=== PATIENT | male | born 1945 | race Caucasian/White ===

== ENCOUNTER → 2016-07-22 | Outpatient (CLI) | payer MEDICARE, OTHER ==
[~2016-07-22] MED LIST: ASPI1TAB PO; ATOR1TAB21 PO; CHLO25TA PO; CLON-412 PO; CLOP75TA2 PO; CYCL10TA PO; DOXA1TAB73 PO; GABA-283 PO; HYDR-4266 PO; METO-207 PO; NIFE15TA PO; PERCOCET PO; SPIR25TA2 PO; TRAM50TA2 PO
[2016-07-22 13:37] LABS: CALCIUM LEVEL 9.1 MG/DL (8.8-10.2); CREATININE FOR GFR 1.47 MG/DL (0.70-1.30); GLOMERULAR FILTRATION RATE 50.1 (>42); POTASSIUM SERUM 4.6 MEQ/L (3.5-5.1)
== END ==
LOC: M LRY 08:01
PROVIDERS: ATTEND Internal Medicine
DX: N18.3 Chronic kidney disease, stage 3 (moderate) (principal)

== ENCOUNTER → 2016-11-11 | Outpatient (REF) | payer MEDICARE, OTHER | LOC: M LAB REF 15:30 | PROVIDERS: ATTEND Surgery | DX: D48.5 Neoplasm of uncertain behavior of skin (principal) ==

== ENCOUNTER → 2017-03-23 | Outpatient (CLI) | payer MEDICARE, OTHER ==
[~2017-03-23] MED LIST changes: +HYDR-3910 PO; -HYDR-4266 PO; -METO-207 PO; +METO1TAB7 PO
[2017-03-23 11:57] LABS: CALCIUM LEVEL 9.3 MG/DL (8.8-10.2); CREATININE FOR GFR 1.39 MG/DL (0.70-1.30); GLOMERULAR FILTRATION RATE 53.5 (>42); POTASSIUM SERUM 4.3 MEQ/L (3.5-5.1)
== END ==
LOC: M LRY 08:57
PROVIDERS: ATTEND Physician Assistant Medical
DX: N18.3 Chronic kidney disease, stage 3 (moderate) (principal)

== ENCOUNTER 2017-07-29 08:58 | Emergency (ER) | payer MEDICARE, OTHER ==
[2017-07-29 10:06] LABS: BASO # 0.1 10^3/uL (0.0-0.2); EOS # 0.1 10^3/uL (0.0-0.50); EOS % 1.9 % (0.0-3.0); HEMATOCRIT 46.5 % (42.0-52.0); HEMOGLOBIN 15.5 g/dl (14.0-18.0); IMMATURE GRANULOCYTE % 0.7 % (0-3.0); LYMPH # 0.7 10^3/uL (1.5-4.5); MEAN CORPUSCULAR HEMOGLOBIN 30.2 pg (27.0-33.0); MEAN CORPUSCULAR HGB CONC 33.3 g/dl (32.0-36.5); MEAN CORPUSCULAR VOLUME 90.6 fl (80.0-96.0); MONO # 0.4 10^3/uL (0.0-0.8); MONO % 6.7 % (0.0-5.0); NEUTROPHILS # 4.5 10^3/uL (1.8-7.7); NEUTROPHILS % 77.7 % (36.0-66.0); PLATELET COUNT, AUTOMATED 254 10^3/uL (150-450); RED BLOOD COUNT 5.13 10^6/uL (4.30-6.10); RED CELL DISTRIBUTION WIDTH 12.5 % (11.5-14.5); WHITE BLOOD COUNT 5.8 10^3/uL (4.0-10.0)
[2017-07-29 10:32] LABS: ANION GAP 5 MEQ/L (8-16); BLOOD UREA NITROGEN 20 MG/DL (7-18); CALCIUM LEVEL 8.9 MG/DL (8.8-10.2); CARBON DIOXIDE LEVEL 28 MEQ/L (21-32); CHLORIDE LEVEL 107 MEQ/L (98-107); CK-MB VALUE MASS 2.7 NG/ML (0.0-3.6); CPK CREATINE PHOSPHOKINASE 218 U/L (39-308); CREATININE FOR GFR 1.49 MG/DL (0.70-1.30); GLOMERULAR FILTRATION RATE 49.2 (>42); GLUCOSE, FASTING 104 MG/DL (70-100); MB/CK RELATIVE INDEX 1.23 (< OR =4); NT-PRO BNP 315 PG/ML (<125); POTASSIUM SERUM 4.4 MEQ/L (3.5-5.1); SODIUM LEVEL 140 MEQ/L (136-145); TROPONIN I < 0.02 NG/ML (< 0.10)
[2017-07-29 12:23] LABS: CK-MB VALUE MASS 2.3 NG/ML (0.0-3.6); CPK CREATINE PHOSPHOKINASE 188 U/L (39-308); MB/CK RELATIVE INDEX 1.22 (< OR =4); TROPONIN I < 0.02 NG/ML (< 0.10)
== END 2017-07-29 15:40 | disposition short-term general hospital (02) ==
LOC: M ED 08:58
DX: I25.110 Atherosclerotic heart disease of native coronary artery with unstable angina pectoris (principal); I11.9 Hypertensive heart disease without heart failure; N18.9 Chronic kidney disease, unspecified; Z79.01 Long term (current) use of anticoagulants; Z79.82 Long term (current) use of aspirin; Z79.899 Other long term (current) drug therapy; Z88.5 Allergy status to narcotic agent; Z87.891 Personal history of nicotine dependence
CPT/HCPCS: 71045

== ENCOUNTER → 2018-01-07 | Outpatient (CLI) | payer MEDICARE, OTHER ==
[2018-01-07 17:23] LABS: BASO % 0.7 % (0.0-1.0); EOS # 0.1 10^3/uL (0.0-0.50); EOS % 2.3 % (0.0-3.0); HEMOGLOBIN 14.8 g/dl (13.5-17.5); IMMATURE GRANULOCYTE % 0.5 % (0-3.0); LYMPH # 0.7 10^3/uL (1.5-4.5); LYMPH % 12.2 % (24.0-44.0); MEAN CORPUSCULAR HEMOGLOBIN 30.1 pg (27.0-33.0); MEAN CORPUSCULAR HGB CONC 32.2 g/dl (32.0-36.5); MEAN CORPUSCULAR VOLUME 93.7 fl (80.0-96.0); MONO # 0.3 10^3/uL (0.0-0.8); MONO % 5.3 % (0.0-5.0); NEUTROPHILS # 4.8 10^3/uL (1.8-7.7); PLATELET COUNT, AUTOMATED 284 10^3/uL (150-450); RED BLOOD COUNT 4.91 10^6/uL (4.30-6.10); RED CELL DISTRIBUTION WIDTH 12.5 % (11.5-14.5); WHITE BLOOD COUNT 6.1 10^3/uL (4.0-10.0)
[2018-01-07 18:34] LABS: ERYTHROCYTE SEDIMENTATION RATE 2 mm/hr (0-20)
[2018-01-07 18:52] LABS: ALBUMIN 3.7 GM/DL (3.2-5.2); ALBUMIN/GLOBULIN RATIO 1.09 (1.00-1.93); ALKALINE PHOSPHATASE 78 U/L (45-117); ALT/SGPT 22 U/L (12-78); ANION GAP 8 MEQ/L (8-16); AST/SGOT 21 U/L (7-37); BILIRUBIN,TOTAL 0.6 MG/DL (0.2-1.0); BLOOD UREA NITROGEN 23 MG/DL (7-18); CALCIUM LEVEL 8.7 MG/DL (8.8-10.2); CARBON DIOXIDE LEVEL 27 MEQ/L (21-32); CHLORIDE LEVEL 107 MEQ/L (98-107); GLOMERULAR FILTRATION RATE 42.3 (>42); GLUCOSE, FASTING 109 MG/DL (70-100); POTASSIUM SERUM 4.3 MEQ/L (3.5-5.1); RHEUMATOID FACTOR QUANT 16.2 IU/ML (<15.0); SODIUM LEVEL 142 MEQ/L (136-145); TOTAL PROTEIN 7.1 GM/DL (6.4-8.2)
[2018-01-07 19:40] LABS: FOLATE 4.3 NG/ML; VITAMIN B12 LEVEL 336 PG/ML
[2018-01-09 14:10] LABS: ANTINUCLEAR ANTIBODIES DIRECT Negative (Negative)
[2018-01-12 00:07] LABS: VITAMIN E(ALPHA TOCOPHEROL) 9.3 mg/L (9.0-29.0); VITAMIN E(GAMMA TOCOPHEROL) 1.3 mg/L (0.5-4.9)
[2018-01-13 08:06] LABS: VITAMIN B1 LEVEL WHOLE BLOOD 109.8 nmol/L (66.5-200.0); VITAMIN B6,PYRIDOXAL PHOSPHATE 4.5 ug/L (5.3-46.7)
[2018-01-13 11:35] LABS: ALBUMIN 4.26 GM/DL (3.29-5.55); ALPHA-1-GLOBULIN % 4.1 % (2.9-4.9); ALPHA-1-GLOBULINS 0.29 GM/DL (0.17-0.41); ALPHA-2-GLOBULINS 0.69 GM/DL (0.42-0.99); ALPHA-2-GLOBULINS % 9.7 % (7.1-11.8); BETA-1-GLOBULINS % 6.3 % (4.7-7.2); BETA-2-GLOBULINS % 5.4 % (3.2-6.5); GAMMA GLOBULIN % 14.5 % (11.1-18.8)
[2018-01-13 11:36] LABS: BETA-1-GLOBULINS 0.45 GM/DL (0.28-0.60); BETA-2-GLOBULINS 0.38 GM/DL (0.19-0.55); GAMMA GLOBULINS 1.03 GM/DL (0.65-1.58)
== END ==
LOC: M LRY 14:24
DX: R51 Headache (principal); R42 Dizziness and giddiness; R41.3 Other amnesia
CPT/HCPCS: 82746

== ENCOUNTER 2018-09-07 09:06 | Emergency (ER) | payer MEDICARE, OTHER ==
[~2018-09-07] VITALS: Ht 180.3 cm; Wt 95.5 kg
[~2018-09-07 09:06] MED LIST changes: -ASPI1TAB PO; +ASPI81TA26 PO; +ATEN50TA2 PO; +CHLO125TA PO; -CHLO25TA PO; -DOXA1TAB73 PO; +DOXA2TAB3 PO; +DOXA8TAB2 PO; -GABA-283 PO; +GABA-845 PO; +SPIR-10 PO; -SPIR25TA2 PO
[2018-09-07] MEDS ORDERED: MECLIZINE 25 MG TABLET PO ONE (09:45)
[2018-09-07 09:47] LABS: BASO % 0.5 % (0.0-1.0); EOS # 0.1 10^3/uL (0.0-0.50); EOS % 1.6 % (0.0-3.0); HEMATOCRIT 41.7 % (42.0-52.0); HEMOGLOBIN 13.8 g/dl (13.5-17.5); LYMPH # 0.6 10^3/uL (1.5-4.5); LYMPH % 8.5 % (24.0-44.0); MEAN CORPUSCULAR HEMOGLOBIN 30.9 pg (27.0-33.0); MEAN CORPUSCULAR HGB CONC 33.1 g/dl (32.0-36.5); MEAN CORPUSCULAR VOLUME 93.3 fl (80.0-96.0); MONO # 0.5 10^3/uL (0.0-0.8); MONO % 6.9 % (0.0-5.0); NEUTROPHILS # 6.1 10^3/uL (1.8-7.7); NEUTROPHILS % 82.1 % (36.0-66.0); PLATELET COUNT, AUTOMATED 277 10^3/uL (150-450); RED BLOOD COUNT 4.47 10^6/uL (4.30-6.10); WHITE BLOOD COUNT 7.5 10^3/uL (4.0-10.0)
--- NOTE | 2018-09-07 09:54 | REP ---
CT Head without contrast HISTORY: Dizziness COMPARISON: 06/19/2015 Areas of decreased attenuation are present in the periventricular white matter. This represents small-vessel ischemic disease. There is no intraparenchymal hemorrhage, acute infarct, mass or midline shift. The ventricular system and cortical sulci are dilated consistent with mild volume loss. There is no extra cerebral collection. There is no fracture. The visualized sinuses are clear. IMPRESSION: 1. Small vessel ischemic disease. 2. Mild volume loss. Electronically Signed by Hung Multani MD 09/07/2018 09:45 A
[2018-09-07 09:57] LABS: INR 1.02; PROTHROMBIN TIME 13.5 SECONDS (12.1-14.4)
--- NOTE | 2018-09-07 10:00 | REP ---
Portable chest x-ray: Single view. History: Chest pain. Comparison study: July 29, 2017. Findings: EKG monitoring electrodes overlie the chest. There are granulomatous calcifications visible in the left chest unchanged. Heart size is normal. Lungs are otherwise clear. Pleural angles are sharp. Pulmonary vasculature is not increased. The thoracic aorta is slightly tortuous. No significant bony abnormality is noted. Impression: No active disease. Electronically Signed by Antonio Cheema MD 09/07/2018 09:51 A
[2018-09-07 10:14] LABS: ALBUMIN 3.4 GM/DL (3.2-5.2); ALT/SGPT 16 U/L (12-78); BILIRUBIN,DIRECT 0.1 MG/DL (0.0-0.2); BILIRUBIN,TOTAL 0.6 MG/DL (0.2-1.0); BLOOD UREA NITROGEN 21 MG/DL (7-18); CALCIUM LEVEL 8.8 MG/DL (8.8-10.2); CARBON DIOXIDE LEVEL 26 MEQ/L (21-32); CHLORIDE LEVEL 107 MEQ/L (98-107); CPK CREATINE PHOSPHOKINASE 191 U/L (39-308); CREATININE FOR GFR 1.42 MG/DL (0.70-1.30); GLOMERULAR FILTRATION RATE 51.9 (>42); GLUCOSE, FASTING 102 MG/DL (70-100); LIPASE 150 U/L (73-393); MB/CK RELATIVE INDEX 1.88 (< OR =4); NT-PRO BNP 526 PG/ML (<125); SODIUM LEVEL 139 MEQ/L (136-145); TOTAL PROTEIN 6.7 GM/DL (6.4-8.2); TROPONIN I < 0.02 NG/ML (< 0.10)
--- NOTE | 2018-09-07 15:24 | REP ---
MRA BRAIN WITHOUT CONTRAST: HISTORY: Vertigo. 3D [id number] MR angiography was performed at the level of the [place]. There is no aneurysm or arteriovenous malformation. Moderate atherosclerotic disease involves the cavernous right internal carotid artery. Mild atherosclerotic disease involves the cavernous left internal carotid artery. The A1 segment of the right anterior cerebral artery is hypoplastic. Major intracranial vessels are patent. The left vertebral artery is dominant. IMPRESSION: 1. There is no aneurysm or arteriovenous malformation. 2. Atherosclerotic disease as described above. Electronically Signed by Hung Multani MD 09/07/2018 03:27 P
--- NOTE | 2018-09-07 15:24 | REP ---
MR BRAIN WITHOUT CONTRAST: HISTORY: Vertigo. COMPARISON: CT 09/07/2018 Several punctate areas of increased signal intensity on T2-weighted images are present in the periventricular and subcortical white matter. This represents small vessel ischemic disease. There is no intraparenchymal hemorrhage, infarct , mass or midline shift. The ventricular system and cortical sulci are dilated consistent with mild volume loss. There is no extracerebral collection. The sinuses are clear. IMPRESSION: 1. Minimal small vessel ischemic disease. 2. Mild volume loss. Electronically Signed by Hung Multani MD 09/07/2018 03:27 P
[2018-09-07 16:06] LABS: CPK CREATINE PHOSPHOKINASE 178 U/L (39-308); MB/CK RELATIVE INDEX 1.57 (< OR =4); TROPONIN I < 0.02 NG/ML (< 0.10)
[2018-09-07] MEDS ORDERED: MECL-68 PO (16:18)
[2018-09-07 16:33] VITALS: BP 150/73
--- NOTE | 2018-09-07 22:07 | ECGEPIP ---
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
--- NOTE | 2018-09-07 22:12 | ECGEPIP ---
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
== END 2018-09-07 16:35 | disposition home or self-care (01) ==
LOC: M ED 09:06
DX: R42 Dizziness and giddiness (principal); R07.9 Chest pain, unspecified; I25.10 Atherosclerotic heart disease of native coronary artery without angina pectoris; I25.2 Old myocardial infarction; I10 Essential (primary) hypertension; E78.5 Hyperlipidemia, unspecified; N18.3 Chronic kidney disease, stage 3 (moderate); Z86.79 Personal history of other diseases of the circulatory system; Z96.0 Presence of urogenital implants; Z87.891 Personal history of nicotine dependence; Z79.82 Long term (current) use of aspirin; Z79.899 Other long term (current) drug therapy; Z88.5 Allergy status to narcotic agent

== ENCOUNTER → 2018-09-14 | Outpatient (CLI) | payer MEDICARE, OTHER ==
[~2018-09-14] MED LIST changes: +MECL-68 PO; +VENTAER INH
[2018-09-14 20:19] LABS: CALCIUM LEVEL 8.9 MG/DL (8.8-10.2); CREATININE FOR GFR 1.66 MG/DL (0.70-1.30); GLOMERULAR FILTRATION RATE 43.3 (>42); POTASSIUM SERUM 4.6 MEQ/L (3.5-5.1)
[2018-09-14 20:25] LABS: HEMATOCRIT 37.6 % (42.0-52.0); HEMOGLOBIN 13.4 g/dl (13.5-17.5); MEAN CORPUSCULAR HEMOGLOBIN 33.6 pg (27.0-33.0); MEAN CORPUSCULAR HGB CONC 35.6 g/dl (32.0-36.5); MEAN CORPUSCULAR VOLUME 94.2 fl (80.0-96.0); PLATELET COUNT, AUTOMATED 253 10^3/uL (150-450); RED BLOOD COUNT 3.99 10^6/uL (4.30-6.10); WHITE BLOOD COUNT 4.6 10^3/uL (4.0-10.0)
== END ==
LOC: M LRY 15:19
PROVIDERS: ATTEND Physician Assistant
DX: J20.9 Acute bronchitis, unspecified (principal)

== ENCOUNTER 2018-09-21 13:25 | Emergency (ER) | payer MEDICARE, OTHER ==
[~2018-09-21] VITALS: Ht 180.3 cm; Wt 90.9 kg
[~2018-09-21 13:25] MED LIST changes: -VENTAER INH
[2018-09-21] MEDS ORDERED: methylPREDNISolone INJ 125 MG/2 ML VIAL (J2930) IV ONE (14:15)
[2018-09-21] MEDS ORDERED: ALBUTEROL SULFATE 2.5 MG/0.5 ML INH NEB SOLN INH ONE (14:15)
[2018-09-21] MEDS ORDERED: IPRATROPIUM 0.5MG/ALBUTEROL 2.5MG INH SOL UD 3ML (DUONEB)(J7620) NEB ONE (14:15)
[2018-09-21 14:32] LABS: BASO % 0.4 % (0.0-1.0); EOS # 0.1 10^3/uL (0.0-0.50); EOS % 1.6 % (0.0-3.0); HEMATOCRIT 40.5 % (42.0-52.0); MEAN CORPUSCULAR HEMOGLOBIN 32.1 pg (27.0-33.0); MEAN CORPUSCULAR HGB CONC 34.6 g/dl (32.0-36.5); MEAN CORPUSCULAR VOLUME 92.9 fl (80.0-96.0); MONO # 0.5 10^3/uL (0.0-0.8); NEUTROPHILS # 5.8 10^3/uL (1.8-7.7); NEUTROPHILS % 78.3 % (36.0-66.0); PLATELET COUNT, AUTOMATED 303 10^3/uL (150-450); RED BLOOD COUNT 4.36 10^6/uL (4.30-6.10); WHITE BLOOD COUNT 7.4 10^3/uL (4.0-10.0)
[2018-09-21 14:52] LABS: INR 1.03; PROTHROMBIN TIME 13.6 SECONDS (12.1-14.4)
--- NOTE | 2018-09-21 14:54 | REP ---
CT of the abdomen and pelvis without IV and oral contrast for abdominal aortic aneurysm evaluation: Comparison is 11/24/2013. There is an aneurysm of the distal abdominal aorta measuring up to 3.9 cm diameter. Previously this measured 3.2 cm. There is no periaortic hematoma. There is calcified vascular atheroma throughout the abdominal aorta. There is aneurysmal dilatation of the proximal right common iliac artery measuring up to 2.7 cm. just distal to the bifurcation. There is aneurysmal dilatation of the proximal left common iliac artery a few centimeters distal to the bifurcation measuring up to 2.5 cm. There is an endovascular stent in the proximal right renal artery, unchanged from the prior study. There is diffuse right renal cortical atrophy that has progressed. There is an endovascular stent in the proximal left renal artery that was not present previously. There is no left renal cortical atrophy. There is a nonobstructive 4 mm left renal calculus, not significantly changed. There is no hydronephrosis. The visualized lung bravo are unremarkable. The unenhanced hepatic parenchyma, gallbladder, spleen and pancreas are unremarkable except for splenic calcified granulomas. This is unchanged. The adrenals are unremarkable. The kidneys as previously described. There is no abdominal aortic aneurysm as described. No periaortic hematoma. The bowel and mesentery are unremarkable. Pelvis: The appendix is unremarkable. The bladder is unremarkable. The prostate is moderately enlarged and contains prostatic of this. There is no pelvic adenopathy or ascites. The pelvic bowel loops are unremarkable. Impression: Abdominal aortic aneurysm as described. 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 Nonobstructive left renal calculus, unchanged. Bilateral renal artery stents as described. Advanced right renal cortical atrophy. No left renal cortical atrophy. Electronically Signed by Markell Garcia MD 09/21/2018 02:45 P
[2018-09-21 14:55] LABS: D-DIMER QUANT 924.55 ng/ml (<500)
--- NOTE | 2018-09-21 14:58 | REP ---
REASON: Dyspnea. COMPARISON: Multiple, the latest 09/07/2018. The technique utilized in obtaining the radiograph has magnified the cardiac silhouette and accentuated the interstitial markings. The lung rbavo and cardiomediastinal silhouette are unchanged allowing for the differences in technique. No acute patchy parenchymal opacities or pleural effusions have developed. The heart is not enlarged. The osseous structures are stable and intact. IMPRESSION: No acute cardiopulmonary disease. Electronically Signed by Daniele Nicholson DO 09/21/2018 04:02 P
[2018-09-21 15:12] LABS: ALBUMIN 3.6 GM/DL (3.2-5.2); ALT/SGPT 26 U/L (12-78); BILIRUBIN,DIRECT 0.1 MG/DL (0.0-0.2); BILIRUBIN,TOTAL 0.5 MG/DL (0.2-1.0); BLOOD UREA NITROGEN 25 MG/DL (7-18); CALCIUM LEVEL 9.3 MG/DL (8.8-10.2); CARBON DIOXIDE LEVEL 25 MEQ/L (21-32); CHLORIDE LEVEL 104 MEQ/L (98-107); CPK CREATINE PHOSPHOKINASE 280 U/L (39-308); CREATININE FOR GFR 1.35 MG/DL (0.70-1.30); GLUCOSE, FASTING 97 MG/DL (70-100); MB/CK RELATIVE INDEX 1.82 (< OR =4); NT-PRO BNP 333 PG/ML (<125); POTASSIUM SERUM 4.5 MEQ/L (3.5-5.1); SODIUM LEVEL 136 MEQ/L (136-145); THYROXINE (T4) 7.3 UG/DL (4.5-12.0); TOTAL PROTEIN 6.4 GM/DL (6.4-8.2); TROPONIN I < 0.02 NG/ML (< 0.10)
--- NOTE | 2018-09-21 17:22 | REP ---
Duplex extremity venous ultrasound: Bilateral lower extremity lizette History: Shortness of breath. Question DVT. Findings: The deep veins are anechoic and fully compressible from the groin to the popliteal fossa in the left and right lower extremity. Color flow imaging is homogeneous. Spectral Doppler interrogation demonstrates intact respiratory variation in flow and normal manual augmentation of flow. There is no evidence of deep vein thrombosis. Impression: Negative bilateral lower extremity duplex venous ultrasound. No evidence of deep vein thrombosis. Electronically Signed by Antonio Cheema MD 09/21/2018 05:14 P
[2018-09-21 17:30] VITALS: BP 146/65
--- NOTE | 2018-09-21 17:39 | REP ---
Bilateral renal artery Doppler ultrasound: Renal vascular ultrasound: There is an endovascular stent in the proximal right renal artery. Right Kidney: The right kidney measures 5.4 cm length and is atrophic. Extraparenchymal renal artery. There is no detectable vascular flow in the right renal artery, right renal artery occlusion. Impression: There is occlusion of the right renal artery. Left kidney: The left kidney measures 11.2 cm length and is normal size. Extraparenchymal renal artery: There is an endovascular stent in the proximal left renal artery. Peak renal artery flow velocity: 135 the cm/sec. proximally, 70.1 cm/sec mid artery and 57.9 cm distal artery. Aortic flow velocity is inaccurate in this patient with abdominal aortic aneurysm therefore not performed. Intraparenchymal renal arteries: Resistive index: Upper pole 0.51 mid pole 0.64 lower pole 0.70 Acceleration time: Upper pole 0. 03 mid pole 0. 02 lower pole: 0.007 Impression: There is vascular flow in the left renal artery as described. Bilateral renal ultrasound: The right kidney measures 5.4 x 2.9 x 1.7 cm. Left kidney measures 11.2 x 5.195 point 1 cm. The right kidney is atrophic. The left kidney is normal size. The right renal cortical echogenicity is increased compatible with medical renal disease. The left renal cortical echogenicity is normal. There is no hydronephrosis on the right on the left. There is a mid pole right renal cyst measuring 1.8 x 1.8 x 1.6 cm. There are no solid renal masses. There are no calcifications. Impression: Atrophic right kidney. Right renal cyst as described. The left kidney is unremarkable. Electronically Signed by Markell Garcia MD 09/21/2018 05:30 P
[2018-09-21] MEDS ORDERED: VENTAER INH (17:58)
--- NOTE | 2018-09-21 21:40 | ECGEPIP ---
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
--- NOTE | 2018-09-22 14:17 | ED PDOC ---
Post-Departure Follow-Up edin pinto faxed formal repot of ct abd/p for fu Murali Herring MD Sep 22, 2018 14:17
== END 2018-09-21 18:20 | disposition home or self-care (01) ==
LOC: M ED 13:25
DX: I71.4 Abdominal aortic aneurysm, without rupture (principal); I72.3 Aneurysm of iliac artery; N20.2 Calculus of kidney with calculus of ureter; N26.1 Atrophy of kidney (terminal); Z95.828 Presence of other vascular implants and grafts; R42 Dizziness and giddiness; R05 Cough; M79.661 Pain in right lower leg; M79.662 Pain in left lower leg; R06.02 Shortness of breath; I11.0 Hypertensive heart disease with heart failure; I50.9 Heart failure, unspecified; I25.10 Atherosclerotic heart disease of native coronary artery without angina pectoris; F17.210 Nicotine dependence, cigarettes, uncomplicated; Z88.5 Allergy status to narcotic agent; Z79.899 Other long term (current) drug therapy; Z79.01 Long term (current) use of anticoagulants
CPT/HCPCS: 71045; 74176; 76775; 80048; 80076; 82550; 82553; 83605; 83880; 84436; 84443; 84484; 85025; 85379; 85610; 87040; 93005; 93041; 93970; 93975; 94640; 94760; 96374; 99285; J2930

== ENCOUNTER 2018-10-12 20:18 | Emergency (ER) | payer MEDICARE, OTHER ==
[~2018-10-12] VITALS: Ht 177.8 cm; Wt 93.8 kg
[~2018-10-12 20:18] MED LIST changes: +VENTAER INH
[2018-10-12] MEDS ORDERED: B COTAB3 PO (20:30)
[2018-10-12] MEDS ORDERED: ATEN25TA PO (20:30)
[2018-10-12] MEDS ORDERED: DOXA1TAB42 PO (20:30)
[2018-10-12 21:08] LABS: BASO % 0.6 % (0.0-1.0); EOS # 0.3 10^3/uL (0.0-0.50); EOS % 3.7 % (0.0-3.0); HEMATOCRIT 42.3 % (42.0-52.0); HEMOGLOBIN 13.7 g/dl (13.5-17.5); LYMPH # 1.1 10^3/uL (1.5-4.5); LYMPH % 15.8 % (24.0-44.0); MEAN CORPUSCULAR HEMOGLOBIN 30.7 pg (27.0-33.0); MEAN CORPUSCULAR HGB CONC 32.4 g/dl (32.0-36.5); MEAN CORPUSCULAR VOLUME 94.8 fl (80.0-96.0); MONO # 0.6 10^3/uL (0.0-0.8); MONO % 8.8 % (0.0-5.0); NEUTROPHILS # 4.8 10^3/uL (1.8-7.7); NEUTROPHILS % 70.7 % (36.0-66.0); PLATELET COUNT, AUTOMATED 276 10^3/uL (150-450); RED BLOOD COUNT 4.46 10^6/uL (4.30-6.10); WHITE BLOOD COUNT 6.8 10^3/uL (4.0-10.0)
[2018-10-12 21:23] VITALS: BP 148/73
[2018-10-12 21:33] LABS: ALBUMIN 3.7 GM/DL (3.2-5.2); ALT/SGPT 21 U/L (12-78); BILIRUBIN,DIRECT 0.1 MG/DL (0.0-0.2); BILIRUBIN,TOTAL 0.4 MG/DL (0.2-1.0); BLOOD UREA NITROGEN 19 MG/DL (7-18); CALCIUM LEVEL 8.9 MG/DL (8.8-10.2); CARBON DIOXIDE LEVEL 26 MEQ/L (21-32); CHLORIDE LEVEL 108 MEQ/L (98-107); CPK CREATINE PHOSPHOKINASE 148 U/L (39-308); CREATININE FOR GFR 1.54 MG/DL (0.70-1.30); GLOMERULAR FILTRATION RATE 47.2 (>42); GLUCOSE, FASTING 124 MG/DL (70-100); LIPASE 168 U/L (73-393); MB/CK RELATIVE INDEX 2.23 (< OR =4); POTASSIUM SERUM 3.9 MEQ/L (3.5-5.1); SODIUM LEVEL 140 MEQ/L (136-145); TOTAL PROTEIN 6.4 GM/DL (6.4-8.2); TROPONIN I < 0.02 NG/ML (< 0.10)
[2018-10-12] MEDS ORDERED: methylPREDNISolone INJ 125 MG/2 ML VIAL (J2930) IV ONE (22:30)
[2018-10-12] MEDS ORDERED: AZITHROMYCIN 250 MG TAB PO ONE (22:30)
[2018-10-12] MEDS ORDERED: ALBU17IN2 INH (23:36)
[2018-10-12] MEDS ORDERED: MEDR4PAK PO (23:36)
[2018-10-12] MEDS ORDERED: ZITH500T PO (23:36)
--- NOTE | 2018-10-13 08:31 | REP ---
PORTABLE CHEST X-RAY: Single view. HISTORY: Chest pain COMPARISON STUDY: September 21, 2018. FINDINGS: EKG monitoring electrodes overlie the chest. There is an old calcified granuloma on the left. The lungs are well inflated and otherwise clear. The pleural angles are sharp. Heart size is normal. No significant bony abnormality is seen IMPRESSION: No active disease. Electronically Signed by Antonio Cheema MD 10/13/2018 03:36 P
--- NOTE | 2018-10-13 20:21 | ECGEPIP ---
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
== END 2018-10-13 00:08 | disposition home or self-care (01) ==
LOC: M ED 20:18
DX: J40 Bronchitis, not specified as acute or chronic (principal); I13.10 Hypertensive heart and chronic kidney disease without heart failure, with stage 1 through stage 4 chronic kidney disease, or unspecified chronic kidney disease; I25.10 Atherosclerotic heart disease of native coronary artery without angina pectoris; N18.3 Chronic kidney disease, stage 3 (moderate); Z88.5 Allergy status to narcotic agent; Z79.51 Long term (current) use of inhaled steroids; Z79.82 Long term (current) use of aspirin; Z79.899 Other long term (current) drug therapy
CPT/HCPCS: 71045; 80048; 80076; 82550; 82553; 83690; 84484; 85025; 85379; 93005; 93041; 94760; 96374; 99284; J2930

== ENCOUNTER → 2018-11-07 | Outpatient (CLI) | payer MEDICARE, OTHER ==
[~2018-11-07] MED LIST changes: +ALBU17IN2 INH; +ATEN25TA PO; +B COTAB3 PO; +DOXA1TAB42 PO; +MEDR4PAK PO; +ZITH500T PO
[2018-11-07 18:21] LABS: ALBUMIN 3.5 GM/DL (3.2-5.2); BILIRUBIN,DIRECT 0.2 MG/DL (0.0-0.2); BILIRUBIN,TOTAL 0.6 MG/DL (0.2-1.0); TOTAL PROTEIN 6.5 GM/DL (6.4-8.2)
== END ==
LOC: M WUC 09:34
PROVIDERS: ATTEND Internal Medicine Cardiovascular Disease
DX: I70.1 Atherosclerosis of renal artery (principal)

== ENCOUNTER 2019-03-20 11:59 | Emergency (ER) | payer MEDICARE, OTHER ==
[~2019-03-20] VITALS: Ht 180.3 cm; Wt 95.2 kg
[~2019-03-20 11:59] MED LIST changes: -ALBU17IN2 INH; +PROV108A INH
[2019-03-20 12:35] LABS: BASO # 0.1 10^3/uL (0.0-0.2); BASO % 0.9 % (0.0-1.0); EOS # 0.2 10^3/uL (0.0-0.5); EOS % 2.5 % (0.0-3.0); HEMATOCRIT 44.7 % (42.0-52.0); HEMOGLOBIN 14.8 g/dl (13.5-17.5); LYMPH # 0.7 10^3/uL (1.5-5.0); LYMPH % 9.3 % (24.0-44.0); MEAN CORPUSCULAR HEMOGLOBIN 31.2 pg (27.0-33.0); MEAN CORPUSCULAR HGB CONC 33.1 g/dl (32.0-36.5); MEAN CORPUSCULAR VOLUME 94.1 fl (80.0-96.0); MONO # 0.5 10^3/uL (0.0-0.8); MONO % 6.8 % (0.0-5.0); NEUTROPHILS # 6.1 10^3/uL (1.5-8.5); NEUTROPHILS % 80.1 % (36.0-66.0); PLATELET COUNT, AUTOMATED 277 10^3/uL (150-450); RED BLOOD COUNT 4.75 10^6/uL (4.30-6.10); WHITE BLOOD COUNT 7.7 10^3/uL (4.0-10.0)
[2019-03-20 13:02] LABS: BLOOD UREA NITROGEN 22 MG/DL (7-18); CALCIUM LEVEL 9.4 MG/DL (8.8-10.2); CARBON DIOXIDE LEVEL 23 MEQ/L (21-32); CHLORIDE LEVEL 108 MEQ/L (98-107); CPK CREATINE PHOSPHOKINASE 254 U/L (39-308); CREATININE FOR GFR 1.34 MG/DL (0.70-1.30); FREE T4 0.94 NG/DL (0.76-1.46); GLOMERULAR FILTRATION RATE 55.5 (>42); GLUCOSE, FASTING 97 MG/DL (70-100); MB/CK RELATIVE INDEX 1.57 (< OR =4); POTASSIUM SERUM 4.7 MEQ/L (3.5-5.1); SODIUM LEVEL 139 MEQ/L (136-145); TROPONIN I < 0.02 NG/ML (< 0.10)
[2019-03-20 13:51] VITALS: BP 160/103
--- NOTE | 2019-03-20 14:02 | REP ---
REASON: Chest pain. COMPARISON: Multiple, the latest 10/12/2018. The technique utilized in obtaining the radiograph has magnified the cardiac silhouette and accentuated the interstitial markings. Cephalic angulation was also utilized to obtain the exam further limiting the exam. There is no change from prior exams. No acute patchy parenchymal opacities or pleural effusions have developed. The cardiomediastinal silhouette is unchanged. The osseous structures are unchanged. IMPRESSION: No acute cardiopulmonary disease. Electronically Signed by Daniele Nicohlson DO 03/20/2019 02:29 P
--- NOTE | 2019-03-20 14:05 | REP ---
REASON: Loss of vision. COMPARISON: 09/07/2018 which showed chronic changes. The ventricles and sulci are unchanged. No acute intracranial hemorrhagic or nonhemorrhagic event has developed. There is no shift of the midline structures. There is no change in the appearance of the deep cerebral white matter. There is no change in the appearance of the skull or skull base. There is no change in the paranasal sinuses or mastoid air cells. IMPRESSION: No acute disease or significant change from the prior exam. Electronically Signed by Daniele Nicholson DO 03/20/2019 02:29 P
--- NOTE | 2019-03-20 19:12 | ECGEPIP ---
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
== END 2019-03-20 13:55 | disposition left against medical advice (07) ==
LOC: M ED 11:59
DX: G45.9 Transient cerebral ischemic attack, unspecified (principal); Z87.891 Personal history of nicotine dependence; Z82.49 Family history of ischemic heart disease and other diseases of the circulatory system; Z79.82 Long term (current) use of aspirin; Z79.899 Other long term (current) drug therapy; Z88.5 Allergy status to narcotic agent

== ENCOUNTER → 2019-06-10 | Outpatient (CLI) | payer MEDICARE, OTHER ==
--- NOTE | 2019-06-10 10:27 | REP ---
Clinical: Abdominal aortic aneurysm. Technique: Real time huynh scale and color evaluation using curved array transducer. Findings: There is a distal aortic aneurysm extending into the right common iliac artery which measures 3.5 x 4.2 cm maximal diameter and 6.1 cm in length originating below the level of the renal arteries. Associated atheromatous plaquing is appreciated. Proximal aorta measures 2.8 x 2.8 cm. Mid aorta measures 2.5 x 2.8 cm. Right common iliac artery measures 2.3 x 2.1 cm. Left common iliac artery measures 1.5 x 1.0 cm. Impression: Known distal abdominal aortic aneurysm. Electronically Signed by Aaron Farrell MD 06/10/2019 10:18 A
--- NOTE | 2019-06-10 17:26 | REP ---
Clinical: Hypertension and chronic medical renal disease. Technique: [place] scale and color Doppler evaluation of the kidneys and renal vasculature using curved array transducer. Findings: The right kidney is atrophic, hyperechoic and demonstrates multiple cysts measuring up to 2.0 cm in the upper pole. Right kidney measures 7.6 x 3.4 x 2.4 cm without hydronephrosis. The left kidney is normal in contour, size, echogenicity without hydronephrosis or cystic change and measures 12.3 x 4.6 x 5.1 cm. Color Doppler evaluation of the left renal vasculature demonstrates renal arterial stent with normal arterial wave patterns, velocities, renal aortic ratios, resistive indices and the acceleration time. No sonographic evidence for renal arterial stenosis noted. Renal vein is patent. No flow identified to the right kidney. Right Kidney: No flow identified to the right kidney. Left kidney: Peak arterial velocity: 177 . Renal aortic ratio: 2.1 . Resistive indices: 0.58 - 0.65 . Acceleration times: 0.07 - 0.08 . Impression: 1. Atrophic right kidney with few cysts up to 2.0 cm and no visible flow on Doppler interrogation. 2. Left kidney appears normal without renal arterial stenosis. Electronically Signed by Aaron Farrell MD 06/10/2019 05:18 P
== END ==
LOC: M RAD 08:00
PROVIDERS: ATTEND Surgery Vascular Surgery
DX: I71.4 Abdominal aortic aneurysm, without rupture (principal); I70.1 Atherosclerosis of renal artery

== ENCOUNTER → 2019-09-21 | Outpatient (CLI) | payer MEDICARE, OTHER ==
[~2019-09-21] MED LIST changes: +CYCL-707 PO; -CYCL10TA PO; +ISOVUE-370 76% 100ML VIAL (Q9967) As Ordered ONE; -MECL-68 PO; +MECL1TAB31 PO
--- NOTE | 2019-09-21 17:49 | REP ---
CT ABDOMEN AND PELVIS WITH AND WITHOUT IV CONTRAST: CT abdomen and pelvis performed prior to and following the intravenous administration of 100 mL of Isovue-370. Sagittal and coronal reconstruction images are performed. Visualized lung bases demonstrate no infiltrate. The liver demonstrates no mass. The gallbladder is grossly unremarkable. I see no biliary dilatation. A few tiny calcifications are seen in the spleen. Adrenal glands are normal. A couple of tiny calcifications are seen in the tail of the pancreas. There is no pancreatic mass or pancreatic ductal dilatation. There is severe right renal atrophy with severe cortical thinning. There is no hydronephrosis. There are a few right renal cysts present. The largest appears to represent a hyperdense nonenhancing cyst laterally and exophytic in nature, measuring approximately 2 cm in diameter. Left kidney appears unremarkable. There are bilateral patent renal artery stents. There is atherosclerotic calcification of the abdominal aorta with fusiform aneurysmal dilatation of the distal infrarenal abdominal aorta. Maximum AP diameter is 4.3 cm. There is no dissection. There is dilatation of the common iliac arteries bilaterally, right measuring 2.7 cm and left 2.3 cm in diameter. I see no adenopathy, free air or free fluid. No bowel wall thickening is seen. The appendix is normal. There is sigmoid diverticulosis without acute diverticulitis. There is a very small umbilical hernia containing fat. Urinary bladder appears unremarkable. Prostate is moderately enlarged. There are degenerative changes of the spine. IMPRESSION: Severe right renal atrophy. Right renal cysts. No hydronephrosis bilaterally. There are patent bilateral renal artery stents. Fusiform aneurysmal dilatation of the distal abdominal aorta with a maximum AP diameter of 4.3 cm. There is also ectasia of both common iliac arteries. Tiny umbilical hernia containing fat. Sigmoid diverticulosis without acute diverticulitis. No free air or free fluid. Electronically Signed by Markell Camarena MD 09/21/2019 07:28 P
== END ==
LOC: M RAD 15:01
PROVIDERS: ATTEND Urology
DX: N40.1 Benign prostatic hyperplasia with lower urinary tract symptoms (principal); N28.1 Cyst of kidney, acquired; K44.9 Diaphragmatic hernia without obstruction or gangrene; Z12.5 Encounter for screening for malignant neoplasm of prostate
CPT/HCPCS: 36415; 74178; G0103; Q9967

== ENCOUNTER → 2019-09-23 | Outpatient (CLI) | payer MEDICARE, OTHER ==
[~2019-09-23] MED LIST changes: -ISOVUE-370 76% 100ML VIAL (Q9967) As Ordered ONE
[2019-09-23 12:57] LABS: CALCIUM LEVEL 9.3 MG/DL (8.8-10.2); CREATININE FOR GFR 1.31 MG/DL (0.70-1.30); GLOMERULAR FILTRATION RATE 56.8 (>42); POTASSIUM SERUM 4.2 MEQ/L (3.5-5.1)
== END ==
LOC: M LRY 09:07
PROVIDERS: ATTEND Physician Assistant Surgical
DX: N18.3 Chronic kidney disease, stage 3 (moderate) (principal)

== ENCOUNTER 2019-11-01 08:48 | Emergency (ER) | payer MEDICARE, OTHER ==
[~2019-11-01] VITALS: Ht 180.3 cm; Wt 92.0 kg
[2019-11-01] MEDS ORDERED: MEMA7CAP (08:58)
[2019-11-01] MEDS ORDERED: NS 1,000 ML IV ONE (09:15)
[2019-11-01 09:56] LABS: BASO % 0.5 % (0.0-1.0); EOS # 0.2 10^3/uL (0.0-0.5); EOS % 1.9 % (0.0-3.0); HEMATOCRIT 45.2 % (42.0-52.0); HEMOGLOBIN 14.8 g/dl (13.5-17.5); LYMPH # 0.8 10^3/uL (1.5-5.0); LYMPH % 9.9 % (24.0-44.0); MEAN CORPUSCULAR HEMOGLOBIN 30.6 pg (27.0-33.0); MEAN CORPUSCULAR HGB CONC 32.7 g/dl (32.0-36.5); MEAN CORPUSCULAR VOLUME 93.4 fl (80.0-96.0); MONO # 0.5 10^3/uL (0.0-0.8); MONO % 6.5 % (0.0-5.0); NEUTROPHILS # 6.3 10^3/uL (1.5-8.5); NEUTROPHILS % 80.7 % (36.0-66.0); PLATELET COUNT, AUTOMATED 266 10^3/uL (150-450); RED BLOOD COUNT 4.84 10^6/uL (4.30-6.10); WHITE BLOOD COUNT 7.8 10^3/uL (4.0-10.0)
[2019-11-01 10:13] LABS: INR 1.07; PARTIAL THROMBOPLASTIN TIME 32.3 SECONDS (25.0-38.4); PROTHROMBIN TIME 13.6 SECONDS (11.8-14.0)
[2019-11-01 10:14] LABS: BILIRUBIN, URINE MANUAL NEGATIVE (NEGATIVE); GLUCOSE, URINE (UA) MANUAL NEGATIVE (NEGATIVE); KETONE, URINE MANUAL NEGATIVE (NEGATIVE); UROBILINOGEN, URINE MANUAL NORMAL (NORMAL)
[2019-11-01 10:15] LABS: BACTERIA, URINE NONE SEEN; HYALINE CAST, URINE NONE SEEN /lpf (0-1); RBC, URINE TNTC /hpf (0-3); SQUAMOUS EPITHELIAL CELL URINE SMALL AMOUNT /hpf (SMALL AMT)
[2019-11-01 10:16] LABS: AMORPHOUS SEDIMENT, URINE SMALL AMOUNT (NEGATIVE); MUCUS, URINE SMALL AMOUNT (NEGATIVE); YEAST, URINE SMALL AMOUNT
[2019-11-01] MEDS ORDERED: ISOVUE-370 76% 100ML VIAL As Ordered ONE (11:33)
[2019-11-01 13:17] VITALS: BP 135/72
--- NOTE | 2019-11-01 15:53 | REP ---
CT ABDOMEN AND PELVIS WITH AND WITHOUT IV CONTRAST: TECHNIQUE: CT abdomen and pelvis performed prior to and following the intravenous administration of 100 mL Isovue 370. Sagittal and coronal reconstruction images are performed as well as MIP reconstruction images for CT urogram. Comparison is made with a prior study of 09/21/2019. The visualized lung bases demonstrate no evidence of acute infiltrate. The liver demonstrates no mass. The gallbladder is grossly unremarkable. Tiny calcified granulomas are seen in the spleen. No adrenal mass is seen. A couple of tiny calcifications are seen in the tail of the pancreas. No pancreatic mass is seen. There is no pancreatic duct dilatation. There is again severe right renal atrophy. There are bilateral renal artery stents. The right renal artery stent, I suspect, is occluded. There is a mildly complex right renal cyst, which does not enhance measuring 2.2 cm in diameter. There is mild left hydronephrosis caused by a 3 mm stone in the proximal left ureter. No left renal mass is seen. There is an aneurysm of the distal abdominal aorta with maximum diameter 4.3 cm. There is no rupture or dissection. Common iliac arteries are dilated and unchanged. No adenopathy is seen. There is no free air or free fluid. There is no bowel wall thickening. The appendix is normal. Urinary bladder demonstrates impression on the base of the bladder body and enlarged prostate. There are degenerative changes of the spine. IMPRESSION: There is a 3 mm left ureteral calculus proximally causing mild left hydronephrosis. There is severe right renal atrophy with a stable complex cyst which does not demonstrate suspicious enhancement. I suspect occlusion of the right renal artery stent. The left renal artery stent is patent. No other acute finding. Electronically Signed by Markell Camarena MD 11/01/2019 04:40 P
--- NOTE | 2019-11-01 20:16 | ED PDOC ---
Post-Departure Follow-Up dr squires faxed formal report of ct abd/p for fu Murali Herring MD November 01, 2019 20:16
== END 2019-11-01 13:19 | disposition home or self-care (01) ==
LOC: M ED 08:48
DX: N20.1 Calculus of ureter (principal); I70.1 Atherosclerosis of renal artery; I10 Essential (primary) hypertension; N28.9 Disorder of kidney and ureter, unspecified; Z79.899 Other long term (current) drug therapy; Z79.82 Long term (current) use of aspirin; Z79.01 Long term (current) use of anticoagulants; Z88.5 Allergy status to narcotic agent; Z87.891 Personal history of nicotine dependence
CPT/HCPCS: 74178; 80047; 81000; 85025; 85610; 85730; 96360; 96361; 99284; Q9967

== ENCOUNTER → 2019-11-15 | Outpatient (CLI) | payer MEDICARE, OTHER ==
[~2019-11-15] MED LIST changes: +MEMA7CAP
[2019-11-15 17:37] LABS: CALCIUM LEVEL 9.1 MG/DL (8.8-10.2); CREATININE FOR GFR 2.71 MG/DL (0.70-1.30); GLOMERULAR FILTRATION RATE 24.5 (>42); POTASSIUM SERUM 4.5 MEQ/L (3.5-5.1)
== END ==
LOC: M WUC 10:39
PROVIDERS: ATTEND Nurse Practitioner Family
DX: N20.0 Calculus of kidney (principal)
CPT/HCPCS: 36415; 80048; G0463

== ENCOUNTER → 2019-11-18 | Outpatient (CLI) | payer MEDICARE, OTHER ==
--- NOTE | 2019-11-18 11:43 | REP ---
BLADDER ULTRASOUND: Real-time sonographic evaluation of the urinary bladder performed. Bladder measures 6.0 x 7.3 x 5.9 cm for a total volume of 169 mL. Postvoid residual is 126 mL which is 74% of the original volume. There may be mild bladder wall thickening but evaluation is suboptimal due to under distention. There is no gross bladder mass. No calculus is seen. Left ureteral jet is visualized. There is no right ureteral jet. IMPRESSION: Mild bladder distention with possible mild wall thickening diffusely. No bladder mass is seen. Postvoid residual is 74% as discussed in detail above. Left ureteral jet visualized with Doppler color evaluation. Electronically Signed by Markell Camarena MD 11/22/2019 06:28 P
--- NOTE | 2019-11-18 11:45 | REP ---
RENAL ULTRASOUND: Real-time sonographic evaluation of kidneys performed. There is moderate right renal atrophy with hyperechoic echotexture, right kidney measuring 6.4 x 3.1 x 3.2 cm. There is no hydronephrosis. Left kidney is normal in size and echotexture, 12.5 x 5.7 x 5.6 cm, with no hydronephrosis. Cyst in the upper pole of the right kidney measures 2.7 cm in maximum diameter. There is another adjacent cyst 1.2 cm in diameter. There is a 1 cm cyst in the mid right kidney. IMPRESSION: Echogenic right kidney with moderate atrophy. No hydronephrosis bilaterally. There are right renal cysts. Electronically Signed by Markell Camarena MD 11/22/2019 06:28 P
== END ==
LOC: M LRY 08:55
PROVIDERS: ATTEND Internal Medicine
DX: N13.0 Hydronephrosis with ureteropelvic junction obstruction (principal); N32.89 Other specified disorders of bladder; N28.1 Cyst of kidney, acquired; N26.1 Atrophy of kidney (terminal)

== ENCOUNTER → 2019-11-28 | Outpatient (CLI) | payer MEDICARE, OTHER ==
[2019-11-28 16:52] LABS: CALCIUM LEVEL 9.1 MG/DL (8.8-10.2); CREATININE FOR GFR 1.49 MG/DL (0.70-1.30); GLOMERULAR FILTRATION RATE 48.9 (>42); POTASSIUM SERUM 4.9 MEQ/L (3.5-5.1)
== END ==
LOC: M LRY 09:06
PROVIDERS: ATTEND Internal Medicine
DX: N18.3 Chronic kidney disease, stage 3 (moderate) (principal)

== ENCOUNTER → 2020-04-26 | Outpatient (CLI) | payer MEDICARE, OTHER ==
--- NOTE | 2020-04-26 09:38 | REP ---
INDICATION: AAA W/OUT RUPTURE, RENAL ARTERY STENOSIS COMPARISON: 06/10/2019 TECHNIQUE: Real time huynh scale ultrasound examination using curved array transducer. FINDINGS: Atheromatous plaquing is again appreciated along with infrarenal abdominal aortic aneurysm which now appears to extend into the bilateral common iliac arteries measuring 4.1 x 4.6 cm diameter and approximately 6.4 cm in craniocaudal length. Proximal aorta: 2.4 x 3.2 cm Aorta at renal arteries: 2.8 x 2.8 cm Mid aorta: 2.7 x 2.8 cm Distal aorta: 4.1 x 4.6 cm Right common iliac artery: 2.8 x 3.2 cm Left common iliac artery: 2.6 x 3.5 cm IMPRESSION: Infrarenal abdominal aortic aneurysm extending into the bilateral common iliac arteries which may be slightly more pronounced than prior examination. <Electronically signed by Aaron Farrell > 04/26/20 [id number]
--- NOTE | 2020-04-26 09:45 | REP ---
INDICATION: CHARO COMPARISON: 06/10/2019, 11/18/2019 TECHNIQUE: Real time huynh scale ultrasound examination using curved array transducer followed by color Doppler evaluation of the renal vasculature. FINDINGS: The right kidney is atrophic and echogenic measuring 7.2 x 3.6 x 2.5 cm with 2.5 cm upper pole cyst and 1.0 cm lower pole cyst. No associated hydronephrosis, obvious nephrolithiasis or mass lesion appreciated. The left kidney is normal in contour, size, echogenicity and reniform shape measuring 12.4 x 6.1 x 4.3 cm. No associated hydronephrosis, nephrolithiasis, cystic or mass lesion. Bladder is unremarkable. Prostate gland is enlarged and measures 6.1 x 4.8 x 6.8 cm. Color Doppler evaluationdemonstrates no appreciable vascularity to the atrophic right kidney. A stent is identified at the origin of the left main renal artery with associated increased velocity and renal aortic ratio suggesting stenosis at the 60% range. Peak aortic velocity: 44 cm/sec LEFT KIDNEY Renal arterial velocity: 191 cm/sec centimeters/second Renal-aortic ratio: 4.4 Intrarenal resistive indices: 0.68-0.71 Intrarenal acceleration times: 0.02-0.05 IMPRESSION: 1. Atrophic avascular right kidney. 2. Increased velocity and renal aortic ratio through the left renal stent suggesting stenosis at the 60-70% range. <Electronically signed by Aaron Farrell > 04/26/20 [id number]
== END ==
LOC: M RAD 07:33
PROVIDERS: ATTEND Surgery
DX: I71.4 Abdominal aortic aneurysm, without rupture (principal); I70.1 Atherosclerosis of renal artery

== ENCOUNTER → 2020-05-15 | Outpatient (CLI) | payer SELFPAY | LOC: M LABCAHC 09:25 | PROVIDERS: ATTEND Pediatrics | DX: Z11.59 Encounter for screening for other viral diseases (principal) ==

== ENCOUNTER 2020-07-03 14:56 | Emergency (ER) | payer MEDICARE, OTHER ==
[~2020-07-03] VITALS: Ht 180.3 cm; Wt 91.4 kg
--- NOTE | 2020-07-03 15:38 | REP ---
INDICATION: DYSPNEA/COUGH. COMPARISON: 03/20/2019 the latest prior also portable TECHNIQUE: Portable FINDINGS: The technique utilized in obtaining the radiograph has magnified the cardiac silhouette and accentuated the interstitial markings. The superior mediastinal structures are midline. The cardiac silhouette is unremarkable in size, shape, and position. The diaphragmatic surfaces of the lungs are regular, and the costophrenic angles are clear. The pulmonary bravo are clear. The imaged osseous structures are intact. Not all of the right lower lung field has been included on the radiograph. IMPRESSION: There is no acute cardiopulmonary disease. No significant change from the prior exam other than technique. <Electronically signed by Daniele Nicholson > 07/03/20 [id number]
[2020-07-03 15:54] LABS: BASO # 0.1 10^3/uL (0.0-0.2); BASO % 0.7 % (0.0-1.0); EOS # 0.2 10^3/uL (0.0-0.5); EOS % 2.2 % (0.0-3.0); HEMATOCRIT 43.2 % (42.0-52.0); HEMOGLOBIN 13.9 g/dl (13.5-17.5); LYMPH # 0.9 10^3/uL (1.5-5.0); LYMPH % 10.5 % (24.0-44.0); MEAN CORPUSCULAR HEMOGLOBIN 30.5 pg (27.0-33.0); MEAN CORPUSCULAR HGB CONC 32.2 g/dl (32.0-36.5); MEAN CORPUSCULAR VOLUME 94.7 fl (80.0-96.0); MONO # 0.6 10^3/uL (0.0-0.8); MONO % 7.6 % (0.0-5.0); NEUTROPHILS # 6.4 10^3/uL (1.5-8.5); NEUTROPHILS % 78.5 % (36.0-66.0); PLATELET COUNT, AUTOMATED 316 10^3/uL (150-450); RED BLOOD COUNT 4.56 10^6/uL (4.30-6.10); WHITE BLOOD COUNT 8.1 10^3/uL (4.0-10.0)
[2020-07-03 16:12] LABS: INR 0.96
[2020-07-03 16:14] LABS: D-DIMER QUANT 1761.85 ng/ml (<500)
[2020-07-03 16:26] LABS: ALBUMIN 3.9 GM/DL (3.2-5.2); ALT/SGPT 31 U/L (12-78); BILIRUBIN,DIRECT 0.1 MG/DL (0.0-0.2); BILIRUBIN,TOTAL 0.3 MG/DL (0.2-1.0); BLOOD UREA NITROGEN 23 MG/DL (7-18); CALCIUM LEVEL 9.5 MG/DL (8.8-10.2); CARBON DIOXIDE LEVEL 26 MEQ/L (21-32); CHLORIDE LEVEL 107 MEQ/L (98-107); CK-MB VALUE MASS 5.2 NG/ML (<3.6); CPK CREATINE PHOSPHOKINASE 267 U/L (39-308); CREATININE FOR GFR 1.41 MG/DL (0.70-1.30); GLUCOSE, FASTING 97 MG/DL (70-100); MB/CK RELATIVE INDEX 1.95 (< OR =4); NT-PRO BNP 174 PG/ML (<450); POTASSIUM SERUM 4.3 MEQ/L (3.5-5.1); SODIUM LEVEL 141 MEQ/L (136-145); THYROXINE (T4) 7.7 UG/DL (4.5-12.0); TOTAL PROTEIN 7.3 GM/DL (6.4-8.2); TROPONIN I < 0.02 NG/ML (< 0.10)
[2020-07-03] MEDS ORDERED: ISOVUE-370 76% 100ML VIAL As Ordered ONE (16:47)
--- NOTE | 2020-07-03 18:03 | REPVR ---
PROCEDURE INFORMATION: Exam: CT Angiography Chest With Contrast Exam date and time: 07/03/2020 5:05 PM Age: 75 years old Clinical indication: Shortness of breath; Additional info: SOB; Elevated dimer TECHNIQUE: Imaging protocol: Computed tomographic angiography of the chest with intravenous contrast. 3D rendering (Not supervised by radiologist): MIP and/or 3D reconstructed images were created by the technologist. Radiation optimization: All CT scans at this facility use at least one of these dose optimization techniques: automated exposure control; mA and/or kV adjustment per patient size (includes targeted exams where dose is matched to clinical indication); or iterative reconstruction. Contrast material: ISOVUE 370; Contrast volume: 75 ml; Contrast route: INTRAVENOUS (IV); COMPARISON: VT PORTABLE CHEST X-RAY 07/03/2020 3:30 PM FINDINGS: Pulmonary arteries: There is opacification of the pulmonary arteries with no evidence of pulmonary embolus. Aorta: There is atherosclerotic plaque formation at the aortic arch and descending aorta along with calcification. There is opacification of the aorta which appears intact. Thyroid: There is a focal well-defined calcification of the right and left lobe of the thyroid. Lungs: There is calcified granuloma left lung, the lungs are otherwise clear. Pleural space: Unremarkable. No pneumothorax. No pleural effusion. Heart: Unremarkable. No cardiomegaly. No pericardial effusion. Lymph nodes: There is no evidence of lymphadenopathy. Liver: There is a subtle area of low density right lobe of the liver and this should be compared with previous exams. I have requested previous exams. Bones/joints: Unremarkable. No acute fracture. Soft tissues: Unremarkable. IMPRESSION: 1. No evidence of pulmonary embolus. 2. Atherosclerotic plaque formation at the aortic arch. 3. Subtle low density area right lobe of the liver and I have requested old CTs of the abdomen for comparison. Electronically signed by: Terry Scott On 07/03/2020 18:02:48 PM
[2020-07-03 18:32] VITALS: BP 154/93
--- NOTE | 2020-07-04 14:43 | ECGEPIP ---
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
--- NOTE | 2020-07-06 08:52 | ED PDOC ---
Post-Departure Follow-Up radiology preor tfaxed to Lorena Canales MD Jul 06, 2020 08:52
== END 2020-07-03 18:39 | disposition home or self-care (01) ==
LOC: M ED 14:56 → EDBD 14:56 → M ED 18:39
DX: R06.02 Shortness of breath (principal); I10 Essential (primary) hypertension; M54.9 Dorsalgia, unspecified; Z88.6 Allergy status to analgesic agent; Z79.899 Other long term (current) drug therapy
CPT/HCPCS: 71045; 71275; 80048; 80076; 82550; 82553; 83880; 84436; 84443; 84484; 85025; 85379; 85610; 93005; 93041; 94760; 99284; Q9967

== ENCOUNTER 2020-07-24 09:51 | Inpatient (IN) | payer MEDICARE, OTHER ==
[~2020-07-24] VITALS: Ht 180.3 cm; Wt 93.8 kg
[~2020-07-24 09:51] MED LIST changes: -MEMA7CAP; +MEMA7CAP PO
[2020-07-24 10:28] LABS: VENOUS BASE EXCESS 1.8 (-2.0-2.0); VENOUS HCO3 27.8 MEQ/L (23.0-27.0); VENOUS O2 SATURATION 83.8 % (60.0-80.0); VENOUS PARTIAL PRESSURE CO2 48.9 mmHg (38.0-50.0); VENOUS PARTIAL PRESSURE O2 48.4 mmHg (30.0-50.0); VENOUS PH 7.373 UNITS (7.330-7.430); VENOUS STANDARD HCO3 25.7 MEQ/L; VENOUS TOTAL CO2 29.3 MEQ/L (24.0-28.0)
--- NOTE | 2020-07-24 10:38 | REP ---
INDICATION: DYSPNEA/COUGH COMPARISON: 07/03/2020 TECHNIQUE: Portable AP view of the chest FINDINGS: The mediastinum and cardiac silhouette are stable and within normal limits for portable technique. The lung bravo are clear without acute consolidation, effusion, or pneumothorax. Skeletal structures are intact. IMPRESSION: No acute cardiopulmonary process appreciated. <Electronically signed by Aaron Farrell > 07/24/20 [id number]
[2020-07-24 10:39] LABS: BASO # 0.1 10^3/uL (0.0-0.2); BASO % 0.8 % (0.0-1.0); EOS # 0.2 10^3/uL (0.0-0.5); EOS % 3.7 % (0.0-3.0); HEMATOCRIT 43.4 % (42.0-52.0); HEMOGLOBIN 13.8 g/dl (13.5-17.5); LYMPH # 0.7 10^3/uL (1.5-5.0); LYMPH % 10.8 % (24.0-44.0); MEAN CORPUSCULAR HEMOGLOBIN 29.8 pg (27.0-33.0); MEAN CORPUSCULAR HGB CONC 31.8 g/dl (32.0-36.5); MEAN CORPUSCULAR VOLUME 93.7 fl (80.0-96.0); MONO # 0.4 10^3/uL (0.0-0.8); MONO % 6.8 % (2.0-8.0); NEUTROPHILS # 4.9 10^3/uL (1.5-8.5); NEUTROPHILS % 77.3 % (36.0-66.0); PLATELET COUNT, AUTOMATED 247 10^3/uL (150-450); RED BLOOD COUNT 4.63 10^6/uL (4.30-6.10); WHITE BLOOD COUNT 6.3 10^3/uL (4.0-10.0)
[2020-07-24] MEDS ORDERED: VITATAB73 PO (11:05)
--- OUTSIDE RECORDS SUMMARY | 2020-07-24 11:05 | CCD | Continuity of Care Document ---
Author Author Hung WOODARD Organization Unknown Address [address] [place] [address], [place] [address] Phone [phone] Care Team Providers Care Sales Force Developer Name Role Phone Shawn Hart AUTM [phone] Monserrat Shah MD AUTM [phone] Marciano Hunt MD AUTM [phone] Noemi Singh MD AUTM [phone] Problems Active Problems Provider Date Dyspnea Low Jiménez MD Onset: 10/25/2018 Electrocardiogram abnormal Low Jiménez MD Onset: 2018 Essential hypertension Low Jiménez MD Onset: 10/25/2018 Atherosclerosis of renal artery Low Jiménez MD Onset: 0 10/25/2018 Abdominal aortic aneurysm without rupture Low Jiménez MD Onset: 10/25/2018 Supraventricular premature beats Low Jiménez MD Onset: 10/25/2018 Coronary arteriosclerosis after percutaneous coronary angioplasty Low Jiménez MD Onset: 12/17/2018 Premature beats Low Jiménez MD Onset: 12/17/2018 Peripheral vascular disease JAKE Erwin Onset: 06/09 Dietary management surveillance JAKE Erwin Onset: 06/28/2019 Chest pain JAKE Liriano Onset: 07/06/2020 Social History Type Date Description Comments Sex Unknown ETOH Use Does not consume alcohol Tobacco Use Start: Unknown End: Unknown Patient is a former smoker Started at age 13, stopped 3 years ago smoked 1ppd Smoking Status Reviewed: 07/06/20 Patient is a former smoker St arted at age 13, stopped 3 years ago smoked 1ppd Exercise Type/Frequency General Activities Daily Exercise Type/Frequency Does yardwork sporadical ly Exercise Type/Frequency Does gardening sporadica lly Exercise Type/Frequency Does housework sporadica lly Exercise Limitations Shortness Of Breath on mini mal activity Exercise Limitations Fatigue Allergies, Adverse Reactions, Alerts Active Allergies Reaction Severity Comments Date Statins rash/myalgia 10/25/2018 Codeine 07/06/2020 Medications Active Medications SIG Qnty Indications Ordering Provide r Date Doxazosin Mesylate 2mg Tablets 1 by mouth every day at bedtime Monserrat Shah MD 01/29 Memantine HCL ER 7mg Caps ER 24HR 1 by mouth once daily Noemi Singh MD 06/27/[address]ir[address] 1 by mouth every day Unknown 10/24/2018 Clopidogrel Bisulfate 75mg Tablets 1 by mouth every day Unknown 10/24/2018 Spironolactone 25mg Tablets 1 by mouth every day Unknown 10/24/2018 Atenolol 25mg Tablets 1 by mouth every day Unknown 10/24/2018 Vitamin B Complex Tablets 1 by mouth every day Unknown 10/24/2018 Immunizations Description No Information Available Vital Signs Date Vital Result Comment 07/06/2020 9:10am Weight 201.00 lb Height 71 inches 5'11" BMI (Body Mass Index) 28.0 kg/m2 Heart Rate 69 /min 01/31/2020 2:00pm Weight 204.00 lb Height 71 inches 5'11" BMI (Body Mass Index) 28.4 kg/m2 Heart Rate 65 /min BP Systolic Sitting 114 mmHg BP Diastolic Sitting 70 mmHg Results Test Acquired Date Facility Test Result H/L Range Note CBC without Differential 07/03/2020 [facility] - not inter faced (315)- - White Blood Count 8.1 4.0-10.0 Red Blood Count 4.56 4.30-6.10 Platelets 316 150-450 Hemoglobin 13.9 Hematocrit 43.2 BMP 07/03/2020 [facility] - not interfaced (315)- - Calcium Ser/Plasma Mass/Vol 9.5 Sodium 141 Carbon Dioxide Ser/Plasm 26 Chloride Serum/Plasma 107 Potassium 4.3 Glucose 97 70-100 Blood Urea Nitrogen 23 High 7-18 Creatinine 1.41 High 0.70-1.30 G F R 52.0 Laboratory test finding 07/03/2020 [facility] - not interf aced (315)- - Thyroid Stimulating Hormone 1.310 NT Probnp QN Ser/Plas 174 Liver Panel 07/03/2020 [facility] - not interfaced (315)- - Alkaline Phosphatase 72 Ast - Sgot 23 Alt - SGPT 31 Bilirubin Total Mass/Vol 0.3 Bilirubin Direct Mass/Vol 0.1 Protein Total 7.3 Albumin Serum/Plasma 3.9 Cholesterol Total Mass/Vol 1.1 Laboratory test finding 07/03/2020 [facility] - not interf aced (315)- - Free T4 7.7 Procedures Date Code Description Status 07/06/2020 11213 ECG 12-Lead Completed 01/31/2020 42135 ECG 12-Lead Completed Medical Devices Description No Information Available Encounters Type Date Location Provider Dx Diagnosis Office Visit 07/06/2020 9:15a Main Office JAKE Liriano R07 .9 Chest pain, unspecified I25.10 Athscl heart disease of [place] coronary artery w/o ang pctrs I10 Essential (primary) hyperten tye I71.4 Abdominal aortic aneurysm, w ithout rupture R94.31 Abnormal electrocardiogram [ ECG] [EKG] Z71.3 Dietary counseling and surve illance Office Visit 01/31/2020 2:00p Main Office JAKE Erwin I25.1 0 Athscl heart disease of [place] coronary artery w/o ang pctrs I10 Essential (primary) hyperten tye I71.4 Abdominal aortic aneurysm, w ithout rupture I70.1 Atherosclerosis of renal art vera R94.31 Abnormal electrocardiogram [ ECG] [EKG] Z71.3 Dietary counseling and surve illance Assessments Date Code Description Provider 07/06/2020 R07.9 Chest pain, unspecified JAKE Cain 07/06/2020 I25.10 Atherosclerotic hear t disease of [place] coronary artery without angina pectoris JAKE Liriano 07/06/2020 I10 Essential (primary) hypertension JAKE Liriano 07/06/2020 I71.4 Abdominal aortic aneurysm, witho ut rupture JAKE Liriano 07/06/2020 R94.31 Abnormal electrocardiogram [ECG] [EKG] JAKE Liriano 07/06/2020 Z71.3 Dietary counseling and surveilla nce JAKE Liriano 01/31/2020 I25.10 Atherosclerotic hear t disease of [place] coronary artery without angina pectoris JAKE Erwin 01/31/2020 I10 Essential (primary) hypertension JAKE Erwin 01/31/2020 I71.4 Abdominal aortic aneurysm, witho ut rupture JAKE Erwin 01/31/2020 I70.1 Atherosclerosis of renal artery JAKE Erwin 01/31/2020 R94.31 Abnormal electrocardiogram [ECG] [EKG] JAKE Erwin 01/31/2020 Z71.3 Dietary counseling and surveilla nce JAKE Erwin Plan of Treatment Future Appointment(s):* 01/03/2021 1:00 pm - JKAE Liriano at Main Office * 07/10/2020 1:00 pm - ECHO at Main Office 07/06/2020 - JAKE Liriano* R07.9 Chest pain, unspecified* New Xrays:* US Echocardiogram Transthoracic W Doppler And Color Flow, Ordered: 07/06/20 * I25.10 Atherosclerotic heart disease of [place] coronary artery without angina pectoris * I10 Essential (primary) hypertension* Recommendations:* Advised patient to please monitor blood pressures at home and to alert our office for readings > 140/>90 or <110/<60 * I71.4 Abdominal aortic aneurysm, without rupture* Recommendations:* Continue management per Dr. Martinez * R94.31 Abnormal electrocardiogram [ECG] [EKG]* Recommendations:* No further evaluation is needed at this time. * Z71.3 Dietary counseling and surveillance* Recommendations:* Recommended for patient to follow a more whole food diet. Advised patient to avoid overly processed foods and packaged foods. Advised patient to avoid sodas, juices and other liquid calories. Recommended at least 30 minutes of exercise 3 days a week. * All * Follow up:* Follow up in 6 months Functional Status Functional Condition Comment Date Status Independent with all ADL's Activ e Mental Status Description No Information Available Referrals Description No Information Available
--- OUTSIDE RECORDS SUMMARY | 2020-07-24 11:05 | CCD | Continuity of Care Document ---
Author Author Hung HART [facility] Organization Unknown Address [address] [facility] [address] [place] [address] Phone [phone] Care Team Providers Care Muskrat Trapper Name Role Phone Eliel Miller D.O. AUTM [phone] Eliel Mckeon M.D. AUTM [phone] Problems Active Problems Provider Date Neck pain Shawn Hart RPA Onset: 04/16/2007 Hyperlipidemia Shawn Hart RPA Onset: 04/16/2007 Renovascular hypertension Shawn Hart RPA Onset: 02/2007 Constipation Shawn Hart RPA Onset: 04/16/2007 Chronic obstructive lung disease Shawn Hart RPA Onse t: 01/31/2008 Vitamin D deficiency Shawn Hart RPA Onset: Impotence of organic origin Shawn Hart RPA Onset: Impaired renal function disorder Shawn Hart RPA Onse t: 10/04/2012 History of polyp of colon Shawn Hart RPA Onset: 02/07 Note: Dr. Cano-Colonoscopy 03/03/13 Hematuria syndrome Shawn Hart RPA Onset: 09/23/2013 Note: Renal Calculi/Abnormal Cytology [facility] 03/17/14 Abdominal aortic aneurysm Shawn Hart RPA Onset: 11/07 Note: 3.[address] Hunt 11/29/14 Raised prostate specific antigen Shawn Hart RPA Onse t: 02/13/2015 Polyarthropathy Shawn Hart RPA Onset: 10/29/2015 Note: Positive RA and JESS Iron deficiency anemia Shawn Hart, RPA Onset: 019 Vitamin B6 deficiency Shawn Hart RPA Onset: 09/21/19 19 Mild cognitive disorder Shawn Hart RPA Onset: 2018 Herpes zoster Shawn Hart, RPA Onset: 02/08/2019 Social History Type Date Description Comments Sex Unknown ETOH Use Denies alcohol use. Recreational Drug Use Denies drug use. Tobacco Use Start: Unknown End: Unknown Patient is a former smoker 1 ppd - Quit Allergies, Adverse Reactions, Alerts Active Allergies Reaction Severity Comments Date Statins Myalgias, weakness, balance issues 09/23/2016 Donepezil drooling 10/19/2018 Inactive Allergies NKDA 04/30/2005 NKDA 09/20/2018 Medications Active Medications SIG Qnty Indications Ordering Provide r Date Quetiapine Fumarate 50mg Tablets 1 by mouth every night at bedtime 30tabs Ankur Brizuela, FAAFP 06/22/2020 Fioricet 50-300-40mg Capsules 1-2 tablets twice a day as needed 30caps Manuel Romero D.O., FAA FP 06/20/2020 Acyclovir 800mg Tablets one by mouth 3 times a day for 7 days 21tabs Manuel Romero D.O., [facility] 02/24/2020 Memantine HCL ER 7mg Caps ER 24HR 1 by mouth every day x 7 days then increase to two caps 60caps Manuel Romero D.O., FAAFP 04/11/2019 Vitamin B Complex Tablets 1 by mouth every day 90tabs Manuel Romero D.O., FAAFP Tylenol 325mg Capsules 2 tab by mouth as needed q4-6h prn 180caps Manuel Romero D.O., FAAFP Aspir-[address] 1 by mouth every day Unknown Clopidogrel Bisulfate 75mg Tablets 1 by mouth every day Unknown Spironolactone 25mg Tablets 1 by mouth every day 90tabs Unknown Doxazosin Mesylate 1mg Tablets 2 by mouth at at bedtime daily Unknown Atenolol 25mg Tablets 1 by mouth every day Unknown History Medications Trelegy Ellipta 100- 62.5-25mcg/Inh Aerosol 1 puff every day 3units Manuel Romero D.O., Sergei AA 03/20/2020 - 06/20/2020 Medications Administered in Office Medication SIG Qnty Indications Ordering Provider Date Injection (SC)/(Im) Injection Shawn Hart, [facility] 02/08/2016 Injection (SC)/(Im) Injection Shawn Hart, RPA 11/07/2015 Injection (SC)/(Im) Injection Shawn Hart, RPA 11/06/2015 Injection (SC)/(Im) Injection Shawn Hart, RPA 04/14/2012 Injection (SC)/(Im) Injection Shanw Hart, RPA 11/07/2009 Injection Subcutaneous Or Intramuscular Injection Shawn Hart, [facility] 05/02 Injection Subcutaneous Or Intramuscular Injection Shawn Hart, [facility] 05/02 Injection Subcutaneous Or Intramuscular Injection Shawn Hart, [facility] 04/21 Injection Subcutaneous Or Intramuscular Injection Shawn Hart, [facility] 04/20 Immunizations CPT Code Status Date Vaccine Lot # 92268 Given 03/20/2020 Pneumococcal Immunization T0 [id number] 53589 Given 03/20/2020 Influenza Virus Vaccine, Quadrivalent, Slit Virus, Im Use 3Y & Up [id number] 11613 Given 02/08/2016 Influenza Vaccin e (Fluzone) 3Yrs Of Age Or Older Medicare Plans [id number] 31948 Given 04/17/2015 Influenza Vaccin e (Fluzone) 3Yrs Of Age Or Older Medicare Plans [id number] 63153 Given 04/10/2014 Influenza Vaccin e (Fluzone) 3Yrs Of Age Or Older Medicare Plans [id number] 94124 Given 03/24/2013 Influenza Vaccin e (Fluzone) 3Yrs Of Age Or Older Medicare Plans 26827 Given 03/24/2013 Pneumococcal Immunization H0 [id number] 62308 Given 03/24/2013 Influenza Virus Vac. Split Virus Individuals 3 Years And Above [id number] 21267 Given 05/02/2008 Pneumococcal Immunization 05 [id number] 19800 Given 05/02/2008 Influenza Virus Vac. Split Virus Individuals 3 Years And Above [id number] 08122 Refused 03/22/2019 Influenza Virus Vaccine, Quadrivalent, Slit Virus, Im Use 3Y & Up Vital Signs Date Vital Result Comment 06/20/2020 1:06pm BP Systolic 126 mmHg BP Diastolic 70 mmHg Body Temperature 97.6 F Heart Rate 76 /min Respiratory Rate 16 /min Height 71 inches 5'11" Weight 205.00 lb [place] Body Weight 172 lb BMI (Body Mass Index) 28.6 kg/m2 O2 % BldC Oximetry 97 % 03/20/2020 1:21pm BP Systolic 130 mmHg BP Diastolic 84 mmHg Body Temperature 97.8 F Heart Rate 71 /min Respiratory Rate 16 /min Height 71 inches 5'11" Weight 204.00 lb [place] Body Weight 172 lb BMI (Body Mass Index) 28.4 kg/m2 O2 % BldC Oximetry 98 % Results Test Acquired Date Facility Test Result H/L Range Note CBC With Differential 07/03/2020 [facility] ([facility]) [phone] White Blood Count 8.1 10 Normal 4.0-10.0 Red Blood Count 4.56 10 Normal 4.30-6.10 Hemoglobin 13.9 g/dL Normal 13.5-17.5 Hematocrit 43.2 % Normal 42.0-52.0 Mean Corpuscular Volume 94.7 fl Normal 80.0-96.0 Mean Corpuscular Hemoglobin 30.5 pg Normal 27.0-33.0 Mean Corpuscular HGB Conc 32.2 g/dL Normal 32.0-36.5 Red Cell Distribution Width 12.3 % Normal 11.5-14.5 Platelet Count, Automated 316 10 Normal 150-450 Neutrophils % 78.5 % High 36.0-66.0 Lymph % 10.5 % Low 24.0-44.0 Avery % 7.6 % High 0.0-5.0 Eos % 2.2 % Normal 0.0-3.0 Baso % 0.7 % Normal 0.0-1.0 Immature Granulocyte % 0.5 % Normal 0-3.0 Nucleated Red Blood Cell % 0.0 % Normal 0-0 Neutrophils # 6.4 10 Normal 1.5-8.5 Lymph # 0.9 10 Low 1.5-5.0 Avery # 0.6 10 Normal 0.0-0.8 Eos # 0.2 10 Normal 0.0-0.5 Baso # 0.1 10 Normal 0.0-0.2 Prothrombin Time/Inr 07/03/2020 [facility] ( [facility]) [phone] Prothrombin Time 13.0 seconds Normal 12.5-14.3 Inr 0.96 Normal 1 Laboratory test finding 07/03/2020 [facility] (Interface) [phone] D-Dimer Quant 1761.85 ng/ml High <500 Cardiac Marker Panel 07/03/2020 [facility] ( Interface) [phone] CPK Creatine Phosphokinase 267 U/L Normal 39-30 8 CK-MB Value Mass 5.2 NG/ML High <3.6 MB/CK Relative Index 1.95 Normal < Or =4 2 Troponin I < 0.02 NG/ML Normal < 0.10 3 Liver Profile 07/03/2020 [facility] (I nterface) [phone] Ast/Sgot 23 U/L Normal 7-37 Alt/SGPT 31 U/L Normal 12-78 Alkaline Phosphatase 72 U/L Normal 45-117 Bilirubin,Total 0.3 mg/dL Normal 0.2-1.0 Bilirubin,Direct 0.1 mg/dL Normal 0.0-0.2 Total Protein 7.3 GM/DL Normal 6.4-8.2 Albumin 3.9 GM/DL Normal 3.2-5.2 Albumin/Globulin Ratio 1.1 Normal Basic Metabolic Profile 07/03/2020 [facility] ([facility]) [phone] Glucose, Fasting 97 mg/dL Normal 70-100 Blood Urea Nitrogen 23 mg/dL High 7-18 Creatinine For GFR 1.41 mg/dL High 0.70-1.30 Glomerular Filtration Rate 52.0 Normal >42 4 Sodium Level 141 mEq/L Normal 136-145 Potassium Serum 4.3 mEq/L Normal 3.5-5.1 Chloride Level 107 mEq/L Normal 98-107 Carbon Dioxide Level 26 mEq/L Normal 21-32 Anion Gap 8 mEq/L Normal 8-16 Calcium Level 9.5 mg/dL Normal 8.8-10.2 Laboratory test finding 07/03/2020 [facility] ([facility]) [phone] NT-Pro BNP 174 pg/mL Normal <450 Thyroxine (T4) 7.7 g/dL Normal 4.5-12.0 Thyroid Stimulating Hormone 1.310 uIU/ML Normal 0.358-3.740 Coronavirus 2018 ([facility]) 05/15/2020 [facility]) [phone] Coronavirus 2018 ([facility]) <SEE NOTE> 5 1 THERAPUTIC HUMAN INR VALUES INDICATIONS NORMAL RANGES PROPHYLAXIS/TREATMENT OF: VENOUS THROMBOSIS 2.0-3.0 PULMONARY EMBOLISM 2.0-3.0 PREVENTION OF SYSTEMIC EMBOLISM FROM: TISSUE HEART VALVES 2.0-3.0 ACUTE MYOCARDIAL INFARCTION 2.0-3.0 VALVULAR HEART DISEASE 2.0-3.0 ATRIAL FIBRILLATION 2.0-3.0 MECHANICAL VALVES(HIGH RISK) 2.5-3.5 RECURRENT MYOCARDIAL INFARCTION 2.5-3.5 2 DIAGNOSIS CRITERIA MMB ng/ml Relative Index (RI) NON-AMI < or = 5 N/A GAFFNEY ZONE > 5 < or = 4 AMI > 5 > 4 3 Troponin I Reference Interva l for [facility] LOCI: 99th Percentile= 0.00-0.045 ng/ml Risk Stratification: <= 0.10 ng/ml Decreased Risk for Adverse Clinical Events. 0.10-1.50 ng/ml Increased Risk for Adv erse Clinical Events. Evaluation of additional criterion and/or repeat testing in 2-6 hours is suggested to rule out myocardial damage. >= 1.50 ng/ml Indicative of Myocardial Injury. 4 Units are mL/min/1.73 m2 Chronic Kidney Disease Staging per NKF: Stage I & II GFR >=60 Normal to Mildly Decreased Stage III GFR 30-59 Moderately Decreased Stage IV GFR 15-29 Severely Decreased Stage V GFR <15 Very Little GFR Left ESRD GFR <15 on [employer] 5 Test: COVID-19 Nasal/Naspharynx Result: NOT DETECTED Reference Units: Not detected Note: Please consider re-collection of a new specimen, if clinically indicated. Note: The COVID-19 assay is under Emergency Use Authorization(EUA) by the U.S. Food and Drug Administration. [facility] is designated as a high complexity laboratory by the Clinical Laboratory Improvement Amendments of 1988(CLIA) and is qualified to perform this test. ASSAY INFORMATION: Real Time RT-PCR Patient samples for this assay have been pooled. All positive samples have been individually repeated for confirmation. The pooling protocol using the raudel SARS-CoV-2 assay has been added to [id number] on March 22, 2020. 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 D. 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, unspecifi ed Shawn Hart, RPA 06/20/2020 Z86.010 Personal history of colonic poly ps Shawn Hart, RPA 06/20/2020 M54.2 Cervicalgia Shawn Hart, RPA 06/20/2020 M13.0 Polyarthritis, unspecified Shawn Elkins, RPA 06/20/2020 J44.9 Chronic obstructive pulmonary di sease, unspecified Shawn Hart, RPA 06/20/2020 D50.9 Iron deficiency anemia, unspecif ied Shawn Hart, RPA 06/20/2020 N25.9 Disorder resulting from impaired renal tubular function, uns Shawn Hart, RPA 06/20/2020 K59.00 Constipation, unspecified Shawn Hart, RPA 06/20/2020 G31.84 Mild cognitive impairment, so st ated Shawn Hart, RPA 06/20/2020 F41.0 Panic disorder [episodic paroxys mal anxiety] Shawn Hart, RPA 03/20/2020 E78.5 Hyperlipidemia, unspecified Shawn Sherman, RPA 03/20/2020 I15.0 Renovascular hypertension Shawn Hart, RPA 03/20/2020 N52.9 Male erectile dysfunction, unspe cified Shawn Hart, RPA 03/20/2020 I71.4 Abdominal aortic aneurysm, witho ut rupture Shawn Hart, RPA 03/20/2020 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, unspecifi ed Shawn Hart, RPA 03/20/2020 Z86.010 Personal history of colonic poly ps Shawn Hart, RPA 03/20/2020 Z23 Encounter for immunization Shawn Elikns, RPA 03/20/2020 M54.2 Cervicalgia Shawn Hart, RPA 03/20/2020 M13.0 Polyarthritis, unspecified Shawn Elkins, RPA 03/20/2020 J44.9 Chronic obstructive pulmonary di sease, unspecified Shawn Hart, RPA 03/20/2020 D50.9 Iron deficiency anemia, unspecif ied Shawn Hart, RPA 03/20/2020 N25.9 Disorder resulting from impaired renal tubular function, uns Shawn Hart, RPA 03/20/2020 K59.00 Constipation, unspecified Shawn Hart, RPA 03/20/2020 G31.84 Mild cognitive impairment, so st ated Shawn Hart, RPA 03/20/2020 G47.00 Insomnia, unspecified Hui Hart, RPA 03/20/2020 R06.02 Shortness of breath Tavares Hart, RPA 02/24/2020 H57.12 Ocular pain, left eye Marciano Ramírez M.D. Plan of Treatment Future Appointment(s):* 09/19/2020 1:00 pm - Shawn Hart, [facility] Functional Status Description No Information Available Mental Status Description No Information Available Referrals Description No Information Available
--- OUTSIDE RECORDS SUMMARY | 2020-07-24 11:05 | CCD | Continuity of Care Document ---
Author Author [facility] Organization Unknown Address 3 [facility] [address] [place] [address] Phone [phone] Care Team Providers Care Teletypewriter Installer Name Role Phone Eliel Miller D.O. AUTM [phone] Eliel Mckeon M.D. AUTM [phone] Problems Active Problems Provider Date Neck pain [...] SIG Qnty Indications Ordering Provide r Date Fioricet 50-300-40mg Capsules 1-2 tablets twice a day as needed 30caps Manuel Romero D.O., FAA FP 06/20/2020 Acyclovir 800mg Tablets one by mouth 3 times a day for 7 days 21tabs Manuel Romero D.O., FA AFP 02/24/2020 Memantine HCL ER 7mg Caps ER [...] puff every day 3units Manuel Romero D.O., F AAFP 03/20/2020 - 06/20/2020 Medications Administered in Office Medication SIG Qnty Indications Ordering Provider Date Injection (SC)/(Im) Injection Shawn Hart, RPA 02/08/2016 Injection (SC)/(Im) Injection Shawn Hart, RPA 11/07/2015 Injection (SC)/(Im) Injection Shawn Hart, RPA 11/06/2015 Injection (SC)/(Im) Injection Shawn Hart, RPA 04/14/2012 Injection (SC)/(Im) Injection Shawn Hart, RPA 11/07/2009 Injection Subcutaneous Or Intramuscular Injection Shawn Hart, RPA 05/02 Injection Subcutaneous Or Intramuscular Injection Shawn Hart, RPA 05/02 Injection Subcutaneous Or Intramuscular Injection Shawn Hart, RPA 04/21 Injection Subcutaneous Or Intramuscular Injection Shawn Hart, RPA 04/20 Immunizations CPT Code Status Date Vaccine Lot # [id number] Given 03/20/2020 Pneumococcal Immunization T0 [id number] 69772 Given 03/20/2020 Influenza Virus Vaccine, Quadrivalent, Slit Virus, Im Use 3Y & Up [id number] 97276 Given 02/08/2016 Influenza Vaccin e (Fluzone) 3Yrs Of Age Or Older Medicare Plans [id number] 43759 Given 04/17/2015 Influenza Vaccin e (Fluzone) 3Yrs Of Age Or Older Medicare Plans [id number] 93075 Given 04/10/2014 Influenza Vaccin e (Fluzone) 3Yrs Of Age Or Older Medicare Plans [id number] 29159 Given 03/24/2013 Influenza Vaccin e (Fluzone) 3Yrs Of Age Or Older Medicare Plans 81756 Given 03/24/2013 Pneumococcal Immunization H0 12119 97710 Given 03/24/2013 Influenza Virus Vac. Split Virus Individuals 3 Years And Above [id number] 21860 Given 05/02/2008 Pneumococcal Immunization 05 [id number] 29829 Given 05/02/2008 Influenza Virus Vac. Split Virus Individuals 3 Years And Above [id number] 19547 Refused 03/22/2019 Influenza Virus Vaccine, Quadrivalent, Slit Virus, Im Use 3Y & Up Vital Signs Date Vital Result Comment 06/20/2020 1:06pm BP Systolic 126 mmHg BP Diastolic 70 mmHg Body Temperature 97.6 F Heart Rate 76 /min Respiratory Rate 16 /min Height 71 inches 5'11" Weight 205.00 lb [place] Body Weight 172 lb BMI (Body Mass Index) 28.6 kg/m2 O2 % BldC Oximetry 97 % 03/20/2020 1:21pm BP Systolic 130 mmHg BP Diastolic 84 mmHg Body Temperature 97.8 F Heart Rate 71 /min Respiratory Rate 16 /min Height 71 inches 5'11" Weight 204.00 lb [place] Body Weight 172 lb BMI (Body Mass Index) 28.4 kg/m2 O2 % BldC Oximetry 98 % Results Test Acquired Date Facility Test Result H/L Range Note Coronavirus 2018 ([facility]) 05/15/2020 [facility]) [phone] Coronavirus 2018 ([facility]) <SEE NOTE> 1 1 Test: COVID-19 Nasal/Naspharynx Result: NOT DETECTED Reference Units: Not detected Note: Please consider re-collection of a new specimen, if clinically indicated. Note: The COVID-19 assay is under Emergency Use Authorization(EUA) by the U.S. Food and Drug Administration. [facility] is designated as a high complexity laboratory by the Clinical Laboratory Improvement Amendments of 1988(CLIA) and is qualified to perform this test. ASSAY INFORMATION: Real Time RT-PCR Patient samples for this assay have been pooled. All positive samples have been individually repeated for confirmation. The pooling protocol using the raudel SARS-CoV-2 assay has been added to [id number] on March 22, 2020. Procedures Description No Information Available Medical Devices Description No Information Available Encounters Type Date Location Provider Dx Diagnosis Office Visit 02/24/2020 1:15p [place] [facility] Marciano Ramírez M. D. 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 Plan of Treatment No Information Available Functional Status Description No Information Available Mental Status Description No Information Available Referrals Description No Information Available
--- OUTSIDE RECORDS SUMMARY | 2020-07-24 11:05 | CCD | Continuity of Care Document ---
Author Author Hung [facility] Organization Unknown Address [address] [place] [address], [facility] [place] [address] Phone [phone] Care Team Providers Care Model Photographers' Name Role Phone Shawn Hart AUTM [phone] Monserrat Shah MD AUTM [phone] Marciano Hunt MD AUTM [phone] Noemi Singh MD AUTM [phone] Problems Active Problems Provider Date Dyspnea Low [...] Dietary management surveillance JAKE Erwin Onset: 06/28/2019 Social History Type Date Description Comments Sex Unknown ETOH Use Does not consume alcohol Tobacco Use Start: Unknown End: Unknown Patient is a former smoker Started at age 13, stopped 3 years ago smoked 1ppd Smoking Status Reviewed: 01/31/20 Patient is a former smoker St arted at age 13, stopped 3 years ago smoked 1ppd Exercise Type/Frequency General Activities Daily Exercise Type/Frequency Does yardwork sporadical ly and shoveling snow as needed Exercise Type/Frequency Does gardening sporadica lly Exercise Type/Frequency Does housework sporadica lly Exercise Limitations Shortness Of Breath Allergies, Adverse Reactions, Alerts Active Allergies Reaction [...] 5'11" BMI (Body Mass Index) 28.0 kg/m2 01/31/2020 2:00pm Weight 204.00 lb Height 71 inches 5'11" BMI (Body Mass Index) 28.4 kg/m2 Heart Rate 65 /min BP Systolic Sitting 114 mmHg BP Diastolic Sitting 70 mmHg Results Test Acquired Date Facility Test Result H/L Range Note CBC without Differential 07/03/2020 [facility] - not inter faced (315)- - White Blood Count 8.1 4.0-10.0 Red Blood Count 4.56 4.30-6.10 Platelets 316 150-450 Hemoglobin 13.9 Hematocrit 43.2 BMP 07/03/2020 [facility] - not interfaced (315)- - Calcium Ser/Plasma Mass/Vol 9.5 Sodium 141 Carbon Dioxide Ser/Plasm 26 Chloride Serum/Plasma 107 Potassium 4.3 Glucose 97 70-100 Blood Urea Nitrogen 23 High 7-18 Creatinine 1.41 High 0.70-1.30 G F R 52.0 Laboratory test finding 07/03/2020 [facility] - not interf aced (315)- - Thyroid Stimulating Hormone 1.310 NT Probnp QN Ser/Plas 174 Liver Panel 07/03/2020 [facility] - not interfaced (315)- - Alkaline Phosphatase 72 Ast - Sgot 23 Alt - SGPT 31 Bilirubin Total Mass/Vol 0.3 Bilirubin Direct Mass/Vol 0.1 Protein Total 7.3 Albumin Serum/Plasma 3.9 Cholesterol Total Mass/Vol 1.1 Laboratory test finding 07/03/2020 [facility] - not interf aced (315)- - Free T4 7.7 Procedures Date Code Description Status 01/31/2020 57809 ECG 12-Lead Completed Medical Devices Description No Information Available Encounters Type Date Location Provider Dx Diagnosis Office Visit 01/31/2020 2:00p Main Office JAKE Erwin I25.1 0 Athscl heart disease of [place] coronary artery w/o ang pctrs I10 Essential (primary) hyperten tye I71.4 Abdominal aortic aneurysm, w ithout rupture I70.1 Atherosclerosis of renal art vera R94.31 Abnormal electrocardiogram [ ECG] [EKG] Z71.3 Dietary counseling and surve illance Assessments Date Code Description Provider 01/31/2020 I25.10 Atherosclerotic hear t disease of [place] coronary artery without angina pectoris JAKE Erwin 01/31/2020 I10 Essential (primary) hypertension JAKE Erwin 01/31/2020 I71.4 Abdominal aortic aneurysm, witho ut rupture JAKE Erwin 01/31/2020 I70.1 Atherosclerosis of renal artery JAKE Erwin 01/31/2020 R94.31 Abnormal electrocardiogram [ECG] [EKG] JAKE Erwin 01/31/2020 Z71.3 Dietary counseling and surveilla nce JAKE Erwin Plan of Treatment 01/31/2020 - JAKE Erwin* I25.10 Atherosclerotic heart disease of [place] coronary artery without angina pectoris* Recommendations:* Please call the office with any exertional chest pain or shortness of breath. Please obtain lab work. * I10 Essential (primary) hypertension* Recommendations:* No medication changes were made today. * I71.4 Abdominal aortic aneurysm, without rupture * I70.1 Atherosclerosis of renal artery * R94.31 Abnormal electrocardiogram [ECG] [EKG]* Recommendations:* No significant change. No further workup required. * Z71.3 Dietary counseling and surveillance* Recommendations:* Recommend adopting a more whole foods, plant-based diet in addition to moderate exercise a minimum of 30 minutes 6 days a week. In order to optimize cardiovascular health please be conscious of processed foods, alcohol (no more than two dr inks a day for men and one drink a day for women), salt (<2000 mg/d), oils, saturated fat/animal products, and highly refined carbohydrates such as breads, pastas, and sweets. * All * Follow up:* Follow up in 6 months. Functional Status Functional Condition Comment Date Status Independent with all ADL's Activ e Mental Status Description No Information Available Referrals Description No Information Available
--- OUTSIDE RECORDS SUMMARY | 2020-07-24 11:05 | CCD ---
Author Author [facility] Organization [facility] Address Unknown Phone Unavailable Care Team Providers Care Vegetable Harvest Worker Name Role Phone ABELARDO GARCIA Unavailable PROBLEMS Type Condition ICD9-CM Code [id number] Code Onset Dates Condition S tatus SNOMED Code Notes Problem Stage 3 CKD 585.3 Active 088584969 Renal func tion is stable with a creatinine of 1.7 today. Baseline is in the mid 1 range. He has minimal and stable proteinuria. Presently not on renal protective agents with atrophic right kidney and left renal artery stenosis. Electrolytes are normal. PTH is pending. He was reminded to maintain adequate hydration and should continue to avoid nonsteroidals. We will see him back in 6-8 weeks. Problem Edema 782.3 Active 951044551 He has no sarah ma today. Weight is decreased. Off diuretics now. Problem Atherosclerosis of renal artery I70.1 Active 80558210 s/p left renal artery stenting 06/23. Follow up with Dr. Hunt as scheduled. Problem Renal Artery Stenosis 440.1 Active 887940975 He has renal artery stenosis on the right side with atrophic kidney. He also has renal artery stenosis on the left side. He is a long-term smoker and has extensive atherosclerotic vascular disease.There is no plan for intervention as per Dr. Hunt. He needs to work on smoking cessation, better blood pressure control, better lipid control and maintaining ideal weight. On lipid lowering therapy n ow. Problem Hyperlipidemia, unspecified E78.5 Active 2235 2003 Lipids abnormal as he stopped statin due to leg pain. Restart Zetia. He is not dominique Pravastatin. Repeat in 1 month. Problem Acute Renal Failure 584.9 Active 515909509743 108 Renal function is improved and the creatinine is 1.7 today. This is close to his baseline. He has mild proteinuria. He has no anemia. The right kidney is atrophic. He also has some renal artery stenosis on the left side. I advised him to maintain adequate hydration and avoid nonsteroidals. Repeat labs in a few weeks. Problem Aortic aneurysm of unspecified site, without rupture I71.9 Active 85104640 AAA about 3.8 cm, stable and followed by Dr Hunt. Problem Essential HTN, unspec. 401.9 Active 20756168 Blood pressure continues to be elevated. No change in wt. He follows low-salt diet. Case reviewed with Dr. Garcia and will start Chlorthalidone as below. I advised him to monitor BP at home. He will call in his readings in about 3 weeks. Sleep study showed very mild and likely not significant RICARDO. Problem Essential (primary) hypertension I10 Active 84598736 BP controlled. Orthostatic symptoms controlled. s/p left renal artery stenting 06/23. Evaluation for sleep apnea in the past not too abnormal. Continue current meds and work on weight loss. Problem Chronic kidney disease, stage 3 (moderate) N18.3 Active 879464859 History of obstructive uropathy. His creatinine is stable at 1.5. Baseline is around 1.3-1.5. He has minimal proteinuria. Electrolytes are normal including K. PTH and Vitamin D were normal in November. He was reminded to avoid nonsteroidals. Increase hydation. We will see him back in 4 months Problem Angina pectoris, unspecified I20.9 Active 194 399542 No symptoms currently. Not on lipid lowering therapy as he has not tolerated multiple drugs. Problem Hypokalemia E87.6 Active 52382307 K level is normal. Aldactone dose same. ALLERGIES Allergen (clinical drug ingredient) Drug/Non Drug Allergy do cumented on EMR Reaction Allergy Type Onset Date Status codeine Codeine Lack of urination Drug Allergy Activ e ENCOUNTERS from 1944 to 2020-07-04 Encounter Location Date Provider Diagnosis .[facility] [address] [facility] [address] [place], [place] [id number] Jun, ABELARDO GARCIA IMMUNIZATIONS No Information SOCIAL HISTORY Tobacco Use: Social History Observation Description Date Details (start date - stop date) Former Smoker Sex Assigned At : Social History Observation Description Sex Assigned At Unknown Smoking Question Answer Notes Status: former smoker Pt states that he qu it in the beginnin of Jun 23 REASON FOR REFERRAL No Information VITAL SIGNS No information MEDICATIONS Medication SIG (Take, Route, Frequency, Duration) Notes Start Da te End Date Status Memantine HCl ER 7 MG 1 capsule Orally Once a day for 30 day(s) Active Aspirin 81 MG 1 tablet Orally Once a day Active Doxazosin Mesylate 2 MG 1 tablet Orally Once at night for 90 Active Atenolol 25 MG 1 tablet Orally Once a day for 90 Active Spironolactone 25 MG 1 tablet Orally Once a day in am Active Clopidogrel Bisulfate 75 MG 1 tablet Orally Once a day for 90 Active Vitamin B Complex - as directed Orally Active Spironolactone 25 MG 1 tablet Orally Once a day in am for 90 Active Doxazosin Mesylate 2 MG 1 tablet Orally Once at night Active PROCEDURES No Information RESULTS No Results REASON FOR VISIT *MEDS MEDICAL (GENERAL) HISTORY Type Description Date Medical History CKD stage 3 (poorly functioning Rt kidne y) Medical History Hypertension Medical History Renal artery stenosis s/p st enting of the right renal artery in 2005., stent left renal artery 06/23 Medical History Orthostatic hypotension afte r renal artery stenting on midodrine Medical History Dyslipidemia Medical History Siginificant PVD Medical History Current smoker Medical History CAD with one vessel disease s/p cardiac cath 06/23. s/p stent 07/26. Medical History AAA 3.8 cm Medical History Medical History Other MD's: Medical History Francois Hart- PCP Medical History Dr Loy Camp Medical History Dr. Hunt Surgical History Stenting of right renal artery stenosis 2005 Hospitalization History [facility] - Acute renal failure 09/2014 Goals Section No Information Health Concerns No Information MEDICAL EQUIPMENT No Information MENTAL STATUS No Information FUNCTIONAL STATUS No Information ASSESSMENTS No Information PLAN OF TREATMENT Medication Medication Name Sig Start Date Stop Date Spironolactone 25 MG 1 tablet Orally Once a day in am Doxazosin Mesylate 2 MG 1 tablet Orally Once at night Next Appt Details Provider Name:ROSY Mcmahon, 202 06-09-24 10:00:00 AM, [address] [facility], [address], [place], [address], Insurance Providers Payer Name Payer Address Payer Phone Insured Name Patient Relati onship to Insured Coverage Start Date Coverage End Date UMR [address] [address] [facility] [id number] [place] MEDICARE PRIMARY [address] [facility] [phone] [employer] [place] self
--- OUTSIDE RECORDS SUMMARY | 2020-07-24 11:05 | CCD ---
Author Author [facility] Organization [facility] Address Unknown Phone Unavailable Care Team Providers Care Book Reviewer Name Role Phone ABELARDO GARCIA Unavailable PROBLEMS Type Condition ICD9-CM Code [id number] Code Onset Dates Condition S tatus SNOMED Code Notes Problem Stage 3 CKD 585.3 Active 010478561 Renal func tion is stable with a [...] in 6-8 weeks. Problem Edema 782.3 Active 172468624 He has no sarah ma today. Weight is decreased. Off diuretics now. Problem Atherosclerosis of renal artery I70.1 Active 70891088 s/p left renal artery stenting 06/23. Follow up with Dr. Hunt as scheduled. Problem Renal Artery Stenosis 440.1 Active 805994836 He has renal artery stenosis on the [...] n ow. Problem Hyperlipidemia, unspecified E78.5 Active 2650 2003 Lipids abnormal as he stopped statin due to leg pain. Restart Zetia. He is not dominique Pravastatin. Repeat in 1 month. Problem Acute Renal Failure 584.9 Active 109678068884 108 Renal function is improved and the [...] of unspecified site, without rupture I71.9 Active 51324833 AAA about 3.8 cm, stable and followed by Dr Hunt. Problem Essential HTN, unspec. 401.9 Active 55161075 Blood pressure continues to be elevated. No change in wt. He follows low-salt diet. Case reviewed with Dr. Garcia and will start Chlorthalidone as below. I advised him to monitor BP at home. He will call in his readings in about 3 weeks. Sleep study showed very mild and likely not significant RICARDO. Problem Essential (primary) hypertension I10 Active 23485215 BP controlled. Orthostatic symptoms controlled. s/p left renal artery stenting 06/23. Evaluation for sleep apnea in the past not too abnormal. Continue current meds and work on weight loss. Problem Chronic kidney disease, stage 3 (moderate) N18.3 Active 853335485 History of obstructive uropathy. His creatinine is stable at 1.5. Baseline is around 1.3-1.5. He has minimal proteinuria. Electrolytes are normal including K. PTH and Vitamin D were normal in November. He was reminded to avoid nonsteroidals. Increase hydation. We will see him back in 4 months Problem Angina pectoris, unspecified I20.9 Active 194 486401 No symptoms currently. Not on lipid lowering therapy as he has not tolerated multiple drugs. Problem Hypokalemia E87.6 Active 94968648 K level is normal. Aldactone dose same. ALLERGIES Allergen (clinical drug ingredient) Drug/Non Drug Allergy do cumented on EMR Reaction Allergy Type Onset Date Status codeine Codeine Lack of urination Drug Allergy Activ e ENCOUNTERS from 1944 to 2020-07-05 Encounter Location Date Provider Diagnosis .[facility] [address] [facility] [address] [place], [place] [id number] Jun, ABELARDO GARCIA IMMUNIZATIONS No Information SOCIAL [...] Information RESULTS No Results REASON FOR VISIT 08/06 appt at 3:00 MEDICAL (GENERAL) HISTORY Type Description Date Medical [...] Next Appt Details Provider Name:ROSY Mcmahon, 202 06-10-00 03:00:00 PM, [address] [facility], [address], [place], [place], [phone], Insurance Providers Payer Name Payer Address Payer Phone Insured Name Patient Relati onship to Insured Coverage Start Date Coverage End Date UMR [address] [address] [facility] [id number] [employer] MEDICARE PRIMARY [address] [facility] [phone] [place]IN[place]
--- OUTSIDE RECORDS SUMMARY | 2020-07-24 11:05 | CCD | Continuity of Care Document ---
Author Author Hung LARA Organization Unknown Address [address] [place] [address], [place] [address] Phone [phone] Care Team Providers Care Drafting Layout Man Name Role Phone Shawn Hart AUTM [phone] Monserrat Shah MD AUTM [phone] Marciano Hunt MD AUTM [phone] Noemi Singh MD AUTM [phone] Problems Active Problems Provider Date Dyspnea Low [...] Jiménez MD Onset: 12/17/2018 Premature beats Low Jmiénez MD Onset: 12/17/2018 Peripheral vascular disease JAKE [...] Index) 28.0 kg/m2 Heart Rate 69 /min BP Systolic Sitting 120 mmHg LA, large cuff BP Diastolic Sitting 78 mmHg LA, large cuff 01/31/2020 2:00pm Weight 204.00 lb Height 71 inches 5'11" BMI (Body Mass Index) 28.4 kg/m2 Heart Rate 65 /min BP Systolic Sitting 114 mmHg BP Diastolic Sitting 70 mmHg Results Test Acquired Date Facility Test Result H/L Range Note CBC without Differential 07/03/2020 [facility] - not inter faced (315)- - White Blood Count 8.1 4.0-10.0 Red Blood Count 4.56 4.30-6.10 Platelets 316 150-450 Hemoglobin 13.9 Hematocrit 43.2 BMP 07/03/2020 [facility] - not interfaced (315)- - Calcium Ser/Plasma Mass/Vol 9.5 Sodium 141 Carbon Dioxide Ser/Plasm 26 Chloride Serum/Plasma 107 Potassium 4.3 Glucose 97 70-100 Blood Urea Nitrogen 23 High 7-18 Creatinine 1.41 High 0.70-1.30 G F R 52.0 Laboratory test finding 07/03/2020 [facility] - not interf aced (315)- - Thyroid Stimulating Hormone 1.310 NT Probnp QN Ser/Plas 174 Liver Panel 07/03/2020 [facility] - not interfaced (315)- - Alkaline Phosphatase 72 Ast - Sgot 23 Alt - SGPT 31 Bilirubin Total Mass/Vol 0.3 Bilirubin Direct Mass/Vol 0.1 Protein Total 7.3 Albumin Serum/Plasma 3.9 Cholesterol Total Mass/Vol 1.1 Laboratory test finding 07/03/2020 [facility] - not interf aced (315)- - Free T4 7.7 Procedures Date Code Description Status 07/10/2020 64457 Echocardiogram 2-D Doppler Color Completed 07/06/2020 37805 ECG 12-Lead Completed 01/31/2020 79707 ECG 12-Lead Completed Medical Devices Description No [...] Erwin I25.1 0 Athscl heart disease of [place] coronary artery w/o ang pctrs I10 Essential (primary) hyperten tye I71.4 Abdominal aortic aneurysm, w ithout rupture I70.1 Atherosclerosis of renal art vera R94.31 Abnormal electrocardiogram [ ECG] [EKG] Z71.3 Dietary counseling and surve illance Assessments Date Code Description Provider 07/10/2020 R07.9 Chest pain, unspecified ECHO 07/10/2020 R06.02 Shortness of breath ECHO 07/06/2020 R07.9 Chest pain, unspecified JAKE Cain 07/06/2020 I25.10 Atherosclerotic hear t disease of [place] coronary artery without angina pectoris JAKE Liriano 07/06/2020 I10 Essential (primary) hypertension JAEK Liriano 07/06/2020 I71.4 Abdominal aortic aneurysm, witho ut rupture JAKE Liriano 07/06/2020 R94.31 Abnormal electrocardiogram [ECG] [EKG] JAKE Liriano 07/06/2020 Z71.3 Dietary counseling and surveilla JAKE Melara 01/31/2020 I25.10 Atherosclerotic hear t disease of [place] coronary artery without angina pectoris JAKE Erwin 01/31/2020 I10 Essential (primary) hypertension JAKE Erwin 01/31/2020 I71.4 Abdominal aortic aneurysm, witho ut rupture JAKE Erwin 01/31/2020 I70.1 Atherosclerosis of renal artery JAKE Erwin 01/31/2020 R94.31 Abnormal electrocardiogram [ECG] [EKG] JAKE Erwin 01/31/2020 Z71.3 Dietary counseling and surveilla JAKE Allen Plan of Treatment Future Appointment(s):* 01/03/2021 1:00 pm - JAKE Liriano at Main Office 07/06/2020 - JAKE Liriano* R07.9 Chest pain, unspecified* Recommendations:* Echocardiogram Doppler ordered for further evaluation of patient's chest pain and new onset cardiac murmur Patient refuses stress testing at this time * I25.10 Atherosclerotic heart disease of [place] coronary artery without angina pectoris* Recommendations:* Patient refuses stress testing at this time Plan in chest pain, unspecified category above * I10 Essential (primary) hypertension* Recommendations:* Continue atenolol and spironolactone at the current dosages Advised patient to please monitor blood pressures at home and to alert our office for readings >140/>90 or <110/<60 * I71.4 Abdominal aortic aneurysm, [...]
--- OUTSIDE RECORDS SUMMARY | 2020-07-24 11:05 | CCD | Continuity of Care Document ---
Author Author Hung HART [facility] Organization Unknown Address [address] [facility] [address] [place] [address] Phone [phone] Care Team Providers Care Banking Paralegal Name Role Phone Eliel Miller D.O. AUTM [phone] Eliel Mckeon M.D. AUTM [phone] Problems Active Problems Provider Date Neck pain [...] CPT Code Status Date Vaccine Lot # [id number] Given 03/20/2020 Pneumococcal Immunization T0 [id number] 00410 Given 03/20/2020 Influenza Virus Vaccine, Quadrivalent, Slit Virus, Im Use 3Y & Up [id number] 91919 Given 02/08/2016 Influenza Vaccin e (Fluzone) 3Yrs Of Age Or Older Medicare Plans [id number] 53452 Given 04/17/2015 Influenza Vaccin e (Fluzone) 3Yrs Of Age Or Older Medicare Plans [id number] 78116 Given 04/10/2014 Influenza Vaccin e (Fluzone) 3Yrs Of Age Or Older Medicare Plans [id number] 13143 Given 03/24/2013 Influenza Vaccin e (Fluzone) 3Yrs Of Age Or Older Medicare Plans 39900 Given 03/24/2013 Pneumococcal Immunization H0 [id number] 28811 Given 03/24/2013 Influenza Virus Vac. Split Virus Individuals 3 Years And Above [id number] 50161 Given 05/02/2008 Pneumococcal Immunization 05 [id number] 34706 Given 05/02/2008 Influenza Virus Vac. Split Virus Individuals 3 Years And Above [id number] [id number] Refused 03/22/2019 Influenza Virus Vaccine, Quadrivalent, Slit Virus, Im Use 3Y & Up Vital Signs Date Vital Result Comment 06/20/2020 1:06pm BP Systolic 126 mmHg BP Diastolic 70 mmHg Body Temperature 97.6 F Heart Rate 76 /min Respiratory Rate 16 /min Height 71 inches 5'11" Weight 205.00 lb [place] Body Weight 172 lb BMI (Body Mass Index) 28.6 kg/m2 O2 % BldC Oximetry 97 % 03/20/2020 1:21pm BP Systolic 130 mmHg BP Diastolic 84 mmHg Body Temperature 97.8 F Heart Rate 71 /min Respiratory Rate 16 /min Height 71 inches 5'11" Weight 204.00 lb [place] Body Weight 172 lb BMI (Body Mass Index) 28.4 kg/m2 O2 % BldC Oximetry 98 % Results Test Acquired Date Facility Test Result H/L Range Note Coronavirus 2018 ([facility]) 05/15/2020 [facility]) [phone] Coronavirus 2018 ([facility]) <SEE NOTE> 1 1 Test: COVID-19 Nasal/Naspharynx Result: NOT DETECTED Reference Units: Not detected Note: Please consider re-collection of a new specimen, if clinically indicated. Note: The COVID-19 assay is under Emergency Use Authorization(EUA) by the U.S. Food and Drug Administration. [facility] is designated as a high complexity laboratory by the Clinical Laboratory Improvement Amendments of 1988(CLIA) and is qualified to perform this test. ASSAY INFORMATION: Real Time RT-PCR Patient samples for this assay have been pooled. All positive samples have been individually repeated for confirmation. The pooling protocol using the raudel SARS-CoV-2 assay has been added to [id number] on March 22, 2020. Procedures Description No Information Available Medical Devices Description No Information Available Encounters Type Date Location Provider Dx Diagnosis Office Visit 06/20/2020 1:00p [facility] Shawn Hart, RP A E78.5 Hyperlipidemia, unspecified I15.0 Renovascular hypertension [...] par oxysmal anxiety] Office Visit 02/24/2020 1:15p [facility] Marciano Ramírez M. D. H57.12 Ocular [...] Shawn Hart, RPA 06/20/2020 M13.0 Polyarthritis, unspecified [place] Shawn lira, RPA 06/20/2020 J44.9 Chronic obstructive [...] 03/20/2020 J44.9 Chronic obstructive pulmonary di sease, unspecShawn Biggs, RPA 03/20/2020 D50.9 Iron deficiency anemia, unspecif [...] Appointment(s):* 09/19/2020 1:00 pm - Shawn Hart, RPA at [facility] Functional Status Description No Information Available Mental Status Description No Information Available Referrals Description No Information Available
--- OUTSIDE RECORDS SUMMARY | 2020-07-24 11:05 | CCD | Continuity of Care Document ---
Author Organization Unknown Address Unknown Phone Unavailable Care Team Providers Care Associate Director Name Role Phone Shawn Hart AUTM [phone] Monserrat Shah MD AUTM [phone] Marciano Hunt MD AUTM [phone] Noemi Singh MD AUTM [phone] Problems Active Problems Provider Date Dyspnea Low [...] Reaction Severity Comments Date Statins rash/myalgia 10/25/2018 Medications Active Medications SIG Qnty Indications Ordering [...] Available Vital Signs Date Vital Result Comment 01/31/2020 2:00pm Weight 204.00 lb Height 71 inches 5'11" BMI (Body Mass Index) 28.4 kg/m2 Heart Rate 65 /min BP Systolic Sitting 114 mmHg BP Diastolic Sitting 70 mmHg 06/28/2019 2:46pm Weight 205.00 lb Height 71 inches 5'11" BMI (Body Mass Index) 28.6 kg/m2 Heart Rate 63 /min BP Systolic Sitting 102 mmHg large cuff, Ra BP Diastolic Sitting 68 mmHg large cuff, Ra Results Test Acquired Date Facility Test Result H/L Range Note CBC without Differential 07/03/2020 [facility] - not inter faced (315)- - White Blood Count 8.1 4.0-10.0 Red Blood Count 4.56 4.30-6.10 Platelets 316 150-450 Hemoglobin 13.9 Hematocrit 43.2 BMP 07/03/2020 [facility] - not interfaced (315)- - Calcium Ser/Plasma Mass/Vol 9.5 Sodium 141 Carbon Dioxide Ser/Plasm 26 Chloride Serum/Plasma 107 Potassium 4.3 Glucose 97 70-100 Blood Urea Nitrogen 23 High 7-18 Creatinine 1.41 High 0.70-1.30 G F R 52.0 Laboratory test finding 07/03/2020 [facility] - not interf aced (315)- - Thyroid Stimulating Hormone 1.310 NT Probnp QN Ser/Plas 174 Liver Panel 07/03/2020 [facility] - not interfaced (315)- - Alkaline Phosphatase 72 Ast - Sgot 23 Alt - SGPT 31 Bilirubin Total Mass/Vol 0.3 Bilirubin Direct Mass/Vol 0.1 Protein Total 7.3 Albumin Serum/Plasma 3.9 Cholesterol Total Mass/Vol 1.1 Laboratory test finding 07/03/2020 [facility] - not interf aced (315)- - Free T4 7.7 Procedures Date Code Description Status 01/31/2020 29750 ECG 12-Lead Completed Medical Devices Description No Information Available Encounters Type Date Location Provider Dx Diagnosis Office Visit 01/31/2020 2:00p Main Office JAKE Erwin I25.1 0 Athscl heart disease of [place] coronary artery w/o ang pctrs I10 Essential (primary) hyperten tye I71.4 Abdominal aortic aneurysm, w ithout rupture I70.1 Atherosclerosis of renal art vera R94.31 Abnormal electrocardiogram [ ECG] [EKG] Z71.3 Dietary counseling and surve illance Assessments Date Code Description Provider 01/31/2020 I25.10 Atherosclerotic hear t disease of [place] coronary artery without angina pectoris JAKE Erwin 01/31/2020 I10 Essential (primary) hypertension JAKE Erwin 01/31/2020 I71.4 Abdominal aortic aneurysm, witho ut rupture JAKE Erwin 01/31/2020 I70.1 Atherosclerosis of renal artery JAKE Erwin 01/31/2020 R94.31 Abnormal electrocardiogram [ECG] [EKG] JAKE Erwin 01/31/2020 Z71.3 Dietary counseling and surveilla nce JAKE Erwin Plan of Treatment Future Appointment(s):* 07/06/2020 9:15 am - JAKE Liriano at Main Office 01/31/2020 - JAKE Erwin* I25.10 Atherosclerotic heart disease of [place] coronary artery without angina pectoris* Recommendations:* Please [...]
--- OUTSIDE RECORDS SUMMARY | 2020-07-24 11:06 | CCD ---
Author Author [facility] Organization [facility] Address Unknown Phone Unavailable Care Team Providers Care [employer] Cook Name Role Phone Melissa Shawn Unavailable PROBLEMS Type Condition ICD9-CM Code [id number] Code Onset Dates Condition S tatus SNOMED Code Notes Problem Renal artery stenosis I70.1 Active 198756476 Problem AAA (abdominal aortic aneurysm) without rupture I7 1.4 Active 04066825 ALLERGIES No Known Allergies ENCOUNTERS from 1945 to 2020-04-24 Encounter Location Date Provider Diagnosis [address] [address] Apr, Shawn Torres IMMUNIZATIONS No Information SOCIAL HISTORY Tobacco Use: Social History Observation Description Date Details (start date - stop date) Never Smoker Sex Assigned At : Social History Observation Description Sex Assigned At Unknown Tobacco Use/Smoking Question Answer Notes Are you a never smoker REASON FOR REFERRAL No Information VITAL SIGNS No information MEDICATIONS Medication SIG (Take, Route, Frequency, Duration) Notes Start Da te End Date Status Atenolol 25 MG 1 tablet Orally Once a day Active Aspirin 81 MG 1 tablet Orally Once a day for 30 day(s) Active Spironolactone 25 MG 1 tablet Orally Once a day Active Plavix 75 MG 1 tablet Orally Once a day for 30 day(s) Active Memantine HCl 5 MG 1 tablet Orally Once a day for 30 day(s) Active Doxazosin Mesylate 2 MG 1 tablet Orally Once a day Active B Complex-C - as directed Orally Act micah PROCEDURES No Information RESULTS No Results REASON FOR VISIT No Information MEDICAL (GENERAL) HISTORY Type Description Date Medical History AAA (abdominal aortic aneurysm) Medical History Acute renal failure Medical History Chronic renal failure Medical History Claudication in peripheral vascular dise ase Medical History Coronary artery disease invo lving [place] coronary artery Single vessel on angiogram in 06/2015 Medical History ZUNI (hard of hearing) Medical History HDL Medical History HTN Medical History Renal artery stenosis Medical History Liac artery aneurysm, right Surgical History Right renal stent 2006 Surgical History Left renal stent 2016 Hospitalization History surgical needs Goals Section No Information Health Concerns No Information MEDICAL EQUIPMENT No Information MENTAL STATUS No Information FUNCTIONAL STATUS No Information ASSESSMENTS No Information PLAN OF TREATMENT Next Appt Details Provider Name:Shawn Torres, 02:00:00 PM, [address] [place] [address], [id number], Insurance Providers Payer Name Payer Address Payer Phone Insured Name Patient Relati onship to Insured Coverage Start Date Coverage End Date [facility] [employer] [address] [facility] [address] [place] [employer] [address] [address] [facility] [phone] [place] [employer] - MEDICARE [place] [address] [facility] [id number] [place]
--- OUTSIDE RECORDS SUMMARY | 2020-07-24 11:06 | CCD ---
Author Author [facility] Organization [facility] Address Unknown Phone Unavailable Care Team Providers Care Resort Housekeeper Name Role Phone ABELARDO GARCIA Unavailable PROBLEMS Type Condition ICD9-CM Code XIA16-DB Code Onset Dates Condition S tatus SNOMED Code Notes Problem Stage 3 CKD 585.3 Active 125544485 Renal func tion is stable with a [...] in 6-8 weeks. Problem Edema 782.3 Active 744650324 He has no sarah ma today. Weight is decreased. Off diuretics now. Problem Atherosclerosis of renal artery I70.1 Active 51651826 s/p left renal artery stenting 06/23. Follow up with Dr. Hunt as scheduled. Problem Renal Artery Stenosis 440.1 Active 632556164 He has renal artery stenosis on the [...] n ow. Problem Hyperlipidemia, unspecified E78.5 Active 4758 2003 Lipids abnormal as he stopped statin due to leg pain. Restart Zetia. He is not dominique Pravastatin. Repeat in 1 month. Problem Acute Renal Failure 584.9 Active [id number] 108 Renal function is improved and the [...] of unspecified site, without rupture I71.9 Active 38357000 AAA about 3.8 cm, stable and followed by Dr Hunt. Problem Essential HTN, unspec. 401.9 Active 68019498 Blood pressure continues to be elevated. No change in wt. He follows low-salt diet. Case reviewed with Dr. Garcia and will start Chlorthalidone as below. I advised him to monitor BP at home. He will call in his readings in about 3 weeks. Sleep study showed very mild and likely not significant RICARDO. Problem Essential (primary) hypertension I10 Active 90746629 BP controlled. Orthostatic symptoms controlled. s/p left renal artery stenting 06/23. Evaluation for sleep apnea in the past not too abnormal. Continue current meds and work on weight loss. Problem Chronic kidney disease, stage 3 (moderate) N18.3 Active 210113379 History of obstructive uropathy. His creatinine is stable at 1.5. Baseline is around 1.3-1.5. He has minimal proteinuria. Electrolytes are normal including K. PTH and Vitamin D were normal in November. He was reminded to avoid nonsteroidals. Increase hydation. We will see him back in 4 months Problem Angina pectoris, unspecified I20.9 Active 194 373778 No symptoms currently. Not on lipid lowering therapy as he has not tolerated multiple drugs. Problem Hypokalemia E87.6 Active 49934445 K level is normal. Aldactone dose same. ALLERGIES Allergen (clinical drug ingredient) Drug/Non Drug Allergy do cumented on EMR Reaction Allergy Type Onset Date Status codeine Codeine Lack of urination Drug Allergy Activ e ENCOUNTERS from 1945 to 2020-06-17 Encounter Location Date Provider Diagnosis .[facility] [address] [facility] [place] [address] [place], [place] [id number] Apr, ABELARDO GARCIA Chronic kidney disea se, stage 3 (moderate) N18.3 ; Essential (primary) hypertension I10 ; Hypokalemia E87.6 ; Angina pectoris, unspecified I20.9 ; Aortic aneurysm of unspecified site, without rupture I71.9 and Hydronephrosis with ureteropelvic junction obstruction N13.0 IMMUNIZATIONS No Information SOCIAL HISTORY Tobacco Use: Social History Observation Description Date Details (start date - stop date) Former Smoker Sex Assigned At : Social History Observation Description Sex Assigned At Unknown Smoking Question Answer Notes Status: former smoker Pt states that he qu it in the beginnin of Jun 23 REASON FOR REFERRAL No Information VITAL SIGNS Heart Rate 64 /min Apr, Weight 206 lbs Apr, Height 71 in Apr, BMI 28.73 kg/m2 Apr, Blood pressure systolic 138 Apr, Blood pressure diastolic 86 Apr, MEDICATIONS Medication SIG (Take, Route, Frequency, Duration) [...] Information RESULTS No Results REASON FOR VISIT Patient is seen today in follow-up MEDICAL (GENERAL) HISTORY Type Description Date Medical [...] No Information FUNCTIONAL STATUS No Information ASSESSMENTS Encounter Date Diagnosis Assessment Notes Treatment Notes Treatm ent Clinical Notes Apr, Chronic kidney disease, stage 3 (moderat e) (ICD-10 - N18.3) History of obstructive uropathy. His creatinine is stable at 1.5. Baseline is around 1.3-1.5. He has minimal proteinuria. Electrolytes are normal including K. PTH and Vitamin D were normal in November. He was reminded to avoid nonsteroidals. Increase hydation. We will see him back in 4 months Apr, Essential (primary) hypertension (ICD-10 - I10) BP controlled. Orthostatic symptoms controlled. s/p left renal artery stenting 06/23. Evaluation for sleep apnea in the past not too abnormal. Continue current meds and work on weight loss. Apr, Hypokalemia (ICD-10 - E87.6) K level is normal. Aldactone dose same. Apr, Angina pectoris, unspecified (ICD-10 - I 20.9) No symptoms currently. Not on lipid lowering therapy as he has not tolerated multiple drugs. Apr, Aortic aneurysm of unspecifi ed site, without rupture (ICD-10 - I71.9) AAA about 3.8 cm, stable and followed by Dr Hunt. Apr, Hydronephrosis with ureterop elvic junction obstruction (ICD-10 - N13.0) Mild left hydronephrosis in the past cau sed by an obstructing calculus. His kidney function has improved. Will obtain kidney ultrasound done last month. He also sees urology locally. PLAN OF TREATMENT Medication Medication Name Sig Start Date Stop Date Spironolactone 25 MG 1 tablet Orally Once a day in am Doxazosin Mesylate 2 MG 1 tablet Orally Once at night Next Appt Details 3 Months,with JORJE (Televisit) Reason: Provider Name:ROSY Mcmahon, 202 06-09-17 10:20:00 AM, [address] [facility], [address], [place], [address], Insurance Providers Payer Name Payer Address Payer Phone Insured Name Patient Relati onship to Insured Coverage Start Date Coverage End Date [employer] [address] [address] [facility] [id number] [place] self MEDICARE PRIMARY [address] [place] [id number] [place] self
--- OUTSIDE RECORDS SUMMARY | 2020-07-24 11:06 | CCD | Continuity of Care Document ---
Author Author [facility] Organization Unknown Address [address] [facility] [address] [place] [address] Phone [phone] Care Team Providers Care Special Procedures Tech Name Role Phone Eliel Miller D.O. AUTM [phone] Eliel Mckeon M.D. AUTM [phone] Problems Active Problems Provider Date Neck pain [...] SIG Qnty Indications Ordering Provide r Date Trelegy Ellipta 100- 62.5-25mcg/Inh Aerosol 1 puff every day 3units Manuel Romero D.O., F AAFP 03/20/2020 Acyclovir 800mg Tablets one by mouth 3 times a day for 7 days 21tabs Manuel Romero D.O., FA AFP 02/24/2020 Hydroxyzine HCL 25mg Tablets Take One To Two Tablets By Mouth AT Bedtime 30tabs Manuel Romero D.O., FAAFP 12/19/2019 Memantine HCL ER 7mg Caps ER 24HR 1 by mouth every day x 7 days then increase to two caps 60caps Manuel Romero D.O., FAAFP 04/11/2019 Vitamin B Complex Tablets 1 by mouth every day 90tabs Ankur BrizuelaO., FAAFP Tylenol 325mg Capsules 2 tab by [...] Tablets 1 by mouth every day Unknown Medications Administered in Office Medication SIG Qnty [...] CPT Code Status Date Vaccine Lot # [id number] Given 03/20/2020 Pneumococcal Immunization T0 [id number] 91527 Given 03/20/2020 Influenza Virus Vaccine, Quadrivalent, Slit Virus, Im Use 3Y & Up [id number] 37377 Given 02/08/2016 Influenza Vaccin e (Fluzone) 3Yrs Of Age Or Older Medicare Plans [id number] 38015 Given 04/17/2015 Influenza Vaccin e (Fluzone) 3Yrs Of Age Or Older Medicare Plans [id number] 04905 Given 04/10/2014 Influenza Vaccin e (Fluzone) 3Yrs Of Age Or Older Medicare Plans [id number] 59984 Given 03/24/2013 Influenza Vaccin e (Fluzone) 3Yrs Of Age Or Older Medicare Plans 94470 Given 03/24/2013 Pneumococcal Immunization [id number] 86896 Given 03/24/2013 Influenza Virus Vac. Split Virus Individuals 3 Years And Above [id number] 74808 Given 05/02/2008 Pneumococcal Immunization 05 [id number] 34017 Given 05/02/2008 Influenza Virus Vac. Split Virus Individuals 3 Years And Above [id number] [id number] Refused 03/22/2019 Influenza Virus Vaccine, Quadrivalent, Slit Virus, Im Use 3Y & Up Vital Signs Date Vital Result Comment 03/20/2020 1:21pm BP Systolic 130 mmHg BP Diastolic 84 mmHg Body Temperature 97.8 F Heart Rate 71 /min Respiratory Rate 16 /min Height 71 inches 5'11" Weight 204.00 lb [place] Body Weight 172 lb BMI (Body Mass Index) 28.4 kg/m2 O2 % BldC Oximetry 98 % 02/24/2020 4:00pm BP Systolic 122 mmHg BP Diastolic 82 mmHg Body Temperature 97.7 F Heart Rate 72 /min Respiratory Rate 16 /min Height 71 inches 5'11" Weight 205.00 lb [place] Body Weight 172 lb BMI (Body Mass Index) 28.6 kg/m2 O2 % BldC Oximetry 94 % Results Test Acquired Date Facility Test Result H/L Range Note Coronavirus 2018 ([facility]) 05/15/2020 [facility] ([facility]) [phone] Coronavirus 2018 ([facility]) <SEE NOTE> 1 Lyme AB/Line Blot Reflex 12/19/2019 [facility] [place] Lyme IgG/IgM Ab <0.91 ISR 0.00-0.90 2 Lyme Disease Ab, Quant, IgM <0.80 index 0.00-0.79 3 1 Test: COVID-19 Nasal/Naspharynx Result: NOT DETECTED Reference Units: Not detected Note: Please consider re-collection of a new specimen, if clinically indicated. Note: The COVID-19 assay is under Emergency Use Authorization(EUA) by the U.S. Food and Drug Administration. [facility] is designated as a high complexity laboratory by the Clinical Laboratory Improvement Amendments of 1988(CLIA) and is qualified to perform this test. ASSAY INFORMATION: Real Time RT-PCR Patient samples for this assay have been pooled. All positive samples have been individually repeated for confirmation. The pooling protocol using the raudel SARS-CoV-2 assay has been added to [id number] on March 22, 2020. 2 Negative <0.91 Equivocal 0.91 - 1.09 Positive >1.09 3 Negative <0.80 Equivocal 0.80 - 1.19 Positive >1.19 IgM levels may peak at 3-6 weeks post infection, then gradually decline. Procedures Description No Information Available Medical Devices Description No Information Available Encounters Type Date Location Provider Dx Diagnosis Office Visit 02/24/2020 1:15p [place] [facility] Marciano Ramírez M. D. 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, unspecifi ed Shawn Hart, RPA 12/19/2019 Z86.010 Personal history of colonic poly ps Shawn Hart, RPA 12/19/2019 M54.2 Cervicalgia Shawn Hart, RPA 12/19/2019 M13.0 Polyarthritis, unspecified Hinma Shawn lira, RPA 12/19/2019 J44.9 Chronic obstructive pulmonary di sease, unspecified Shawn Hart, RPA 12/19/2019 D50.9 Iron deficiency anemia, unspecif ied Shawn Hart, RPA 12/19/2019 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
--- OUTSIDE RECORDS SUMMARY | 2020-07-24 11:06 | CCD ---
Author Author [facility] Organization [facility] Address Unknown Phone Unavailable Care Team Providers Care Telephone Technician Name Role Phone ABELARDO GARCIA Unavailable PROBLEMS Type Condition ICD9-CM Code [id number] Code Onset Dates Condition S tatus SNOMED Code Notes Problem Stage 3 CKD 585.3 Active 626743154 Renal func tion is stable with a [...] in 6-8 weeks. Problem Edema 782.3 Active 266738712 He has no sarah ma today. Weight is decreased. Off diuretics now. Problem Atherosclerosis of renal artery I70.1 Active 87311309 s/p left renal artery stenting 06/23. Follow up with Dr. Hunt as scheduled. Problem Renal Artery Stenosis 440.1 Active 831899963 He has renal artery stenosis on the [...] n ow. Problem Hyperlipidemia, unspecified E78.5 Active 6079 2003 Lipids abnormal as he stopped statin due to leg pain. Restart Zetia. He is not dominique Pravastatin. Repeat in 1 month. Problem Acute Renal Failure 584.9 Active [id number] 108 Renal function is improved and the [...] of unspecified site, without rupture I71.9 Active 15783078 AAA about 3.8 cm, stable and followed by Dr Hunt. Problem Essential HTN, unspec. 401.9 Active 56326223 Blood pressure continues to be elevated. No change in wt. He follows low-salt diet. Case reviewed with Dr. Garcia and will start Chlorthalidone as below. I advised him to monitor BP at home. He will call in his readings in about 3 weeks. Sleep study showed very mild and likely not significant RICARDO. Problem Essential (primary) hypertension I10 Active 67001660 BP controlled. Orthostatic symptoms controlled. s/p left renal artery stenting 06/23. Evaluation for sleep apnea in the past not too abnormal. Continue current meds and work on weight loss. Problem Chronic kidney disease, stage 3 (moderate) N18.3 Active 474245726 History of obstructive uropathy. His creatinine is improved down to 1.5. Baseline is around 1.3-1.5. He has minimal proteinuria. Electrolytes are normal including K. PTH and Vitamin D were normal in November. He was reminded to avoid nonsteroidals. Increase hydation. We will see him back in 4 months Problem Angina pectoris, unspecified I20.9 Active 194 269088 No symptoms currently. Not on lipid lowering therapy as he has not tolerated multiple drugs. Problem Hypokalemia E87.6 Active 47219123 K level is normal. Aldactone dose same. ALLERGIES Allergen (clinical drug ingredient) Drug/Non Drug Allergy do cumented on EMR Reaction Allergy Type Onset Date Status codeine Codeine Lack of urination Drug Allergy Activ e ENCOUNTERS from 1945 to 2020-04-24 Encounter Location Date Provider Diagnosis .[facility] [address] [facility] [address] [place], [place] [id number] Apr, ABELARDO GARCIA IMMUNIZATIONS No Information SOCIAL HISTORY [...] Notes Start Da te End Date Status Clopidogrel Bisulfate 75 MG 1 tablet Orally Once a day for 90 Active HydrOXYzine HCl 25 MG 1/2-1 tablet Orally Once a day at night Active Vitamin B Complex - as directed Orally Active Spironolactone 25 MG 1 tablet Orally Once a day in am for 90 Active Atenolol 25 MG 1 tablet Orally Once a day for 90 Active Memantine HCl ER 7 MG 1 capsule Orally Once a day for 30 day(s) Active Doxazosin Mesylate 2 MG 1 tablet Orally Once at night for 90 Active Spironolactone 25 MG 1 tablet Orally Once a day in am Active Aspirin 81 MG 1 tablet Orally Once a day Active PROCEDURES No Information RESULTS No Results REASON FOR VISIT ok for scans? MEDICAL (GENERAL) HISTORY Type Description Date Medical [...] tablet Orally Once at night for 90 Next Appt Details Provider Name:ABELARDO GARCIA 11:00:00 AM, [address] [facility], [address], [place], [id number], Insurance Providers Payer Name Payer Address Payer Phone Insured Name Patient Relati onship to Insured Coverage Start Date Coverage End Date MEDICARE PRIMARY [address] [place] [address] PRINCE [place] R [address] [address] [facility] [id number] [place] self
--- OUTSIDE RECORDS SUMMARY | 2020-07-24 11:06 | CCD ---
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 Name Role Phone Shawn Torres Unavailable PROBLEMS Type Condition ICD9-CM Code [id number] Code Onset Dates Condition S tatus SNOMED Code Notes Problem Renal artery stenosis I70.1 Active 254421946 Problem AAA (abdominal aortic aneurysm) without rupture I7 1.4 Active 37611620 ALLERGIES No Known Allergies ENCOUNTERS from 1945 to 2020-06-19 Encounter Location Date Provider Diagnosis [facility] [address] [place] [address] 12 2020 Shawn Torres AAA (abdominal aortic aneurysm) without rupture I71.4 and Renal artery stenosis I70.1 IMMUNIZATIONS No Information SOCIAL HISTORY Tobacco Use: Social History Observation Description Date Details (start date - stop date) Never Smoker Sex Assigned At : Social History Observation Description Sex Assigned At Unknown Tobacco Use/Smoking Question Answer Notes Are you a never smoker REASON FOR REFERRAL No Information VITAL SIGNS Height 68.5 in Jun, Weight 205.8 lbs Jun, BMI 30.83 kg/m2 Jun, Heart Rate 61 /min Jun, Respiratory Rate 18 /min Jun, Oximetry 98 % Jun, Blood pressure systolic 120 mmHg Jun, Blood pressure diastolic 76 mmHg Jun, MEDICATIONS Medication SIG (Take, Route, Frequency, Duration) Notes Start Da te End Date Status Plavix 75 MG 1 tablet Orally Once a day for 30 day(s) Active Aspirin 81 MG 1 tablet Orally Once a day for 30 day(s) Active B Complex-C - as directed Orally Act micah Atenolol 25 MG 1 tablet Orally Once a day Active Doxazosin Mesylate 2 MG 1 tablet Orally Once a day Active Memantine HCl 5 MG 1 tablet Orally Once a day for 30 day(s) Active Spironolactone 25 MG 1 tablet Orally Once a day Active PROCEDURES No Information RESULTS No Results REASON FOR VISIT 1 Year Follow up of AAA and renal artery stenosis MEDICAL (GENERAL) HISTORY Type Description Date Medical History AAA (abdominal aortic aneurysm) Medical History Acute renal failure Medical History Chronic renal failure Medical History Claudication in peripheral vascular dise ase Medical History Coronary artery disease invo lving solomon coronary artery Single vessel on angiogram in 06/2015 Medical History [place] (hard of hearing) Medical History HDL Medical History HTN Medical History Renal artery stenosis Medical History Liac artery aneurysm, right Surgical History Right renal stent 2005 Surgical History Left renal stent 2016 Hospitalization History surgical needs Goals Section No Information Health Concerns No Information MEDICAL EQUIPMENT No Information MENTAL STATUS No Information FUNCTIONAL STATUS No Information ASSESSMENTS Encounter Date Diagnosis Assessment Notes Treatment Notes Treatm ent Clinical Notes Jun, AAA (abdominal aortic aneurysm) without rupture (ICD-10 - I71.4) In 1 year Jun, Renal artery stenosis (ICD-10 - I70.1) PLAN OF TREATMENT Treatment Notes Assessment Notes Clinical Notes AAA (abdominal aortic aneurysm) without rupture In 1 year Treatment Notes Test Name Order Date US AORTA AND ILIAC - [id number] 2020-06-19 RENAL ARTERIAL DOPPLER 2020-06-19 Next Appt Details 1 Year Reason: Insurance Providers Payer Name Payer Address Payer Phone Insured Name Patient Relati onship to Insured Coverage Start Date Coverage End Date [facility] [address] [address] [facility] [phone] [employer] - [employer] [address] [facility] [address] [place] [employer] - MEDICARE [place] [address] [facility] [address] [place]
--- OUTSIDE RECORDS SUMMARY | 2020-07-24 11:07 | CCD ---
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 Role Phone Fauzia GLOVER MD Unavailable Unavailable Fauzia GLOVER MD Unavailable Unavailable SUROWFauzia SONI MD Unavailable Unavailable SUROWFauzia SONI MD Unavailable Unavailable SUROWFauzia SONI MD Unavailable Unavailable VIRGINIAOWFauzia SONI MD Unavailable Unavailable Fauzia GLOVER MD Unavailable Unavailable Fauzia GLOVER MD Unavailable Unavailable Fauzia GLOVER MD Unavailable Unavailable VIRGINIAOWFauzia SONI MD Unavailable Unavailable VIRGINIAOWFauzia SONI MD Unavailable Unavailable Fauzia GLOVER MD Unavailable Unavailable Fauzia GLOVER MD Unavailable Unavailable Fauzia GLOVER MD Unavailable Unavailable Fauzia GLOVER MD Unavailable Unavailable Fauzia GLOVER MD Unavailable Unavailable Fauzia GLOVER MD Unavailable Unavailable SUROWIEC, Fauzia CAVAZOS MD Unavailable Unavailable SUROWIEC, Fauzia CAVAZOS MD Unavailable Unavailable SUROWIEC, Fauzia CAVAZOS MD Unavailable Unavailable SUROWIEC, Fauzia CAVAZOS MD Unavailable Unavailable SUROWIEC, Fauzia CAVAZOS MD Unavailable Unavailable SUROWIEC, Fauzia CAVAZOS MD Unavailable Unavailable SUROWIEC, Fauzia CAVAZOS MD Unavailable Unavailable SUROWIEC, Fauzia CAVAZOS MD Unavailable Unavailable SUROWIEC, Fauzia CAVAZOS MD Unavailable Unavailable SUROWIEC, Fauzia CAVAZOS MD Unavailable Unavailable SUROWIEC, Fauzia CAVAZOS MD Unavailable Unavailable SUROWIEC, Fauzia CAVAZOS MD Unavailable Unavailable SUROWIEC, Fauzia CAVAZOS MD Unavailable Unavailable SUROWIEC, Fauzia CAVAZOS MD Unavailable Unavailable SUROWIEC, Fauzia CAVAZOS MD Unavailable Unavailable SUROWIEC, Fauzia CAVAZOS MD Unavailable Unavailable SUROWIEC, Fauzia CAVAZOS MD Unavailable Unavailable SUROWIEC, Fauzia CAVAZOS MD Unavailable Unavailable SUROWIEC, Fauzia CAVAZOS MD Unavailable Unavailable SUROWIEC, Fauzia CAVAZOS MD Unavailable Unavailable SUROWIEC, Fauzia CAVAZOS MD Unavailable Unavailable SUROWIEC, Fauzia CAVAZOS MD Unavailable Unavailable SUROWIEC, Fauzia CAVAZOS MD Unavailable Unavailable SUROWIEC, Fauzia CAVAZOS MD Unavailable Unavailable SUROWIEC, Fauzia CAVAZOS MD Unavailable Unavailable SUROWIEC, Fauzia CAVAZOS MD Unavailable Unavailable SUROWIEC, Fauzia CAVAZOS MD Unavailable Unavailable SUROWIEC, Fauzia CAVAZOS MD Unavailable Unavailable SUROWIEC, Fauzia CAVAZOS MD Unavailable Unavailable SUROWIEC, Fauzia CAVAZOS MD Unavailable Unavailable SUROWIEC, Fauzia CAVAZOS MD Unavailable Unavailable SUROWIEC, Fauzia CAVAZOS MD Unavailable Unavailable SUROWIEC, Fauzia CAVAZOS MD Unavailable Unavailable SUROWIEC, Fauzia CAVAZOS MD Unavailable Unavailable SUROWIEC, Fauzia CAVAZOS MD Unavailable Unavailable SUROWIEC, Fauzia CAVAZOS MD Unavailable Unavailable SUROWIEC, Fauzia CAVAZOS MD Unavailable Unavailable SUROWIEC, Fauzia CAVAZOS MD Unavailable Unavailable SUROWIEC, Fauzia CAVAZOS MD Unavailable Unavailable SUROWIEC, Fauzia CAVAZOS MD Unavailable Unavailable SUROWIEC, Fauzia CAVAZOS MD Unavailable Unavailable SUROWIEC, Fauzia CAVAZOS MD Unavailable Unavailable SUROWIEC, Fauzia CAVAZOS MD Unavailable Unavailable SUROWIEC, Fauzia CAVAZOS MD Unavailable Unavailable SUROWIEC, Fauzia CAVAZOS MD Unavailable Unavailable SUROWIEC, Fauzia CAVAZOS MD Unavailable Unavailable SUROWIEC, Fauzia CAVAZOS MD Unavailable Unavailable SUROWIEC, Fauzia CAVAZOS MD Unavailable Unavailable SUROWIEC, Fauzia CAVAZOS MD Unavailable Unavailable SUROWIEC, Fauzia CAVAZOS MD Unavailable Unavailable SUROWIEC, Fauzia CAVAZOS MD Unavailable Unavailable SUROWIEC, Fauzia CAVAZOS MD Unavailable Unavailable SUROWIEC, Fauzia CAVAZOS MD Unavailable Unavailable SUROWIEC, Fauzia CAVAZOS MD Unavailable Unavailable SUROWIEC, Fauzia CAVAZOS MD Unavailable Unavailable SUROWIEC, Fauzia CAVAZOS MD Unavailable Unavailable SUROWIEC, Fauzia CAVAZOS MD Unavailable Unavailable SUROWIEC, M MACY RICHARDS Unavailable Unavailable SUROWIEC, Fauzia CAVAZOS MD Unavailable Unavailable SUROWIEC, M MACY RICHARDS Unavailable Unavailable SUROWIEC, M MACY RICHARDS Unavailable Unavailable SUROWIEC, Fauzia CAVAZOS MD Unavailable Unavailable COLEMANSusan MD Unavailable Unavailable Susan CEE MD Unavailable Unavailable Susan CEE MD Unavailable Unavailable Susan CEE MD Unavailable Unavailable Susan CEE MD Unavailable Unavailable Susan CEE MD Unavailable Unavailable Susan CEE MD Unavailable Unavailable Susan CEE MD Unavailable Unavailable Susan CEE MD Unavailable Unavailable Susan CEE MD Unavailable Unavailable Susan CEE MD Unavailable Unavailable Susan CEE MD Unavailable Unavailable Susan CEE MD Unavailable Unavailable Susan CEE MD Unavailable Unavailable Susan CEE MD Unavailable Unavailable Susan CEE MD Unavailable Unavailable Susan CEE MD Unavailable Unavailable Susan CEE MD Unavailable Unavailable Susan CEE MD Unavailable Unavailable Susan CEE MD Unavailable Unavailable Susan CEE MD Unavailable Unavailable Susan CEE MD Unavailable Unavailable Susan CEE MD Unavailable Unavailable Susan CEE MD Unavailable Unavailable Susan CEE MD Unavailable Unavailable Susna CEE MD Unavailable Unavailable Susan CEE MD Unavailable Unavailable Susan CEE MD Unavailable Unavailable Susan CEE MD Unavailable Unavailable Susan CEE MD Unavailable Unavailable Susan CEE MD Unavailable Unavailable Susan CEE MD Unavailable Unavailable Susan CEE MD Unavailable Unavailable Susan CEE MD Unavailable Unavailable Susan CEE MD Unavailable Unavailable Susan CEE MD Unavailable Unavailable Susan CEE MD Unavailable Unavailable Susan CEE MD Unavailable Unavailable Susan CEE MD Unavailable Unavailable Susan CEE MD Unavailable Unavailable Susan CEE MD Unavailable Unavailable Susan CEE MD Unavailable Unavailable Susan CEE MD Unavailable Unavailable Susan CEE MD Unavailable Unavailable Susan CEE MD Unavailable Unavailable Susan CEE MD Unavailable Unavailable Susan CEE MD Unavailable Unavailable Susan CEE MD Unavailable Unavailable Susan CEE MD Unavailable Unavailable Susan CEE MD Unavailable Unavailable Susan CEE MD Unavailable Unavailable Susan CEE MD Unavailable Unavailable Susan CEE MD Unavailable Unavailable Susan CEE MD Unavailable Unavailable Susan CEE MD Unavailable Unavailable Susan CEE MD Unavailable Unavailable Susan CEE MD Unavailable Unavailable Susan CEE MD Unavailable Unavailable Susan CEE MD Unavailable Unavailable Susan CEE MD Unavailable Unavailable Susan CEE MD Unavailable Unavailable Susan CEE MD Unavailable Unavailable Susan CEE MD Unavailable Unavailable Susan CEE MD Unavailable Unavailable Susan CEE MD Unavailable Unavailable Susan CEE MD Unavailable Unavailable Susan CEE MD Unavailable Unavailable Susan CEE MD Unavailable Unavailable Susan CEE MD Unavailable Unavailable Susan CEE MD Unavailable Unavailable Susan CEE MD Unavailable Unavailable Susan CEE MD Unavailable Unavailable Susan CEE MD Unavailable Unavailable Susan CEE MD Unavailable Unavailable Susan CEE MD Unavailable Unavailable Susan CEE MD Unavailable Unavailable Trickey, J Erica PA Unavailable Unavailable Trickey, J Erica PA Unavailable Unavailable Trickey, J Erica PA Unavailable Unavailable Trickey, J Erica PA Unavailable Unavailable Trickey, J Erica PA Unavailable Unavailable Trickey, J Erica PA Unavailable Unavailable Trickey, J Erica PA Unavailable Unavailable Trickey, J Erica PA Unavailable Unavailable Trickey, J Erica PA Unavailable Unavailable Trickey, J Erica PA Unavailable Unavailable Trickey, J Erica PA Unavailable Unavailable Trickey, J Erica PA Unavailable Unavailable Trickey, J Erica PA Unavailable Unavailable Trickey, J Erica PA Unavailable Unavailable Trickey, J Erica PA Unavailable Unavailable Trickey, J Erica PA Unavailable Unavailable Trickey, J Erica PA Unavailable Unavailable Trickey, J Erica PA Unavailable Unavailable Trickey, J Erica PA Unavailable Unavailable Trickey, J Erica PA Unavailable Unavailable Trickey, J Erica PA Unavailable Unavailable Trickey, J Erica PA Unavailable Unavailable Trickey, J Erica PA Unavailable Unavailable Trickey, J Erica PA Unavailable Unavailable Trickey, J Erica PA Unavailable Unavailable Trickey, J Erica PA Unavailable Unavailable Trickey, J Erica PA Unavailable Unavailable Trickey, J Erica PA Unavailable Unavailable Trickey, J Erica PA Unavailable Unavailable Trickey, J Erica PA Unavailable Unavailable Trickey, J Erica PA Unavailable Unavailable Trickey, J Erica PA Unavailable Unavailable Trickey, J Erica PA Unavailable Unavailable Trickey, J Erica PA Unavailable Unavailable Trickey, J Erica PA Unavailable Unavailable Trickey, J Erica PA Unavailable Unavailable Trickey, J Erica PA Unavailable Unavailable Trickey, J Erica PA Unavailable Unavailable Trickey, J Erica PA Unavailable Unavailable Trickey, J Erica PA Unavailable Unavailable Trickey, J Erica PA Unavailable Unavailable Trickey, J Erica PA Unavailable Unavailable Trickey, J Erica PA Unavailable Unavailable Trickey, J Erica PA Unavailable Unavailable Trickey, J Erica PA Unavailable Unavailable Trickey, J Erica PA Unavailable Unavailable Trickey, J Erica PA Unavailable Unavailable Trickey, J Erica PA Unavailable Unavailable Bon, L Greta PA Unavailable Unavailable Bon, L Greta PA Unavailable Unavailable Bon, L Greta PA Unavailable Unavailable Bon, L Greta PA Unavailable Unavailable Bon, L Greta PA Unavailable Unavailable Bon, L Greta PA Unavailable Unavailable Bon, L Greta PA Unavailable Unavailable Bon, L Greta PA Unavailable Unavailable Bon, L Greta PA Unavailable Unavailable Bon, L Greta PA Unavailable Unavailable Bon, L Greta PA Unavailable Unavailable Bon, L Greta PA Unavailable Unavailable Bon, L Greta PA Unavailable Unavailable Bon, L Greta PA Unavailable Unavailable Bon, L Greta PA Unavailable Unavailable Bon, L Greta PA Unavailable Unavailable Bon, L Greta PA Unavailable Unavailable Bon, L Greta PA Unavailable Unavailable Bon, L Greta PA Unavailable Unavailable Bon, L Greta PA Unavailable Unavailable Bon, L Greta PA Unavailable Unavailable Bon, L Greta PA Unavailable Unavailable Bon, L Greta PA Unavailable Unavailable Tanner, D Alvarado PA Unavailable Unavailable Tanner, D Alvarado PA Unavailable Unavailable Tanner, D Alvarado PA Unavailable Unavailable Tanner, D Alvarado PA Unavailable Unavailable Tanner, D Alvarado PA Unavailable Unavailable Tanner, D Alvarado PA Unavailable Unavailable Tanner, D Alvarado PA Unavailable Unavailable Tanner, D Alvarado PA Unavailable Unavailable Tanner, D Alvarado PA Unavailable Unavailable Tanner, D Alvarado PA Unavailable Unavailable Tanner, D Alvarado PA Unavailable Unavailable Tanner, D Alvarado PA Unavailable Unavailable Tanner, D Alvarado PA Unavailable Unavailable Tanner, D Alvarado PA Unavailable Unavailable Tanner, D Alvarado PA Unavailable Unavailable Tanner, D Alvarado PA Unavailable Unavailable Tanner, D Alvarado PA Unavailable Unavailable Tanner, D Alvarado PA Unavailable Unavailable Tanner, D Alvarado PA Unavailable Unavailable Tanner, D Alvarado PA Unavailable Unavailable Tanner, D Alvarado PA Unavailable Unavailable Tanner, D Alvarado PA Unavailable Unavailable Tanner, D Alvarado PA Unavailable Unavailable Tanner, D Alvarado PA Unavailable Unavailable Tanner, D Alvarado PA Unavailable Unavailable Tanner, D Alvarado PA Unavailable Unavailable Tanner, D Alvarado PA Unavailable Unavailable Tanner, D Alvarado PA Unavailable Unavailable Tanner, D Alvarado PA Unavailable Unavailable Tanner, D Alvarado PA Unavailable Unavailable Tanner, D Alvarado PA Unavailable Unavailable Tanner, D Alvarado PA Unavailable Unavailable Tanner, D Alvarado PA Unavailable Unavailable Tanner, D Alvarado PA Unavailable Unavailable Tanner, D Alvarado PA Unavailable Unavailable Tanner, D Alvarado PA Unavailable Unavailable Tanner, D Alvarado PA Unavailable Unavailable Tanner, D Alvarado PA Unavailable Unavailable Tanner, D Alvarado PA Unavailable Unavailable Tanner, D Alvarado PA Unavailable Unavailable Tanner, D Alvarado PA Unavailable Unavailable Tanner, D Alvarado PA Unavailable Unavailable Tanner, D Alvarado PA Unavailable Unavailable Tanner, D Alvarado PA Unavailable Unavailable Tanner, D Alvarado PA Unavailable Unavailable Tanner, D Alvarado PA Unavailable Unavailable Tanner, D Alvarado PA Unavailable Unavailable Tanner, D Alvarado PA Unavailable Unavailable Tanner, D Alvarado PA Unavailable Unavailable Tanner, D Alvarado PA Unavailable Unavailable Tanner, D Alvarado PA Unavailable Unavailable Tanner, D Alvarado PA Unavailable Unavailable Tanner, D Alvarado PA Unavailable Unavailable Tanner, D Alvarado PA Unavailable Unavailable Tanner, D Alvarado PA Unavailable Unavailable Tanner, D Alvarado PA Unavailable Unavailable Tanner, D Alvarado PA Unavailable Unavailable Tanner, D Alvarado PA Unavailable Unavailable Tanner, D Alvarado PA Unavailable Unavailable Tanner, D Alvarado PA Unavailable Unavailable Tanner, D Alvarado PA Unavailable Unavailable Tanner, D Alvarado PA Unavailable Unavailable Tanner, D Alvarado PA Unavailable Unavailable Barney HAMMER MD Unavailable Unavailable Barney HAMMER MD Unavailable Unavailable Barney HAMMER MD Unavailable Unavailable Barney HAMMER MD Unavailable Unavailable Barney HAMMER MD Unavailable Unavailable Barney HAMMER MD Unavailable Unavailable Barney HAMMER MD Unavailable Unavailable Barney AHMMER MD Unavailable Unavailable Barney HAMMER MD Unavailable Unavailable Barney HAMMER MD Unavailable Unavailable Barney HAMMER MD Unavailable Unavailable Barney HAMMER MD Unavailable Unavailable Barney HAMMER MD Unavailable Unavailable Barney HAMMER MD Unavailable Unavailable Barney HAMMER MD Unavailable Unavailable Barney HAMMER MD Unavailable Unavailable Barney HAMMER MD Unavailable Unavailable Barney HAMMER MD Unavailable Unavailable Barney HAMMER MD Unavailable Unavailable Barney HAMMER MD Unavailable Unavailable Barney HAMMER MD Unavailable Unavailable Barney HAMMER MD Unavailable Unavailable Barney HAMMER MD Unavailable Unavailable Barney HAMMER MD Unavailable Unavailable Barney HAMMER MD Unavailable Unavailable Barney HAMMER MD Unavailable Unavailable Barney HAMMER MD Unavailable Unavailable Barney HAMMER MD Unavailable Unavailable Barney HAMMER MD Unavailable Unavailable Barney HAMMER MD Unavailable Unavailable Barney HAMMER MD Unavailable Unavailable Barney HAMMER MD Unavailable Unavailable Barney HAMMER MD Unavailable Unavailable Barney HAMMER MD Unavailable Unavailable Barney HAMMER MD Unavailable Unavailable Barney HAMMER MD Unavailable Unavailable Barney HAMMER MD Unavailable Unavailable Barney HAMMER MD Unavailable Unavailable Barney HAMMER MD Unavailable Unavailable Barney HAMMER MD Unavailable Unavailable Barney HAMMER MD Unavailable Unavailable Barney HAMMER MD Unavailable Unavailable Barney HAMMER MD Unavailable Unavailable Barney HAMMER MD Unavailable Unavailable Barney HAMMER MD Unavailable Unavailable Barney HAMMER MD Unavailable Unavailable Barney HAMMER MD Unavailable Unavailable Barney HAMMER MD Unavailable Unavailable Barney HAMMER MD Unavailable Unavailable Barney HAMMER MD Unavailable Unavailable Barney HAMMER MD Unavailable Unavailable Barney HAMMER MD Unavailable Unavailable Barney HAMMER MD Unavailable Unavailable Barney HAMMER MD Unavailable Unavailable Barney HAMMER MD Unavailable Unavailable Barney HAMMER MD Unavailable Unavailable Barney HAMMER MD Unavailable Unavailable Barney HAMMER MD Unavailable Unavailable Barney HAMMER MD Unavailable Unavailable Barney HAMMER MD Unavailable Unavailable Barney HAMMER MD Unavailable Unavailable Barney HAMMER MD Unavailable Unavailable Barney HAMMER MD Unavailable Unavailable Barney HAMMER MD Unavailable Unavailable Barney HAMMER MD Unavailable Unavailable Barney HAMMER MD Unavailable Unavailable Trisha Hart PA Unavailable Unavailable Trisha Hart PA Unavailable Unavailable Trisha Hart PA Unavailable Unavailable Trisha Hart PA Unavailable Unavailable Trisha Hart PA Unavailable Unavailable Trisha Hart PA Unavailable Unavailable Trisha Hart PA Unavailable Unavailable Tanner, D Alvarado PA Unavailable Unavailable Tanner, D Alvarado PA Unavailable Unavailable Tanner, D Alvarado PA Unavailable Unavailable Tanner, D Alvarado PA Unavailable Unavailable Tanner, D Alvarado PA Unavailable Unavailable Tanner, D Alvarado PA Unavailable Unavailable Tanner, D Alvarado PA Unavailable Unavailable Tanner, D Alvarado PA Unavailable Unavailable Tanner, D Alvarado PA Unavailable Unavailable Tanner, D Alvarado PA Unavailable Unavailable Tanner, D Alvarado PA Unavailable Unavailable Tanner, D Alvarado PA Unavailable Unavailable Tanner, D Alvarado PA Unavailable Unavailable Tanner, D Alvarado PA Unavailable Unavailable Tanner, D Alvarado PA Unavailable Unavailable Tanner, D Alvarado PA Unavailable Unavailable Tanner, D Alvarado PA Unavailable Unavailable Tanner, D Alvarado PA Unavailable Unavailable Tanner, D Alvarado PA Unavailable Unavailable Tanner, D Alvarado PA Unavailable Unavailable Tanner, D Alvarado PA Unavailable Unavailable Tanner, D Alvarado PA Unavailable Unavailable Tanner, D Alvarado PA Unavailable Unavailable Tanner, D Alvarado PA Unavailable Unavailable Tanner, D Alvarado PA Unavailable Unavailable Tanner, D Alvarado PA Unavailable Unavailable Tanner, D Alvarado PA Unavailable Unavailable Tanner, D Alvarado PA Unavailable Unavailable Tanner, D Alvarado PA Unavailable Unavailable Tanner, D Alvarado PA Unavailable Unavailable Tanner, D Alvarado PA Unavailable Unavailable Tanner, D Alvarado PA Unavailable Unavailable Tanner, D Alvarado PA Unavailable Unavailable Tanner, D Alvarado PA Unavailable Unavailable Tanner, D Alvarado PA Unavailable Unavailable Tanner, D Alvarado PA Unavailable Unavailable Tanner, D Alvarado PA Unavailable Unavailable Tanner, D Alvarado PA Unavailable Unavailable Tanner, D Alvarado PA Unavailable Unavailable Tanner, D Alvarado PA Unavailable Unavailable Tanner, D Alvarado PA Unavailable Unavailable Tanner, D Alvarado PA Unavailable Unavailable Tanner, D Alvarado PA Unavailable Unavailable Tanner, D Alvarado PA Unavailable Unavailable Tanner, D Alvarado PA Unavailable Unavailable Tanner, D Alvarado PA Unavailable Unavailable Tanner, D Alvarado PA Unavailable Unavailable Tanner, D Alvarado PA Unavailable Unavailable Tanner, D Alvarado PA Unavailable Unavailable Tanner, D Alvarado PA Unavailable Unavailable Tanner, D Alvarado PA Unavailable Unavailable Tanner, D Alvarado PA Unavailable Unavailable Tanner, D Alvarado PA Unavailable Unavailable Tanner, D Alvarado PA Unavailable Unavailable Tanner, D Alvarado PA Unavailable Unavailable Tanner, D Alvarado PA Unavailable Unavailable [facility] JR, D Jaclyn RICHARDS Unavailable Unavailable Carol JR, D Jaclyn RICHARDS Unavailable Unavailable Carol JR, D Jaclyn RICHARDS Unavailable Unavailable Carol JR, D Jaclyn RICHARDS Unavailable Unavailable Carol JR, D Jaclyn RICHARDS Unavailable Unavailable Carol JR, D Jaclyn RICHARDS Unavailable Unavailable Carol JR, D Jaclyn RICHARDS Unavailable Unavailable Carol JR, D Jaclyn RICHARDS Unavailable Unavailable Carol JR, D Jaclyn RICHARDS Unavailable Unavailable Carol JR, D Jaclyn RICHARDS Unavailable Unavailable Carol JR, D Jaclyn RICHARDS Unavailable Unavailable Carol JR, D Jaclyn RICHARDS Unavailable Unavailable Carol JR, D Jaclyn RICHARDS Unavailable Unavailable Carol JR, D Jaclyn RICHARDS Unavailable Unavailable Carol JR, D Jaclyn RICHARDS Unavailable Unavailable Carol JR, D Jaclyn RICHARDS Unavailable Unavailable Carol JR, D Jaclyn RICHARDS Unavailable Unavailable Carol JR, D Jaclyn RICHARDS Unavailable Unavailable Carol JR, D Jaclyn RICHARDS Unavailable Unavailable Carol JR, D Jaclyn RICHARDS Unavailable Unavailable Carol JR, D Jaclyn RICHARDS Unavailable Unavailable Carol JR, D Jaclyn RICHARDS Unavailable Unavailable Carol JR, D Jaclyn RICHARDS Unavailable Unavailable Carol JR, D Jaclyn RICHARDS Unavailable Unavailable Carol JR, D Jaclyn RICHARDS Unavailable Unavailable Carol JR, D Jaclyn RICHARDS Unavailable Unavailable Carol JR, D Jaclyn RICHARDS Unavailable Unavailable Carol JR, D Jaclyn RICHARDS Unavailable Unavailable Carol JR, D Jaclyn RICHARDS Unavailable Unavailable Carol JR, D Jaclyn RICHARDS Unavailable Unavailable Carol JR, D Jaclyn RICHARDS Unavailable Unavailable Carol JR, D Jaclyn RICHARDS Unavailable Unavailable Carol JR, D Jaclyn RICHARDS Unavailable Unavailable Carol JR, D Jaclyn RICHARDS Unavailable Unavailable Carol JR, D Jaclyn RICHARDS Unavailable Unavailable Carol JR, D Jaclyn RICHARDS Unavailable Unavailable Carol JR, D Jaclyn RICHARDS Unavailable Unavailable Carol JR, D Jaclyn RICHARDS Unavailable Unavailable Carol JR, D Jaclyn RICHARDS Unavailable Unavailable Carol JR, D Jaclyn RICHARDS Unavailable Unavailable Carol JR, D Jaclyn RICHARDS Unavailable Unavailable Carol JR, D Jaclyn RICHARDS Unavailable Unavailable Carol JR, D Jaclyn RICHARDS Unavailable Unavailable Carol JR, D Jaclyn RICHARDS Unavailable Unavailable Carol JR, D Jaclyn RICHARDS Unavailable Unavailable Carol JR, D Jaclyn RICHARDS Unavailable Unavailable Carol JR, D Jaclyn RICHARDS Unavailable Unavailable Carol JR, D Jaclyn RICHARDS Unavailable Unavailable Craol JR, D Jaclyn RICHARDS Unavailable Unavailable Carol JR, D Jaclyn RICHARDS Unavailable Unavailable Carol JR, D Jaclyn RICHARDS Unavailable Unavailable Carol JR, D Jaclyn RICHARDS Unavailable Unavailable Carol JR, D Jaclyn RICHARDS Unavailable Unavailable Carol JR, D Jaclyn RICHARDS Unavailable Unavailable Carol JR, D Jaclyn RICHARDS Unavailable Unavailable Carol JR, D Jaclyn RICHARDS Unavailable Unavailable Carol JR, D Jaclyn RICHARDS Unavailable Unavailable Carol JR, D Jaclyn RICHARDS Unavailable Unavailable Carol JR, D Jaclyn RICHARDS Unavailable Unavailable Carol JR, D Jaclyn RICHARDS Unavailable Unavailable Carol JR, D Jaclyn RICHARDS Unavailable Unavailable Carol JR, D Jaclyn RICHARDS Unavailable Unavailable Carol JR, D Jaclyn RICHARDS Unavailable Unavailable Carol JR, D Jaclyn RICHARDS Unavailable Unavailable Tanner, D Alvarado PA Unavailable Unavailable Tanner, D Alvarado PA Unavailable Unavailable Tanner, D Alvarado PA Unavailable Unavailable Tanner, D Alvarado PA Unavailable Unavailable Tanner, D Alvarado PA Unavailable Unavailable Tanner, D Alvraado PA Unavailable Unavailable Tanner, D Alvarado PA Unavailable Unavailable Tanner, D Alvarado PA Unavailable Unavailable Tanner, D Alvarado PA Unavailable Unavailable Tanner, D Alvarado PA Unavailable Unavailable Tanner, D Alvarado PA Unavailable Unavailable Tanner, D Alvarado PA Unavailable Unavailable Tanner, D Alvarado PA Unavailable Unavailable Tanner, D Alvarado PA Unavailable Unavailable Tanner, D Alvarado PA Unavailable Unavailable Tanner, D Alvarado PA Unavailable Unavailable Tanner, D Alvarado PA Unavailable Unavailable Tanner, D Alvarado PA Unavailable Unavailable Tanner, D Alvarado PA Unavailable Unavailable Tanner, D Alvarado PA Unavailable Unavailable Tanner, D Alvarado PA Unavailable Unavailable Tanner, D Alvarado PA Unavailable Unavailable Tanner, D Alvarado PA Unavailable Unavailable Tanner, D Alvarado PA Unavailable Unavailable Tanner, D Alvarado PA Unavailable Unavailable Tanner, D Alvarado PA Unavailable Unavailable Tanner, D Alvarado PA Unavailable Unavailable Tanner, D Alvarado PA Unavailable Unavailable Tanner, D Alvarado PA Unavailable Unavailable Tanner, D Alvarado PA Unavailable Unavailable Tanner, D Alvarado PA Unavailable Unavailable Tanner, D Alvarado PA Unavailable Unavailable Tanner, D Alvarado PA Unavailable Unavailable Tanner, D Alvarado PA Unavailable Unavailable Tanner, D Alvarado PA Unavailable Unavailable Tanner, D Alvarado PA Unavailable Unavailable Tanner, D Alvarado PA Unavailable Unavailable Tanner, D Alvarado PA Unavailable Unavailable Tanner, D Alvarado PA Unavailable Unavailable Tanner, D Alvarado PA Unavailable Unavailable Tanner, D Alvarado PA Unavailable Unavailable Tanner, D Alvarado PA Unavailable Unavailable Tanner, D Alvarado PA Unavailable Unavailable Tanner, D Alvarado PA Unavailable Unavailable Tanner, D Alvarado PA Unavailable Unavailable Tanner, D Alvarado PA Unavailable Unavailable Tanner, D Alvarado PA Unavailable Unavailable Tanner, D Alvarado PA Unavailable Unavailable Tanner, D Alvarado PA Unavailable Unavailable Tanner, D Alvarado PA Unavailable Unavailable Tanner, D Alvarado PA Unavailable Unavailable Tanner, D Alvarado PA Unavailable Unavailable Tanner, D Alvarado PA Unavailable Unavailable Tanner, D Alvarado PA Unavailable Unavailable Tanner, D Alvarado PA Unavailable Unavailable Tanner, D Alvarado PA Unavailable Unavailable Tanner, D Alvarado PA Unavailable Unavailable Tanner, D Alvarado PA Unavailable Unavailable Tanner, D Alvarado PA Unavailable Unavailable Tanner, D Alvarado PA Unavailable Unavailable Tanner, D Alvarado PA Unavailable Unavailable Tanner, D Alvarado PA Unavailable Unavailable Tanner, D Alvarado PA Unavailable Unavailable YAMILET, L ISAMAR PA Unavailable Unavailable YAMILET, L ISAMAR PA Unavailable Unavailable YAMILET, L ISAMAR PA Unavailable Unavailable YAMILET, L ISAMAR PA Unavailable Unavailable YAMILET, L ISAMAR PA Unavailable Unavailable YAMILET, L ISAMAR PA Unavailable Unavailable YAMILET, L ISAMAR PA Unavailable Unavailable YAMILET, L ISAMAR PA Unavailable Unavailable YAMILET, L ISAMAR PA Unavailable Unavailable YAMILET, L ISAMAR PA Unavailable Unavailable YAMILET, L ISAMAR PA Unavailable Unavailable YAMILET, L ISAMAR PA Unavailable Unavailable Manjual RYAN MD Unavailable Unavailable Manjula RYAN MD Unavailable Unavailable Manjula RYAN MD Unavailable Unavailable Manjula RYAN MD Unavailable Unavailable Manjula RYAN MD Unavailable Unavailable RYAN, E KENNY MD Unavailable Unavailable RYAN, E KENNY MD Unavailable Unavailable RYAN, E KENNY MD Unavailable Unavailable RYAN, E KENNY MD Unavailable Unavailable RYAN, E KENNY MD Unavailable Unavailable RYAN E KENNY MD Unavailable Unavailable RYAN, E KENNY MD Unavailable Unavailable RYAN, E KENNY MD Unavailable Unavailable RYAN, E KENNY MD Unavailable Unavailable RYAN, E KENNY MD Unavailable Unavailable RYAN, E KENNY MD Unavailable Unavailable RYAN, E KENNY MD Unavailable Unavailable RYAN E KENNY MD Unavailable Unavailable RYAN, E KENNY MD Unavailable Unavailable RYAN, E KENNY MD Unavailable Unavailable RYAN, E KENNY MD Unavailable Unavailable RYAN, E KENNY MD Unavailable Unavailable RYAN, E KENNY MD Unavailable Unavailable RYAN, E KENNY MD Unavailable Unavailable RYAN E KENNY MD Unavailable Unavailable RYAN E KENNY MD Unavailable Unavailable RYAN, E KENNY MD Unavailable Unavailable RYAN, E KENNY MD Unavailable Unavailable RYAN, E KENNY MD Unavailable Unavailable RYAN, E KENNY MD Unavailable Unavailable RYAN, E KENNY MD Unavailable Unavailable RYAN, E KENNY MD Unavailable Unavailable RYAN, E KENNY MD Unavailable Unavailable RYAN, E KENNY MD Unavailable Unavailable RYAN, E KENNY MD Unavailable Unavailable RYAN, E KENNY MD Unavailable Unavailable RYAN, E KENNY MD Unavailable Unavailable RYAN, E KENNY MD Unavailable Unavailable RYAN, E KENNY MD Unavailable Unavailable RYAN E KENNY MD Unavailable Unavailable RYAN, E KENNY MD Unavailable Unavailable RYAN E KENNY MD Unavailable Unavailable RYAN, E KENNY MD Unavailable Unavailable RYAN, E KENNY Unavailable Unavailable Manjula RYAN KENNY Unavailable Unavailable Manjula RYAN KENNY Unavailable Unavailable RYAN, E KENNY MD Unavailable Unavailable RYAN, E KENNY MD Unavailable Unavailable RYAN, E KENNY MD Unavailable Unavailable RYAN, E KENNY MD Unavailable Unavailable RYAN, E KENNY MD Unavailable Unavailable RYAN, E KENNY Unavailable Unavailable RYAN, E KENNY Unavailable Unavailable RYAN, E KENNY Unavailable Unavailable RYAN E KENNY MD Unavailable Unavailable RYAN, E KENNY MD Unavailable Unavailable RYAN E KENNY MD Unavailable Unavailable RYAN, E KENNY MD Unavailable Unavailable RYAN, E KENNY Unavailable Unavailable Manjula RYAN KENNY Unavailable Unavailable CONNOR E KENNY Unavailable Unavailable RYAN E KENNY MD Unavailable Unavailable RYAN, E KENNY MD Unavailable Unavailable RYAN, E KENNY MD Unavailable Unavailable RYAN, E KENNY MD Unavailable Unavailable RYAN, E KENNY MD Unavailable Unavailable RYAN, E KENNY MD Unavailable Unavailable RYAN, E KENNY MD Unavailable Unavailable RYAN, E KENNY MD Unavailable Unavailable RYAN, E KENNY MD Unavailable Unavailable RYAN, E KENNY MD Unavailable Unavailable RYAN, E KENNY MD Unavailable Unavailable Re-disclosure Warning The records that you are about to access may contain information from federally-assisted alcohol or drug abuse programs. If such information is present, then the following federally mandated warning applies: This information has been disclosed to you from records protected by federal confidentiality rules (42 CFR part 2). The federal rules prohibit you from making any further disclosure of this information unless further disclosure is expressly permitted by the written consent of the person to whom it pertains or as otherwise permitted by 42 CFR part 2. A general authorization for the release of medical or other information is NOT sufficient for this purpose. The Federal rules restrict any use of the information to criminally investigate or prosecute any alcohol or drug abuse patient.The records that you are about to access may contain highly sensitive health information, the redisclosure of which is protected by Article 27-F of the [facility] Public [facility] law. If you continue you may have access to information: Regarding HIV / AIDS; Provided by facilities licensed or operated by the [facility] Office of Mental Health; or Provided by the [facility] Office for People With Developmental Disabilities. If such information is present, then the following [facility] mandated warning applies: This information has been disclosed to you from confidential records which are protected by state law. State law prohibits you from making any further disclosure of this information without the specific written consent of the person to whom it pertains, or as otherwise permitted by law. Any unauthorized further disclosure in violation of state law may result in a fine or retirement sentence or both. A general authorization for the release of medical or other information is NOT sufficient authorization for further disc losure. Allergies and Adverse Reactions Type Description Substance Reaction Status Data Source(s ) codeine codeine Codeine sulfate 15 MG Oral Tablet "unable to ur ineate" Active eC1 ([facility]) Family History Family Member Name Family Member Gender Family Member Status Date o f Status Description Data Source(s) Unknown Male Problem MEDENT ([facility] Unknown Unknown Problem MEDENT ([facility] Unknown Unknown Problem MEDENT ([facility] Unknown Female Problem MEDENT ([facility]) Encounters Encounter Providers Location Date Indications Data Source(s ) Office Visit Attender: ISAMAR JOSEPH Main Office 08:15:00 AM EST MEDENT ([facility]) (WEB) .[facility] 07/05/2020 12:00:00 AM EST eCW1 ([facility]) (TEL) [facility] 07/03/2020 12:00:00 AM EST eCW1 ([facility]) Outpatient Attender: Alvarado JOSEPH [place] [facility] 12:00:00 PM EST MEDENT ([facility] Outpatient Attender: ALVARADO HAMMER MD 06/19/2020 01:38: 00 PM EST [facility] Outpatient [facility] 06/19/2020 12:00:00 AM EST eCW1 ([facility]) Outpatient [facility] 04/25/2020 12:00:00 AM EST eCW1 ([facility]) Outpatient [facility] 04/24/2020 12:00:00 AM EST eCW1 ([facility]) (TEL) .[facility] 04/23/2020 12:00:00 AM EST eCW1 ([facility]) (TEL) .[facility] 03/28/2020 12:00:00 AM EDT eCW1 ([facility]) Outpatient Attender: Alvarado JOSEPH [place] [facility] 01:15:00 PM EDT MEDENT ([facility] Outpatient Attender: Erica JOSEPH Main office - [facility] 03/15/2020 12:00:00 PM EDT MEDENT ([facility]) Outpatient Attender: MACY CEE MD [place] [facility] 01:15:00 PM EDT MEDENT ([facility] Office Visit Attender: Greta JOSEPH Main Office 01/31/2020 02 :00:00 PM EDT MEDENT ([facility]) (TEL) .[facility] 01/06/2020 12:00:00 AM EDT eCW1 ([facility]) Outpatient [facility] 01/06/2020 12:00:00 AM EDT eCW1 ([facility]) (TEL) [facility] 12/26/2019 12:00:00 AM EDT eCW1 ([facility]) Outpatient Attender: Alvarado JOSEPH [place] [facility] 01:00:00 PM EDT MEDENT ([facility] Outpatient Referrer: Alvarado JOSEPH 12/08/2019 08:38:00 AM EDT [facility] Office Visit Attender: Erica JOSEPH Main office - [facility] 12/06/2019 02:00:00 PM EDT MEDENT ([facility]) (TEL) .[facility] 11/23/2019 12:00:00 AM EDT eCW1 ([facility]) (TEL) .[facility] 11/20/2019 12:00:00 AM EDT eCW1 ([facility]) [place] [address] [address] 11/18/2019 12:00:00 AM EDT eCW1 (Critical access hospital) Outpatient [facility] 11/17/2019 12:00:00 AM EDT eCW1 ([facility]) [place] [address] [address] 11/16/2019 12:00:00 AM EDT eCW1 (Critical access hospital) [place] [address] [address] 11/15/2019 12:00:00 AM EDT eCW1 (Critical access hospital) [facility] [address] [address] 11/04/2019 12:00:00 AM EDT eCW1 (Critical access hospital) Outpatient 11/01/2019 01:50:00 PM EDT r enal artery stenosis (stent occluded) [facility] renal artery stenosis (stent occluded) [facility] [address] [address] 09/22/2019 12:00:00 AM EDT eCW1 (Critical access hospital) [facility] [address] [address] 09/16/2019 12:00:00 AM EDT eCW1 (Critical access hospital) Outpatient Attender: Alvarado JOSEPH [place] [facility] 02/2020 09:00:00 AM EDT MEDENT ([facility] Outpatient Attender: Alvarado JOSEPH [place] [facility] 12/2019 01:00:00 PM EDT MEDENT ([facility] Outpatient Attender: Alvarado JOSEPH [place] [facility] 11/2019 10:00:00 AM EDT MEDENT ([facility] ENTER 08/19/2019 12:00:00 AM EDT eCW1 ([facility]) Outpatient Attender: Erica JOSEPH Main office - [facility] 06/30/2019 10:45:00 AM EST MEDENT ([facility] ) Outpatient Attender: Greta JOSEPH Main Office 06/28/2019 02:00:0 0 PM EST MEDENT ([facility]) Outpatient Attender: ALVARADO HAMMER MD 06/21/2019 09:23: 00 AM EST [facility] 06/21/2019 12: 00:00 AM EST eCW1 ([facility]) Outpatient Attender: Alvarado JOSEPH [place] [facility] 12:15:00 PM EST MEDENT ([facility] Outpatient Attender: MACY GLOVER MD 06/20/2019 12:00:00 AM EST [facility] ENTER 06/02/2019 12:00:00 AM EST eCW1 ([facility]) Outpatient Attender: MACY GLOVER MD [id number] 06/08 12:00:00 AM EST - 06/25/2018 10:57:04 AM EST Abdominal aortic aneurysm, without rupture [facility] Abdominal aortic aneurysm, without ruptu re Outpatient Attender: Jaclyn Medina JRConsultant: Alvarado JOSEPH 09/18/2016 08:00:00 AM EDT - 09/18/2016 10:18:00 AM EDT [facility] Outpatient Attender: KENNY RYAN MD 12/23/2013 05:56:00 PM EDT [facility] Immunizations Vaccine Date Status Description Data Source(s) New in 2012. IIV4 03/20/2020 01:54:00 PM EDT completed MEDENT ([facility] pneumococcal polysaccharide PPV23 03/20/2020 09:47:00 AM EDT laura kary MEDENT ([facility] Medications Medication Brand Name Start Date Product Form Dose Route Admi nistrative Instructions Pharmacy Instructions Status Indications Reaction Description Data Source(s) 25 mg 07/11/2020 12:00:00 AM EST tablet 90 TAKE ONE TABLET BY MOUTH EVERY MORNING TAKE ONE TABLET BY MOUTH EVERY MORNING SOLD: 07/16/2020 [facility] 75 mg 07/11/2020 12:00:00 AM EST tablet 90 TAKE ONE TABLET BY MOUTH EVERY DAY TAKE ONE TABLET BY MOUTH EVERY DAY SOLD: 07/16/2020 [facility] quetiapine 50 MG Oral Tablet QUETIAPINE FUMARATE 06/23/2020 12:0 0:00 AM EST tablet 30 TAKE ONE TABLET BY MOUTH AT BEDT BENJAMIN TAKE ONE TABLET BY MOUTH AT BEDTIME SOLD: 06/23/2020 [facility] quetiapine 50 MG Oral Tablet Quetiapine Fumarate 06/22/2020 12:00:00 AM EST ORAL active MEDENT ([facility] 50-300-40 mg 06/21/2020 12:00:00 AM EST capsule 30 TAKE ONE TO TWO CAPSULES BY MOUTH TWICE A DAY NEEDED MAXIMUM DAILY DOSE = FOUR TABLETS TAKE ONE TO TWO CAPSULES BY MOUTH TWICE A DAY NEEDED MAXIMUM DAILY DOSE = FOUR TABLETS SOLD: 06/21/2020 [facility] Acetaminophen 300 MG / butalbital 50 MG / Caffeine 40 MG Oral Capsule [Fioricet] Fioricet 06/20/2020 12:00:00 AM EST active MEDENT ([facility] 800 mg 03/30/2020 12:00:00 AM EDT tablet 21 TAKE ONE TABLET BY MOUTH THREE TIMES A DAY FOR 7 DAYS TAKE ONE TABLET BY MOUTH THREE TIMES A DAY FOR 7 DAYS SOLD: 04/09/2020 [facility] 0.5 % 03/23/2020 12:00:00 AM EDT drops,suspension 5 INSTILL 1 DROP IN THE LEFT EYE TWO TIMES A DAY INSTILL 1 DROP IN THE LEFT EYE TWO TIMES A DAY SOLD: 03/23/2020 [facility] 0.15 % 03/23/2020 12:00:00 AM EDT gel 5 INSTILL 1 DROP IN THE LEFT EYE FIVE TIMES DAILY INSTILL 1 DROP IN THE LEFT EYE FIVE TIMES DAILY SOLD: 03/23/2020 [facility] Trelegy Ellipta Trelegy Ellipta 03/20/2020 12:00:00 AM EDT RESPIRATORY completed MEDENT ([facility] 7 mg 03/02/2020 12:00:00 AM EDT capsule,sprinkle,ER 24h r 90 TAKE ONE CAPSULE BY MOUTH EVERY DAY MAXIMUM DAILY DOSE = 1 CAPSULE TAKE ONE CAPSULE BY MOUTH EVERY DAY MAXIMUM DAILY DOSE = 1 CAPSULE SOLD: 03/07/2020 [facility] 7 mg 03/02/2020 12:00:00 AM EDT capsule,sprinkle,ER 24h r 90 TAKE ONE CAPSULE BY MOUTH EVERY DAY MAXIMUM DAILY DOSE = 1 CAPSULE TAKE ONE CAPSULE BY MOUTH EVERY DAY MAXIMUM DAILY DOSE = 1 CAPSULE SOLD: 05/25/2020 [facility] 800 mg 02/24/2020 12:00:00 AM EDT tablet 15 TAKE ONE TABLET BY MOUTH THREE TIMES A DAY FOR 5 DAYS TAKE ONE TABLET BY MOUTH THREE TIMES A DAY FOR 5 DAYS SOLD: 03/29/2020 [facility] 800 mg 02/24/2020 12:00:00 AM EDT tablet 15 TAKE ONE TABLET BY MOUTH THREE TIMES A DAY FOR 5 DAYS TAKE ONE TABLET BY MOUTH THREE TIMES A DAY FOR 5 DAYS SOLD: 02/24/2020 [facility] Acyclovir 800 MG Oral Tablet Acyclovir 02/24/2020 12:00:00 AM EDT ORAL active MEDENT ([facility] 25 mg 02/06/2020 12:00:00 AM EDT tablet 30 TAKE ONE TO TWO TABLETS BY MOUTH AT BEDTIME TAKE ONE TO TWO TABLETS BY MOUTH AT BEDTIME SOLD: 02/24/2020 [facility] Doxazosin 2 MG Oral Tablet Doxazosin Mesylate 01/30/2020 12:00:00 AM EDT ORAL active [facility] 2 mg 01/13/2020 12:00:00 AM EDT tablet 90 TAKE ONE TABLET BY MOUTH EVERY EVENING TAKE ONE TABLET BY MOUTH EVERY EVENING SOLD: 04/22/2020 [facility] 2 mg 01/13/2020 12:00:00 AM EDT tablet 90 TAKE ONE TABLET BY MOUTH EVERY EVENING TAKE ONE TABLET BY MOUTH EVERY EVENING SOLD: 07/16/2020 [facility] 2 mg 01/13/2020 12:00:00 AM EDT tablet 90 TAKE ONE TABLET BY MOUTH EVERY EVENING TAKE ONE TABLET BY MOUTH EVERY EVENING SOLD: 01/19/2020 [facility] 25 mg 12/19/2019 12:00:00 AM EDT tablet 30 TAKE ONE TO TWO TABLETS BY MOUTH AT BEDTIME TAKE ONE TO TWO TABLETS BY MOUTH AT BEDTIME SOLD: 12/20/2019 [facility] Hydroxyzine Hydrochloride 25 MG Oral Tablet Hydroxyzine HCL 12/19/2019 12:00:00 AM EDT active MEDENT ([facility] 25 mg 12/19/2019 12:00:00 AM EDT tablet 30 TAKE ONE TO TWO TABLETS BY MOUTH AT BEDTIME TAKE ONE TO TWO TABLETS BY MOUTH AT BEDTIME SOLD: 01/19/2020 [facility] 0.4 mg 11/15/2019 12:00:00 AM EDT capsule 30 TAKE ONE CAPSULE BY MOUTH EVERY DAY TAKE ONE CAPSULE BY MOUTH EVERY DAY SOLD: 11/15/2019 [facility] Tamsulosin hydrochloride 0.4 MG Oral Capsule Tamsulosi n HCl 0.4 MG Tamsulosin HCl 0.4 MG 11/15/2019 12:00:00 AM EDT 1.0 {capsule} active Tamsulosin HCl 0.4 MG eCW1 ([facility]) Tamsulosin hydrochloride 0.4 MG Oral Capsule Tamsulosi n HCl 0.4 MG Tamsulosin HCl 0.4 MG 11/15/2019 12:00:00 AM EDT 1.0 {capsule} active Tamsulosin HCl 0.4 MG eCW1 ([facility]) Tamsulosin hydrochloride 0.4 MG Oral Capsule Tamsulosi n HCl 0.4 MG Tamsulosin HCl 0.4 MG 11/15/2019 12:00:00 AM EDT 1.0 {capsule} active Tamsulosin HCl 0.4 MG eCW1 ([facility]) 25 mg 09/29/2019 12:00:00 AM EDT tablet 23 TAKE ONE TABLET BY MOUTH EVERY MORNING TAKE ONE TABLET BY MOUTH EVERY MORNING SOLD: 04/09/2020 [facility] 25 mg 09/29/2019 12:00:00 AM EDT tablet 90 TAKE ONE TABLET BY MOUTH EVERY DAY TAKE ONE TABLET BY MOUTH EVERY DAY SOLD: 01/02/2020 [facility] Atenolol 25 MG Oral Tablet ATENOLOL 09/29/2019 12:00:00 AM EDT tablet 90 TAKE ONE TABLET BY MOUTH EVERY DAY TAKE ONE TABLET BY MOUTH EVERY DAY SOLD: 07/16/2020 [facility] 25 mg 09/29/2019 12:00:00 AM EDT tablet 90 TAKE ONE TABLET BY MOUTH EVERY MORNING TAKE ONE TABLET BY MOUTH EVERY MORNING SOLD: 01/02/2020 [facility] 25 mg 09/29/2019 12:00:00 AM EDT tablet 90 TAKE ONE TABLET BY MOUTH EVERY MORNING TAKE ONE TABLET BY MOUTH EVERY MORNING SOLD: 04/22/2020 [facility] 7 mg 09/29/2019 12:00:00 AM EDT capsule,sprinkle,ER 24h r 90 TAKE ONE CAPSULE BY MOUTH EVERY DAY TAKE ONE CAPSULE BY MOUTH EVERY DAY SOLD: 10/01/2019 [facility] 25 mg 09/29/2019 12:00:00 AM EDT tablet 90 TAKE ONE TABLET BY MOUTH EVERY MORNING TAKE ONE TABLET BY MOUTH EVERY MORNING SOLD: 10/01/2019 [facility] 25 mg 09/29/2019 12:00:00 AM EDT tablet 90 TAKE ONE TABLET BY MOUTH EVERY DAY TAKE ONE TABLET BY MOUTH EVERY DAY SOLD: 10/01/2019 [facility] 25 mg 09/29/2019 12:00:00 AM EDT tablet 90 TAKE ONE TABLET BY MOUTH EVERY DAY TAKE ONE TABLET BY MOUTH EVERY DAY SOLD: 04/09/2020 [facility] 50-325-40 mg 09/15/2019 12:00:00 AM EDT tablet 30 TAKE TWO TABLETS BY MOUTH EVERY DAY NEEDED FOR PAIN TAKE TWO TABLETS BY MOUTH EVERY DAY N EEDED FOR PAIN SOLD: 09/15/2019 [facility] Acetaminophen 325 MG / butalbital 50 MG / Caffeine 40 MG Oral Tablet [Esgic] Esgic 09/15/2019 12:00:00 AM EDT ORAL completed MEDENT ([facility] 20 mg 09/12/2019 12:00:00 AM EDT tablet 5 TAKE ONE TABLET BY MOUTH EVERY DAY WITH FOOD FOR 5 DAYS TAKE ONE TABLET BY MOUTH EVERY DAY WITH FOOD FOR 5 DAY S SOLD: 09/12/2019 [facility] Prednisone 20 MG Oral Tablet Prednisone 09/12/2019 12:00:00 AM EDT ORAL completed MEDENT ([facility] 75 mg 08/08/2019 12:00:00 AM EST tablet 78 TAKE ONE TABLET BY MOUTH EVERY DAY TAKE ONE TABLET BY MOUTH EVERY DAY SOLD: 02/04/2020 [facility] 75 mg 08/08/2019 12:00:00 AM EST tablet 90 TAKE ONE TABLET BY MOUTH EVERY DAY TAKE ONE TABLET BY MOUTH EVERY DAY SOLD: 04/22/2020 [facility] 75 mg 08/08/2019 12:00:00 AM EST tablet 90 TAKE ONE TABLET BY MOUTH EVERY DAY TAKE ONE TABLET BY MOUTH EVERY DAY SOLD: 08/14/2019 [facility] 75 mg 08/08/2019 12:00:00 AM EST tablet 90 TAKE ONE TABLET BY MOUTH EVERY DAY TAKE ONE TABLET BY MOUTH EVERY DAY SOLD: 11/15/2019 [facility] 24 HR Memantine hydrochloride 7 MG Extended Release Or al Capsule Memantine HCL ER 06/27/2019 12:00:00 AM EST ORAL active MEDENT ([facility]) 7 mg 05/03/2019 12:00:00 AM EST capsule,sprinkle,ER 24h r 30 TAKE ONE CAPSULE BY MOUTH EVERY DAY MAXIMUM DAILY DOSE = 1 TAKE ONE CAPSULE BY MOUTH EVERY DAY MAXIMUM DAILY DOSE = 1 SOLD: 01/02/2020 [facility] 7 mg 05/03/2019 12:00:00 AM EST capsule,sprinkle,ER 24h r 30 TAKE ONE CAPSULE BY MOUTH EVERY DAY MAXIMUM DAILY DOSE = 1 TAKE ONE CAPSULE BY MOUTH EVERY DAY MAXIMUM DAILY DOSE = 1 SOLD: 02/04/2020 [facility] 7 mg 05/03/2019 12:00:00 AM EST capsule,sprinkle,ER 24h r 30 TAKE ONE CAPSULE BY MOUTH EVERY DAY MAXIMUM DAILY DOSE = 1 TAKE ONE CAPSULE BY MOUTH EVERY DAY MAXIMUM DAILY DOSE = 1 SOLD: 09/05/2019 [facility] 7 mg 05/03/2019 12:00:00 AM EST capsule,sprinkle,ER 24h r 30 TAKE ONE CAPSULE BY MOUTH EVERY DAY MAXIMUM DAILY DOSE = 1 TAKE ONE CAPSULE BY MOUTH EVERY DAY MAXIMUM DAILY DOSE = 1 SOLD: 07/04/2019 [facility] 7 mg 05/03/2019 12:00:00 AM EST capsule,sprinkle,ER 24h r 30 TAKE ONE CAPSULE BY MOUTH EVERY DAY MAXIMUM DAILY DOSE = 1 TAKE ONE CAPSULE BY MOUTH EVERY DAY MAXIMUM DAILY DOSE = 1 SOLD: 08/03/2019 [facility] 2 mg 02/10/2019 12:00:00 AM EDT tablet 90 TAKE ONE TABLET BY MOUTH IN THE EVENING TAKE ONE TABLET BY MOUTH IN THE EVENING SOLD: 11/15/2019 [facility] 2 mg 02/10/2019 12:00:00 AM EDT tablet 90 TAKE ONE TABLET BY MOUTH IN THE EVENING TAKE ONE TABLET BY MOUTH IN THE EVENING SOLD: 08/14/2019 [facility] 25 mg 10/11/2018 12:00:00 AM EDT tablet 90 TAKE ONE TABLET BY MOUTH EVERY DAY TAKE ONE TABLET BY MOUTH EVERY DAY SOLD: 07/04/2019 [facility] 25 mg 10/11/2018 12:00:00 AM EDT tablet 90 TAKE ONE TABLET BY MOUTH EVERY MORNING TAKE ONE TABLET BY MOUTH EVERY MORNING SOLD: 07/07/2019 [facility] Insurance Providers Payer name Policy type / Coverage type Policy ID Covered green party ID Covered green party's relationship to wang Policy Wang Plan Information R [facility] [id number] SP [id number] MEDICARE [id number] SP [id number] [facility] [id number] S [id number] [employer] [id number] S [id number] [place]IC[place] [id number] S [id number] UMR O [id number] S [id number] MEDICARE C [id number] S [id number] [facility] [id number] S [id number] [employer] [id number] S [id number] [place]IC[place] [id number] S [id number] MEDICARE PART A -O/P [id number] 18 [id number] [place] -O/P [id number] 18 [id number] SELF PAY ONLY [id number] SP [id number] MEDICARE A [id number] Self [id number] MEDICARE [id number] SP [id number] UMR U [id number] Self [id number] Umr Medigap Part B [id number] Self [id number] Medicare (Part B) Medicare Primary [id number] Self [id number] Umr Medigap Part B [id number] Self [id number] Medicare (Part B) Medicare Primary [id number] Self [id number] Umr Medigap Part B [id number] Self [id number] Medicare (Part B) Medicare Primary [id number] Self [id number] Umr Medigap Part B [id number] Self [id number] Medicare (Part B) Medicare Primary [id number] Self [id number] UMR [facility] [id number] SP [id number] MEDICARE [id number] SP [id number] A [place] [id number] S [id number] MEDICARE [id number] S [id number] A MEDICARE A [id number] Self [id number] A [facility] [id number] SP [id number] U [id number] Self [id number] U [id number] Self [id number] [employer] PPO O [id number] S [id number] MEDICARE C [id number] S [id number] A MCA [id number] A UNAVAILABLE UNAVAILA BLE [place] HEA [id number] S [id number] MEDICARE MCA [id number] S [id number] A MEDICARE MCA [id number] S [id number] A [place] Medigap Part B [id number] Self [id number] Medicare [place] Gov[employer] Medicare Primary [id number] Self [id number] [place] Medigap Part B [id number] Self [id number] Medicare [facility] Medicare Primary [id number] Self [id number] [place] Medigap Part B [id number] Self [id number] Medicare [facility] Medicare Primary [id number] Self [id number] MEDICARE PART A -O/P [id number] 18 [id number] [place] (pr) Medigap Part B Self Medicare [facility] Medicare Primary Self [employer] [id number] SP [id number] DME Jurisdiction A [facility] C [id number] SELF [id number] Medicare C [id number] SELF [id number] A [employer]OM[employer] PPO O [id number] S [id number] MEDICARE M [id number] S [id number] A [employer] O [id number] S [id number] MEDICARE PART A M [id number] S [id number] MEDICARE PART A M [id number] S [id number] [employer] UNAVAILABLE SP UNAVAILA BLE [employer]OM[employer] O [id number] S [id number] Problems, Conditions, and Diagnoses Code Display Name Description Problem Type Effective Dates Data Source(s) [id number] Chest pain Chest pain Problem 07/06/2020 12:00:00 AM ABA T NORMA ([facility]) N20.0 Kidney stone Kidney stone Problem 11/15/2019 12:00:00 A M EDT eCW1 ([facility]) N40.1 Lower urinary tract symptoms due to franco gn prostatic hypertrophy Benign prostatic hyperplasia with lower urinary tract symptoms Problem 09/16/2019 12:00:00 AM EDT eCW1 ([facility]) N40.1 Lower urinary tract symptoms due to franco gn prostatic hypertrophy Benign prostatic hyperplasia with lower urinary tract symptoms Problem 09/16/2019 12:00:00 AM EDT eCW1 ([facility]) [id number] Dietary management surveillance Dietary manageme nt surveillance Problem 06/28/2019 12:00:00 AM EST MEDENT ([facility]) [id number] Peripheral vascular disease Peripheral vascular diseas e Problem 06/28/2019 12:00:00 AM EST MEDENT ([facility]) I71.4 [id number] AAA (abdominal aortic aneurysm) without r upture Problem 06/21/2019 12:00:00 AM EST eCW1 ([facility]) I70.1 [id number] Renal artery stenosis Problem 06/21/2019 12: 00:00 AM EST eCW1 ([facility]) I71.4 [id number] AAA (abdominal aortic aneurysm) without r upture Problem 06/21/2019 12:00:00 AM EST eCW1 ([facility]) I70.1 [id number] Renal artery stenosis Problem 06/21/2019 12: 00:00 AM EST eCW1 ([facility]) I70.1 Atherosclerosis of renal artery ATHEROSCLEROSIS OF NIDA AL ARTERY Diagnosis 06/19/2020 01:38:00 PM EST [facility] I71.4 Abdominal aortic aneurysm, without ruptu re ABDOMINAL AORTIC ANEURYSM, WITHOUT RUPTURE Diagnosis 06/19/2020 01:38:00 PM [facility] stenosis (stent occluded) renal art vera stenosis (stent occluded) Diagnosis 11/[facility] Procedure Description Date Indications Data Source(s) ECHO TTHRC R-T 2D W/WOM-MODE COMPL SPEC&COLR DOP 07/10 12:00:00 AM EST MEDENT ([facility]) ECG ROUTINE ECG W/LEAST 12 LDS W/I&R 07/06/2020 12:00: 00 AM EST MEDENT ([facility]) ECG ROUTINE ECG W/LEAST 12 LDS W/I&R 01/31/2020 12:00: 00 AM EDT MEDENT ([facility]) Office Visit, New Pt., Level 2 FC 09/16/2019 12:00:00 AM EDT eCW1 ([facility]) Office Visit, New Pt., Level 3 PC 09/16/2019 12:00:00 AM EDT eCW1 ([facility]) US URINE CAPACITY MEASURE 09/16/2019 12:00:00 AM EDT eCW1 ([facility]) ECG ROUTINE ECG W/LEAST 12 LDS W/I&R 06/28/2019 12:00: 00 AM EST MEDENT ([facility]) Results ID Date Data Source [id number] 07/03/2020 03:40:00 PM EST [facility] ([facility] Name Value Range Interpretation Code Description Data Heather rce(s) Supporting Document(s) Thyroxine (T4) [Mass/volume] in Serum or Plasma 7.7 ug/dL 4.5-12.0 Normal (applies to non-numeric results) [facility] Natriuretic peptide.B prohormone N-Terminal [Mass/volu me] in Serum or Plasma 174 pg/mL Normal (applies to non-numeric results) MED[facility] ([facility] Thyrotropin [Units/volume] in Serum or Plasma 1.310 uIU/ML 0. 358-3.740 Normal (applies to non-numeric results) [facility] ID Date Data Source [id number] 07/03/2020 03:40:00 PM EST MED[facility] ([facility] Name Value Range Interpretation Code Description Data Heather rce(s) Supporting Document(s) Glucose, Fasting 97 mg/dL 70-100 Normal (applies to non-numeric results) MED[facility] ([facility] Glomerular Filtration Rate 52.0 Normal (applies to n on-numeric results) [facility] ([facility] <content>Units are mL/min/1.73 m2</content>
<content></content>
<content>Chronic Kidney Disease Staging per NKF:</content>
<content></content>
<content>Stage I & II GFR >=60 Normal to Mildly Decreased</content>
<content>Stage III GFR 30- 59 Moderately Decreased</content>
<content>Stage IV GFR 15-29 Severely Decreased</content>
<content>Stage V GFR <15 Very Little GFR Left</content>
<content>ESRD GFR <15 on SWAGING MACHINE OPERATOR</content>
<content></content> Blood Urea Nitrogen 23 mg/dL 7-18 Above high normal MEDENT ([facility] Creatinine For GFR 1.41 mg/dL 0.70-1.30 Above high normal MED[facility] ([facility] Potassium Serum 4.3 meq/L 3.5-5.1 Normal (applies to non-numeric results) [facility] Chloride Level 107 meq/L 98-107 Normal (applies to non-numeric r esults) MED[facility] ([facility] Sodium Level 141 meq/L 136-145 Normal (applies to non-numeric res ults) [facility] Anion Gap 8 meq/L 8-16 Normal (applies to non-numeric resul ts) [facility] Calcium Level 9.5 mg/dL 8.8-10.2 Normal (applies to non-numeric re sults) [facility] Carbon Dioxide Level 26 meq/L 21-32 Normal (applies to non-num mary results) [facility] ([facility] ID Date Data Source [id number] 07/03/2020 03:40:00 PM EST MEDENT ([facility] Name Value Range Interpretation Code Description Data Heather rce(s) Supporting Document(s) Ast/Sgot 23 U/L 7-37 Normal (applies to non-numeric resul ts) [facility] ([facility] Alkaline Phosphatase 72 U/L 45-117 Normal (applies to non-num mary results) [facility] ([facility] Alt/SGPT 31 U/L 12-78 Normal (applies to non-numeric resul ts) [facility] ([facility] Bilirubin,Direct 0.1 mg/dL 0.0-0.2 Normal (applies to non-numeric results) [facility] ([facility] Bilirubin,Total 0.3 mg/dL 0.2-1.0 Normal (applies to non-numeric results) [facility] ([facility] Albumin/Globulin Ratio 1.1 Normal (applies to non-n umeric results) [facility] ([facility] Total Protein 7.3 GM/DL 6.4-8.2 Normal (applies to non-numeric re sults) [facility] ([facility] Albumin 3.9 GM/DL 3.2-5.2 Normal (applies to non-numeric resul ts) [facility] ([facility] ID Date Data Source [id number] 07/03/2020 03:40:00 PM EST MEDENT ([facility] Name Value Range Interpretation Code Description Data Heather rce(s) Supporting Document(s) CK-MB Value Mass 5.2 ng/mL Above high normal M EDENT ([facility] CPK Creatine Phosphokinase 267 U/L 39-308 Tita l (applies to non-numeric results) [facility] ([facility] ) Troponin I Laboratory test result Normal (applies to non-n umeric results) [facility] <content>Troponin I Reference Interval f or Siemens Kramer LOCI:</content>
<content></content>
<content>99th Percentile= 0.00-0.045 ng/ml</content>
<content></content>
<content>Risk Stratification:</content>
<content><= 0.10 ng/ml Decreased Risk for Adverse Clinical</content>
<content>Events.</content>
<content>0.10-1.50 ng/ml Increased Risk for Adverse Clinical</content>
<content>Events. Evaluation of additional</content>
<content>criterion and/or repeat testing in 2-6</content>
<content>hours is suggested to rule out myocardial</content>
<content>damage.</content>
<content>>= 1.50 ng/ml Indicative of Myocardial Injury.</content>
<content></content> MB/CK Relative Index 1.95 Normal (applies to non-num mary results) [facility] ([facility] <content>DIAGNOSIS CRITERIA</content>
<content>MMB ng/ml Relative Index (RI)</content>
<content>NON-AMI < or = 5 N/A</content>
<content>GAFFNEY ZONE > 5 < or = 4</content>
<content>AMI > 5 > 4</content>
<content></content> ID Date Data Source [id number] 07/03/2020 03:40:00 PM EST MEDENT ([facility] Name Value Range Interpretation Code Description Data Heather rce(s) Supporting Document(s) Fibrin D-dimer FEU [Mass/volume] in Platelet poor plasma 1761.85 ng/mL Above high normal [facility] ) ID Date Data Source [id number] 07/03/2020 03:40:00 PM EST MEDENT ([facility] Name Value Range Interpretation Code Description Data Heather rce(s) Supporting Document(s) Prothrombin Time 13.0 s 12.5-14.3 Normal (applies to non-numeric results) [facility] ([facility] Inr 0.96 Normal (applies to non-numeric resul ts) [facility] THERAPUTIC HUMAN INR VALUES INDICATIONS NORMAL RANGES PROPHYLAXIS/TREATMENT OF: VENOUS THROMBOSIS 2.0-3.0 PULMONARY EMBOLISM 2.0-3.0 PREVENTION OF SYSTEMIC EMBOLISM FROM: TISSUE HEART VALVES 2.0-3.0 ACUTE MYOCARDIAL INFARCTION 2.0-3.0 VALVULAR HEART DISEASE 2.0-3.0 ATRIAL FIBRILLATION 2.0-3.0 MECHANICAL VALVES(HIGH RISK) 2.5-3.5 RECURRENT MYOCARDIAL INFARCTION 2.5-3.5 ID Date Data Source [id number] 07/03/2020 03:40:00 PM EST MEDENT ([facility] Name Value Range Interpretation Code Description Data Heather rce(s) Supporting Document(s) White Blood Count 8.1 10 4.0-10.0 Normal (applies to non-numeri c results) MEDENT ([facility] Red Blood Count 4.56 10 4.30-6.10 Normal (applies to non-numeric results) [facility] ([facility] Hemoglobin 13.9 g/dL 13.5-17.5 Normal (applies to non-numeric resul ts) [facility] ([facility] Hematocrit 43.2 % 42.0-52.0 Normal (applies to non-numeric resul ts) [facility] ([facility] Mean Corpuscular Volume 94.7 fl 80.0-96.0 Normal ( applies to non-numeric results) [facility] ([facility] ) Mean Corpuscular HGB Conc 32.2 g/dL 32.0-36.5 Normal (applies to non-numeric results) MED[facility] ([facility] ) Red Cell Distribution Width 12.3 % 11.5-14.5 Norm al (applies to non-numeric results) MED[facility] ([facility] ) Mean Corpuscular Hemoglobin 30.5 pg 27.0-33.0 Norm al (applies to non-numeric results) MED[facility] ([facility] ) Platelet Count, Automated 316 10 150-450 Normal (applies to non-numeric results) [facility] ([facility] ) Lymph % 10.5 % 24.0-44.0 Below low normal MED[facility] ( [facility] Neutrophils % 78.5 % 36.0-66.0 Above high normal MEDE NT ([facility] Eos % 2.2 % 0.0-3.0 Normal (applies to non-numeric resul ts) [facility] ([facility] Baso % 0.7 % 0.0-1.0 Normal (applies to non-numeric resul ts) [facility] ([facility] [place] % 7.6 % 0.0-5.0 Above high normal MED[facility] ([facility] Nucleated Red Blood Cell % 0.0 % 0-0 Normal (applies to n on-numeric results) [facility] ([facility] Immature Granulocyte % 0.5 % 0-3.0 Normal (applies to non-n umeric results) MED[facility] ([facility] Neutrophils # 6.4 10 1.5-8.5 Normal (applies to non-numeric re sults) [facility] ([facility] Lymph # 0.9 10 1.5-5.0 Below low normal MED[facility] ( [facility] [place] # 0.6 10 0.0-0.8 Normal (applies to non-numeric resul ts) [facility] ([facility] Eos # 0.2 10 0.0-0.5 Normal (applies to non-numeric resul ts) [facility] ([facility] Baso # 0.1 10 0.0-0.2 Normal (applies to non-numeric resul ts) MED[facility] ([facility] ID Date Data Source [id number] 07/03/2020 08:57:00 AM EST MEDENT ([facility]) Name Value Range Interpretation Code Description Data Heather rce(s) Supporting Document(s) Free T4 7.7 [facility] ID Date Data Source [id number] 07/03/2020 08:57:00 AM EST [facility] Name Value Range Interpretation Code Description Data Heather rce(s) Supporting Document(s) Alkaline phosphatase [Enzymatic activity/volume] in Serum or Plasma 7 2 MED[facility] ([facility]) Aspartate aminotransferase [Enzymatic activity/volume] in Serum or Plasma 23 MED[facility] ([facility]) Bilirubin.direct [Mass/volume] in Serum or Plasma 0.1 MEDENT ([facility]) Bilirubin.total [Mass/volume] in Serum or Plasma 0.3 MEDENT ([facility]) Alanine aminotransferase [Enzymatic activity/volume] in Serum or Pl asma 31 MEDENT ([facility]) Cholesterol [Mass/volume] in Serum or Plasma 1.1 MEDENT ([facility]) Albumin [Mass/volume] in Serum or Plasma 3.9 MED[facility] ([facility]) Protein [Mass/volume] in Serum or Plasma 7.3 MEDENT ([facility]) ID Date Data Source [id number] 07/03/2020 08:57:00 AM EST MED[facility] Name Value Range Interpretation Code Description Data Heather rce(s) Supporting Document(s) Natriuretic peptide.B prohormone N-Terminal [Mass/volu me] in Serum or Plasma 174 MED[facility] ([facility]) Thyroid Stimulating Hormone 1.310 ME DENT ([facility]) ID Date Data Source [id number] 07/03/2020 08:57:00 AM EST [facility] Name Value Range Interpretation Code Description Data Heather rce(s) Supporting Document(s) Calcium [Mass/volume] in Serum or Plasma 9.5 MEDENT ([facility]) Carbon dioxide, total [Moles/volume] in Serum or Plasma 26 MED[facility] ([facility]) Sodium 141 MEDENT ([facility]) Potassium [Moles/volume] in Serum or Plasma 4.3 MEDENT ([facility]) Chloride [Moles/volume] in Serum or Plasma 107 MEDENT ([facility]) Glucose 97 70-100 MED[facility] ([facility]) Creatinine 1.41 0.70-1.30 MEDENT ([facility]) Glomerular filtration rate/1.73 sq M.pre dicted [Volume Rate/Area] in Serum or Plasma by Creatinine-based formula (MDRD) 52.0 MEDENT ([facility]) Blood Urea Nitrogen 23 7-18 MED[facility] ([facility]) ID Date Data Source [id number] 07/03/2020 08:57:00 AM EST [facility] Name Value Range Interpretation Code Description Data Heather rce(s) Supporting Document(s) White Blood Count 8.1 4.0-10.0 MED[facility] ([facility]) Red Blood Count 4.56 4.30-6.10 MED[facility] ([facility]) Platelets 316 150-450 [facility] Hemoglobin 13.9 MED[facility] ([facility]) Hematocrit 43.2 MED[facility] ([facility]) ID Date Data Source [id number] 05/15/2020 09:25:00 AM EST MEDENT ([facility] Name Value Range Interpretation Code Description Data Heather rce(s) Supporting Document(s) Laboratory test finding (navigational concept) Laboratory test result [facility] ([facility] Test: COVID-19 Nasal/Naspharynx Result: NOT DETECTED Reference Units: Not detected Note: Please consider re-collection of a new specimen, if clinically indicated. Note: The COVID-19 assay is under Emergency Use Authorization(EUA) by the U.S. Food and Drug Administration. [facility] is designated as a high complexity laboratory by the Clinical Laboratory Improvement Amendments of 1988(CLIA) and is qualified to perform this test. ASSAY INFORMATION: Real Time RT-PCR Patient samples for this assay have been pooled. All positive samples have been individually repeated for confirmation. The pooling protocol using the raudel SARS-CoV-2 assay has been added to [id number] on March 22, 2020. ID Date Data Source [id number] 05/15/2020 12:00:00 AM EST [facility] Name Value Range Interpretation Code Description Data Heather rce(s) Supporting Document(s) 2019-nCoV RNA XXX NORBERTO+probe-Imp [facility] This lab was ordered by [facility] and reported by [employer] ID Date Data Source Urine Protein.Creat ratio 01/06/2020 12:57:26 PM EDT eCW1 ([facility]) Name Value Range Interpretation Code Description Data Heather rce(s) Supporting Document(s) 293.4 U-CREA eCW1 ([facility]) 21.0 U-PROTEIN eCW1 ([facility]) 0.1 U-PROT/CREAT eCW1 ([facility]) ID Date Data Source RENAL FUNCTION 01/06/2020 12:33:50 PM EDT eCW1 ([facility]) Name Value Range Interpretation Code Description Data Heather rce(s) Supporting Document(s) 18 BUN eCW1 ([facility]) 3.5 ALBUMIN eCW1 ([facility] 8.9 CALCIUM eCW1 ([facility]) 58.67 GFR AFR.AM eCW1 [facility]) 48.49 GFR NON-AFR.AM eCW1 ([facility]) 1.5 CREATININE eCW1 ([facility] 27.4 CO2 eCW1 ([facility] 106 CHLORIDE eCW1 ([facility] 139 SODIUM eCW1 ([facility] 4.3 POTASSIUM eCW1 ([facility] 3.5 PHOSPHORUS eCW1 [facility] 6 ANION GAP eCW1 ([facility]) 87.0 GLUCOSE eCW1 ([facility]) ID Date Data Source [id number] 01/06/2020 12:33:45 PM EDT eCW1 ([facility]) Name Value Range Interpretation Code Description Data Heather rce(s) Supporting Document(s) Clear CLARITY eCW1 ([facility]) Yellow COLOR eCW1 ([facility]) >=1.030 SPEC.GRAV. eCW1 ([facility]) Negative PROTEIN eCW1 ([facility]) 5.5 PH eCW1 ([facility] Negative GLUCOSE eCW1 ([facility]) Negative NITRITE eCW1 ([facility] 1+ BILIRUBIN eCW1 ([facility] Negative BLOOD eCW1 ([facility]) Negative KETONES eCW1 ([facility] Negative LEUKOCYTES eCW1 ([facility] 1.0 UROBILINOGEN eCW1 ([facility]) ID Date Data Source VENIPUNCTURE OP 01/06/2020 12:16:06 PM EDT eCW1 ([facility]) Name Value Range Interpretation Code Description Data Heather rce(s) Supporting Document(s) VENIPUNCTURE VENIPUNCTURE eCW1 ([facility]) ID Date Data Source [id number] 12/19/2019 01:35:00 PM EDT MEDENT ([facility] Name Value Range Interpretation Code Description Data Heather rce(s) Supporting Document(s) Borrelia burgdorferi IgM Ab [Units/volume] in Serum Laborato ry test result 0.00-0.79 MED[facility] ([facility] <content>Negative <0.80</content >
<content>Equivocal 0.80 - 1.19</content>
<content>Positive >1.19</content>
<content>IgM levels may peak at 3-6 weeks post infection, then</content>
<content>gradually decline.</content>
<content></content> Lyme IgG/IgM Ab Laboratory test result 0.00-0.90 MED[facility] ([facility] <content>Negative <0.91</content >
<content>Equivocal 0.91 - 1.09</content>
<content>Positive >1.09</content>
<content></content> ID Date Data Source [id number] 11/28/2019 12:22:00 PM EDT [facility] Name Value Range Interpretation Code Description Data Heather rce(s) Supporting Document(s) Carbon dioxide, total [Moles/volume] in Serum or Plasma 26 MED[facility] ([facility]) Calcium [Mass/volume] in Serum or Plasma 9.1 MED[facility] ([facility]) Sodium 141 [facility] ([facility] Chloride [Moles/volume] in Serum or Plasma 107 MED[facility] ([facility]) Glucose 106 70-100 [facility] Potassium [Moles/volume] in Serum or Plasma 4.9 MED[facility] ([facility]) Glomerular filtration rate/1.73 sq M.pre dicted [Volume Rate/Area] in Serum or Plasma by Creatinine-based formula (MDRD) 48.9 MED[facility] ([facility]) Creatinine 1.49 0.70-1.30 MED[facility] ([facility]) Blood Urea Nitrogen 19 7-18 [facility] ([facility]) ID Date Data Source [id number] 11/01/2019 12:20:00 PM EDT MEDENT ([facility]) Name Value Range Interpretation Code Description Data Heather rce(s) Supporting Document(s) White Blood Count 7.8 4.0-10.0 [facility] ([facility] Red Blood Count 4.84 4.30-6.10 MED[facility] ([facility]) Platelets 266 150-450 [facility] Hemoglobin 14.8 13.5-17.5 MED[facility] ([facility]) Hematocrit 45.2 42.0-52.0 [facility] ([facility]) ID Date Data Source [id number] 11/01/2019 09:40:00 AM EDT MEDENT ([facility] Name Value Range Interpretation Code Description Data Heather rce(s) Supporting Document(s) Laboratory test finding (navigational concept) 116 mg/dL 7 0-105 Above high normal [facility] ([facility] ) Laboratory test finding (navigational concept) 44.0 % 3 8.0-51.0 Normal (applies to non-numeric results) [facility] ([facility] Laboratory test finding (navigational concept) 141 meq/L 1 36-145 Normal (applies to non-numeric results) [facility] ([facility] Laboratory test finding (navigational concept) 106 meq/L 9 8-109 Normal (applies to non-numeric results) [facility] ([facility] Laboratory test finding (navigational concept) 4.2 meq/L 3 .5-5.1 Normal (applies to non-numeric results) [facility] ([facility] Laboratory test finding (navigational concept) 4.8 mg/dL 4 .5-5.3 Normal (applies to non-numeric results) [facility] ([facility] Laboratory test finding (navigational concept) 1.4 mg/dL 0 .6-1.3 Above high normal [facility] ([facility] ) Laboratory test finding (navigational concept) 20 mg/dL 8 -26 Normal (applies to non-numeric results) [facility] ([facility]) Laboratory test finding (navigational concept) 24.0 MM/L 2 3.0-27.0 Normal (applies to non-numeric results) [facility] ID Date Data Source [id number] 11/01/2019 09:34:00 AM EDT MEDENT ([facility] Name Value Range Interpretation Code Description Data Heather rce(s) Supporting Document(s) RBC, Urine Laboratory test result 0-3 Above high normal [facility] ([facility] Squamous Epithelial Cell Urine Laboratory test result Normal (applies to non- numeric results) [facility] ([facility] Laboratory test finding (navigational concept) Laboratory test r esult 0-3 Normal (applies to non-numeric results) [facility] ([facility] Mucus, Urine Laboratory test result Above high normal [facility] ([facility] Bacteria, Urine Laboratory test result Normal (a pplies to non-numeric results) [facility] ([facility] Hyaline Cast, Urine Laboratory test result 0-1 Tita l (applies to non-numeric results) [facility] ([facility] Amorphous Sediment, Urine Laboratory test result Above hig h normal [facility] ([facility] Microscopic Exam Laboratory test result Normal ( applies to non-numeric results) [facility] ([facility] ) Laboratory test finding (navigational concept) Laboratory test r esult Above high normal [facility] ([facility] ) ID Date Data Source [id number] 11/01/2019 09:34:00 AM EDT [facility] ([facility] Name Value Range Interpretation Code Description Data Heather rce(s) Supporting Document(s) Laboratory test finding (navigational concept) Laboratory test r esult Above high normal [facility] ([facility] ) Laboratory test finding (navigational concept) Laboratory test r esult Above high normal [facility] ([facility] ) Laboratory test finding (navigational concept) 1.018 1 .002-1.035 Normal (applies to non-numeric results) [facility] ([facility] Laboratory test finding (navigational concept) Laboratory test r esult Above high normal [facility] ([facility] ) Laboratory test finding (navigational concept) 6.0 units 5 .0-7.0 Normal (applies to non-numeric results) [facility] ([facility] Ketone, Urine Manual Laboratory test result Norm al (applies to non-numeric results) [facility] ([facility] ) Glucose, Urine (Ua) Manual Laboratory test result Normal (applies to non- numeric results) [facility] ([facility] ) Urobilinogen, Urine Manual Laboratory test result Normal (applies to non- numeric results) [facility] ([facility] ) Laboratory test finding (navigational concept) Laboratory test r esult Normal (applies to non-numeric results) [facility] ([facility] Laboratory test finding (navigational concept) Laboratory test r esult Normal (applies to non-numeric results) [facility] Bilirubin, Urine Manual Laboratory test result N ormal (applies to non-numeric results) [facility] ([facility] ) Laboratory test finding (navigational concept) Laboratory test r esult Above high normal [facility] ([facility] ) ID Date Data Source [id number] 11/01/2019 09:34:00 AM EDT [facility] Name Value Range Interpretation Code Description Data Heather rce(s) Supporting Document(s) Prothrombin Time 13.6 s 11.8-14.0 Normal (applies to non-numeric results) [facility] ([facility] Partial Thromboplastin Time 32.3 s 25.0-38.4 Norm al (applies to non-numeric results) [facility] ([facility] ) Inr 1.07 Normal (applies to non-numeric resul ts) [facility] ([facility] THERAPUTIC HUMAN INR VALUES INDICATIONS NORMAL RANGES PROPHYLAXIS/TREATMENT OF: VENOUS THROMBOSIS 2.0-3.0 PULMONARY EMBOLISM 2.0-3.0 PREVENTION OF SYSTEMIC EMBOLISM FROM: TISSUE HEART VALVES 2.0-3.0 ACUTE MYOCARDIAL INFARCTION 2.0-3.0 VALVULAR HEART DISEASE 2.0-3.0 ATRIAL FIBRILLATION 2.0-3.0 MECHANICAL VALVES(HIGH RISK) 2.5-3.5 RECURRENT MYOCARDIAL INFARCTION 2.5-3.5 ID Date Data Source [id number] 11/01/2019 09:34:00 AM EDT [facility] Name Value Range Interpretation Code Description Data Heather rce(s) Supporting Document(s) Hemoglobin 14.8 g/dL 13.5-17.5 Normal (applies to non-numeric resul ts) [facility] ([facility] White Blood Count 7.8 10 4.0-10.0 Normal (applies to non-numeri c results) [facility] ([facility] Red Blood Count 4.84 10 4.30-6.10 Normal (applies to non-numeric results) [facility] ([facility] Hematocrit 45.2 % 42.0-52.0 Normal (applies to non-numeric resul ts) [facility] ([facility] Mean Corpuscular Volume 93.4 fl 80.0-96.0 Normal ( applies to non-numeric results) [facility] ([facility] Mean Corpuscular Hemoglobin 30.6 pg 27.0-33.0 Norm al (applies to non-numeric results) [facility] ([facility] Mean Corpuscular HGB Conc 32.7 g/dL 32.0-36.5 Normal (applies to non-numeric results) [facility] ([facility] ) Platelet Count, Automated 266 10 150-450 Normal (applies to non-numeric results) [facility] ([facility] Red Cell Distribution Width 12.4 % 11.5-14.5 Norm al (applies to non-numeric results) [facility] ([facility] ) [place] % 6.5 % 0.0-5.0 Above high normal [facility] ([facility] Lymph % 9.9 % 24.0-44.0 Below low normal [facility] ( [facility] Neutrophils % 80.7 % 36.0-66.0 Above high normal [facility] NT ([facility] Baso % 0.5 % 0.0-1.0 Normal (applies to non-numeric resul ts) [facility] ([facility] Eos % 1.9 % 0.0-3.0 Normal (applies to non-numeric resul ts) [facility] ([facility] Nucleated Red Blood Cell % 0.0 % 0-0 Normal (applies to n on-numeric results) [facility] ([facility] Immature Granulocyte % 0.5 % 0-3.0 Normal (applies to non-n umeric results) [facility] ([facility] Lymph # 0.8 10 1.5-5.0 Below low normal [facility] ( [facility] [place] # 0.5 10 0.0-0.8 Normal (applies to non-numeric resul ts) [facility] ([facility] Neutrophils # 6.3 10 1.5-8.5 Normal (applies to non-numeric re sults) [facility] ([facility] Eos # 0.2 10 0.0-0.5 Normal (applies to non-numeric resul ts) [facility] ([facility] Baso # 0.0 10 0.0-0.2 Normal (applies to non-numeric resul ts) [facility] ([facility] ID Date Data Source [id number] 09/21/2019 04:00:00 PM EDT [facility] ([facility] Name Value Range Interpretation Code Description Data Heather rce(s) Supporting Document(s) Prostate specific Ag [Mass/volume] in Serum or Plasma 2.17 ng/mL Normal (applies to non-numeric results) [facility] ([facility] The PSA assay is performed on the Axonify analyzer by [employer] sandwich chemiluminescent immunoassay and should not be compared interchangeably with other methods. It should not be used alone as a screening test or diagnosis for the presence or absence of malignant disease. Predictions of disease recurrence should not be based solely on values obtained from serial patient serum values. ID Date Data Source PSA SCREENING 09/21/2019 12:00:00 AM EDT [email or web address] ([facility]) Name Value Range Interpretation Code Description Data Heather rce(s) Supporting Document(s) 2.17 < 4.00 PSA SCREENING [facility] ([facility]) ID Date Data Source [id number] 09/12/2019 10:31:00 AM EDT [facility] ([facility] Name Value Range Interpretation Code Description Data Heather rce(s) Supporting Document(s) Color Urine Laboratory test result M [facility] ([facility] Glucose Urine Laboratory test result [facility] ([facility] Specific [place] 1.025 1.00-1.03 [facility] ([facility] Appearance of Urine Laboratory test result [facility] ([facility] PH Urine 5.5 5.0-8.0 [facility] ([facility] Bilirubin.total [Presence] in Urine by Test strip Laboratory test res ult [facility] ([facility] Ketones Laboratory test result [facility] ([facility] Blood Urine Laboratory test result M EDENT ([facility] Urobilinogen 0.2 EU/dl 0.2-1.0 [facility] ([facility] Nitrite Laboratory test result [facility] ([facility] Protein Urine Laboratory test result [facility] ([facility] Leukocytes Laboratory test result ME DENT ([facility] ID Date Data Source [id number] 09/12/2019 10:21:00 AM EDT [facility] Name Value Range Interpretation Code Description Data Heather rce(s) Supporting Document(s) BUN/Creatinine Ratio 14.4 Calc [facility] ([facility] CHRONIC KIDNEY DISEASE STAGING PER NKF: MALE GFR INTERPRETATION: 20-49 YRS: >60 mL/min Normal 50-59 YRS: >56 mL/min Normal 60-69 YRS: >49 mL/min Normal 70-79 YRS: >42 mL/min Normal 80 and above >35 mL/min Normal FEMALE GRF INTERPRETATION: 20-39 YRS: >60 mL/min Normal 40-49 YRS: >58 mL/min Normal 50-59 YRS: >51 mL/min Normal 60-69 YRS: >45 mL/min Normal 70-79 YRS: >39 mL/min Normal 80 and above >32 mL/min NormalNORMAL RANGES Age WBC RBC HGB HCT MCV PLT Adult M 4.1-10.9 4.20-6.30 12.0-18.0 37.0-51.0 80-97 140-440 Adult F 4.1-10.9 4.04-5.48 12.0-18.0 37.0-51.0 80-97 140-440 0- 1 Yr 5.0-20.0 3.9-5.9 15-18 MV: 44 MV: 91 MV: 277 2-9 Yr. 6.0-17.0 3.8-5.4 11-13 MV: 37 MV: 78 MV: 300 10 Yrs. 5.0-13.0 3.8-5.4 12-15 MV: 39 MV: 80 MV: 250 NOTE: * FOR ADULT BLACK MALES AND FEMALES, NORMAL WBC IS 2.9-7.7 K/ML * FOR ADULT BLACK MALES AND FEMALES, NORMAL RBC,HGB, AND HCT IS 5% LESS SOURCE FOR DATA: [employer] 1800 OPERATION MANUAL( AUTOMATED BLOOD COUNTS AND DIFF.) APPENDIX B-3 Creat 1.3 mg/dL 0.7-1.2 Above high normal [facility] ([facility] CHRONIC KIDNEY DISEASE STAGING PER NKF: MALE GFR INTERPRETATION: 20-49 YRS: >60 mL/min Normal 50-59 YRS: >56 mL/min Normal 60-69 YRS: >49 mL/min Normal 70-79 YRS: >42 mL/min Normal 80 and above >35 mL/min Normal FEMALE GRF INTERPRETATION: 20-39 YRS: >60 mL/min Normal 40-49 YRS: >58 mL/min Normal 50-59 YRS: >51 mL/min Normal 60-69 YRS: >45 mL/min Normal 70-79 YRS: >39 mL/min Normal 80 and above >32 mL/min NormalNORMAL RANGES Age WBC RBC HGB HCT MCV PLT Adult M 4.1-10.9 4.20-6.30 12.0-18.0 37.0-51.0 80-97 140-440 Adult F 4.1-10.9 4.04-5.48 12.0-18.0 37.0-51.0 80-97 140-440 0- 1 Yr 5.0-20.0 3.9-5.9 15-18 MV: 44 MV: 91 MV: 277 2-9 Yr. 6.0-17.0 3.8-5.4 11-13 MV: 37 MV: 78 MV: 300 10 Yrs. 5.0-13.0 3.8-5.4 12-15 MV: 39 MV: 80 MV: 250 NOTE: * FOR ADULT BLACK MALES AND FEMALES, NORMAL WBC IS 2.9-7.7 K/ML * FOR ADULT BLACK MALES AND FEMALES, NORMAL RBC,HGB, AND HCT IS 5% LESS SOURCE FOR DATA: [employer] 1800 OPERATION MANUAL( AUTOMATED BLOOD COUNTS AND DIFF.) APPENDIX B-3 Glu 89 mg/dL 70-110 [facility] CHRONIC KIDNEY DISEASE STAGING PER NKF: MALE GFR INTERPRETATION: 20-49 YRS: >60 mL/min Normal 50-59 YRS: >56 mL/min Normal 60-69 YRS: >49 mL/min Normal 70-79 YRS: >42 mL/min Normal 80 and above >35 mL/min Normal FEMALE GRF INTERPRETATION: 20-39 YRS: >60 mL/min Normal 40-49 YRS: >58 mL/min Normal 50-59 YRS: >51 mL/min Normal 60-69 YRS: >45 mL/min Normal 70-79 YRS: >39 mL/min Normal 80 and above >32 mL/min NormalNORMAL RANGES Age WBC RBC HGB HCT MCV PLT Adult M 4.1-10.9 4.20-6.30 12.0-18.0 37.0-51.0 80-97 140-440 Adult F 4.1-10.9 4.04-5.48 12.0-18.0 37.0-51.0 80-97 140-440 0- 1 Yr 5.0-20.0 3.9-5.9 15-18 MV: 44 MV: 91 MV: 277 2-9 Yr. 6.0-17.0 3.8-5.4 11-13 MV: 37 MV: 78 MV: 300 10 Yrs. 5.0-13.0 3.8-5.4 12-15 MV: 39 MV: 80 MV: 250 NOTE: * FOR ADULT BLACK MALES AND FEMALES, NORMAL WBC IS 2.9-7.7 K/ML * FOR ADULT BLACK MALES AND FEMALES, NORMAL RBC,HGB, AND HCT IS 5% LESS SOURCE FOR DATA: [employer]YN 1800 OPERATION MANUAL( AUTOMATED BLOOD COUNTS AND DIFF.) APPENDIX B-3 BUN 19 mg/dL 8 [facility] CHRONIC KIDNEY DISEASE STAGING PER NKF: MALE GFR INTERPRETATION: 20-49 YRS: >60 mL/min Normal 50-59 YRS: >56 mL/min Normal 60-69 YRS: >49 mL/min Normal 70-79 YRS: >42 mL/min Normal 80 and above >35 mL/min Normal FEMALE GRF INTERPRETATION: 20-39 YRS: >60 mL/min Normal 40-49 YRS: >58 mL/min Normal 50-59 YRS: >51 mL/min Normal 60-69 YRS: >45 mL/min Normal 70-79 YRS: >39 mL/min Normal 80 and above >32 mL/min NormalNORMAL RANGES Age WBC RBC HGB HCT MCV PLT Adult M 4.1-10.9 4.20-6.30 12.0-18.0 37.0-51.0 80-97 140-440 Adult F 4.1-10.9 4.04-5.48 12.0-18.0 37.0-51.0 80-97 140-440 0- 1 Yr 5.0-20.0 3.9-5.9 15-18 MV: 44 MV: 91 MV: 277 2-9 Yr. 6.0-17.0 3.8-5.4 11-13 MV: 37 MV: 78 MV: 300 10 Yrs. 5.0-13.0 3.8-5.4 12-15 MV: 39 MV: 80 MV: 250 NOTE: * FOR ADULT BLACK MALES AND FEMALES, NORMAL WBC IS 2.9-7.7 K/ML * FOR ADULT BLACK MALES AND FEMALES, NORMAL RBC,HGB, AND HCT IS 5% LESS SOURCE FOR DATA: [employer]YN 1800 OPERATION MANUAL( AUTOMATED BLOOD COUNTS AND DIFF.) APPENDIX B-3 Na 140 mmol/L 136-145 [facility] ([facility] CHRONIC KIDNEY DISEASE STAGING PER NKF: MALE GFR INTERPRETATION: 20-49 YRS: >60 mL/min Normal 50-59 YRS: >56 mL/min Normal 60-69 YRS: >49 mL/min Normal 70-79 YRS: >42 mL/min Normal 80 and above >35 mL/min Normal FEMALE GRF INTERPRETATION: 20-39 YRS: >60 mL/min Normal 40-49 YRS: >58 mL/min Normal 50-59 YRS: >51 mL/min Normal 60-69 YRS: >45 mL/min Normal 70-79 YRS: >39 mL/min Normal 80 and above >32 mL/min NormalNORMAL RANGES Age WBC RBC HGB HCT MCV PLT Adult M 4.1-10.9 4.20-6.30 12.0-18.0 37.0-51.0 80-97 140-440 Adult F 4.1-10.9 4.04-5.48 12.0-18.0 37.0-51.0 80-97 140-440 0- 1 Yr 5.0-20.0 3.9-5.9 15-18 MV: 44 MV: 91 MV: 277 2-9 Yr. 6.0-17.0 3.8-5.4 11-13 MV: 37 MV: 78 MV: 300 10 Yrs. 5.0-13.0 3.8-5.4 12-15 MV: 39 MV: 80 MV: 250 NOTE: * FOR ADULT BLACK MALES AND FEMALES, NORMAL WBC IS 2.9-7.7 K/ML * FOR ADULT BLACK MALES AND FEMALES, NORMAL RBC,HGB, AND HCT IS 5% LESS SOURCE FOR DATA: [employer]YN 1800 OPERATION MANUAL( AUTOMATED BLOOD COUNTS AND DIFF.) APPENDIX B-3 CL 103.4 mmol/L 98.0-107.0 [facility] CHRONIC KIDNEY DISEASE STAGING PER NKF: MALE GFR INTERPRETATION: 20-49 YRS: >60 mL/min Normal 50-59 YRS: >56 mL/min Normal 60-69 YRS: >49 mL/min Normal 70-79 YRS: >42 mL/min Normal 80 and above >35 mL/min Normal FEMALE GRF INTERPRETATION: 20-39 YRS: >60 mL/min Normal 40-49 YRS: >58 mL/min Normal 50-59 YRS: >51 mL/min Normal 60-69 YRS: >45 mL/min Normal 70-79 YRS: >39 mL/min Normal 80 and above >32 mL/min NormalNORMAL RANGES Age WBC RBC HGB HCT MCV PLT Adult M 4.1-10.9 4.20-6.30 12.0-18.0 37.0-51.0 80-97 140-440 Adult F 4.1-10.9 4.04-5.48 12.0-18.0 37.0-51.0 80-97 140-440 0- 1 Yr 5.0-20.0 3.9-5.9 15-18 MV: 44 MV: 91 MV: 277 2-9 Yr. 6.0-17.0 3.8-5.4 11-13 MV: 37 MV: 78 MV: 300 10 Yrs. 5.0-13.0 3.8-5.4 12-15 MV: 39 MV: 80 MV: 250 NOTE: * FOR ADULT BLACK MALES AND FEMALES, NORMAL WBC IS 2.9-7.7 K/ML * FOR ADULT BLACK MALES AND FEMALES, NORMAL RBC,HGB, AND HCT IS 5% LESS SOURCE FOR DATA: AMANDA DYN 1800 OPERATION MANUAL( AUTOMATED BLOOD COUNTS AND DIFF.) APPENDIX B-3 K 4.3 mmol/L 3.5-5.1 [facility] ([facility] CHRONIC KIDNEY DISEASE STAGING PER NKF: MALE GFR INTERPRETATION: 20-49 YRS: >60 mL/min Normal 50-59 YRS: >56 mL/min Normal 60-69 YRS: >49 mL/min Normal 70-79 YRS: >42 mL/min Normal 80 and above >35 mL/min Normal FEMALE GRF INTERPRETATION: 20-39 YRS: >60 mL/min Normal 40-49 YRS: >58 mL/min Normal 50-59 YRS: >51 mL/min Normal 60-69 YRS: >45 mL/min Normal 70-79 YRS: >39 mL/min Normal 80 and above >32 mL/min NormalNORMAL RANGES Age WBC RBC HGB HCT MCV PLT Adult M 4.1-10.9 4.20-6.30 12.0-18.0 37.0-51.0 80-97 140-440 Adult F 4.1-10.9 4.04-5.48 12.0-18.0 37.0-51.0 80-97 140-440 0- 1 Yr 5.0-20.0 3.9-5.9 15-18 MV: 44 MV: 91 MV: 277 2-9 Yr. 6.0-17.0 3.8-5.4 11-13 MV: 37 MV: 78 MV: 300 10 Yrs. 5.0-13.0 3.8-5.4 12-15 MV: 39 MV: 80 MV: 250 NOTE: * FOR ADULT BLACK MALES AND FEMALES, NORMAL WBC IS 2.9-7.7 K/ML * FOR ADULT BLACK MALES AND FEMALES, NORMAL RBC,HGB, AND HCT IS 5% LESS SOURCE FOR DATA: AMANDA DYN 1800 OPERATION MANUAL( AUTOMATED BLOOD COUNTS AND DIFF.) APPENDIX B-3 CA 9.7 mg/dL 8.6-10.2 [facility] CHRONIC KIDNEY DISEASE STAGING PER NKF: MALE GFR INTERPRETATION: 20-49 YRS: >60 mL/min Normal 50-59 YRS: >56 mL/min Normal 60-69 YRS: >49 mL/min Normal 70-79 YRS: >42 mL/min Normal 80 and above >35 mL/min Normal FEMALE GRF INTERPRETATION: 20-39 YRS: >60 mL/min Normal 40-49 YRS: >58 mL/min Normal 50-59 YRS: >51 mL/min Normal 60-69 YRS: >45 mL/min Normal 70-79 YRS: >39 mL/min Normal 80 and above >32 mL/min NormalNORMAL RANGES Age WBC RBC HGB HCT MCV PLT Adult M 4.1-10.9 4.20-6.30 12.0-18.0 37.0-51.0 80-97 140-440 Adult F 4.1-10.9 4.04-5.48 12.0-18.0 37.0-51.0 80-97 140-440 0- 1 Yr 5.0-20.0 3.9-5.9 15-18 MV: 44 MV: 91 MV: 277 2-9 Yr. 6.0-17.0 3.8-5.4 11-13 MV: 37 MV: 78 MV: 300 10 Yrs. 5.0-13.0 3.8-5.4 12-15 MV: 39 MV: 80 MV: 250 NOTE: * FOR ADULT BLACK MALES AND FEMALES, NORMAL WBC IS 2.9-7.7 K/ML * FOR ADULT BLACK MALES AND FEMALES, NORMAL RBC,HGB, AND HCT IS 5% LESS SOURCE FOR DATA: AMANDA DYN 1800 OPERATION MANUAL( AUTOMATED BLOOD COUNTS AND DIFF.) APPENDIX B-3 Co2 22.2 mmol/L 22.0-29.0 [facility] CHRONIC KIDNEY DISEASE STAGING PER NKF: MALE GFR INTERPRETATION: 20-49 YRS: >60 mL/min Normal 50-59 YRS: >56 mL/min Normal 60-69 YRS: >49 mL/min Normal 70-79 YRS: >42 mL/min Normal 80 and above >35 mL/min Normal FEMALE GRF INTERPRETATION: 20-39 YRS: >60 mL/min Normal 40-49 YRS: >58 mL/min Normal 50-59 YRS: >51 mL/min Normal 60-69 YRS: >45 mL/min Normal 70-79 YRS: >39 mL/min Normal 80 and above >32 mL/min NormalNORMAL RANGES Age WBC RBC HGB HCT MCV PLT Adult M 4.1-10.9 4.20-6.30 12.0-18.0 37.0-51.0 80-97 140-440 Adult F 4.1-10.9 4.04-5.48 12.0-18.0 37.0-51.0 80-97 140-440 0- 1 Yr 5.0-20.0 3.9-5.9 15-18 MV: 44 MV: 91 MV: 277 2-9 Yr. 6.0-17.0 3.8-5.4 11-13 MV: 37 MV: 78 MV: 300 10 Yrs. 5.0-13.0 3.8-5.4 12-15 MV: 39 MV: 80 MV: 250 NOTE: * FOR ADULT BLACK MALES AND FEMALES, NORMAL WBC IS 2.9-7.7 K/ML * FOR ADULT BLACK MALES AND FEMALES, NORMAL RBC,HGB, AND HCT IS 5% LESS SOURCE FOR DATA: AMANDA DYN 1800 OPERATION MANUAL( AUTOMATED BLOOD COUNTS AND DIFF.) APPENDIX B-3 TP 6.6 g/dL 6.6-8.7 [facility] ([facility] CHRONIC KIDNEY DISEASE STAGING PER NKF: MALE GFR INTERPRETATION: 20-49 YRS: >60 mL/min Normal 50-59 YRS: >56 mL/min Normal 60-69 YRS: >49 mL/min Normal 70-79 YRS: >42 mL/min Normal 80 and above >35 mL/min Normal FEMALE GRF INTERPRETATION: 20-39 YRS: >60 mL/min Normal 40-49 YRS: >58 mL/min Normal 50-59 YRS: >51 mL/min Normal 60-69 YRS: >45 mL/min Normal 70-79 YRS: >39 mL/min Normal 80 and above >32 mL/min NormalNORMAL RANGES Age WBC RBC HGB HCT MCV PLT Adult M 4.1-10.9 4.20-6.30 12.0-18.0 37.0-51.0 80-97 140-440 Adult F 4.1-10.9 4.04-5.48 12.0-18.0 37.0-51.0 80-97 140-440 0- 1 Yr 5.0-20.0 3.9-5.9 15-18 MV: 44 MV: 91 MV: 277 2-9 Yr. 6.0-17.0 3.8-5.4 11-13 MV: 37 MV: 78 MV: 300 10 Yrs. 5.0-13.0 3.8-5.4 12-15 MV: 39 MV: 80 MV: 250 NOTE: * FOR ADULT BLACK MALES AND FEMALES, NORMAL WBC IS 2.9-7.7 K/ML * FOR ADULT BLACK MALES AND FEMALES, NORMAL RBC,HGB, AND HCT IS 5% LESS SOURCE FOR DATA: [employer] 1800 OPERATION MANUAL( AUTOMATED BLOOD COUNTS AND DIFF.) APPENDIX B-3 A/G Ratio 1.7 Calc [employer] [facility] CHRONIC KIDNEY DISEASE STAGING PER NKF: MALE GFR INTERPRETATION: 20-49 YRS: >60 mL/min Normal 50-59 YRS: >56 mL/min Normal 60-69 YRS: >49 mL/min Normal 70-79 YRS: >42 mL/min Normal 80 and above >35 mL/min Normal FEMALE GRF INTERPRETATION: 20-39 YRS: >60 mL/min Normal 40-49 YRS: >58 mL/min Normal 50-59 YRS: >51 mL/min Normal 60-69 YRS: >45 mL/min Normal 70-79 YRS: >39 mL/min Normal 80 and above >32 mL/min NormalNORMAL RANGES Age WBC RBC HGB HCT MCV PLT Adult M 4.1-10.9 4.20-6.30 12.0-18.0 37.0-51.0 80-97 140-440 Adult F 4.1-10.9 4.04-5.48 12.0-18.0 37.0-51.0 80-97 140-440 0- 1 Yr 5.0-20.0 3.9-5.9 15-18 MV: 44 MV: 91 MV: 277 2-9 Yr. 6.0-17.0 3.8-5.4 11-13 MV: 37 MV: 78 MV: 300 10 Yrs. 5.0-13.0 3.8-5.4 12-15 MV: 39 MV: 80 MV: 250 NOTE: * FOR ADULT BLACK MALES AND FEMALES, NORMAL WBC IS 2.9-7.7 K/ML * FOR ADULT BLACK MALES AND FEMALES, NORMAL RBC,HGB, AND HCT IS 5% LESS SOURCE FOR DATA: [employer] 1800 OPERATION MANUAL( AUTOMATED BLOOD COUNTS AND DIFF.) APPENDIX B-3 Alb 4.2 g/dL 3.5-5.2 [facility] CHRONIC KIDNEY DISEASE STAGING PER NKF: MALE GFR INTERPRETATION: 20-49 YRS: >60 mL/min Normal 50-59 YRS: >56 mL/min Normal 60-69 YRS: >49 mL/min Normal 70-79 YRS: >42 mL/min Normal 80 and above >35 mL/min Normal FEMALE GRF INTERPRETATION: 20-39 YRS: >60 mL/min Normal 40-49 YRS: >58 mL/min Normal 50-59 YRS: >51 mL/min Normal 60-69 YRS: >45 mL/min Normal 70-79 YRS: >39 mL/min Normal 80 and above >32 mL/min NormalNORMAL RANGES Age WBC RBC HGB HCT MCV PLT Adult M 4.1-10.9 4.20-6.30 12.0-18.0 37.0-51.0 80-97 140-440 Adult F 4.1-10.9 4.04-5.48 12.0-18.0 37.0-51.0 80-97 140-440 0- 1 Yr 5.0-20.0 3.9-5.9 15-18 MV: 44 MV: 91 MV: 277 2-9 Yr. 6.0-17.0 3.8-5.4 11-13 MV: 37 MV: 78 MV: 300 10 Yrs. 5.0-13.0 3.8-5.4 12-15 MV: 39 MV: 80 MV: 250 NOTE: * FOR ADULT BLACK MALES AND FEMALES, NORMAL WBC IS 2.9-7.7 K/ML * FOR ADULT BLACK MALES AND FEMALES, NORMAL RBC,HGB, AND HCT IS 5% LESS SOURCE FOR DATA: [employer] IT DYN 1800 OPERATION MANUAL( AUTOMATED BLOOD COUNTS AND DIFF.) APPENDIX B-3 Alp 73.3 U/L 40-129 [facility] ([facility] CHRONIC KIDNEY DISEASE STAGING PER NKF: MALE GFR INTERPRETATION: 20-49 YRS: >60 mL/min Normal 50-59 YRS: >56 mL/min Normal 60-69 YRS: >49 mL/min Normal 70-79 YRS: >42 mL/min Normal 80 and above >35 mL/min Normal FEMALE GRF INTERPRETATION: 20-39 YRS: >60 mL/min Normal 40-49 YRS: >58 mL/min Normal 50-59 YRS: >51 mL/min Normal 60-69 YRS: >45 mL/min Normal 70-79 YRS: >39 mL/min Normal 80 and above >32 mL/min NormalNORMAL RANGES Age WBC RBC HGB HCT MCV PLT Adult M 4.1-10.9 4.20-6.30 12.0-18.0 37.0-51.0 80-97 140-440 Adult F 4.1-10.9 4.04-5.48 12.0-18.0 37.0-51.0 80-97 140-440 0- 1 Yr 5.0-20.0 3.9-5.9 15-18 MV: 44 MV: 91 MV: 277 2-9 Yr. 6.0-17.0 3.8-5.4 11-13 MV: 37 MV: 78 MV: 300 10 Yrs. 5.0-13.0 3.8-5.4 12-15 MV: 39 MV: 80 MV: 250 NOTE: * FOR ADULT BLACK MALES AND FEMALES, NORMAL WBC IS 2.9-7.7 K/ML * FOR ADULT BLACK MALES AND FEMALES, NORMAL RBC,HGB, AND HCT IS 5% LESS SOURCE FOR DATA: [employer] 1800 OPERATION MANUAL( AUTOMATED BLOOD COUNTS AND DIFF.) APPENDIX B-3 Globulin 2.4 Calc [facility] ([facility] CHRONIC KIDNEY DISEASE STAGING PER NKF: MALE GFR INTERPRETATION: 20-49 YRS: >60 mL/min Normal 50-59 YRS: >56 mL/min Normal 60-69 YRS: >49 mL/min Normal 70-79 YRS: >42 mL/min Normal 80 and above >35 mL/min Normal FEMALE GRF INTERPRETATION: 20-39 YRS: >60 mL/min Normal 40-49 YRS: >58 mL/min Normal 50-59 YRS: >51 mL/min Normal 60-69 YRS: >45 mL/min Normal 70-79 YRS: >39 mL/min Normal 80 and above >32 mL/min NormalNORMAL RANGES Age WBC RBC HGB HCT MCV PLT Adult M 4.1-10.9 4.20-6.30 12.0-18.0 37.0-51.0 80-97 140-440 Adult F 4.1-10.9 4.04-5.48 12.0-18.0 37.0-51.0 80-97 140-440 0- 1 Yr 5.0-20.0 3.9-5.9 15-18 MV: 44 MV: 91 MV: 277 2-9 Yr. 6.0-17.0 3.8-5.4 11-13 MV: 37 MV: 78 MV: 300 10 Yrs. 5.0-13.0 3.8-5.4 12-15 MV: 39 MV: 80 MV: 250 NOTE: * FOR ADULT BLACK MALES AND FEMALES, NORMAL WBC IS 2.9-7.7 K/ML * FOR ADULT BLACK MALES AND FEMALES, NORMAL RBC,HGB, AND HCT IS 5% LESS SOURCE FOR DATA: AMANDA DYN 1800 OPERATION MANUAL( AUTOMATED BLOOD COUNTS AND DIFF.) APPENDIX B-3 Alt (SGPT) 17 U/L 0-41 [facility] [facility] CHRONIC KIDNEY DISEASE STAGING PER NKF: MALE GFR INTERPRETATION: 20-49 YRS: >60 mL/min Normal 50-59 YRS: >56 mL/min Normal 60-69 YRS: >49 mL/min Normal 70-79 YRS: >42 mL/min Normal 80 and above >35 mL/min Normal FEMALE GRF INTERPRETATION: 20-39 YRS: >60 mL/min Normal 40-49 YRS: >58 mL/min Normal 50-59 YRS: >51 mL/min Normal 60-69 YRS: >45 mL/min Normal 70-79 YRS: >39 mL/min Normal 80 and above >32 mL/min NormalNORMAL RANGES Age WBC RBC HGB HCT MCV PLT Adult M 4.1-10.9 4.20-6.30 12.0-18.0 37.0-51.0 80-97 140-440 Adult F 4.1-10.9 4.04-5.48 12.0-18.0 37.0-51.0 80-97 140-440 0- 1 Yr 5.0-20.0 3.9-5.9 15-18 MV: 44 MV: 91 MV: 277 2-9 Yr. 6.0-17.0 3.8-5.4 11-13 MV: 37 MV: 78 MV: 300 10 Yrs. 5.0-13.0 3.8-5.4 12-15 MV: 39 MV: 80 MV: 250 NOTE: * FOR ADULT BLACK MALES AND FEMALES, NORMAL WBC IS 2.9-7.7 K/ML * FOR ADULT BLACK MALES AND FEMALES, NORMAL RBC,HGB, AND HCT IS 5% LESS SOURCE FOR DATA: AMANDA DYN 1800 OPERATION MANUAL( AUTOMATED BLOOD COUNTS AND DIFF.) APPENDIX B-3 Tbili 0.61 mg/dL 0.0-1.2 [facility] ([facility] CHRONIC KIDNEY DISEASE STAGING PER NKF: MALE GFR INTERPRETATION: 20-49 YRS: >60 mL/min Normal 50-59 YRS: >56 mL/min Normal 60-69 YRS: >49 mL/min Normal 70-79 YRS: >42 mL/min Normal 80 and above >35 mL/min Normal FEMALE GRF INTERPRETATION: 20-39 YRS: >60 mL/min Normal 40-49 YRS: >58 mL/min Normal 50-59 YRS: >51 mL/min Normal 60-69 YRS: >45 mL/min Normal 70-79 YRS: >39 mL/min Normal 80 and above >32 mL/min NormalNORMAL RANGES Age WBC RBC HGB HCT MCV PLT Adult M 4.1-10.9 4.20-6.30 12.0-18.0 37.0-51.0 80-97 140-440 Adult F 4.1-10.9 4.04-5.48 12.0-18.0 37.0-51.0 80-97 140-440 0- 1 Yr 5.0-20.0 3.9-5.9 15-18 MV: 44 MV: 91 MV: 277 2-9 Yr. 6.0-17.0 3.8-5.4 11-13 MV: 37 MV: 78 MV: 300 10 Yrs. 5.0-13.0 3.8-5.4 12-15 MV: 39 MV: 80 MV: 250 NOTE: * FOR ADULT BLACK MALES AND FEMALES, NORMAL WBC IS 2.9-7.7 K/ML * FOR ADULT BLACK MALES AND FEMALES, NORMAL RBC,HGB, AND HCT IS 5% LESS SOURCE FOR DATA: AMANDA DYN 1800 OPERATION MANUAL( AUTOMATED BLOOD COUNTS AND DIFF.) APPENDIX B-3 Ast (Sgot) 22 U/L 0-40 [facility] ([facility] CHRONIC KIDNEY DISEASE STAGING PER NKF: MALE GFR INTERPRETATION: 20-49 YRS: >60 mL/min Normal 50-59 YRS: >56 mL/min Normal 60-69 YRS: >49 mL/min Normal 70-79 YRS: >42 mL/min Normal 80 and above >35 mL/min Normal FEMALE GRF INTERPRETATION: 20-39 YRS: >60 mL/min Normal 40-49 YRS: >58 mL/min Normal 50-59 YRS: >51 mL/min Normal 60-69 YRS: >45 mL/min Normal 70-79 YRS: >39 mL/min Normal 80 and above >32 mL/min NormalNORMAL RANGES Age WBC RBC HGB HCT MCV PLT Adult M 4.1-10.9 4.20-6.30 12.0-18.0 37.0-51.0 80-97 140-440 Adult F 4.1-10.9 4.04-5.48 12.0-18.0 37.0-51.0 80-97 140-440 0- 1 Yr 5.0-20.0 3.9-5.9 15-18 MV: 44 MV: 91 MV: 277 2-9 Yr. 6.0-17.0 3.8-5.4 11-13 MV: 37 MV: 78 MV: 300 10 Yrs. 5.0-13.0 3.8-5.4 12-15 MV: 39 MV: 80 MV: 250 NOTE: * FOR ADULT BLACK MALES AND FEMALES, NORMAL WBC IS 2.9-7.7 K/ML * FOR ADULT BLACK MALES AND FEMALES, NORMAL RBC,HGB, AND HCT IS 5% LESS SOURCE FOR DATA: AMANDA DYN 1800 OPERATION MANUAL( AUTOMATED BLOOD COUNTS AND DIFF.) APPENDIX B-3 Osmolality-Calculated 281.1 Calc MED [facility] ([facility] CHRONIC KIDNEY DISEASE STAGING PER NKF: MALE GFR INTERPRETATION: 20-49 YRS: >60 mL/min Normal 50-59 YRS: >56 mL/min Normal 60-69 YRS: >49 mL/min Normal 70-79 YRS: >42 mL/min Normal 80 and above >35 mL/min Normal FEMALE GRF INTERPRETATION: 20-39 YRS: >60 mL/min Normal 40-49 YRS: >58 mL/min Normal 50-59 YRS: >51 mL/min Normal 60-69 YRS: >45 mL/min Normal 70-79 YRS: >39 mL/min Normal 80 and above >32 mL/min NormalNORMAL RANGES Age WBC RBC HGB HCT MCV PLT Adult M 4.1-10.9 4.20-6.30 12.0-18.0 37.0-51.0 80-97 140-440 Adult F 4.1-10.9 4.04-5.48 12.0-18.0 37.0-51.0 80-97 140-440 0- 1 Yr 5.0-20.0 3.9-5.9 15-18 MV: 44 MV: 91 MV: 277 2-9 Yr. 6.0-17.0 3.8-5.4 11-13 MV: 37 MV: 78 MV: 300 10 Yrs. 5.0-13.0 3.8-5.4 12-15 MV: 39 MV: 80 MV: 250 NOTE: * FOR ADULT BLACK MALES AND FEMALES, NORMAL WBC IS 2.9-7.7 K/ML * FOR ADULT BLACK MALES AND FEMALES, NORMAL RBC,HGB, AND HCT IS 5% LESS SOURCE FOR DATA: [employer] 1800 OPERATION MANUAL( AUTOMATED BLOOD COUNTS AND DIFF.) APPENDIX B-3 eGFR 62 # [facility] ( [facility] CHRONIC KIDNEY DISEASE STAGING PER NKF: MALE GFR INTERPRETATION: 20-49 YRS: >60 mL/min Normal 50-59 YRS: >56 mL/min Normal 60-69 YRS: >49 mL/min Normal 70-79 YRS: >42 mL/min Normal 80 and above >35 mL/min Normal FEMALE GRF INTERPRETATION: 20-39 YRS: >60 mL/min Normal 40-49 YRS: >58 mL/min Normal 50-59 YRS: >51 mL/min Normal 60-69 YRS: >45 mL/min Normal 70-79 YRS: >39 mL/min Normal 80 and above >32 mL/min NormalNORMAL RANGES Age WBC RBC HGB HCT MCV PLT Adult M 4.1-10.9 4.20-6.30 12.0-18.0 37.0-51.0 80-97 140-440 Adult F 4.1-10.9 4.04-5.48 12.0-18.0 37.0-51.0 80-97 140-440 0- 1 Yr 5.0-20.0 3.9-5.9 15-18 MV: 44 MV: 91 MV: 277 2-9 Yr. 6.0-17.0 3.8-5.4 11-13 MV: 37 MV: 78 MV: 300 10 Yrs. 5.0-13.0 3.8-5.4 12-15 MV: 39 MV: 80 MV: 250 NOTE: * FOR ADULT BLACK MALES AND FEMALES, NORMAL WBC IS 2.9-7.7 K/ML * FOR ADULT BLACK MALES AND FEMALES, NORMAL RBC,HGB, AND HCT IS 5% LESS SOURCE FOR DATA: AMANDA DYN 1800 OPERATION MANUAL( AUTOMATED BLOOD COUNTS AND DIFF.) APPENDIX B-3 Anion Gap 19 mmol/L [facility] ([facility] CHRONIC KIDNEY DISEASE STAGING PER NKF: MALE GFR INTERPRETATION: 20-49 YRS: >60 mL/min Normal 50-59 YRS: >56 mL/min Normal 60-69 YRS: >49 mL/min Normal 70-79 YRS: >42 mL/min Normal 80 and above >35 mL/min Normal FEMALE GRF INTERPRETATION: 20-39 YRS: >60 mL/min Normal 40-49 YRS: >58 mL/min Normal 50-59 YRS: >51 mL/min Normal 60-69 YRS: >45 mL/min Normal 70-79 YRS: >39 mL/min Normal 80 and above >32 mL/min NormalNORMAL RANGES Age WBC RBC HGB HCT MCV PLT Adult M 4.1-10.9 4.20-6.30 12.0-18.0 37.0-51.0 80-97 140-440 Adult F 4.1-10.9 4.04-5.48 12.0-18.0 37.0-51.0 80-97 140-440 0- 1 Yr 5.0-20.0 3.9-5.9 15-18 MV: 44 MV: 91 MV: 277 2-9 Yr. 6.0-17.0 3.8-5.4 11-13 MV: 37 MV: 78 MV: 300 10 Yrs. 5.0-13.0 3.8-5.4 12-15 MV: 39 MV: 80 MV: 250 NOTE: * FOR ADULT BLACK MALES AND FEMALES, NORMAL WBC IS 2.9-7.7 K/ML * FOR ADULT BLACK MALES AND FEMALES, NORMAL RBC,HGB, AND HCT IS 5% LESS SOURCE FOR DATA: [employer] 1800 OPERATION MANUAL( AUTOMATED BLOOD COUNTS AND DIFF.) APPENDIX B-3 eGFR Non-Afr. Jordanian 53 # [facility] ([facility] CHRONIC KIDNEY DISEASE STAGING PER NKF: MALE GFR INTERPRETATION: 20-49 YRS: >60 mL/min Normal 50-59 YRS: >56 mL/min Normal 60-69 YRS: >49 mL/min Normal 70-79 YRS: >42 mL/min Normal 80 and above >35 mL/min Normal FEMALE GRF INTERPRETATION: 20-39 YRS: >60 mL/min Normal 40-49 YRS: >58 mL/min Normal 50-59 YRS: >51 mL/min Normal 60-69 YRS: >45 mL/min Normal 70-79 YRS: >39 mL/min Normal 80 and above >32 mL/min NormalNORMAL RANGES Age WBC RBC HGB HCT MCV PLT Adult M 4.1-10.9 4.20-6.30 12.0-18.0 37.0-51.0 80-97 140-440 Adult F 4.1-10.9 4.04-5.48 12.0-18.0 37.0-51.0 80-97 140-440 0- 1 Yr 5.0-20.0 3.9-5.9 15-18 MV: 44 MV: 91 MV: 277 2-9 Yr. 6.0-17.0 3.8-5.4 11-13 MV: 37 MV: 78 MV: 300 10 Yrs. 5.0-13.0 3.8-5.4 12-15 MV: 39 MV: 80 MV: 250 NOTE: * FOR ADULT BLACK MALES AND FEMALES, NORMAL WBC IS 2.9-7.7 K/ML * FOR ADULT BLACK MALES AND FEMALES, NORMAL RBC,HGB, AND HCT IS 5% LESS SOURCE FOR DATA: [employer] 1800 OPERATION MANUAL( AUTOMATED BLOOD COUNTS AND DIFF.) APPENDIX B-3 ID Date Data Source [id number] 09/12/2019 10:21:00 AM EDT [facility] ([facility] Name Value Range Interpretation Code Description Data Heather rce(s) Supporting Document(s) WBC 7.5 10E3/uL 4.1-10.9 [facility] ([facility] CHRONIC KIDNEY DISEASE STAGING PER NKF: MALE GFR INTERPRETATION: 20-49 YRS: >60 mL/min Normal 50-59 YRS: >56 mL/min Normal 60-69 YRS: >49 mL/min Normal 70-79 YRS: >42 mL/min Normal 80 and above >35 mL/min Normal FEMALE GRF INTERPRETATION: 20-39 YRS: >60 mL/min Normal 40-49 YRS: >58 mL/min Normal 50-59 YRS: >51 mL/min Normal 60-69 YRS: >45 mL/min Normal 70-79 YRS: >39 mL/min Normal 80 and above >32 mL/min NormalNORMAL RANGES Age WBC RBC HGB HCT MCV PLT Adult M 4.1-10.9 4.20-6.30 12.0-18.0 37.0-51.0 80-97 140-440 Adult F 4.1-10.9 4.04-5.48 12.0-18.0 37.0-51.0 80-97 140-440 0- 1 Yr 5.0-20.0 3.9-5.9 15-18 MV: 44 MV: 91 MV: 277 2-9 Yr. 6.0-17.0 3.8-5.4 11-13 MV: 37 MV: 78 MV: 300 10 Yrs. 5.0-13.0 3.8-5.4 12-15 MV: 39 MV: 80 MV: 250 NOTE: * FOR ADULT BLACK MALES AND FEMALES, NORMAL WBC IS 2.9-7.7 K/ML * FOR ADULT BLACK MALES AND FEMALES, NORMAL RBC,HGB, AND HCT IS 5% LESS SOURCE FOR DATA: [employer] 1800 OPERATION MANUAL( AUTOMATED BLOOD COUNTS AND DIFF.) APPENDIX B-3 HCT 43.5 % 37.0-51.0 [facility] ([facility] CHRONIC KIDNEY DISEASE STAGING PER NKF: MALE GFR INTERPRETATION: 20-49 YRS: >60 mL/min Normal 50-59 YRS: >56 mL/min Normal 60-69 YRS: >49 mL/min Normal 70-79 YRS: >42 mL/min Normal 80 and above >35 mL/min Normal FEMALE GRF INTERPRETATION: 20-39 YRS: >60 mL/min Normal 40-49 YRS: >58 mL/min Normal 50-59 YRS: >51 mL/min Normal 60-69 YRS: >45 mL/min Normal 70-79 YRS: >39 mL/min Normal 80 and above >32 mL/min NormalNORMAL RANGES Age WBC RBC HGB HCT MCV PLT Adult M 4.1-10.9 4.20-6.30 12.0-18.0 37.0-51.0 80-97 140-440 Adult F 4.1-10.9 4.04-5.48 12.0-18.0 37.0-51.0 80-97 140-440 0- 1 Yr 5.0-20.0 3.9-5.9 15-18 MV: 44 MV: 91 MV: 277 2-9 Yr. 6.0-17.0 3.8-5.4 11-13 MV: 37 MV: 78 MV: 300 10 Yrs. 5.0-13.0 3.8-5.4 12-15 MV: 39 MV: 80 MV: 250 NOTE: * FOR ADULT BLACK MALES AND FEMALES, NORMAL WBC IS 2.9-7.7 K/ML * FOR ADULT BLACK MALES AND FEMALES, NORMAL RBC,HGB, AND HCT IS 5% LESS SOURCE FOR DATA: [employer] 1800 OPERATION MANUAL( AUTOMATED BLOOD COUNTS AND DIFF.) APPENDIX B-3 RBC 4.69 10E6/uL 4.20-6.30 [facility] ([facility] CHRONIC KIDNEY DISEASE STAGING PER NKF: MALE GFR INTERPRETATION: 20-49 YRS: >60 mL/min Normal 50-59 YRS: >56 mL/min Normal 60-69 YRS: >49 mL/min Normal 70-79 YRS: >42 mL/min Normal 80 and above >35 mL/min Normal FEMALE GRF INTERPRETATION: 20-39 YRS: >60 mL/min Normal 40-49 YRS: >58 mL/min Normal 50-59 YRS: >51 mL/min Normal 60-69 YRS: >45 mL/min Normal 70-79 YRS: >39 mL/min Normal 80 and above >32 mL/min NormalNORMAL RANGES Age WBC RBC HGB HCT MCV PLT Adult M 4.1-10.9 4.20-6.30 12.0-18.0 37.0-51.0 80-97 140-440 Adult F 4.1-10.9 4.04-5.48 12.0-18.0 37.0-51.0 80-97 140-440 0- 1 Yr 5.0-20.0 3.9-5.9 15-18 MV: 44 MV: 91 MV: 277 2-9 Yr. 6.0-17.0 3.8-5.4 11-13 MV: 37 MV: 78 MV: 300 10 Yrs. 5.0-13.0 3.8-5.4 12-15 MV: 39 MV: 80 MV: 250 NOTE: * FOR ADULT BLACK MALES AND FEMALES, NORMAL WBC IS 2.9-7.7 K/ML * FOR ADULT BLACK MALES AND FEMALES, NORMAL RBC,HGB, AND HCT IS 5% LESS SOURCE FOR DATA: AMANDA DYN 1800 OPERATION MANUAL( AUTOMATED BLOOD COUNTS AND DIFF.) APPENDIX B-3 HGB 14.5 g/dL 12.0-18.0 [facility] ([facility] CHRONIC KIDNEY DISEASE STAGING PER NKF: MALE GFR INTERPRETATION: 20-49 YRS: >60 mL/min Normal 50-59 YRS: >56 mL/min Normal 60-69 YRS: >49 mL/min Normal 70-79 YRS: >42 mL/min Normal 80 and above >35 mL/min Normal FEMALE GRF INTERPRETATION: 20-39 YRS: >60 mL/min Normal 40-49 YRS: >58 mL/min Normal 50-59 YRS: >51 mL/min Normal 60-69 YRS: >45 mL/min Normal 70-79 YRS: >39 mL/min Normal 80 and above >32 mL/min NormalNORMAL RANGES Age WBC RBC HGB HCT MCV PLT Adult M 4.1-10.9 4.20-6.30 12.0-18.0 37.0-51.0 80-97 140-440 Adult F 4.1-10.9 4.04-5.48 12.0-18.0 37.0-51.0 80-97 140-440 0- 1 Yr 5.0-20.0 3.9-5.9 15-18 MV: 44 MV: 91 MV: 277 2-9 Yr. 6.0-17.0 3.8-5.4 11-13 MV: 37 MV: 78 MV: 300 10 Yrs. 5.0-13.0 3.8-5.4 12-15 MV: 39 MV: 80 MV: 250 NOTE: * FOR ADULT BLACK MALES AND FEMALES, NORMAL WBC IS 2.9-7.7 K/ML * FOR ADULT BLACK MALES AND FEMALES, NORMAL RBC,HGB, AND HCT IS 5% LESS SOURCE FOR DATA: AMANDA [employer] 1800 OPERATION MANUAL( AUTOMATED BLOOD COUNTS AND DIFF.) APPENDIX B-3 MCV 92.8 fL 80.0-97.0 [facility] ([facility] CHRONIC KIDNEY DISEASE STAGING PER NKF: MALE GFR INTERPRETATION: 20-49 YRS: >60 mL/min Normal 50-59 YRS: >56 mL/min Normal 60-69 YRS: >49 mL/min Normal 70-79 YRS: >42 mL/min Normal 80 and above >35 mL/min Normal FEMALE GRF INTERPRETATION: 20-39 YRS: >60 mL/min Normal 40-49 YRS: >58 mL/min Normal 50-59 YRS: >51 mL/min Normal 60-69 YRS: >45 mL/min Normal 70-79 YRS: >39 mL/min Normal 80 and above >32 mL/min NormalNORMAL RANGES Age WBC RBC HGB HCT MCV PLT Adult M 4.1-10.9 4.20-6.30 12.0-18.0 37.0-51.0 80-97 140-440 Adult F 4.1-10.9 4.04-5.48 12.0-18.0 37.0-51.0 80-97 140-440 0- 1 Yr 5.0-20.0 3.9-5.9 15-18 MV: 44 MV: 91 MV: 277 2-9 Yr. 6.0-17.0 3.8-5.4 11-13 MV: 37 MV: 78 MV: 300 10 Yrs. 5.0-13.0 3.8-5.4 12-15 MV: 39 MV: 80 MV: 250 NOTE: * FOR ADULT BLACK MALES AND FEMALES, NORMAL WBC IS 2.9-7.7 K/ML * FOR ADULT BLACK MALES AND FEMALES, NORMAL RBC,HGB, AND HCT IS 5% LESS SOURCE FOR DATA: AMANDA DYN 1800 OPERATION MANUAL( AUTOMATED BLOOD COUNTS AND DIFF.) APPENDIX B-3 MCHC 33.3 g/dL 31.0-36.0 [facility] ([facility] CHRONIC KIDNEY DISEASE STAGING PER NKF: MALE GFR INTERPRETATION: 20-49 YRS: >60 mL/min Normal 50-59 YRS: >56 mL/min Normal 60-69 YRS: >49 mL/min Normal 70-79 YRS: >42 mL/min Normal 80 and above >35 mL/min Normal FEMALE GRF INTERPRETATION: 20-39 YRS: >60 mL/min Normal 40-49 YRS: >58 mL/min Normal 50-59 YRS: >51 mL/min Normal 60-69 YRS: >45 mL/min Normal 70-79 YRS: >39 mL/min Normal 80 and above >32 mL/min NormalNORMAL RANGES Age WBC RBC HGB HCT MCV PLT Adult M 4.1-10.9 4.20-6.30 12.0-18.0 37.0-51.0 80-97 140-440 Adult F 4.1-10.9 4.04-5.48 12.0-18.0 37.0-51.0 80-97 140-440 0- 1 Yr 5.0-20.0 3.9-5.9 15-18 MV: 44 MV: 91 MV: 277 2-9 Yr. 6.0-17.0 3.8-5.4 11-13 MV: 37 MV: 78 MV: 300 10 Yrs. 5.0-13.0 3.8-5.4 12-15 MV: 39 MV: 80 MV: 250 NOTE: * FOR ADULT BLACK MALES AND FEMALES, NORMAL WBC IS 2.9-7.7 K/ML * FOR ADULT BLACK MALES AND FEMALES, NORMAL RBC,HGB, AND HCT IS 5% LESS SOURCE FOR DATA: AMANDA DYN 1800 OPERATION MANUAL( AUTOMATED BLOOD COUNTS AND DIFF.) APPENDIX B-3 MCH 30.9 pg 26.0-32.0 [facility] ([facility] CHRONIC KIDNEY DISEASE STAGING PER NKF: MALE GFR INTERPRETATION: 20-49 YRS: >60 mL/min Normal 50-59 YRS: >56 mL/min Normal 60-69 YRS: >49 mL/min Normal 70-79 YRS: >42 mL/min Normal 80 and above >35 mL/min Normal FEMALE GRF INTERPRETATION: 20-39 YRS: >60 mL/min Normal 40-49 YRS: >58 mL/min Normal 50-59 YRS: >51 mL/min Normal 60-69 YRS: >45 mL/min Normal 70-79 YRS: >39 mL/min Normal 80 and above >32 mL/min NormalNORMAL RANGES Age WBC RBC HGB HCT MCV PLT Adult M 4.1-10.9 4.20-6.30 12.0-18.0 37.0-51.0 80-97 140-440 Adult F 4.1-10.9 4.04-5.48 12.0-18.0 37.0-51.0 80-97 140-440 0- 1 Yr 5.0-20.0 3.9-5.9 15-18 MV: 44 MV: 91 MV: 277 2-9 Yr. 6.0-17.0 3.8-5.4 11-13 MV: 37 MV: 78 MV: 300 10 Yrs. 5.0-13.0 3.8-5.4 12-15 MV: 39 MV: 80 MV: 250 NOTE: * FOR ADULT BLACK MALES AND FEMALES, NORMAL WBC IS 2.9-7.7 K/ML * FOR ADULT BLACK MALES AND FEMALES, NORMAL RBC,HGB, AND HCT IS 5% LESS SOURCE FOR DATA: [employer] 1800 OPERATION MANUAL( AUTOMATED BLOOD COUNTS AND DIFF.) APPENDIX B-3 Lym% 9.0 % 10.0-58.5 Below low normal [facility] CHRONIC KIDNEY DISEASE STAGING PER NKF: MALE GFR INTERPRETATION: 20-49 YRS: >60 mL/min Normal 50-59 YRS: >56 mL/min Normal 60-69 YRS: >49 mL/min Normal 70-79 YRS: >42 mL/min Normal 80 and above >35 mL/min Normal FEMALE GRF INTERPRETATION: 20-39 YRS: >60 mL/min Normal 40-49 YRS: >58 mL/min Normal 50-59 YRS: >51 mL/min Normal 60-69 YRS: >45 mL/min Normal 70-79 YRS: >39 mL/min Normal 80 and above >32 mL/min NormalNORMAL RANGES Age WBC RBC HGB HCT MCV PLT Adult M 4.1-10.9 4.20-6.30 12.0-18.0 37.0-51.0 80-97 140-440 Adult F 4.1-10.9 4.04-5.48 12.0-18.0 37.0-51.0 80-97 140-440 0- 1 Yr 5.0-20.0 3.9-5.9 15-18 MV: 44 MV: 91 MV: 277 2-9 Yr. 6.0-17.0 3.8-5.4 11-13 MV: 37 MV: 78 MV: 300 10 Yrs. 5.0-13.0 3.8-5.4 12-15 MV: 39 MV: 80 MV: 250 NOTE: * FOR ADULT BLACK MALES AND FEMALES, NORMAL WBC IS 2.9-7.7 K/ML * FOR ADULT BLACK MALES AND FEMALES, NORMAL RBC,HGB, AND HCT IS 5% LESS SOURCE FOR DATA: [employer] 1800 OPERATION MANUAL( AUTOMATED BLOOD COUNTS AND DIFF.) APPENDIX B-3 PLT 312 10E3/uL 140-440 [facility] ([facility] CHRONIC KIDNEY DISEASE STAGING PER NKF: MALE GFR INTERPRETATION: 20-49 YRS: >60 mL/min Normal 50-59 YRS: >56 mL/min Normal 60-69 YRS: >49 mL/min Normal 70-79 YRS: >42 mL/min Normal 80 and above >35 mL/min Normal FEMALE GRF INTERPRETATION: 20-39 YRS: >60 mL/min Normal 40-49 YRS: >58 mL/min Normal 50-59 YRS: >51 mL/min Normal 60-69 YRS: >45 mL/min Normal 70-79 YRS: >39 mL/min Normal 80 and above >32 mL/min NormalNORMAL RANGES Age WBC RBC HGB HCT MCV PLT Adult M 4.1-10.9 4.20-6.30 12.0-18.0 37.0-51.0 80-97 140-440 Adult F 4.1-10.9 4.04-5.48 12.0-18.0 37.0-51.0 80-97 140-440 0- 1 Yr 5.0-20.0 3.9-5.9 15-18 MV: 44 MV: 91 MV: 277 2-9 Yr. 6.0-17.0 3.8-5.4 11-13 MV: 37 MV: 78 MV: 300 10 Yrs. 5.0-13.0 3.8-5.4 12-15 MV: 39 MV: 80 MV: 250 NOTE: * FOR ADULT BLACK MALES AND FEMALES, NORMAL WBC IS 2.9-7.7 K/ML * FOR ADULT BLACK MALES AND FEMALES, NORMAL RBC,HGB, AND HCT IS 5% LESS SOURCE FOR DATA: [employer] 1800 OPERATION MANUAL( AUTOMATED BLOOD COUNTS AND DIFF.) APPENDIX B-3 RDW-CV 12.4 % 11.5-14.5 [facility] ([facility] CHRONIC KIDNEY DISEASE STAGING PER NKF: MALE GFR INTERPRETATION: 20-49 YRS: >60 mL/min Normal 50-59 YRS: >56 mL/min Normal 60-69 YRS: >49 mL/min Normal 70-79 YRS: >42 mL/min Normal 80 and above >35 mL/min Normal FEMALE GRF INTERPRETATION: 20-39 YRS: >60 mL/min Normal 40-49 YRS: >58 mL/min Normal 50-59 YRS: >51 mL/min Normal 60-69 YRS: >45 mL/min Normal 70-79 YRS: >39 mL/min Normal 80 and above >32 mL/min NormalNORMAL RANGES Age WBC RBC HGB HCT MCV PLT Adult M 4.1-10.9 4.20-6.30 12.0-18.0 37.0-51.0 80-97 140-440 Adult F 4.1-10.9 4.04-5.48 12.0-18.0 37.0-51.0 80-97 140-440 0- 1 Yr 5.0-20.0 3.9-5.9 15-18 MV: 44 MV: 91 MV: 277 2-9 Yr. 6.0-17.0 3.8-5.4 11-13 MV: 37 MV: 78 MV: 300 10 Yrs. 5.0-13.0 3.8-5.4 12-15 MV: 39 MV: 80 MV: 250 NOTE: * FOR ADULT BLACK MALES AND FEMALES, NORMAL WBC IS 2.9-7.7 K/ML * FOR ADULT BLACK MALES AND FEMALES, NORMAL RBC,HGB, AND HCT IS 5% LESS SOURCE FOR DATA: [employer] 1800 OPERATION MANUAL( AUTOMATED BLOOD COUNTS AND DIFF.) APPENDIX B-3 Neut% 81.2 % 37.0-92.0 [facility] ([facility] CHRONIC KIDNEY DISEASE STAGING PER NKF: MALE GFR INTERPRETATION: 20-49 YRS: >60 mL/min Normal 50-59 YRS: >56 mL/min Normal 60-69 YRS: >49 mL/min Normal 70-79 YRS: >42 mL/min Normal 80 and above >35 mL/min Normal FEMALE GRF INTERPRETATION: 20-39 YRS: >60 mL/min Normal 40-49 YRS: >58 mL/min Normal 50-59 YRS: >51 mL/min Normal 60-69 YRS: >45 mL/min Normal 70-79 YRS: >39 mL/min Normal 80 and above >32 mL/min NormalNORMAL RANGES Age WBC RBC HGB HCT MCV PLT Adult M 4.1-10.9 4.20-6.30 12.0-18.0 37.0-51.0 80-97 140-440 Adult F 4.1-10.9 4.04-5.48 12.0-18.0 37.0-51.0 80-97 140-440 0- 1 Yr 5.0-20.0 3.9-5.9 15-18 MV: 44 MV: 91 MV: 277 2-9 Yr. 6.0-17.0 3.8-5.4 11-13 MV: 37 MV: 78 MV: 300 10 Yrs. 5.0-13.0 3.8-5.4 12-15 MV: 39 MV: 80 MV: 250 NOTE: * FOR ADULT BLACK MALES AND FEMALES, NORMAL WBC IS 2.9-7.7 K/ML * FOR ADULT BLACK MALES AND FEMALES, NORMAL RBC,HGB, AND HCT IS 5% LESS SOURCE FOR DATA: [employer] 1800 OPERATION MANUAL( AUTOMATED BLOOD COUNTS AND DIFF.) APPENDIX B-3 MXD% 9.8 % 0.1-24.0 [facility] ([facility] CHRONIC KIDNEY DISEASE STAGING PER NKF: MALE GFR INTERPRETATION: 20-49 YRS: >60 mL/min Normal 50-59 YRS: >56 mL/min Normal 60-69 YRS: >49 mL/min Normal 70-79 YRS: >42 mL/min Normal 80 and above >35 mL/min Normal FEMALE GRF INTERPRETATION: 20-39 YRS: >60 mL/min Normal 40-49 YRS: >58 mL/min Normal 50-59 YRS: >51 mL/min Normal 60-69 YRS: >45 mL/min Normal 70-79 YRS: >39 mL/min Normal 80 and above >32 mL/min NormalNORMAL RANGES Age WBC RBC HGB HCT MCV PLT Adult M 4.1-10.9 4.20-6.30 12.0-18.0 37.0-51.0 80-97 140-440 Adult F 4.1-10.9 4.04-5.48 12.0-18.0 37.0-51.0 80-97 140-440 0- 1 Yr 5.0-20.0 3.9-5.9 15-18 MV: 44 MV: 91 MV: 277 2-9 Yr. 6.0-17.0 3.8-5.4 11-13 MV: 37 MV: 78 MV: 300 10 Yrs. 5.0-13.0 3.8-5.4 12-15 MV: 39 MV: 80 MV: 250 NOTE: * FOR ADULT BLACK MALES AND FEMALES, NORMAL WBC IS 2.9-7.7 K/ML * FOR ADULT BLACK MALES AND FEMALES, NORMAL RBC,HGB, AND HCT IS 5% LESS SOURCE FOR DATA: [employer] 1800 OPERATION MANUAL( AUTOMATED BLOOD COUNTS AND DIFF.) APPENDIX B-3 Neut# 6.1 % 2.0-7.8 [facility] CHRONIC KIDNEY DISEASE STAGING PER NKF: MALE GFR INTERPRETATION: 20-49 YRS: >60 mL/min Normal 50-59 YRS: >56 mL/min Normal 60-69 YRS: >49 mL/min Normal 70-79 YRS: >42 mL/min Normal 80 and above >35 mL/min Normal FEMALE GRF INTERPRETATION: 20-39 YRS: >60 mL/min Normal 40-49 YRS: >58 mL/min Normal 50-59 YRS: >51 mL/min Normal 60-69 YRS: >45 mL/min Normal 70-79 YRS: >39 mL/min Normal 80 and above >32 mL/min NormalNORMAL RANGES Age WBC RBC HGB HCT MCV PLT Adult M 4.1-10.9 4.20-6.30 12.0-18.0 37.0-51.0 80-97 140-440 Adult F 4.1-10.9 4.04-5.48 12.0-18.0 37.0-51.0 80-97 140-440 0- 1 Yr 5.0-20.0 3.9-5.9 15-18 MV: 44 MV: 91 MV: 277 2-9 Yr. 6.0-17.0 3.8-5.4 11-13 MV: 37 MV: 78 MV: 300 10 Yrs. 5.0-13.0 3.8-5.4 12-15 MV: 39 MV: 80 MV: 250 NOTE: * FOR ADULT BLACK MALES AND FEMALES, NORMAL WBC IS 2.9-7.7 K/ML * FOR ADULT BLACK MALES AND FEMALES, NORMAL RBC,HGB, AND HCT IS 5% LESS SOURCE FOR DATA: [employer]DA DYN 1800 OPERATION MANUAL( AUTOMATED BLOOD COUNTS AND DIFF.) APPENDIX B-3 Lym# 0.7 10E3/uL 0.6-4.1 [facility] ([facility] CHRONIC KIDNEY DISEASE STAGING PER NKF: MALE GFR INTERPRETATION: 20-49 YRS: >60 mL/min Normal 50-59 YRS: >56 mL/min Normal 60-69 YRS: >49 mL/min Normal 70-79 YRS: >42 mL/min Normal 80 and above >35 mL/min Normal FEMALE GRF INTERPRETATION: 20-39 YRS: >60 mL/min Normal 40-49 YRS: >58 mL/min Normal 50-59 YRS: >51 mL/min Normal 60-69 YRS: >45 mL/min Normal 70-79 YRS: >39 mL/min Normal 80 and above >32 mL/min NormalNORMAL RANGES Age WBC RBC HGB HCT MCV PLT Adult M 4.1-10.9 4.20-6.30 12.0-18.0 37.0-51.0 80-97 140-440 Adult F 4.1-10.9 4.04-5.48 12.0-18.0 37.0-51.0 80-97 140-440 0- 1 Yr 5.0-20.0 3.9-5.9 15-18 MV: 44 MV: 91 MV: 277 2-9 Yr. 6.0-17.0 3.8-5.4 11-13 MV: 37 MV: 78 MV: 300 10 Yrs. 5.0-13.0 3.8-5.4 12-15 MV: 39 MV: 80 MV: 250 NOTE: * FOR ADULT BLACK MALES AND FEMALES, NORMAL WBC IS 2.9-7.7 K/ML * FOR ADULT BLACK MALES AND FEMALES, NORMAL RBC,HGB, AND HCT IS 5% LESS SOURCE FOR DATA: AMANDA DYN 1800 OPERATION MANUAL( AUTOMATED BLOOD COUNTS AND DIFF.) APPENDIX B-3 MPV 9.4 fL 9.0-13.0 [facility] ([facility] CHRONIC KIDNEY DISEASE STAGING PER NKF: MALE GFR INTERPRETATION: 20-49 YRS: >60 mL/min Normal 50-59 YRS: >56 mL/min Normal 60-69 YRS: >49 mL/min Normal 70-79 YRS: >42 mL/min Normal 80 and above >35 mL/min Normal FEMALE GRF INTERPRETATION: 20-39 YRS: >60 mL/min Normal 40-49 YRS: >58 mL/min Normal 50-59 YRS: >51 mL/min Normal 60-69 YRS: >45 mL/min Normal 70-79 YRS: >39 mL/min Normal 80 and above >32 mL/min NormalNORMAL RANGES Age WBC RBC HGB HCT MCV PLT Adult M 4.1-10.9 4.20-6.30 12.0-18.0 37.0-51.0 80-97 140-440 Adult F 4.1-10.9 4.04-5.48 12.0-18.0 37.0-51.0 80- 140-440 0- 1 Yr 5.0-20.0 3.9-5.9 15-18 MV: 44 MV: 91 MV: 277 2-9 Yr. 6.0-17.0 3.8-5.4 11-13 MV: 37 MV: 78 MV: 300 10 Yrs. 5.0-13.0 3.8-5.4 12-15 MV: 39 MV: 80 MV: 250 NOTE: * FOR ADULT BLACK MALES AND FEMALES, NORMAL WBC IS 2.9-7.7 K/ML * FOR ADULT BLACK MALES AND FEMALES, NORMAL RBC,HGB, AND HCT IS 5% LESS SOURCE FOR DATA: [employer] 1800 OPERATION MANUAL( AUTOMATED BLOOD COUNTS AND DIFF.) APPENDIX B-3 MXD# 0.7 10E3/uL 0.0-1.8 [facility] ([facility] CHRONIC KIDNEY DISEASE STAGING PER NKF: MALE GFR INTERPRETATION: 20-49 YRS: >60 mL/min Normal 50-59 YRS: >56 mL/min Normal 60-69 YRS: >49 mL/min Normal 70-79 YRS: >42 mL/min Normal 80 and above >35 mL/min Normal FEMALE GRF INTERPRETATION: 20-39 YRS: >60 mL/min Normal 40-49 YRS: >58 mL/min Normal 50-59 YRS: >51 mL/min Normal 60-69 YRS: >45 mL/min Normal 70-79 YRS: >39 mL/min Normal 80 and above >32 mL/min NormalNORMAL RANGES Age WBC RBC HGB HCT MCV PLT Adult M 4.1-10.9 4.20-6.30 12.0-18.0 37.0-51.0 80-97 140-440 Adult F 4.1-10.9 4.04-5.48 12.0-18.0 37.0-51.0 80-97 140-440 0- 1 Yr 5.0-20.0 3.9-5.9 15-18 MV: 44 MV: 91 MV: 277 2-9 Yr. 6.0-17.0 3.8-5.4 11-13 MV: 37 MV: 78 MV: 300 10 Yrs. 5.0-13.0 3.8-5.4 12-15 MV: 39 MV: 80 MV: 250 NOTE: * FOR ADULT BLACK MALES AND FEMALES, NORMAL WBC IS 2.9-7.7 K/ML * FOR ADULT BLACK MALES AND FEMALES, NORMAL RBC,HGB, AND HCT IS 5% LESS SOURCE FOR DATA: [employer] 1800 OPERATION MANUAL( AUTOMATED BLOOD COUNTS AND DIFF.) APPENDIX B-3 Procedure Social History Code Duration Value Status Description Data Source(s ) Smoking 07/06/2020 12:00:00 AM EST Patient is a former smoker completed Patient is a former smoker MEDENT ([facility]) Smoking 06/19/2020 12:00:00 AM EST Never Smoker completed Never S moker eCW1 ([facility]) Smoking 04/25/2020 12:00:00 AM EST Former Smoker completed Former Smoker eCW1 ([facility]) Smoking 04/25/2020 12:00:00 AM EST Former Smoker completed Former Smoker eCW1 ([facility]) Smoking 04/25/2020 12:00:00 AM EST Former Smoker completed Former Smoker eCW1 ([facility]) Smoking 01/06/2020 12:00:00 AM EDT Former Smoker completed Former Smoker eCW1 ([facility]) Smoking 01/06/2020 12:00:00 AM EDT Former Smoker completed Former Smoker eCW1 ([facility]) Smoking 01/06/2020 12:00:00 AM EDT Former Smoker completed Former Smoker eCW1 ([facility]) Smoking 01/06/2020 12:00:00 AM EDT Former Smoker completed Former Smoker eCW1 ([facility]) Smoking 11/17/2019 12:00:00 AM EDT Former Smoker completed Former Smoker eCW1 ([facility]) Smoking 11/17/2019 12:00:00 AM EDT Former Smoker completed Former Smoker eCW1 ([facility]) Smoking 11/17/2019 12:00:00 AM EDT Former Smoker completed Former Smoker eCW1 ([facility]) Smoking 11/17/2019 12:00:00 AM EDT Former Smoker completed Former Smoker eCW1 ([facility]) Smoking 11/17/2019 12:00:00 AM EDT Former Smoker completed Former Smoker eCW1 ([facility]) Smoking 06/21/2019 12:00:00 AM EST Never Smoker completed Never S moker eCW1 ([facility]) Vital Signs ID Date Data Source UNK Name Value Range Interpretation Code Description Data Source(s) Diastolic blood pressure--sitting 78 mm[Hg] 78 mm[Hg] MEDENT ([facility]) [place], large cuff Systolic blood pressure--sitting 120 mm[Hg] 120 mm[Hg] MEDENT ([facility]) [place], large cuff Heart rate 69 /min 69 /min MEDENT ([facility]) Body mass index (BMI) [Ratio] 28.0 kg/m2 28.0 k g/m2 MEDENT ([facility]) Body height 71 [in_i] 71 [in_i] MEDENT ([facility]) 5'11" Body weight 201.00 [lb_av] 201.00 [lb_av] MEDEN T ([facility]) Oxygen saturation in Arterial blood by Pulse oximetry 97 % 97 % MEDENT ([facility] Body mass index (BMI) [Ratio] 28.6 kg/m2 28.6 k g/m2 MEDENT ([facility] [place] body weight 172 [lb_av] 172 [lb_av] MEDEN T ([facility] Body weight 205.00 [lb_av] 205.00 [lb_av] MEDEN T ([facility] Body height 71 [in_i] 71 [in_i] MEDENT ([facility] 5'11" Respiratory rate 16 /min 16 /min MEDENT ( [facility] Heart rate 76 /min 76 /min MEDENT ([facility] Body temperature 97.6 [degF] 97.6 [degF] MEDENT ([facility] Diastolic blood pressure 70 mm[Hg] 70 mm[Hg] MEDENT ([facility] Systolic blood pressure 126 mm[Hg] 126 mm[Hg] M EDENT ([facility] Oxygen saturation in Arterial blood by Pulse oximetry 98 % 98 % eCW1 ([facility]) Respiratory rate 18 /min 18 /min eCW1 ([facility]) Heart rate 61 /min 61 /min eCW1 ([facility]) Body mass index (BMI) [Ratio] 30.83 kg/m2 30.83 kg/m2 eCW1 ([facility]) Body weight 205.8 [lb_av] 205.8 [lb_av] eCW1 ([facility]) Body height 68.5 [in_i] 68.5 [in_i] eCW1 ([facility]) Body mass index (BMI) [Ratio] 28.73 kg/m2 28.73 kg/m2 eCW1 ([facility]) Body height 71 [in_i] 71 [in_i] eCW1 ([facility]) Body weight 206 [lb_av] 206 [lb_av] eCW1 ([facility]) Heart rate 64 /min 64 /min eCW1 ([facility]) Oxygen saturation in Arterial blood by Pulse oximetry 98 % 98 % MEDENT ([facility] Body mass index (BMI) [Ratio] 28.4 kg/m2 28.4 k g/m2 MEDENT ([facility] [place] body weight 172 [lb_av] 172 [lb_av] MEDEN T ([facility] Body weight 204.00 [lb_av] 204.00 [lb_av] MEDEN T ([facility] Body height 71 [in_i] 71 [in_i] [facility] 5'11" Respiratory rate 16 /min 16 /min MEDENT ( [facility] Heart rate 71 /min 71 /min MEDENT ([facility] Body temperature 97.8 [degF] 97.8 [degF] MEDENT ([facility] Diastolic blood pressure 84 mm[Hg] 84 mm[Hg] MEDENT ([facility] Systolic blood pressure 130 mm[Hg] 130 mm[Hg] M EDENT ([facility] Respiratory rate 16 /min 16 /min MEDENT ( [facility] ) Heart rate 76 /min 76 /min MEDENT ([facility] ) Diastolic blood pressure 80 mm[Hg] 80 mm[Hg] MEDENT ([facility] ) Systolic blood pressure 110 mm[Hg] 110 mm[Hg] M EDENT ([facility] ) Oxygen saturation in Arterial blood by Pulse oximetry 94 % 94 % MEDENT ([facility] Body mass index (BMI) [Ratio] 28.6 kg/m2 28.6 k g/m2 MEDENT ([facility] [place] body weight 172 [lb_av] 172 [lb_av] MEDEN T ([facility] Body weight 205.00 [lb_av] 205.00 [lb_av] MEDEN T ([facility] Body height 71 [in_i] 71 [in_i] MEDENT [facility] 5'11" Respiratory rate 16 /min 16 /min MEDENT ( [facility] Heart rate 72 /min 72 /min MEDENT ([facility] Body temperature 97.7 [degF] 97.7 [degF] MEDENT ([facility] Diastolic blood pressure 82 mm[Hg] 82 mm[Hg] MEDENT ([facility] Systolic blood pressure 122 mm[Hg] 122 mm[Hg] M EDENT ([facility] Diastolic blood pressure--sitting 70 mm[Hg] 70 mm[Hg] MEDENT ([facility]) Systolic blood pressure--sitting 114 mm[Hg] 114 mm[Hg] MEDENT ([facility]) Heart rate 65 /min 65 /min MEDENT ([facility]) Body mass index (BMI) [Ratio] 28.4 kg/m2 28.4 k g/m2 MEDENT ([facility]) Body height 71 [in_i] 71 [in_i] MEDENT ([facility]) 5'11" Body weight 204.00 [lb_av] 204.00 [lb_av] MEDEN T ([facility]) Body mass index (BMI) [Ratio] 28.73 kg/m2 28.73 kg/m2 eCW1 ([facility]) Body height 71 [in_i] 71 [in_i] eCW1 ([facility]) Body weight 206 [lb_av] 206 [lb_av] eCW1 ([facility]) Heart rate 64 /min 64 /min eCW1 ([facility]) Oxygen saturation in Arterial blood by Pulse oximetry 96 % 96 % MEDENT ([facility] Body mass index (BMI) [Ratio] 28.0 kg/m2 28.0 k g/m2 MEDENT ([facility] [place] body weight 172 [lb_av] 172 [lb_av] MEDEN T ([facility] Body weight 201.00 [lb_av] 201.00 [lb_av] MEDEN T ([facility] Body height 71 [in_i] 71 [in_i] MEDENT ([facility] 5'11" Respiratory rate 16 /min 16 /min MEDENT ( [facility] Heart rate 75 /min 75 /min MEDENT ([facility] Body temperature 96.6 [degF] 96.6 [degF] MEDENT ([facility] Diastolic blood pressure 60 mm[Hg] 60 mm[Hg] MEDENT ([facility] Systolic blood pressure 102 mm[Hg] 102 mm[Hg] M EDBILL ([facility] Body temperature 97.2 [degF] 97.2 [degF] eCW1 ( [facility]) Body mass index (BMI) [Ratio] 28.17 kg/m2 28.17 kg/m2 eCW1 ([facility]) Body height 71 [in_i] 71 [in_i] eCW1 ([facility]) Body weight 202 [lb_av] 202 [lb_av] eCW1 ([facility]) Heart rate 68 /min 68 /min eCW1 ([facility]) Diastolic blood pressure 77 mm[Hg] 77 mm[Hg] eCW1 ([facility]) Systolic blood pressure 120 mm[Hg] 120 mm[Hg] e CW1 ([facility]) Body temperature 97.5 [degF] 97.5 [degF] eCW1 ( [facility]) Respiratory rate 18 /min 18 /min eCW1 ([facility]) Heart rate 80 /min 80 /min eCW1 ([facility]) Body mass index (BMI) [Ratio] 28.59 kg/m2 28.59 kg/m2 eCW1 ([facility]) Body height [in_i] eCW1 ([facility]) Body weight 205 [lb_av] 205 [lb_av] eCW1 ([facility]) Diastolic blood pressure 94 mm[Hg] 94 mm[Hg] eCW1 ([facility]) Systolic blood pressure 156 mm[Hg] 156 mm[Hg] e CW1 ([facility]) Body temperature 96.8 [degF] 96.8 [degF] eCW1 ( [facility]) Respiratory rate 18 /min 18 /min eCW1 ([facility]) Heart rate 74 /min 74 /min eCW1 ([facility]) Body mass index (BMI) [Ratio] 28.73 kg/m2 28.73 kg/m2 eCW1 ([facility]) Body height [in_us] eCW1 ([facility]) Body weight Measured 206 [lb_av] 206 [lb_av] eC W1 ([facility]) Systolic blood pressure 120 mm[Hg] 120 mm[Hg] M EDENT ([facility] Oxygen saturation in Arterial blood by Pulse oximetry 97 % 97 % MEDENT ([facility] Body mass index (BMI) [Ratio] 27.9 kg/m2 27.9 k g/m2 MEDENT ([facility] [place] body weight 172 [lb_av] 172 [lb_av] MEDEN T ([facility] Body weight 200.00 [lb_av] 200.00 [lb_av] MEDEN T ([facility] Body height 71 [in_i] 71 [in_i] [facility]ENT ([facility] 5'11" Respiratory rate 16 /min 16 /min MEDENT ( [facility] Heart rate 66 /min 66 /min MEDENT ([facility] Body temperature 97.6 [degF] 97.6 [degF] MEDENT ([facility] Diastolic blood pressure 84 mm[Hg] 84 mm[Hg] MEDENT ([facility] Oxygen saturation in Arterial blood by Pulse oximetry 98 % 98 % MEDENT ([facility] Body mass index (BMI) [Ratio] 28.2 kg/m2 28.2 k g/m2 MEDENT ([facility] Body weight 202.00 [lb_av] 202.00 [lb_av] MEDEN T ([facility] Body height 71 [in_i] 71 [in_i] MEDENT ([facility] 5'11" Respiratory rate 16 /min 16 /min MEDENT ( [facility] Heart rate 73 /min 73 /min MEDENT ([facility] Body temperature 98.0 [degF] 98.0 [degF] MEDENT ([facility] Diastolic blood pressure 72 mm[Hg] 72 mm[Hg] MEDENT ([facility] Systolic blood pressure 108 mm[Hg] 108 mm[Hg] M EDENT ([facility] Oxygen saturation in Arterial blood by Pulse oximetry 98 % 98 % MEDENT ([facility] Body mass index (BMI) [Ratio] 28.2 kg/m2 28.2 k g/m2 MEDENT ([facility] Body weight 202.00 [lb_av] 202.00 [lb_av] MEDEN T ([facility] Body height 71 [in_i] 71 [in_i] MEDENT ([facility] 5'11" Respiratory rate 16 /min 16 /min MEDENT ( [facility] Heart rate 70 /min 70 /min MEDENT ([facility] Body temperature 97.8 [degF] 97.8 [degF] MEDENT ([facility] Diastolic blood pressure 78 mm[Hg] 78 mm[Hg] MEDENT ([facility] Systolic blood pressure 100 mm[Hg] 100 mm[Hg] M EDENT ([facility] Respiratory rate 16 /min 16 /min MEDENT ( [facility] ) Heart rate 76 /min 76 /min MEDENT ([facility] ) Diastolic blood pressure 80 mm[Hg] 80 mm[Hg] MEDENT ([facility] ) Systolic blood pressure 130 mm[Hg] 130 mm[Hg] M EDENT ([facility] ) Diastolic blood pressure--sitting 68 mm[Hg] 68 mm[Hg] MEDENT ([facility]) large cuff, Ra Systolic blood pressure--sitting 102 mm[Hg] 102 mm[Hg] MEDENT ([facility]) large cuff, Ra Heart rate 63 /min 63 /min MEDENT ([facility] Body mass index (BMI) [Ratio] 28.6 kg/m2 28.6 k g/m2 MEDENT ([facility]) Body height 71 [in_i] 71 [in_i] MEDENT ([facility]) 5'11" Body weight 205.00 [lb_av] 205.00 [lb_av] MEDEN T ([facility]) Deprecated Oxygen saturation in Capillary blood by Oximetry 97 % 97 % eCW1 ([facility]) Respiratory rate 18 /min 18 /min eCW1 ([facility]) Heart rate 59 /min 59 /min eCW1 ([facility]) Body temperature 97.6 [degF] 97.6 [degF] eCW1 ( [facility]) Body mass index (BMI) [Ratio] 31.07 kg/m2 31.07 kg/m2 eCW1 ([facility]) Body weight Measured 207.4 [lb_av] 207.4 [lb_av ] eCW1 ([facility]) Body height 68.5 [in_us] 68.5 [in_us] eCW1 ([facility]) Oxygen saturation in Arterial blood by Pulse oximetry 98 % 98 % MEDENT ([facility] Body mass index (BMI) [Ratio] 28.9 kg/m2 28.9 k g/m2 MEDENT ([facility] Body weight 207.00 [lb_av] 207.00 [lb_av] MEDEN T ([facility] Body height 71 [in_i] 71 [in_i] MEDENT ([facility] 5'11" Respiratory rate 16 /min 16 /min MEDENT ( [facility] Heart rate 73 /min 73 /min MEDENT ([facility] Body temperature 97.6 [degF] 97.6 [degF] MEDENT ([facility] Diastolic blood pressure 64 mm[Hg] 64 mm[Hg] MEDENT ([facility] Systolic blood pressure 104 mm[Hg] 104 mm[Hg] M SOFIYA ([facility] ID Date Data Source [id number] 04/26/2020 01:22:52 PM [facility] Name Value Range Interpretation Code Description Data Source(s) WEIGHT RECORDED 210 lb 210 lb [facility] Body height Measured 71 in 71 in [facility] WEIGHT RECORDED 210 lb 210 lb [facility] Body height Measured 71 in 71 in [facility] ID Date Data Source [id number] 07/04/2020 10:36:22 AM [facility] Name Value Range Interpretation Code Description Data Source(s) WEIGHT RECORDED 200.00 pounds 200.00 pounds [facility] Height 71 Inches 071 Inches [facility] Patient Treatment Plan of Care Planned Activity Planned Date Details Description Data Source (s) Tamsulosin hydrochloride 0.4 MG Oral Capsule 11/15/2019 12:00:00 AM EDT eCW1 ([facility]) Tamsulosin hydrochloride 0.4 MG Oral Capsule 11/15/2019 12:00:00 AM EDT eCW1 ([facility]) Tamsulosin hydrochloride 0.4 MG Oral Capsule 11/15/2019 12:00:00 AM EDT eCW1 ([facility])
[2020-07-24 11:09] LABS: ALBUMIN 3.6 GM/DL (3.2-5.2); BILIRUBIN,DIRECT 0.2 MG/DL (0.0-0.2); BILIRUBIN,TOTAL 0.4 MG/DL (0.2-1.0); THYROID STIMULATING HORMONE 1.29 uIU/ML (0.358-3.740); TOTAL PROTEIN 6.5 GM/DL (6.4-8.2)
[2020-07-24] MEDS ORDERED: IPRATROPIUM 0.5MG/ALBUTEROL 2.5MG INH SOL UD 3ML (DUONEB) NEB PRN (11:45)
[2020-07-24] MEDS: IPRATROPIUM 0.5MG/ALBUTEROL 2.5MG INH SOL UD 3ML (DUONEB) NEB SCH ×4 (11:57→23:23)
[2020-07-24 12:36] LABS: RSV AMPLIFICATION NEGATIVE (NEGATIVE)
[2020-07-24] MEDS ORDERED: ISOVUE-370 76% 100ML VIAL As Ordered ONE (12:53)
--- OUTSIDE RECORDS SUMMARY | 2020-07-24 12:57 | CCD ---
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 Role Phone Fauzia GLOVER MD Unavailable Unavailable SUROWFauzia SONI MD Unavailable Unavailable SUROWIEFauzia Jimenez MD Unavailable Unavailable SUROWFauzia SONI MD Unavailable [...] Unavailable SUROWIEC, M MACY RICHARDS Unavailable Unavailable COLEMANSusan MD Unavailable Unavailable Susan [...] J Erica PA Unavailable Unavailable Trickey, J Eriac PA Unavailable Unavailable Trickey, J Erica PA [...] D Alvarado PA Unavailable Unavailable Tanner, D Avlarado PA Unavailable Unavailable Tanner, D Alvarado PA [...] Unavailable Tanner, D Alvarado PA Unavailable Unavailable Carol JR, D Jaclyn RICHARDS [...] D Alvarado PA Unavailable Unavailable Tanner, D Alvardao PA Unavailable Unavailable Tanner, D Alvarado PA [...] D Alvarado PA Unavailable Unavailable Tanner, D Alavrado PA Unavailable Unavailable Tanner, D Alvarado PA [...] Unavailable YAMILET, L ISAMAR PA Unavailable Unavailable Manjula RYAN MD Unavailable Unavailable [...] E KENNY MD Unavailable Unavailable RYAN, E KENYN MD Unavailable Unavailable RYAN, E KENNY MD [...] Unavailable RYAN, E KENNY MD Unavailable Unavailable CONNOR E KENNY Unavailable Unavailable RYAN, E KENNY MD [...] is protected by Article 27-F of the [facility] Public Health law. If you continue you may have access to information: Regarding HIV / AIDS; Provided by facilities licensed or operated by the [facility] Office of Mental Health; or Provided by the [facility] Office for People With Developmental Disabilities. If such information is present, then the following [facility] mandated warning applies: This information has been [...] law may result in a fine or nursing home sentence or both. A general authorization for the release of medical or other information is NOT sufficient authorization for further disc losure. Allergies and Adverse Reactions Type Description Substance Reaction Status Data Source(s ) codeine codeine Codeine sulfate 15 MG Oral Tablet "unable to ur ineate" Active eCW1 ([facility]) Family History Family Member Name Family Member Gender Family Member Status Date o f Status Description Data Source(s) Unknown Male Problem MEDENT ([facility]) Unknown Unknown Problem MEDENT ([facility]) Unknown Unknown Problem MEDENT ([facility] Unknown Female Problem MEDENT ([facility]) Encounters Encounter Providers Location Date Indications Data Source(s ) Office Visit Attender: ISAMAR JOSEPH Main Office 08:15:00 AM EST MEDENT ([facility]) (WEB) .[facility] 07/05/2020 12:00:00 AM EST eCW1 ([facility]) (TEL) [facility] 07/03/2020 12:00:00 AM EST eCW1 ([facility]) Outpatient Attender: Alvarado JOSEPH [place] [facility] 12:00:00 PM EST MEDENT ([facility] Outpatient Attender: ALVARADO HAMMER MD 06/19/2020 01:38: 00 PM EST [facility] Outpatient [facility] 06/19/2020 12:00:00 AM EST eCW1 ([facility]) Outpatient [facility] 04/25/2020 12:00:00 AM EST eCW1 ([facility]) Outpatient [facility] 04/24/2020 12:00:00 AM EST eCW1 ([facility]) (TEL) .[facility] 04/23/2020 12:00:00 AM EST eCW1 ([facility]) (TEL) .[facility] 03/28/2020 12:00:00 AM EDT eCW1 ([facility]) Outpatient Attender: Alvarado JOSEPH [place] [facility] 01:15:00 PM EDT MEDENT ([facility] Outpatient Attender: Erica JOSEPH Main office - [facility] 03/15/2020 12:00:00 PM EDT MEDENT ([facility]) Outpatient Attender: MACY CEE MD [place] [facility] 01:15:00 PM EDT MEDENT ([facility] Office Visit Attender: Greta JOSEPH Main Office 01/31/2020 02 :00:00 PM EDT MEDENT ([facility]) (TEL) [facility] 01/06/2020 12:00:00 AM EDT eCW1 ([facility]) Outpatient [facility] 01/06/2020 12:00:00 AM EDT eCW1 ([facility]) (TEL) [facility] 12/26/2019 12:00:00 AM EDT eCW1 ([facility]) Outpatient Attender: Alvarado JOSEPH [place] [facility] 01:00:00 PM EDT MEDENT ([facility] Outpatient Referrer: Alvarado JOSEPH 12/08/2019 08:38:00 AM EDT [facility] Office Visit Attender: Erica JOSEPH Main office - [facility] 12/06/2019 02:00:00 PM EDT MEDENT ([facility]) (TEL) .[facility] 11/23/2019 12:00:00 AM EDT eCW1 ([facility]) (TEL) [facility] 11/20/2019 12:00:00 AM EDT eCW1 ([facility]) [place] [address] [address] 11/18/2019 12:00:00 AM EDT eCW1 ([facility]) Outpatient [facility] 11/17/2019 12:00:00 AM EDT eCW1 ([facility]) [place] [address] [address] 11/16/2019 12:00:00 AM EDT eCW1 ([facility]) [place] [address] [address] 11/15/2019 12:00:00 AM EDT eCW1 ([facility]) [facility] [address] [address] 11/04/2019 12:00:00 AM EDT eCW1 ([facility]) Outpatient 11/01/2019 01:50:00 PM EDT r enal artery stenosis (stent occluded) [facility] renal artery stenosis (stent occluded) [facility] [address] [address] 09/22/2019 12:00:00 AM EDT eCW1 ([facility]) [facility] [address] [address] 09/16/2019 12:00:00 AM EDT eCW1 ([facility]) Outpatient Attender: Alvarado JOSEPH [place] [facility] 02/2020 09:00:00 AM EDT MEDENT ([facility] Outpatient Attender: Alvarado JOSEPH [place] [facility] 12/2019 01:00:00 PM EDT MEDENT ([facility] Outpatient Attender: Alvarado JOSEPH [place] [facility] 11/2019 10:00:00 AM EDT MEDENT ([facility] ENTER 08/19/2019 12:00:00 AM EDT eCW1 ([facility]) Outpatient Attender: Erica JOSEPH Main office - [facility] 06/30/2019 10:45:00 AM EST MEDENT ([facility], ) Outpatient Attender: Greta JOSEPH Main Office 06/28/2019 02:00:0 0 PM EST MEDENT ([facility]) Outpatient Attender: ALVARADO HAMMER MD 06/21/2019 09:23: 00 AM EST [facility] Specialty [facility] 06/21/2019 12: 00:00 AM EST eCW1 ([facility]) Outpatient Attender: Alvarado JOSEPH [place] [facility] 12:15:00 PM EST MEDENT ([facility] Outpatient Attender: MACY GLOVER MD 06/20/2019 12:00:00 AM EST [facility] ENTER 06/02/2019 12:00:00 AM EST eCW1 ([facility]) Outpatient Attender: MACY GLOVER MD [id number] 06/08 12:00:00 AM EST - 06/25/2018 10:57:04 AM EST Abdominal aortic aneurysm, without rupture [facility] Abdominal aortic aneurysm, without ruptu re Outpatient Attender: Jaclyn eMdina JRConsultant: Alvarado JOSEPH 09/18/2016 08:00:00 AM EDT - 09/18/2016 10:18:00 AM EDT [facility] Outpatient Attender: KENNY RYAN MD 12/23/2013 05:56:00 PM EDT [facility] Immunizations Vaccine Date Status Description Data Source(s) [...] 06/22/2020 12:00:00 AM EST ORAL active MEDENT ([facility] 50-300-40 mg [...] Fioricet 06/20/2020 12:00:00 AM EST active MEDENT ([facility] 800 mg 03/30/2020 12:00:00 AM [...] 03/20/2020 12:00:00 AM EDT RESPIRATORY completed MEDENT ([facility] 7 mg 03/02/2020 [...] 02/24/2020 12:00:00 AM EDT ORAL active MEDENT ([facility] 25 mg 02/06/2020 12:00:00 AM EDT tablet 30 TAKE ONE TO TWO TABLETS BY MOUTH AT BEDTIME TAKE ONE TO TWO TABLETS BY MOUTH AT BEDTIME SOLD: 02/24/2020 [facility] Doxazosin 2 MG Oral Tablet Doxazosin Mesylate 01/30/2020 12:00:00 AM EDT ORAL active [facility] 2 mg 01/13/2020 12:00:00 AM EDT tablet [...] HCL 12/19/2019 12:00:00 AM EDT active MEDENT ([facility] 25 mg 12/19/2019 12:00:00 [...] {capsule} active Tamsulosin HCl 0.4 MG eCW1 ([facility]) Tamsulosin hydrochloride 0.4 MG Oral Capsule Tamsulosi n HCl 0.4 MG Tamsulosin HCl 0.4 MG 11/15/2019 12:00:00 AM EDT 1.0 {capsule} active Tamsulosin HCl 0.4 MG eCW1 ([facility]) Tamsulosin hydrochloride 0.4 MG Oral Capsule Tamsulosi n HCl 0.4 MG Tamsulosin HCl 0.4 MG 11/15/2019 12:00:00 AM EDT 1.0 {capsule} active Tamsulosin HCl 0.4 MG eCW1 ([facility]) 25 mg 09/29/2019 12:00:00 AM EDT tablet [...] 09/15/2019 12:00:00 AM EDT ORAL completed MEDENT ([facility] 20 mg 09/12/2019 12:00:00 AM EDT tablet 5 TAKE ONE TABLET BY MOUTH EVERY DAY WITH FOOD FOR 5 DAYS TAKE ONE TABLET BY MOUTH EVERY DAY WITH FOOD FOR 5 DAY S SOLD: 09/12/2019 [facility] Prednisone 20 MG Oral Tablet Prednisone 09/12/2019 12:00:00 AM EDT ORAL completed MEDENT ([facility] 75 mg 08/08/2019 [...] AM EST ORAL active MEDENT ([facility]) 7 mg 05/03/2019 12:00:00 AM EST capsule,sprinkle,ER [...] type / Coverage type Policy ID Covered democrat ID Covered democrat's relationship to wang Policy Wang Plan Information R [facility] [id number] SP [id number] MEDICARE [id number] SP [id number] [id number] [facility] [id number] S [id number] [place] MEDICARE DIVISION [id number] S [id number] MEDICARE [place] [id number] S [id number] UMR O [id number] S [id number] MEDICARE C [id number] S [id number] T29 [facility] [id number] S [id number] [place] MEDICARE DIVISION [id number] S [id number] [place]ICARE [place] [id number] S [id number] MEDICARE PART A -O/P [id number] 18 [id number] POMCO -O/P [id number] 18 [id number] SELF PAY ONLY [id number] SP [id number] MEDICARE A [id number] Self [id number] MEDICARE [id number] SP [id number] UMR U [id number] Self [id number] Umr Medigap Part B [id number] Self [id number] Medicare (Part B) Medicare Primary [id number] Self [id number] Umr Medigap Part B [id number] Self [id number] Medicare (Part B) Medicare Primary [id number] Self [id number] Umr Medigap Part B [id number] Self [id number] Medicare (Part B) Medicare Primary [id number] Self [id number] Umr Medigap Part B [id number] Self [id number] Medicare (Part B) Medicare Primary [id number] Self [id number] UMR [facility] [id number] SP [id number] MEDICARE [id number] SP [id number] A [place]OM[place] [id number] S [id number] MEDICARE [id number] S [id number] A MEDICARE A [id number] Self [id number] A POMCO [id number] SP [id number] POMCO U [id number] Self [id number] POMCO U [id number] Self [id number] POMCO PPO O [id number] S [id number] MEDICARE C [id number] S [id number] A MCA [id number] A UNAVAILABLE UNAVAILA BLE POMCO HEA [id number] S [id number] MEDICARE MCA [id number] S [id number] A MEDICARE MCA [id number] S [id number] A [place] Medigap Part B [id number] Self [id number] Medicare Natl Gov't Servi Medicare Primary [id number] Self [id number] [place] Medigap Part B [id number] Self [id number] Medicare [facility] Medicare Primary [id number] Self [id number] [place] Medigap Part B [id number] Self [id number] Medicare [facility] Medicare Primary [id number] Self [id number] MEDICARE PART A -O/P [id number] 18 [id number] [place] (pr) Medigap Part B Self Medicare [facility] Medicare Primary Self POMCO [id number] SP [id number] DME Jurisdiction A [facility] C [id number] SELF [id number] Medicare C [id number] SELF [id number] A POMCO PPO O [id number] S [id number] MEDICARE M [id number] S [id number] A [place]OM[place] O [id number] S [id number] MEDICARE PART A M [id number] S [id number] MEDICARE PART A M [id number] S [id number] [place]OM[place] UNAVAILABLE SP UNAVAILA BLE POMCO O [id number] S [id number] Problems, Conditions, and Diagnoses Code Display Name Description Problem Type Effective Dates Data Source(s) 94673619 Chest pain Chest pain Problem 07/06/2020 12:00:00 AM ABA T NORMA ([facility]) N20.0 Kidney stone Kidney stone Problem 11/15/2019 12:00:00 A M EDT eCW1 ([facility]) N40.1 Lower urinary tract symptoms due to franco gn prostatic hypertrophy Benign prostatic hyperplasia with lower urinary tract symptoms Problem 09/16/2019 12:00:00 AM EDT eCW1 ([facility]) N40.1 Lower urinary tract symptoms due to franco gn prostatic hypertrophy Benign prostatic hyperplasia with lower urinary tract symptoms Problem 09/16/2019 12:00:00 AM EDT eCW1 ([facility]) [id number] Dietary management surveillance Dietary manageme nt surveillance Problem 06/28/2019 12:00:00 AM EST MEDENT ([facility] [id number] Peripheral vascular disease Peripheral vascular diseas e Problem 06/28/2019 12:00:00 AM EST MEDENT ([facility]) I71.4 83151537 AAA (abdominal aortic aneurysm) without r upture Problem 06/21/2019 12:00:00 AM EST eCW1 ([facility]) I70.1 [id number] Renal artery stenosis Problem 06/21/2019 12: 00:00 AM EST eCW1 ([facility]) I71.4 54158466 AAA (abdominal aortic aneurysm) without r upture Problem 06/21/2019 12:00:00 AM EST eCW1 ([facility]) I70.1 [id number] Renal artery stenosis Problem 06/21/2019 12: 00:00 AM EST eCW1 ([facility]) I70.1 Atherosclerosis of renal artery ATHEROSCLEROSIS OF NIDA AL ARTERY Diagnosis 06/19/2020 01:38:00 PM EST [facility] I71.4 Abdominal aortic aneurysm, without ruptu re ABDOMINAL AORTIC ANEURYSM, WITHOUT RUPTURE Diagnosis 06/19/2020 01:38:00 PM [facility] ([facility]cluded) renal art vera stenosis (stent occluded) Diagnosis 11/01/2019 01:50:00 PM [facility] Surgeries/Procedures Procedure Description Date Indications Data Source(s) ECHO TTHRC R-T 2D W/WOM-MODE COMPL SPEC&COLR DOP 07/10 12:00:00 AM EST MEDENT ([facility]) ECG ROUTINE ECG W/LEAST 12 LDS W/I&R 07/06/2020 12:00: 00 AM EST MEDENT ([facility]) ECG ROUTINE ECG W/LEAST 12 LDS W/I&R 01/31/2020 12:00: 00 AM EDT MEDBILL ([facility]) Office Visit, New Pt., Level 2 FC 09/16/2019 12:00:00 AM EDT eCW1 ([facility]) Office Visit, New Pt., Level 3 PC 09/16/2019 12:00:00 AM EDT eCW1 ([facility]) US URINE CAPACITY MEASURE 09/16/2019 12:00:00 AM EDT eCW1 ([facility]) ECG ROUTINE ECG W/LEAST 12 LDS W/I&R 06/28/2019 12:00: 00 AM EST MEDENT ([facility]) Results ID Date Data Source [id number] 07/03/2020 03:40:00 PM EST MEDENT (Famil y [...] results) [facility]ENT ([facility] ID Date Data Source [id number] 07/03/2020 03:40:00 PM EST MEDENT ([facility] Name Value Range [...] Little GFR Left</content>
<content>ESRD GFR <15 on TENNIS PLAYER</content>
<content></content> Blood Urea Nitrogen 23 mg/dL 7-18 Above high normal MEDENT ([facility] Creatinine For GFR 1.41 mg/dL 0.70-1.30 Above high normal MEDENT ([facility] Potassium Serum 4.3 meq/L 3.5-5.1 Normal (applies to non-numeric results) [facility] Chloride Level 107 meq/L 98-107 Normal (applies to non-numeric r esults) MEDENT ([facility] Sodium Level 141 meq/L 136-145 Normal (applies to non-numeric res ults) [facility] Anion Gap 8 meq/L 8-16 Normal (applies to non-numeric resul ts) [facility] Calcium Level 9.5 mg/dL 8.8-10.2 Normal (applies to non-numeric re sults) [facility] Carbon Dioxide Level 26 meq/L 21-32 Normal (applies to non-num mary results) [facility] ([facility] ID Date Data Source [id number] 07/03/2020 03:40:00 PM EST [facility] ([facility] Name Value Range Interpretation Code Description Data Heather rce(s) Supporting Document(s) Ast/Sgot 23 U/L 7-37 Normal (applies to non-numeric resul ts) MEDENT ([facility] Alkaline Phosphatase 72 U/L 45-117 Normal (applies to non-num mary results) [facility] ([facility] Alt/SGPT 31 U/L 12-78 Normal (applies to non-numeric resul ts) MEDENT ([facility] Bilirubin,Direct 0.1 mg/dL 0.0-0.2 Normal (applies to non-numeric results) MEDENT ([facility] Bilirubin,Total 0.3 mg/dL 0.2-1.0 Normal (applies to non-numeric results) [facility] Albumin/Globulin Ratio 1.1 Normal (applies to non-n umeric results) MEDENT ([facility] Total Protein 7.3 GM/DL 6.4-8.2 Normal (applies to non-numeric re sults) MEDENT ([facility] Albumin 3.9 GM/DL 3.2-5.2 Normal (applies to non-numeric resul ts) MEDENT ([facility] ID Date Data Source [id number] 07/03/2020 03:40:00 PM EST MEDENT ([facility] Name Value Range Interpretation Code Description Data Heather rce(s) Supporting Document(s) CK-MB Value Mass 5.2 ng/mL Above high normal M EDENT ([facility] CPK Creatine Phosphokinase 267 U/L 39-308 Tita l (applies to non-numeric results) MEDENT ([facility] ) Troponin I Laboratory test result Normal (applies to non-n umeric results) MEDENT ([facility] <content>Troponin I Reference Interval f or Siemens Arminto LOCI:</content>
<content></content>
<content>99th Percentile= 0.00-0.045 ng/ml</content>
<content></content>
<content>Risk Stratification:</content>
<content><= 0.10 ng/ml Decreased Risk for Adverse Clinical</content>
<content>Events.</content>
<content>0.10-1.50 ng/ml Increased Risk for Adverse Clinical</content>
<content>Events. Evaluation of additional</content>
<content>criterion and/or repeat testing in 2-6</content>
<content>hours is suggested to rule out myocardial</content>
<content>damage.</content>
<content>>= 1.50 ng/ml Indicative of Myocardial Injury.</content>
<content></content> MB/CK Relative Index 1.95 Normal (applies to non-num mary results) MEDENT ([facility] <content>DIAGNOSIS CRITERIA</content>
<content>MMB ng/ml Relative Index (RI)</content>
<content>NON-AMI < or = 5 N/A</content>
<content>GAFFNEY ZONE > 5 < or = 4</content>
<content>AMI > 5 > 4</content>
<content></content> ID Date Data Source [id number] 07/03/2020 03:40:00 PM EST MEDENT ([facility] Name Value Range Interpretation Code Description Data Heather rce(s) Supporting Document(s) Fibrin D-dimer FEU [Mass/volume] in Platelet poor plasma 1761.85 ng/mL Above high normal MEDENT ([facility] ) ID Date Data Source [id number] 07/03/2020 03:40:00 PM EST MEDENT ([facility] Name Value Range Interpretation Code Description Data Heather rce(s) Supporting Document(s) Prothrombin Time 13.0 s 12.5-14.3 Normal (applies to non-numeric results) MEDENT ([facility] Inr 0.96 Normal (applies to non-numeric resul ts) MEDENT ([facility] THERAPUTIC HUMAN INR VALUES INDICATIONS NORMAL RANGES PROPHYLAXIS/TREATMENT OF: VENOUS THROMBOSIS 2.0-3.0 PULMONARY EMBOLISM 2.0-3.0 PREVENTION OF SYSTEMIC EMBOLISM FROM: TISSUE HEART VALVES 2.0-3.0 ACUTE MYOCARDIAL INFARCTION 2.0-3.0 VALVULAR HEART DISEASE 2.0-3.0 ATRIAL FIBRILLATION 2.0-3.0 MECHANICAL VALVES(HIGH RISK) 2.5-3.5 RECURRENT MYOCARDIAL INFARCTION 2.5-3.5 ID Date Data Source [id number] 07/03/2020 03:40:00 PM EST MEDENT ([facility] Name Value Range Interpretation Code [...] resul ts) MEDENT ([facility] [place] % 7.6 % 0.0-5.0 Above high normal MEDENT ([facility] Nucleated Red Blood Cell % 0.0 % 0-0 Normal (applies to n on-numeric results) MEDENT ([facility] Immature Granulocyte % 0.5 % 0-3.0 Normal (applies to non-n umeric results) MEDENT ([facility] Neutrophils # 6.4 10 1.5-8.5 Normal (applies to non-numeric re sults) MEDENT ([facility] Lymph # 0.9 10 1.5-5.0 Below low normal MEDENT ( [facility] [place] # 0.6 10 0.0-0.8 Normal (applies to non-numeric resul ts) MEDENT ([facility] Eos # 0.2 10 0.0-0.5 Normal (applies to non-numeric resul ts) MED[facility] ([facility] Baso # 0.1 10 0.0-0.2 Normal (applies to non-numeric resul ts) MEDENT ([facility] ID Date Data Source [id number] 07/03/2020 08:57:00 AM EST MEDENT ([facility] Name Value Range Interpretation Code Description Data Heather rce(s) Supporting Document(s) Free T4 7.7 MEDENT [facility] ID Date Data Source [id number] 07/03/2020 08:57:00 AM EST MEDENT [facility] Name Value Range Interpretation Code Description Data Heather rce(s) Supporting Document(s) Alkaline phosphatase [Enzymatic activity/volume] in Serum or Plasma 7 2 MEDENT ([facility]) Aspartate aminotransferase [Enzymatic activity/volume] in Serum or Plasma 23 MEDENT ([facility]) Bilirubin.direct [Mass/volume] in Serum or Plasma 0.1 MEDENT ([facility]) Bilirubin.total [Mass/volume] in Serum or Plasma 0.3 MEDENT ([facility]) Alanine aminotransferase [Enzymatic activity/volume] in Serum or Pl asma 31 MEDENT ([facility]) Cholesterol [Mass/volume] in Serum or Plasma 1.1 MEDENT ([facility]) Albumin [Mass/volume] in Serum or Plasma 3.9 MEDENT ([facility]) Protein [Mass/volume] in Serum or Plasma 7.3 MEDENT ([facility]) ID Date Data Source [id number] 07/03/2020 08:57:00 AM EST MEDENT ([facility]) Name Value Range Interpretation Code Description Data Heather rce(s) Supporting Document(s) Natriuretic peptide.B prohormone N-Terminal [Mass/volu me] in Serum or Plasma 174 MEDENT ([facility]) Thyroid Stimulating Hormone 1.310 ME DENT ([facility]) ID Date Data Source [id number] 07/03/2020 08:57:00 AM EST [facility] Name Value Range Interpretation Code Description Data Heather rce(s) Supporting Document(s) Calcium [Mass/volume] in Serum or Plasma 9.5 [facility] ([facility]) Carbon dioxide, total [Moles/volume] in Serum or Plasma 26 [facility] ([facility]) Sodium 141 [facility] Potassium [Moles/volume] in Serum or Plasma 4.3 [facility] ([facility]) Chloride [Moles/volume] in Serum or Plasma 107 [facility] ([facility]) Glucose 97 70-100 [facility] ([facility]) Creatinine 1.41 0.70-1.30 [facility] ([facility]) Glomerular filtration rate/1.73 sq M.pre dicted [Volume Rate/Area] in Serum or Plasma by Creatinine-based formula (MDRD) 52.0 [facility] ([facility]) Blood Urea Nitrogen 23 7-18 [facility] ([facility]) ID Date Data Source [id number] 07/03/2020 08:57:00 AM EST [facility] Name Value Range Interpretation Code Description Data Heather rce(s) Supporting Document(s) White Blood Count 8.1 4.0-10.0 [facility] ([facility]) Red Blood Count 4.56 4.30-6.10 [facility] ([facility]) Platelets 316 150-450 [facility] Hemoglobin 13.9 [facility] ([facility]) Hematocrit 43.2 [facility] ([facility]) ID Date Data Source [id number] 05/15/2020 09:25:00 AM EST [facility] ([facility] Name Value Range Interpretation Code Description Data Heather rce(s) Supporting Document(s) Laboratory test finding (navigational concept) Laboratory test result [facility] ([facility] Test: COVID-19 Nasal/Naspharynx Result: NOT DETECTED Reference Units: Not detected Note: Please consider re-collection of a new specimen, if clinically indicated. Note: The COVID-19 assay is under Emergency Use Authorization(EUA) by the U.S. Food and Drug Administration. [facility] is designated as a high complexity laboratory by the Clinical Laboratory Improvement Amendments of 1988(CLIA) and is qualified to perform this test. ASSAY INFORMATION: Real Time RT-PCR Patient samples for this assay have been pooled. All positive samples have been individually repeated for confirmation. The pooling protocol using the raudel SARS-CoV-2 assay has been added to [id number] on March 22, 2020. ID Date Data Source [id number] 05/15/2020 12:00:00 AM EST [facility] Name Value Range Interpretation Code Description Data Heather rce(s) Supporting Document(s) 2019-nCoV RNA XXX NORBERTO+probe-Imp [facility] This lab was ordered by [facility] and reported by [employer] ID Date Data Source Urine Protein.Creat ratio 01/06/2020 12:57:26 PM EDT eCW1 ([facility]) Name Value Range Interpretation Code Description Data Heather rce(s) Supporting Document(s) 293.4 U-CREA eCW1 [facility] 21.0 U-PROTEIN eCW1 ([facility]) 0.1 U-PROT/CREAT eCW1 ([facility]) ID Date Data Source RENAL FUNCTION 01/06/2020 12:33:50 PM EDT eCW1 ([facility]) Name Value Range Interpretation Code Description Data Heather rce(s) Supporting Document(s) 18 BUN eCW1 ([facility] 3.5 ALBUMIN eCW1 ([facility] 8.9 CALCIUM eCW1 ([facility]) 58.67 GFR AFR.AM eCW1 [facility] 48.49 GFR NON-AFR.AM eCW1 ([facility]) 1.5 CREATININE eCW1 ([facility] 27.4 CO2 eCW1 [facility] 106 CHLORIDE eCW1 ([facility] 139 SODIUM eCW1 ([facility] 4.3 POTASSIUM eCW1 ([facility] 3.5 PHOSPHORUS eCW1 ([facility] 6 ANION GAP eCW1 ([facility]) 87.0 GLUCOSE eCW1 ([facility] ID Date Data Source UA-DIP 01/06/2020 12:33:45 PM EDT eCW1 ([facility]) Name Value Range Interpretation Code Description Data Heather rce(s) Supporting Document(s) Clear CLARITY eCW1 ([facility] Yellow COLOR eCW1 ([facility]) >=1.030 SPEC.GRAV. eCW1 ([facility]) Negative PROTEIN eCW1 ([facility] 5.5 PH eCW1 ([facility] Negative GLUCOSE eCW1 ([facility]) Negative NITRITE eCW1 ([facility] 1+ BILIRUBIN eCW1 ([facility] Negative BLOOD eCW1 ([facility]) Negative KETONES eCW1 ([facility] Negative LEUKOCYTES eCW1 ([facility] 1.0 UROBILINOGEN eCW1 ([facility]) ID Date Data Source VENIPUNCTURE OP 01/06/2020 12:16:06 PM EDT eCW1 ([facility]) Name Value Range Interpretation Code Description Data Heather rce(s) Supporting Document(s) VENIPUNCTURE VENIPUNCTURE eCW1 ([facility]) ID Date Data Source [id number] 12/19/2019 01:35:00 PM EDT [facility] ([facility] Name Value Range Interpretation Code Description Data Heather rce(s) Supporting Document(s) Borrelia burgdorferi IgM Ab [Units/volume] in Serum Laborato ry test result 0.00-0.79 [facility] ([facility] <content>Negative <0.80</content >
<content>Equivocal 0.80 - 1.19</content>
<content>Positive >1.19</content>
<content>IgM levels may peak at 3-6 weeks post infection, then</content>
<content>gradually decline.</content>
<content></content> Lyme IgG/IgM Ab Laboratory test result 0.00-0.90 [facility] ([facility] <content>Negative <0.91</content >
<content>Equivocal 0.91 - 1.09</content>
<content>Positive >1.09</content>
<content></content> ID Date Data Source [id number] 11/28/2019 12:22:00 PM EDT [facility] Name Value Range Interpretation Code Description Data Heather rce(s) Supporting Document(s) Carbon dioxide, total [Moles/volume] in Serum or Plasma 26 [facility] ([facility]) Calcium [Mass/volume] in Serum or Plasma 9.1 [facility] ([facility]) Sodium 141 [facility] Chloride [Moles/volume] in Serum or Plasma 107 [facility] ([facility]) Glucose 106 70-100 [facility] Potassium [Moles/volume] in Serum or Plasma 4.9 [facility] ([facility]) Glomerular filtration rate/1.73 sq M.pre dicted [Volume Rate/Area] in Serum or Plasma by Creatinine-based formula (MDRD) 48.9 [facility] ([facility]) Creatinine 1.49 0.70-1.30 [facility] ([facility]) Blood Urea Nitrogen 19 7-18 [facility] ([facility]) ID Date Data Source [id number] 11/01/2019 12:20:00 PM EDT [facility] ([facility]) Name Value Range Interpretation Code Description Data Heather rce(s) Supporting Document(s) White Blood Count 7.8 4.0-10.0 [facility] ([facility]) Red Blood Count 4.84 4.30-6.10 [facility] ([facility]) Platelets 266 150-450 [facility] Hemoglobin 14.8 13.5-17.5 [facility] ([facility]) Hematocrit 45.2 42.0-52.0 [facility] ([facility]) ID Date Data Source [id number] 11/01/2019 09:40:00 AM EDT [facility] ([facility] Name Value Range Interpretation Code Description Data Heather rce(s) Supporting Document(s) Laboratory test finding (navigational concept) 116 mg/dL 7 0-105 Above high normal MED[facility] ([facility] ) Laboratory test finding (navigational concept) 44.0 % 3 8.0-51.0 Normal (applies to non-numeric results) [facility] ([facility] Laboratory test finding (navigational concept) 141 meq/L 1 36-145 Normal (applies to non-numeric results) [facility] ([facility] Laboratory test finding (navigational concept) 106 meq/L 9 8-109 Normal (applies to non-numeric results) [facility] ([facility] Laboratory test finding (navigational concept) 4.2 meq/L 3 .5-5.1 Normal (applies to non-numeric results) [facility] ([facility] Laboratory test finding (navigational concept) 4.8 mg/dL 4 .5-5.3 Normal (applies to non-numeric results) [facility] ([facility] Laboratory test finding (navigational concept) 1.4 mg/dL 0 .6-1.3 Above high normal [facility] ([facility] ) Laboratory test finding (navigational concept) 20 mg/dL 8 -26 Normal (applies to non-numeric results) [facility] ([facility] Laboratory test finding (navigational concept) 24.0 MM/L 2 3.0-27.0 Normal (applies to non-numeric results) [facility] ID Date Data Source [id number] 11/01/2019 09:34:00 AM EDT [facility] ([facility] Name Value Range [...] test result Above hig h normal [facility] ([facility] Microscopic Exam Laboratory test result Normal ( applies to non-numeric results) [facility] ([facility] ) Laboratory test finding (navigational concept) Laboratory test r esult Above high normal [facility] ([facility] ) ID Date Data Source [id number] 11/01/2019 09:34:00 AM EDT [facility] ([facility] Name Value Range Interpretation Code Description Data Heather rce(s) Supporting Document(s) Laboratory test finding (navigational concept) Laboratory test r esult Above high normal [facility] ([facility] ) Laboratory test finding (navigational concept) Laboratory test r esult Above high normal [facility] ([facility] ) Laboratory test finding (navigational concept) 1.018 1 .002-1.035 Normal (applies to non-numeric results) [facility] ([facility] Laboratory test finding (navigational concept) Laboratory test r esult Above high normal [facility] ([facility] ) Laboratory test finding (navigational concept) 6.0 units 5 .0-7.0 Normal (applies to non-numeric results) [facility] ([facility] Ketone, Urine Manual Laboratory test result Norm al (applies to non-numeric results) [facility] ([facility] ) Glucose, Urine (Ua) Manual Laboratory test result Normal (applies to non- numeric results) [facility] ([facility] ) Urobilinogen, Urine Manual Laboratory test result Normal (applies to non- numeric results) [facility] ([facility] ) Laboratory test finding (navigational concept) Laboratory test r esult Normal (applies to non-numeric results) [facility] ([facility] Laboratory test finding (navigational concept) Laboratory test r esult Normal (applies to non-numeric results) [facility] ([facility] Bilirubin, Urine Manual Laboratory test result N ormal (applies to non-numeric results) [facility] ([facility] ) Laboratory test finding (navigational concept) Laboratory test r esult Above high normal [facility] ([facility] ) ID Date Data Source [id number] 11/01/2019 09:34:00 AM EDT [facility] Name Value Range Interpretation Code Description Data Heather rce(s) Supporting Document(s) Prothrombin Time 13.6 s 11.8-14.0 Normal (applies to non-numeric results) [facility] ([facility] Partial Thromboplastin Time 32.3 s 25.0-38.4 Norm al (applies to non-numeric results) [facility] ([facility] ) Inr 1.07 Normal (applies to non-numeric resul ts) [facility] ([facility] THERAPUTIC HUMAN INR VALUES INDICATIONS NORMAL RANGES PROPHYLAXIS/TREATMENT OF: VENOUS THROMBOSIS 2.0-3.0 PULMONARY EMBOLISM 2.0-3.0 PREVENTION OF SYSTEMIC EMBOLISM FROM: TISSUE HEART VALVES 2.0-3.0 ACUTE MYOCARDIAL INFARCTION 2.0-3.0 VALVULAR HEART DISEASE 2.0-3.0 ATRIAL FIBRILLATION 2.0-3.0 MECHANICAL VALVES(HIGH RISK) 2.5-3.5 RECURRENT MYOCARDIAL INFARCTION 2.5-3.5 ID Date Data Source [id number] 11/01/2019 09:34:00 AM EDT [facility] Name Value Range Interpretation Code Description Data Heather rce(s) Supporting Document(s) Hemoglobin 14.8 g/dL 13.5-17.5 Normal (applies to non-numeric resul ts) [facility] ([facility] White Blood Count 7.8 10 4.0-10.0 Normal (applies to non-numeri c results) [facility] ([facility] Red Blood Count 4.84 10 [...] results) [facility] ([facility] [place] % 6.5 % 0.0-5.0 Above high normal [...] normal [facility] ( [facility] [place] # 0.5 10 0.0-0.8 Normal (applies to non-numeric resul ts) [facility] ([facility] Neutrophils # 6.3 10 1.5-8.5 Normal (applies to non-numeric re sults) [facility] ([facility] Eos # 0.2 10 0.0-0.5 Normal (applies to non-numeric resul ts) [facility] ([facility] Baso # 0.0 10 0.0-0.2 Normal (applies to non-numeric resul ts) [facility] ([facility] ID Date Data Source [id number] 09/21/2019 04:00:00 PM EDT MED[facility] ([facility] Name Value Range Interpretation Code Description Data Heather rce(s) Supporting Document(s) Prostate specific Ag [Mass/volume] in Serum or Plasma 2.17 ng/mL Normal (applies to non-numeric results) [facility] ([facility] The PSA assay is performed on the Pointstic analyzer by [employer] sandwich chemiluminescent immunoassay and should not be compared interchangeably with other methods. It should not be used alone as a screening test or diagnosis for the presence or absence of malignant disease. Predictions of disease recurrence should not be based solely on values obtained from serial patient serum values. ID Date Data Source PSA SCREENING 09/21/2019 12:00:00 AM EDT eCW1 ([facility]) Name Value Range Interpretation Code Description Data Heather rce(s) Supporting Document(s) 2.17 < 4.[address] [facility] ([facility]) ID Date Data Source [id number] 09/12/2019 10:31:00 AM EDT MEDENT ([facility] Name Value Range Interpretation Code Description Data Heather rce(s) Supporting Document(s) Color Urine Laboratory test result M EDENT ([facility] Glucose Urine Laboratory test result [facility] ([facility] Specific [place] 1.025 1.00-1.03 [facility] ([facility] Appearance of Urine Laboratory test result [facility] ([facility] PH Urine 5.5 5.0-8.0 [facility] ([facility] Bilirubin.total [Presence] in Urine by Test strip Laboratory test res ult [facility] ([facility] Ketones Laboratory test result [facility] ([facility] Blood Urine Laboratory test result M EDENT ([facility] Urobilinogen 0.2 EU/dl 0.2-1.0 [facility] ([facility] Nitrite Laboratory test result [facility] ([facility] Protein Urine Laboratory test result [facility] ([facility] Leukocytes Laboratory test result ME DENT ([facility] ID Date Data Source [id number] 09/12/2019 10:21:00 AM EDT [facility] Name Value Range Interpretation Code Description Data Heather rce(s) Supporting Document(s) BUN/Creatinine Ratio 14.4 Calc MEDENT ([facility] CHRONIC KIDNEY DISEASE STAGING [...] HCT IS 5% LESS SOURCE FOR DATA: [employer] 1800 OPERATION MANUAL( AUTOMATED BLOOD COUNTS AND [...] HCT IS 5% LESS SOURCE FOR DATA: [employer] 1800 OPERATION MANUAL( AUTOMATED BLOOD COUNTS AND DIFF.) APPENDIX B-3 Glu 89 mg/dL 70-110 [facility] CHRONIC KIDNEY DISEASE STAGING PER [...] HCT IS 5% LESS SOURCE FOR DATA: XMPie DYN 1800 OPERATION MANUAL( AUTOMATED BLOOD COUNTS AND DIFF.) APPENDIX B-3 BUN 19 mg/dL 8 [facility] CHRONIC KIDNEY DISEASE STAGING PER [...] HCT IS 5% LESS SOURCE FOR DATA: [employer]MPie DYN 1800 OPERATION MANUAL( AUTOMATED BLOOD COUNTS AND DIFF.) APPENDIX B-3 Na 140 mmol/L 136-145 [facility] ([facility] CHRONIC KIDNEY DISEASE STAGING PER [...] CL 103.4 mmol/L 98.0-107.0 [facility] ([facility] CHRONIC KIDNEY DISEASE STAGING PER [...] APPENDIX B-3 K 4.3 mmol/L 3.5-5.1 [facility] ([facility] CHRONIC KIDNEY DISEASE STAGING PER [...] DIFF.) APPENDIX B-3 CA 9.7 mg/dL 8.6-10.2 [facility] CHRONIC KIDNEY DISEASE STAGING [...] DIFF.) APPENDIX B-3 Co2 22.2 mmol/L 22.0-29.0 [facility] ([facility] CHRONIC KIDNEY DISEASE STAGING PER NKF: [...] 140-440 Adult F 4.1-10.9 4.04-5.48 12.0-18.0 37.0-51.0 80 140-440 0- 1 Yr 5.0-20.0 3.9-5.9 15-18 [...] HCT IS 5% LESS SOURCE FOR DATA: XMPie DYN 1800 OPERATION MANUAL( AUTOMATED BLOOD COUNTS AND DIFF.) APPENDIX B-3 TP 6.6 g/dL 6.6-8.7 [facility] ([facility] CHRONIC KIDNEY DISEASE STAGING PER [...] HCT IS 5% LESS SOURCE FOR DATA: [employer] 1800 OPERATION MANUAL( AUTOMATED BLOOD COUNTS AND DIFF.) APPENDIX B-3 A/G Ratio 1.7 [facility]c [facility] ([facility] CHRONIC KIDNEY DISEASE STAGING [...] HCT IS 5% LESS SOURCE FOR DATA: [employer] 1800 OPERATION MANUAL( AUTOMATED BLOOD COUNTS AND DIFF.) APPENDIX B-3 Alb 4.2 g/dL 3.5-5.2 [facility] CHRONIC KIDNEY DISEASE STAGING [...] DIFF.) APPENDIX B-3 Alp 73.3 U/L 40-129 [facility] CHRONIC KIDNEY DISEASE STAGING PER [...] HCT IS 5% LESS SOURCE FOR DATA: [employer] 1800 OPERATION MANUAL( AUTOMATED BLOOD COUNTS AND DIFF.) APPENDIX B-3 Globulin 2.4 Calc [facility] ([facility] CHRONIC KIDNEY DISEASE STAGING PER [...] APPENDIX B-3 Alt (SGPT) 17 U/L 0-41 [facility] ([facility] CHRONIC KIDNEY DISEASE STAGING PER [...] APPENDIX B-3 Tbili 0.61 mg/dL 0.0-1.2 [facility] ([facility] CHRONIC KIDNEY DISEASE STAGING PER [...] APPENDIX B-3 Ast (Sgot) 22 U/L 0-40 [facility] CHRONIC KIDNEY DISEASE STAGING PER NKF: MALE [...] APPENDIX B-3 Osmolality-Calculated 281.1 Calc MED ENT ([facility] CHRONIC KIDNEY DISEASE [...] HCT IS 5% LESS SOURCE FOR DATA: [employer]ios[employer] 1800 OPERATION MANUAL( AUTOMATED BLOOD COUNTS AND DIFF.) APPENDIX B-3 eGFR 62 # MEDENT ( [facility] CHRONIC KIDNEY DISEASE [...] DIFF.) APPENDIX B-3 Anion Gap 19 mmol/L [facility] ([facility] CHRONIC KIDNEY DISEASE STAGING PER [...] HCT IS 5% LESS SOURCE FOR DATA: [employer]ios[employer] 1800 OPERATION MANUAL( AUTOMATED BLOOD COUNTS AND DIFF.) APPENDIX B-3 eGFR Non-Afr. [place] 53 # MEDENT ([facility] CHRONIC KIDNEY DISEASE [...] HCT IS 5% LESS SOURCE FOR DATA: [employer] 1800 OPERATION MANUAL( AUTOMATED BLOOD COUNTS AND DIFF.) APPENDIX B-3 ID Date Data Source [id number] 09/12/2019 10:21:00 AM EDT [facility] ([facility] Name Value Range Interpretation Code Description Data Heather rce(s) Supporting Document(s) WBC 7.5 10E3/uL 4.1-10.9 [facility] ([facility] CHRONIC KIDNEY DISEASE STAGING PER [...] HCT IS 5% LESS SOURCE FOR DATA: XMPie DYN 1800 OPERATION MANUAL( AUTOMATED BLOOD COUNTS AND DIFF.) APPENDIX B-3 HCT 43.5 % 37.0-51.0 [facility] ([facility] CHRONIC KIDNEY DISEASE STAGING [...] HCT IS 5% LESS SOURCE FOR DATA: [employer] 1800 OPERATION MANUAL( AUTOMATED BLOOD COUNTS AND DIFF.) APPENDIX B-3 RBC 4.69 10E6/uL 4.20-6.30 [facility] ([facility] CHRONIC KIDNEY DISEASE STAGING [...] APPENDIX B-3 HGB 14.5 g/dL 12.0-18.0 [facility] ([facility] CHRONIC KIDNEY DISEASE STAGING PER [...] IS 5% LESS SOURCE FOR DATA: AMANDA [employer] 1800 OPERATION MANUAL( AUTOMATED BLOOD COUNTS AND DIFF.) APPENDIX B-3 MCV 92.8 fL 80.0-97.0 [facility] ([facility] CHRONIC KIDNEY DISEASE STAGING PER [...] DIFF.) APPENDIX B-3 MCHC 33.3 g/dL 31.0-36.0 [facility] ([facility] CHRONIC KIDNEY DISEASE STAGING PER [...] DIFF.) APPENDIX B-3 MCH 30.9 pg 26.0-32.0 [facility] ([facility] CHRONIC KIDNEY DISEASE STAGING PER [...] HCT IS 5% LESS SOURCE FOR DATA: [employer]ios[employer] 1800 OPERATION MANUAL( AUTOMATED BLOOD COUNTS AND DIFF.) APPENDIX B-3 Lym% 9.0 % 10.0-58.5 Below low normal [facility] ( [facility] CHRONIC KIDNEY DISEASE [...] HCT IS 5% LESS SOURCE FOR DATA: [employer] 1800 OPERATION MANUAL( AUTOMATED BLOOD COUNTS AND DIFF.) APPENDIX B-3 PLT 312 10E3/uL 140-440 [facility] ([facility] CHRONIC KIDNEY DISEASE STAGING PER [...] HCT IS 5% LESS SOURCE FOR DATA: [employer] 1800 OPERATION MANUAL( AUTOMATED BLOOD COUNTS AND DIFF.) APPENDIX B-3 RDW-CV 12.4 % 11.5-14.5 [facility] CHRONIC KIDNEY DISEASE STAGING [...] HCT IS 5% LESS SOURCE FOR DATA: [employer] 1800 OPERATION MANUAL( AUTOMATED BLOOD COUNTS AND DIFF.) APPENDIX B-3 Neut% 81.2 % 37.0-92.0 [facility] ([facility] CHRONIC KIDNEY DISEASE STAGING [...] HCT IS 5% LESS SOURCE FOR DATA: [employer] 1800 OPERATION MANUAL( AUTOMATED BLOOD COUNTS AND [...] HCT IS 5% LESS SOURCE FOR DATA: [employer] 1800 OPERATION MANUAL( AUTOMATED BLOOD COUNTS AND DIFF.) APPENDIX B-3 Neut# 6.1 % 2.0-7.8 [facility] CHRONIC KIDNEY DISEASE STAGING PER [...] DIFF.) APPENDIX B-3 Lym# 0.7 10E3/uL 0.6-4.1 [facility] ([facility] CHRONIC KIDNEY DISEASE STAGING PER [...] DIFF.) APPENDIX B-3 MPV 9.4 fL 9.0-13.0 [facility] ([facility] CHRONIC KIDNEY DISEASE STAGING PER [...] HCT IS 5% LESS SOURCE FOR DATA: XMPie DYN 1800 OPERATION MANUAL( AUTOMATED BLOOD COUNTS AND DIFF.) APPENDIX B-3 MXD# 0.7 10E3/uL 0.0-1.8 [facility] ([facility] CHRONIC KIDNEY DISEASE STAGING PER [...] HCT IS 5% LESS SOURCE FOR DATA: [employer] 1800 OPERATION MANUAL( AUTOMATED BLOOD COUNTS AND DIFF.) APPENDIX B-3 Procedure Social History Code Duration Value Status Description Data Source(s ) Smoking 07/06/2020 12:00:00 AM EST Patient is a former smoker completed Patient is a former smoker MEDENT ([facility]) Smoking 06/19/2020 12:00:00 AM EST Never Smoker completed Never S moker eCW1 ([facility]) Smoking 04/25/2020 12:00:00 AM EST Former Smoker completed Former Smoker eCW1 ([facility]) Smoking 04/25/2020 12:00:00 AM EST Former Smoker completed Former Smoker eCW1 ([facility]) Smoking 04/25/2020 12:00:00 AM EST Former Smoker completed Former Smoker eCW1 ([facility]) Smoking 01/06/2020 12:00:00 AM EDT Former Smoker completed Former Smoker eCW1 ([facility]) Smoking 01/06/2020 12:00:00 AM EDT Former Smoker completed Former Smoker eCW1 ([facility]) Smoking 01/06/2020 12:00:00 AM EDT Former Smoker completed Former Smoker eCW1 ([facility]) Smoking 01/06/2020 12:00:00 AM EDT Former Smoker completed Former Smoker eCW1 ([facility]) Smoking 11/17/2019 12:00:00 AM EDT Former Smoker completed Former Smoker eCW1 ([facility]) Smoking 11/17/2019 12:00:00 AM EDT Former Smoker completed Former Smoker eCW1 ([facility]) Smoking 11/17/2019 12:00:00 AM EDT Former Smoker completed Former Smoker eCW1 ([facility]) Smoking 11/17/2019 12:00:00 AM EDT Former Smoker completed Former Smoker eCW1 ([facility]) Smoking 11/17/2019 12:00:00 AM EDT Former Smoker completed Former Smoker eCW1 ([facility]) Smoking 06/21/2019 12:00:00 AM EST Never Smoker completed Never S moker eCW1 ([facility]) Vital Signs ID Date Data Source UNK Name Value Range Interpretation Code Description Data Source(s) Diastolic blood pressure--sitting 78 mm[Hg] 78 mm[Hg] MEDENT ([facility]) [place], large cuff Systolic blood pressure--sitting 120 mm[Hg] 120 mm[Hg] MEDENT ([facility]) [place], large cuff Heart rate 69 /min 69 /min MEDENT ([facility] Body mass index (BMI) [Ratio] 28.0 kg/m2 28.0 k g/m2 MEDENT ([facility]) Body height 71 [in_i] 71 [in_i] MEDENT ([facility] 5'11" Body weight 201.00 [lb_av] 201.00 [lb_av] MEDEN T ([facility]) Oxygen saturation in Arterial blood by Pulse oximetry 97 % 97 % MEDENT ([facility] Body mass index (BMI) [Ratio] 28.6 kg/m2 28.6 k g/m2 MEDENT ([facility] [place] body weight 172 [lb_av] 172 [lb_av] MEDEN T ([facility] Body weight 205.00 [lb_av] 205.00 [lb_av] MEDEN T ([facility] Body height 71 [in_i] 71 [in_i] MEDENT ([facility] 5'11" Respiratory rate 16 /min 16 /min MEDENT ( [facility] Heart rate 76 /min 76 /min MEDENT ([facility] Body temperature 97.6 [degF] 97.6 [degF] MEDENT ([facility] Diastolic blood pressure 70 mm[Hg] 70 mm[Hg] MEDBILL ([facility] Systolic blood pressure 126 mm[Hg] 126 mm[Hg] M EDENT ([facility] Oxygen saturation in Arterial blood by Pulse oximetry 98 % 98 % eCW1 ([facility]) Respiratory rate 18 /min 18 /min eCW1 ([facility]) Heart rate 61 /min 61 /min eCW1 ([facility]) Body mass index (BMI) [Ratio] 30.83 kg/m2 30.83 kg/m2 eCW1 ([facility]) Body weight 205.8 [lb_av] 205.8 [lb_av] eCW1 ([facility]) Body height 68.5 [in_i] 68.5 [in_i] eCW1 ([facility]) Body mass index (BMI) [Ratio] 28.73 kg/m2 28.73 kg/m2 eCW1 ([facility]) Body height 71 [in_i] 71 [in_i] eCW1 ([facility]) Body weight 206 [lb_av] 206 [lb_av] eCW1 ([facility]) Heart rate 64 /min 64 /min eCW1 ([facility]) Oxygen saturation in Arterial blood by Pulse oximetry 98 % 98 % MEDBILL ([facility] Body mass index (BMI) [Ratio] 28.4 kg/m2 28.4 k g/m2 MEDENT ([facility] [place] body weight 172 [lb_av] 172 [lb_av] MEDEN T ([facility] Body weight 204.00 [lb_av] 204.00 [lb_av] MEDEN T ([facility] Body height 71 [in_i] 71 [in_i] MEDENT ([facility] 5'11" Respiratory rate [...] rate 16 /min 16 /min MEDENT ( [facility] ) Heart rate 76 /min 76 /min MEDENT ([facility] ) Diastolic blood pressure 80 mm[Hg] 80 mm[Hg] MEDENT ([facility] ) Systolic blood pressure 110 mm[Hg] 110 mm[Hg] M EDENT ([facility] ) Oxygen saturation in Arterial blood by Pulse oximetry 94 % 94 % MEDENT ([facility] Body mass index (BMI) [Ratio] 28.6 kg/m2 28.6 k g/m2 MEDENT ([facility] [place] body weight 172 [lb_av] 172 [lb_av] MEDEN T ([facility] Body weight 205.00 [lb_av] 205.00 [lb_av] MEDEN T ([facility] Body height 71 [in_i] 71 [in_i] MEDENT ([facility] 5'11" Respiratory rate [...] 70 mm[Hg] 70 mm[Hg] MEDENT ([facility]) Systolic blood pressure--sitting 114 mm[Hg] 114 mm[Hg] MEDENT ([facility]) Heart rate 65 /min 65 /min MEDENT ([facility]) Body mass index (BMI) [Ratio] 28.4 kg/m2 28.4 k g/m2 MEDENT ([facility]) Body height 71 [in_i] 71 [in_i] MEDENT ([facility]) 5'11" Body weight 204.00 [lb_av] 204.00 [lb_av] MEDEN T ([facility]) Body mass index (BMI) [Ratio] 28.73 kg/m2 28.73 kg/m2 eCW1 ([facility]) Body height 71 [in_i] 71 [in_i] eCW1 ([facility]) Body weight 206 [lb_av] 206 [lb_av] eCW1 ([facility]) Heart rate 64 /min 64 /min eCW1 ([facility]) Oxygen saturation in Arterial blood by Pulse oximetry 96 % 96 % MEDENT ([facility] Body mass index (BMI) [Ratio] 28.0 kg/m2 28.0 k g/m2 MEDENT ([facility] [place] body weight 172 [lb_av] 172 [lb_av] MEDEN T ([facility] Body weight 201.00 [lb_av] 201.00 [lb_av] MEDEN T ([facility] Body height 71 [in_i] 71 [in_i] MEDENT ([facility] 5'11" Respiratory rate 16 /min 16 /min MEDENT ( [facility] Heart rate 75 /min 75 /min MEDENT ([facility] Body temperature 96.6 [degF] 96.6 [degF] MEDENT ([facility] Diastolic blood pressure 60 mm[Hg] 60 mm[Hg] MEDENT ([facility] Systolic blood pressure 102 mm[Hg] 102 mm[Hg] M EDBILL ([facility] Body temperature 97.2 [degF] 97.2 [degF] eCW1 ( [facility]) Body mass index (BMI) [Ratio] 28.17 kg/m2 28.17 kg/m2 eCW1 ([facility]) Body height 71 [in_i] 71 [in_i] eCW1 ([facility]) Body weight 202 [lb_av] 202 [lb_av] eCW1 ([facility]) Heart rate 68 /min 68 /min eCW1 ([facility]) Diastolic blood pressure 77 mm[Hg] 77 mm[Hg] eCW1 ([facility]) Systolic blood pressure 120 mm[Hg] 120 mm[Hg] e CW1 ([facility]) Body temperature 97.5 [degF] 97.5 [degF] eCW1 ( [facility]) Respiratory rate 18 /min 18 /min eCW1 ([facility]) Heart rate 80 /min 80 /min eCW1 ([facility]) Body mass index (BMI) [Ratio] 28.59 kg/m2 28.59 kg/m2 eCW1 ([facility]) Body height [in_i] eCW1 ([facility]) Body weight 205 [lb_av] 205 [lb_av] eCW1 ([facility]) Diastolic blood pressure 94 mm[Hg] 94 mm[Hg] eCW1 ([facility]) Systolic blood pressure 156 mm[Hg] 156 mm[Hg] e CW1 ([facility]) Body temperature 96.8 [degF] 96.8 [degF] eCW1 ( [facility]) Respiratory rate 18 /min 18 /min eCW1 ([facility]) Heart rate 74 /min 74 /min eCW1 ([facility]) Body mass index (BMI) [Ratio] 28.73 kg/m2 28.73 kg/m2 eCW1 ([facility]) Body height [in_us] eCW1 ([facility]) Body weight Measured 206 [lb_av] 206 [lb_av] eC W1 ([facility]) Systolic blood pressure 120 mm[Hg] 120 mm[Hg] M EDENT ([facility] Oxygen saturation in Arterial blood by Pulse oximetry 97 % 97 % MEDENT ([facility] Body mass index (BMI) [Ratio] 27.9 kg/m2 27.9 k g/m2 MEDENT ([facility] [place] body weight 172 [lb_av] 172 [lb_av] MEDEN [...] Body height 71 [in_i] 71 [in_i] MEDENT ([facility] 5'11" Respiratory rate 16 /min 16 /min MEDENT ( [facility] Heart rate 73 /min 73 /min MEDENT ([facility] Body temperature 98.0 [degF] 98.0 [degF] MEDENT ([facility] Diastolic blood pressure 72 mm[Hg] 72 mm[Hg] MEDENT ([facility] Systolic blood pressure 108 mm[Hg] 108 mm[Hg] M EDENT ([facility] Oxygen saturation in Arterial blood by Pulse oximetry 98 % 98 % MEDENT ([facility] Body mass index (BMI) [Ratio] 28.2 kg/m2 28.2 k g/m2 MEDENT ([facility] Body weight 202.00 [lb_av] 202.00 [lb_av] MEDEN T ([facility] Body height 71 [in_i] 71 [in_i] MEDENT ([facility] 5'11" Respiratory rate 16 /min 16 /min MEDENT ( [facility] Heart rate 70 /min 70 /min MEDENT ([facility] Body temperature 97.8 [degF] 97.8 [degF] MEDENT ([facility] Diastolic blood pressure 78 mm[Hg] 78 mm[Hg] MEDENT ([facility] Systolic blood pressure 100 mm[Hg] 100 mm[Hg] M EDENT ([facility] Respiratory rate 16 /min 16 /min MEDENT ( [facility] ) Heart rate 76 /min 76 /min MEDENT ([facility] ) Diastolic blood pressure 80 mm[Hg] 80 mm[Hg] MEDENT ([facility] ) Systolic blood pressure 130 mm[Hg] 130 mm[Hg] M EDENT ([facility] ) Diastolic blood pressure--sitting 68 mm[Hg] 68 mm[Hg] MEDENT ([facility]) large cuff, Ra Systolic blood pressure--sitting 102 mm[Hg] 102 mm[Hg] MEDENT ([facility]) large cuff, Ra Heart rate 63 /min 63 /min MEDENT ([facility] Body mass index (BMI) [Ratio] 28.6 kg/m2 28.6 k g/m2 MEDENT ([facility]) Body height 71 [in_i] 71 [in_i] MEDENT ([facility] 5'11" Body weight 205.00 [lb_av] 205.00 [lb_av] MEDEN T ([facility]) Deprecated Oxygen saturation in Capillary blood by Oximetry 97 % 97 % eCW1 ([facility]) Respiratory rate 18 /min 18 /min eCW1 ([facility]) Heart rate 59 /min 59 /min eCW1 ([facility]) Body temperature 97.6 [degF] 97.6 [degF] eCW1 ( [facility]) Body mass index (BMI) [Ratio] 31.07 kg/m2 31.07 kg/m2 eCW1 ([facility]) Body weight Measured 207.4 [lb_av] 207.4 [lb_av ] eCW1 ([facility]) Body height 68.5 [in_us] 68.5 [in_us] eCW1 ([facility]) Oxygen saturation in Arterial blood by Pulse oximetry 98 % 98 % MEDENT ([facility] Body mass index (BMI) [Ratio] 28.9 kg/m2 28.9 k g/m2 MEDENT ([facility] Body weight 207.00 [lb_av] 207.00 [lb_av] MEDEN T ([facility] Body height 71 [in_i] 71 [in_i] MEDENT ([facility] 5'11" Respiratory rate 16 /min 16 /min MEDENT ( [facility] Heart rate 73 /min 73 /min MEDENT ([facility] Body temperature 97.6 [degF] 97.6 [degF] MEDENT ([facility] Diastolic blood pressure 64 mm[Hg] 64 mm[Hg] MEDENT ([facility] Systolic blood pressure 104 mm[Hg] 104 mm[Hg] Fauzia ARRIAZA ([facility] ID Date Data Source [id number] 04/26/2020 01:22:52 PM [facility] Name Value Range Interpretation Code Description Data Source(s) WEIGHT RECORDED 210 lb 210 lb [facility] Body height Measured 71 in 71 in [facility] WEIGHT RECORDED 210 lb 210 lb [facility] Body height Measured 71 in 71 in [facility] ID Date Data Source [id number] 07/04/2020 10:36:22 AM [facility] Name Value Range Interpretation Code Description Data Source(s) WEIGHT RECORDED 200.[address] [facility] Height 71 Inches 071 Inches [facility] Patient Treatment Plan of Care Planned Activity Planned Date Details Description Data Source (s) Tamsulosin hydrochloride 0.4 MG Oral Capsule 11/15/2019 12:00:00 AM EDT eCW1 ([facility]) Tamsulosin hydrochloride 0.4 MG Oral Capsule 11/15/2019 12:00:00 AM EDT eCW1 ([facility]) Tamsulosin hydrochloride 0.4 MG Oral Capsule 11/15/2019 12:00:00 AM EDT eCW1 ([facility])
--- NOTE | 2020-07-24 13:56 | HPE ---
HISTORY AND PHYSICAL DATE OF ADMISSION: 07/24/2020 CHIEF COMPLAINT: Shortness of breath for one month and confusion. HISTORY OF PRESENT ILLNESS: A 75-year-old male with a history of COPD, solitary kidney, dementia, follows with [facility] Neu[facility]ist, Dr. Singh, on chronic Memantine, do not resuscitate, do not intubate, male who lives at home, has been in his usual state of health until about a month ago when he started experiencing worsening shortness of breath usually with exertion without any nausea, vomiting, diaphoresis, palpitations, lightheadedness, cough, fever or chills. Patient also admits to on and off chest discomfort but was seen by his french professor, Dr. Jiménez, at his office two weeks ago and was told not to change any of his medications. Patient has been increasingly restless and much more forgetful, unable to take his pills without being assisted by his sister. According to his sister, he has been living with her, Nedra, who is also the health care proxy, phone number is [phone] and she has noted that he has worsening memory issues and she has been paying his bills. She has also noted that he cannot follow simple commands such as making a sandwich. She would lay out the bread, meat and he is unable to put things together to make himself a sandwich. When he tries to get some water he does not remember to press the lever to get water out of the sink according his sister. Yesterday, he has been increasingly agitated and usually sits in the living room or drives around with his truck. He was unable to find the truck keys yesterday and started to accuse Nedra, his sister, that she had taken them. He started calling her many names which was unusual for him. The sister was quite worried about him last night but he settled down on his own. Patient called 911 this morning, an ambulance came due to his complaints of shortness of breath, limitations of ADLs with walking more than 20 or 30 feet. He denies any cough, either increased frequency or sputum production and was brought into the Emergency Room for further evaluation. In the ER today, the patient had diminished breath sounds. Chest x-ray was clear without pneumonia. Respiratory panel was negative. Negative for Coronavirus. Pro-brain natruretic peptide was 228, troponin was negative and he was not anemic with normal hemoglobin of 13 and hematocrit of 43. Hospitalist was called to admit the patient for COPD, evaluation of worsening dementia now with paranoia and increased agitation, unable to care for himself at home with family requesting placement. CT of the head is pending. PAST MEDICAL HISTORY: Solitary kidney due to history of kidney stones, history of renal stent, colon polyps, vitamin D deficiency, COPD, constipation, renovascular hypertension, hyperlipidemia, chronic neck pain, CAD, HI, kidney failure in 2016. ALLERGIES: Codeine, unable to urinate. PAST SURGICAL HISTORY: Renal stone in 2012, was plugged. Right inguinal hernia repair in 2013, back surgery. FAMILY HISTORY: Father at age 74 of polycythemia, mother at 94 with unspecified heart disease. Three sisters. Health care proxy is Nedra. Patient is do not resuscitate, do not intubate. Nedra's phone number is [phone]. The other sister, Nayla, her phone number is [phone]. SOCIAL HISTORY: The patient was a previous smoker, quit many years ago. No alcohol use. No recreational drug use. Patient lives alone at home and has been living with his sister. He drives around with his truck. He was living between his two sisters, and he has been living with Nedra since . Patient is . He has one son in [place] age 30. 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 MOLST form has been signed. HOME MEDICATIONS: Aspirin 81 mg daily, atenolol 25 mg p.o. q.h.s., Plavix 75 mg p.o. q.h.s., Plavix 75 mg q.h.s., spironolactone 25 daily, Prazosin 2 mg daily, Memantine 7 mg daily., vitamin B one tablet daily. ALLERGIES: Codeine. REVIEW OF SYSTEMS: Per HPI. A 12 point system is otherwise negative. PHYSICAL EXAMINATION: VITAL SIGNS: Temperature is 98.8, pulse is 70, respiratory rate is 19, blood pressure is 149/79, 98% on room air. GENERAL: He is alert and oriented to person and place. HEENT: No facial asymmetry. Speech is fluent. Tongue is midline. Dry mucous membranes. Pupils equally round and reactive to light and accommodation. Extraocular muscles are intact. NECK: No JVD or thyromegaly. LUNGS: Diminished, faint expiratory wheezing. HEART: S1 and S2, sinus rhythm. No murmurs, rubs or gallops. ABDOMEN: Soft, nontender and nondistended. Positive bowel sounds x4 quadrants. EXTREMITIES: No cyanosis or clubbing. Trace lower extremity edema. LABORATORY DATA: White count is 6.3, hemoglobin is 13, hematocrit 43, platelet count 247,000. Sodium is 141, potassium is 4.2, chloride 105, bicarbonate 30, BUN 20, creatinine 1.2. Ionized calcium 4.8, troponin of 0, glucose of 106, respiratory panel is negative. Coronavirus-19, influenza and respiratory syncytial virus are negative. Total bilirubin 0.4, direct bilirubin 0.2, AST 22, ALT 29, alkaline phosphatase 71. BNP 228. Total protein 6.5, albumin 3.6, TSH 1.29. Arterial blood gas: Venous blood gas: pH of 7.37, CO2 48, O2 48, bicarbonate 27. Microbiology: Respiratory panel is negative. Chest x-ray: No acute cardiopulmonary process. ASSESSMENT AND PLAN: This is a 75-year-old male with a history of kidney stones with a solitary kidney, chronic kidney disease Stage III, CAD, HI, chronic neck pain, hyperlipidemia, renovascular hypertension, COPD, vitamin D deficiency, constipation, impotence, colonic polyps, brought in by ambulance due to complaints of shortness of breath, admitted for a COPD exacerbation but family is requesting placement due to worsening dementia with paranoia. IMPRESSION: 1. COPD exacerbation. Patient has very mild wheezing and should be stable on just prednisone orally as well as Albuterol. Patient does not require any supplemental oxygen. 2. History of CAD/HI. Continue on aspirin, Plavix, and Atenolol. He is currently not on any statin medications. Obtain records from Dr. Jiménez. Per Nedra, his health care proxy and his sister, the [facility] was [facility], Dr. Jiménez' office two weeks ago and was evaluated for shortness of breath. 3. Acute on chronic dementia. Patient may be having an acute delirious process. Will obtain QA due to confusion, CT of the head. Patient will be continued on Memantine and obtain records from Dr. Singh's office. 4. Solitary kidney due to history of kidney stones. I have discontinued CT chest with IV contrast to rule out pulmonary embolism due to shortness of breath despite having an O2 saturation of 98%. Will obtain a VQ scan to rule out PE to prevent contrast nephropathy. 5. Hypertension. Currently with blood pressure of 130 to 140 secondary to renovascular hypertension. Patient takes beta mirtha which we will resume, atenolol q.h.s. 25 mg as well as spirolactone. 6. Disposition: Patient and family is requesting placement due to worsening dementia and cognitive impairment, unable to care for himself at home according to the patient's family. __ has been consulted.
[2020-07-24 14:02] VITALS: BP 152/93
--- NOTE | 2020-07-24 14:20 | REP ---
INDICATION: ams. COMPARISON: March 20, 2019.. TECHNIQUE: Helical scanning is acquired. 5 mm axial images were reformatted. Coronal MPR images were generated. FINDINGS: Bone window settings demonstrate an intact bony calvarium. There is no evidence of skull fracture or incidental bony calvarial lesion. The visualized paranasal sinuses appear clear. No intraorbital abnormality is seen. On soft tissue window setting images; the lateral, third, and fourth ventricles are normal in size and position. Camarena-white differentiation pattern is normal above and below the tentorium. There are is no evidence of intracranial hemorrhage. No mass, edema, infarction, or midline shift is seen. No extra-axial fluid collection is appreciated. There is generalized volume loss. Mild small vessel changes are noted. Vascular calcification is noted in the distal internal carotid arteries as before. IMPRESSION: Generalized volume loss and vascular calcification. Mild small vessel changes. No acute intracranial abnormality. No change from March 20, 2019.. <Electronically signed by Prosper Cheema > 07/24/20 [id number]
[2020-07-24] MEDS: SPIRONOLACTONE 25 MG TAB PO SCH (14:28)
--- NOTE | 2020-07-24 15:41 | REP ---
INDICATION: sob r/o pe. COMPARISON: Comparison is made with today's chest x-ray.. TECHNIQUE: 1.0 mCi of technetium 99m DTPA aerosol is utilized for the ventilation study and is followed by a 5.5 mCi dose of intravenous technetium 99m MAA for the perfusion study. A sequence of 8 planar images are acquired for each portion of the study. FINDINGS: Ventilation study shows heterogeneous uptake in the pulmonary parenchyma and patchy central bronchial deposition of inspired tracer consistent with some degree of obstructive airways disease. The perfusion study shows better distribution of parenchymal tracer. There is a matched defect in the left base in the lingula. There is a matched defect in the right middle lobe distribution. No mismatched V/Q defect is seen. IMPRESSION: Low probability scan for pulmonary embolus. <Electronically signed by Prosper Cheema > 07/24/20 [id number]
[2020-07-24] MEDS ORDERED: methylPREDNISolone 125MG 2ML VIAL IV SCH (18:00)
[2020-07-24 18:22] LABS: CK-MB VALUE MASS 5.5 NG/ML (<3.6); CPK CREATINE PHOSPHOKINASE 253 U/L (39-308); MB/CK RELATIVE INDEX 2.17 (< OR =4); TROPONIN I < 0.02 NG/ML (< 0.10)
--- NOTE | 2020-07-24 19:43 | ECGEPIP ---
[facility] - ED Test Date: 2020-07-24 Pat Name: PRINCE AGEE Department: Room: - Gender: Male [employer]: : 1945 Requested By: Lorena Levi Order Number: [id number] Reading MD: Ivan Watkins Measurements Intervals [place] Rate: 65 P: 51 MI: 146 QRS: -2 QRSD: 86 T: 74 QT: 390 QTc: 405 Interpretive Statements Normal sinus rhythm SIMILAR TO 07/03/20 Electronically Signed on 07-24-2020 19:43:30 EST by Ivan Watkins
[2020-07-24] MEDS: atenoloL 25 MG TAB PO SCH (20:38)
[2020-07-24] MEDS: CLOPIDOGREL 75 MG TAB PO SCH (20:38)
[2020-07-24] MEDS: predniSONE 20 MG TAB PO SCH (20:38)
[2020-07-24] MEDS: ASPIRIN 81 MG ENTERIC TAB PO SCH (20:38)
[2020-07-24] MEDS: MEMANTINE 5MG TABLET (NAMENDA) PO SCH (20:38)
[2020-07-24 22:00] VITALS: BP 154/80
[2020-07-25 00:06] LABS: CK-MB VALUE MASS 6.1 NG/ML (<3.6); CPK CREATINE PHOSPHOKINASE 240 U/L (39-308); MB/CK RELATIVE INDEX 2.54 (< OR =4); TROPONIN I < 0.02 NG/ML (< 0.10)
[2020-07-25] MEDS: IPRATROPIUM 0.5MG/ALBUTEROL 2.5MG INH SOL UD 3ML (DUONEB) NEB SCH ×5 (04:00→20:00)
[2020-07-25 06:00] VITALS: BP 147/93
[2020-07-25 06:45] LABS: BASO % 0.2 % (0.0-1.0); HEMATOCRIT 42.4 % (42.0-52.0); HEMOGLOBIN 13.7 g/dl (13.5-17.5); LYMPH # 0.3 10^3/uL (1.5-5.0); LYMPH % 5.1 % (24.0-44.0); MEAN CORPUSCULAR HEMOGLOBIN 30.1 pg (27.0-33.0); MEAN CORPUSCULAR HGB CONC 32.3 g/dl (32.0-36.5); MEAN CORPUSCULAR VOLUME 93.2 fl (80.0-96.0); MONO # 0.1 10^3/uL (0.0-0.8); MONO % 1.6 % (2.0-8.0); NEUTROPHILS # 5.8 10^3/uL (1.5-8.5); NEUTROPHILS % 92.6 % (36.0-66.0); PLATELET COUNT, AUTOMATED 262 10^3/uL (150-450); RED BLOOD COUNT 4.55 10^6/uL (4.30-6.10); WHITE BLOOD COUNT 6.3 10^3/uL (4.0-10.0)
[2020-07-25 07:05] LABS: CALCIUM LEVEL 8.9 MG/DL (8.8-10.2); CREATININE FOR GFR 1.43 MG/DL (0.70-1.30); GLOMERULAR FILTRATION RATE 51.2 (>42); POTASSIUM SERUM 4.5 MEQ/L (3.5-5.1)
[2020-07-25] MEDS: MEMANTINE 5MG TABLET (NAMENDA) PO SCH ×2 (08:06→20:28)
[2020-07-25] MEDS: predniSONE 20 MG TAB PO SCH ×2 (08:07→20:28)
[2020-07-25] MEDS: SPIRONOLACTONE 25 MG TAB PO SCH (08:07)
--- NOTE | 2020-07-25 10:07 | IPN ---
PROGRESS NOTE DATE: 07/25/2020 SUBJECTIVE: The patient was seen and examined at the bedside. Chart has been reviewed. The patient's breathing is back to baseline, denies any chest pain, pressure, tightness, lightheadedness, or dizziness. Denies any dyspnea on exertion. He has walked from the bedroom to the bathroom without any difficulty. Denies any cough this morning. The patient admitted to having his sister help with his pills at home as well as his bills. He says that he was unable to pay for his pills because he does not use a computer and his handwriting has been bad. He has been on Namenda given by Dr. Singh from [facility] but he had no idea that this was for dementia. PHYSICAL EXAMINATION: VITALS: Temperature 98.6, pulse 84, respiratory rate 20, blood pressure 147/93, 95% on room air. GENERAL: The patient is awake, alert, oriented to person and place, disoriented to time, unable to provide the date. HEENT: Face is symmetric, tongue midline. Dry mucous membranes. NECK: No JVD, no thyromegaly, no cervical lymphadenopathy. LUNGS: Clear to auscultation. There are no wheezes, rhonchi or rales. Air entry is equal. No kyphoscoliosis. No use of accessory respiratory muscles. HEART: S1, S2, sinus rhythm. ABDOMEN: Soft, nontender, non-distended, positive bowel sounds. EXTREMITIES: No cyanosis or clubbing. LABORATORY DATA 07/25: White count 6.7, hemoglobin 13, hematocrit 42, platelet count 262. Sodium 239, potassium 4.5, chloride 106, bicarb 25, BUN 18, creatinine 1.43, glucose 176, troponin less than 0.02. Respiratory panel is negative. Coronavirus is negative. V/Q scan: Low probability of pulmonary embolism. CT of the head: Mild small vessel changes, no acute intracranial abnormality, no change from previous. ASSESSMENT/PLAN: This is a 75-year-old male with history of COPD, chronic dementia on Namenda, history of CAD, [place], solitary kidney due to history of kidney stones with chronic kidney disease stage 3, hypertension, chronic neck pain, renovascular hypertension, hyperlipidemia, vitamin D deficiency, constipation, impotence, colonic polyps, brought in by ambulance that the patient called from his sister's house, Nedra, due to shortness of breath for the past one month. The patient was evaluated by his business office manager two weeks ago and was non-cardiac in nature, admitted for COPD exacerbation with worsening dementia with paranoia and unable to care for himself at home. The patient has been living with his sister Nedra; she has been increasingly worried as he has become much more verbally abusive when he could not find his truck keys yesterday. The family is requesting for placement. IMPRESSION: 1. COPD exacerbation, improving. The patient is currently on Prednisone twice daily with significant clinical improvement on inhalers. The patient is saturating well on room air. 2. Worsening dementia, unable to care for himself at home. The patient lives alone but has been living with his sister since [place], Nedra, who is healthcare proxy for him despite having a son in [place] who is age 30, is requesting for placement due to worsening dementia and paranoia. The patient thought that Nedra was stealing his truck keys and his money. Nedra is increasingly worried about him not being able to care for himself. She has been paying for his bills and setting out his medications. He is unable to take care of himself at home. PFS has been consulted as well as psychiatrist, Dr. Hidalgo. I will also call Dr. Singh, neurologist, to see if the patient has worsened dementia, enough to be placed in a halfway. 3. Solitary kidney due to history of kidney stones with chronic kidney disease stage 3. Shortness of breath was evaluated with V/Q scan yesterday with low probability of PE. Avoid nephrotoxins, renal dose all medications; avoid contrast studies due to chronic kidney disease and solitary kidney. 4. Hypertension, resumed Atenolol. DISPOSITION: The family is requesting for placement due to worsening dementia and paranoia. According to Nedra who is the healthcare proxy, the patient is unable to care for himself, he is unable to pay for his bills, take his medications for make his own meals.
--- NOTE | 2020-07-25 13:03 | IPNPDOC ---
Date Seen The patient was seen on 07/25/20. Progress Note Dementia -per neurologist account solutions analyst Dr. Lee, patient's last visit was march 2020, and he was driving then. -per patient's sister, pt has worsened since , and family is worried about him driving around. -Rosa Monahan recommends increasing namenda to 10 mg bid and starting donepezil 5mg po qam and monitoring for bradycardia and diarrhea. if no side effects from donepezil pt can be increased. VS, I&O, 24H, Fishbone Vital Signs/I&O Vital Signs Date Time Temp Pulse Resp B/P (MAP) Pulse Ox O2 Delivery O2 Flow Rate FiO2 07/25/20 06:00 98.6 84 20 147/93 (111) 95 07/24/20 14:02 Room Air I&O- Last 24 Hours up to 6 AM 07/25/20 06:00 Intake Total 840 ml Output Total 0 ml Balance 840 ml Laboratory Data 24H LABS Laboratory Tests 2 07/24/20 17:38: Total Creatine Kinase 253, Creatine Kinase MB 5.5H, Creatine Kinase MB Relative Index 2.17, Troponin I < 0.02 07/24/20 23:30: Total Creatine Kinase 240, Creatine Kinase MB 6.1H, Creatine Kinase MB Relative Index 2.54, Troponin I < 0.02 07/25/20 05:32: Immature Granulocyte % (Auto) 0.5, Neutrophils (%) (Auto) 92.6H, Lymphocytes (%) (Auto) 5.1L, Monocytes (%) (Auto) 1.6L, Eosinophils (%) (Auto) 0.0, Basophils (%) (Auto) 0.2, Neutrophils # (Auto) 5.8, Lymphocytes # (Auto) 0.3L, Monocytes # (Auto) 0.1, Eosinophils # (Auto) 0.0, Basophils # (Auto) 0.0, Nucleated Red Blood Cells % (auto) 0.0, Anion Gap 8, Glomerular Filtration Rate 51.2, Calcium Level 8.9 CBC/BMP Laboratory Tests 07/25/20 05:32 Microbiology Microbiology 07/24/20 Respiratory Virus Panel (PCR) ([facility]) - Final, Complete STEPHANY HAMMOND MD Jul 25, 2020 13:03
[2020-07-25] MEDS: DONEPEZIL 5 MG TAB PO SCH (13:27)
[2020-07-25 14:00] VITALS: BP 149/90
--- NOTE | 2020-07-25 19:20 | MHIPNPDOC ---
[facility] Progress Note Progress Note DATE OF SERVICE: 07/25/20 HISTORY: As per Dr. Nova report: "A 75-year-old male with a history of COPD,solitary kidney, dementia, follows with [facility]ist, Dr. Singh, on chronic Memantine, do not resuscitate, do not intubate, male who lives at home, has been in his usual state of health until about a month ago when he started experiencing worsening shortness of breath usually with exertion without any nausea, vomiting, diaphoresis, palpitations, lightheadedness, cough, fever or chills. Patient also admits to on and off chest discomfort but was seen by his cane cutter, Dr. Jiménez, at his office two weeks ago and was told not to change any of his medications. Patient has been increasingly restless and much more forgetful" VITAL SIGNS: See below. NEW TEST RESULTS: See below CURRENT MEDICATIONS: See below. MENTAL STATUS EXAMINATION: Patient is a 75-year old male, who is disheveled, unkempt, dressed in hospital clothes, wearing a mask Speech: Is sparse, needs to be prompted most of the time. Nomral volume, slow, not fluent. Language skills are fair. Thought processes including: not rational, has problems processing the information. Thought content: Not suicidal, not homicidal, he is future orientated, wants to go home. He appears paranoid, is mistrustful, withholding information during the interview. Abstract reasoning, and computation: He did well with the seies of 7's, from 100 until 79 93, 86, 79) and after 79, he couldn't do it anymore. Became very defensive when I asked him to spell the word world backwards and said "Now, I don't like this, what is this, spelling lessons?" Description of associations: loose. Description of abnormal or psychotic thoughts: He is responding to internal stimuli but is trying to conceal it. In the middle of the interview, he asy" Now, that was really terrible, that what you did, to bring that woman here to talk, when you don't even know her, you only had seen her on the sidewalk". Judgment: Poor Insight: poor. Orientation: x 3. Recent and remote memory: limited, he is not able to tell me why was he brought to the Hospital, remembers bits and pieces only. Attention span and concentration: fair. Language: adequate. Fund of knowledge: unable to assess, patient is not cooperative. Mood: anxious, irritable. Affect: congruent with mood, constricted. DIAGNOSES: 1. R/O neurocognitive disorder ASSESSMENT: The patient is minimizing all his symptoms, he denied all symptoms of depression, anxiety, claire, truma and psychosis but he is responding to internal stimuli, he is having bizarre thoughts, he thought that I had brought someone to the room from the sidewalk and when I asked him to clarify that he said "never mind". He is clearly very mistrustful, withholding information. His affect is blunted, he is irritable, defensive. When I finished the interview, he thought that I had been talking to him for one hour, when it had been for 20 minutes. He has lost concept of time. He is confabulating but he asked me if I would make a favorable report on him, so, it makes me think that he is aware, at a certain level, that his level of function is decreased and that's why he is confabulating and minimizing to cover it up. He has no capacity to make decisons regarding his health. His insight and judgement are compromised. MANAGEMENT PLAN: Start Zyprexa 2.5 mgs PO QHS TIME SPENT: 25 minutes. Vital Signs Vital Signs Date Time Temp Pulse Resp B/P (MAP) Pulse Ox O2 Delivery O2 Flow Rate FiO2 07/25/20 14:00 97.5 96 18 149/90 (109) 95 07/24/20 14:02 Room Air Laboratory Data 24H Labs Laboratory Tests 2 07/24/20 17:38: Total Creatine Kinase 253, Creatine Kinase MB 5.5H, Creatine Kinase MB Relative Index 2.17, Troponin I < 0.02 07/24/20 23:30: Total Creatine Kinase 240, Creatine Kinase MB 6.1H, Creatine Kinase MB Relative Index 2.54, Troponin I < 0.02 07/25/20 05:32: Immature Granulocyte % (Auto) 0.5, Neutrophils (%) (Auto) 92.6H, Lymphocytes (%) (Auto) 5.1L, Monocytes (%) (Auto) 1.6L, Eosinophils (%) (Auto) 0.0, Basophils (%) (Auto) 0.2, Neutrophils # (Auto) 5.8, Lymphocytes # (Auto) 0.3L, Monocytes # (Auto) 0.1, Eosinophils # (Auto) 0.0, Basophils # (Auto) 0.0, Nucleated Red Blood Cells % (auto) 0.0, Anion Gap 8, Glomerular Filtration Rate 51.2, Calcium Level 8.9 CBC/BMP Laboratory Tests 07/25/20 05:32 Current Medications Current Medications Medications (Trade) Dose Ordered Sig/Christi Route PRN Reason Start Time Stop Time Status Last Admin Dose Admin Albuterol/ Ipratropium (Duoneb (Ipr 0.5mg/Alb 2.5mg)) 3 ml Q2HP PRN NEB SOB/WHEEZING 07/24/20 11:45 Albuterol/ Ipratropium (Duoneb (Ipr 0.5mg/Alb 2.5mg)) 3 ml RQ4H NEB 07/24/20 12:00 07/25/20 15:56 Aspirin (Ecotrin) 81 mg QHS PO 07/24/20 21:00 07/24/20 20:38 Atenolol (Tenormin) 25 mg QHS PO 07/24/20 21:00 07/24/20 20:38 Clopidogrel Bisulfate (PLAVix) 75 mg QHS PO 07/24/20 21:00 07/24/20 20:38 Donepezil HCl (AriCEPT) 5 mg DAILY PO 07/25/20 09:00 07/25/20 13:27 Home Med (Med Rec Complete!) ASDIRECTED XX 07/24/20 11:15 07/24/20 11:10 DC Memantine (Namenda) 5 mg BID PO 07/24/20 21:00 07/25/20 12:58 DC 07/25/20 08:06 Memantine (Namenda) 10 mg BID PO 07/25/20 21:00 Methylprednisolone (SOLUmedrol) 60 mg Q6H IV 07/24/20 18:00 07/24/20 12:59 DC Prednisone (Deltasone) 60 mg BID PO 07/24/20 21:00 07/25/20 08:07 Spironolactone (Aldactone) 25 mg DAILY PO 07/24/20 09:00 07/25/20 08:07 Allergies Coded Allergies: codeine (Verified Allergy, Unknown, 4/2/19) CARLINE PABLO MD Jul 25, 2020 16:06
[2020-07-25] MEDS: OLANZapine 2.5MG TABLET PO SCH (20:27)
[2020-07-25] MEDS: ASPIRIN 81 MG ENTERIC TAB PO SCH (20:27)
[2020-07-25] MEDS: QUEtiapine FUMARATE 25 MG TAB PO PRN (20:28)
[2020-07-25] MEDS: CLOPIDOGREL 75 MG TAB PO SCH (20:28)
[2020-07-25] MEDS: atenoloL 25 MG TAB PO SCH (20:29)
[2020-07-25] MEDS: HALOPERIDOL 5MG/ML VIAL (J1630 PER 1) IM PRN (21:08)
[2020-07-25] MEDS: diphenhydrAMINE 50MG/ML VIAL (J1200) IM PRN (21:08)
[2020-07-26] MEDS: IPRATROPIUM 0.5MG/ALBUTEROL 2.5MG INH SOL UD 3ML (DUONEB) NEB SCH ×6 (04:00→19:20)
[2020-07-26 08:42] LABS: BASO % 0.3 % (0.0-1.0); EOS # 0.1 10^3/uL (0.0-0.5); EOS % 1.2 % (0.0-3.0); HEMATOCRIT 43.2 % (42.0-52.0); HEMOGLOBIN 13.4 g/dl (13.5-17.5); LYMPH # 0.9 10^3/uL (1.5-5.0); LYMPH % 9.8 % (24.0-44.0); MEAN CORPUSCULAR VOLUME 93.5 fl (80.0-96.0); MONO # 0.4 10^3/uL (0.0-0.8); MONO % 4.9 % (2.0-8.0); NEUTROPHILS # 7.6 10^3/uL (1.5-8.5); NEUTROPHILS % 83.4 % (36.0-66.0); PLATELET COUNT, AUTOMATED 264 10^3/uL (150-450); RED BLOOD COUNT 4.62 10^6/uL (4.30-6.10); WHITE BLOOD COUNT 9.1 10^3/uL (4.0-10.0)
[2020-07-26 09:11] LABS: CREATININE FOR GFR 1.5 MG/DL (0.70-1.30); GLOMERULAR FILTRATION RATE 48.4 (>42); POTASSIUM SERUM 3.9 MEQ/L (3.5-5.1)
[2020-07-26] MEDS: MEMANTINE 5MG TABLET (NAMENDA) PO SCH ×2 (10:12→21:04)
[2020-07-26] MEDS: OLANZapine 2.5MG TABLET PO SCH ×2 (10:12→21:04)
[2020-07-26] MEDS: predniSONE 20 MG TAB PO SCH ×2 (10:12→21:04)
[2020-07-26] MEDS: DONEPEZIL 5 MG TAB PO SCH (10:12)
[2020-07-26] MEDS: SPIRONOLACTONE 25 MG TAB PO SCH (10:13)
--- NOTE | 2020-07-26 12:21 | IPN ---
PROGRESS NOTE DATE: 07/26/2020 SUBJECTIVE: Patient had a difficult time yesterday and was very agitated and could not be redirected. He required a sitter and Haldol due to increasing aggression and anxiety wanting to go home. Patient was evaluated by Dr. Hidalgo who recommended Zyprexa 2.5 mg at bedtime. Patient was found to be confabulating and has no capacity to make decisions regarding his health. His insight and judgment are compromised. Per his neurologist review of his medical records indicate that he does have a baseline cognitive impairment and dementia with recommendations to increase his Namenda to 10 mg twice a day and to start on Aricept 5 mg daily. Since he is started on Aricept we are to monitor his heart rate and if it becomes bradycardic we must discontinue the patient's Aricept. Patient is unable to care for self at home and currently is awaiting options for discharge. His family, Health Care Proxy Nedra is unable to care for him at home. CURRENT ISSUES: 1. Worsening dementia now on increasing dose of Namenda 10 twice a day and started on Aricept 5 mg every morning. Monitoring for bradycardia and diarrhea. Patient will require 24/7 care. DFS has been consulted to assist in discharge planning. Patient's Health Care Proxy is unable to care for him at home. 2. COPD exacerbation: Resolved. He is currently stable on prednisone. We can start decreasing this to prednisone 40 mg daily. Continue on inhalers. 3. 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 4. Hypertension: Controlled on atenolol. 5. History of CAD, [place]: He has no acute cardiac ischemic complaints. He is continued on aspirin 81 mg, atenolol 25 mg and Plavix 75 mg at bedtime. DISPOSITION: Patient will be changed to [facility] status until placement can be finalized. CODE STATUS: He is currently Do Not Resuscitate, Do Not Intubate.
[2020-07-26] MEDS: CLOPIDOGREL 75 MG TAB PO SCH (21:04)
[2020-07-26] MEDS: atenoloL 25 MG TAB PO SCH (21:04)
[2020-07-26] MEDS: ASPIRIN 81 MG ENTERIC TAB PO SCH (21:04)
[2020-07-26] MEDS: QUEtiapine FUMARATE 25 MG TAB PO PRN (21:05)
[2020-07-26 22:00] VITALS: BP 142/78
[2020-07-27 06:52] VITALS: BP 176/82
[2020-07-27] MEDS: IPRATROPIUM 0.5MG/ALBUTEROL 2.5MG INH SOL UD 3ML (DUONEB) NEB SCH ×6 (07:38→23:26)
[2020-07-27 08:43] LABS: BASO % 0.2 % (0.0-1.0); HEMATOCRIT 43.7 % (42.0-52.0); HEMOGLOBIN 14.1 g/dl (13.5-17.5); LYMPH # 0.4 10^3/uL (1.5-5.0); LYMPH % 3.5 % (24.0-44.0); MEAN CORPUSCULAR HEMOGLOBIN 30.3 pg (27.0-33.0); MEAN CORPUSCULAR HGB CONC 32.3 g/dl (32.0-36.5); MONO # 0.2 10^3/uL (0.0-0.8); MONO % 1.8 % (2.0-8.0); NEUTROPHILS # 11.5 10^3/uL (1.5-8.5); NEUTROPHILS % 93.8 % (36.0-66.0); PLATELET COUNT, AUTOMATED 290 10^3/uL (150-450); RED BLOOD COUNT 4.65 10^6/uL (4.30-6.10); WHITE BLOOD COUNT 12.2 10^3/uL (4.0-10.0)
[2020-07-27 08:56] LABS: CALCIUM LEVEL 8.8 MG/DL (8.8-10.2); CREATININE FOR GFR 1.43 MG/DL (0.70-1.30); GLOMERULAR FILTRATION RATE 51.2 (>42); POTASSIUM SERUM 4.5 MEQ/L (3.5-5.1)
[2020-07-27] MEDS: OLANZapine 2.5MG TABLET PO SCH ×2 (10:06→20:44)
[2020-07-27] MEDS: DONEPEZIL 5 MG TAB PO SCH (10:06)
[2020-07-27] MEDS: MEMANTINE 5MG TABLET (NAMENDA) PO SCH ×2 (10:06→20:45)
[2020-07-27] MEDS: SPIRONOLACTONE 25 MG TAB PO SCH (10:06)
[2020-07-27] MEDS: predniSONE 20 MG TAB PO SCH ×2 (10:06→20:44)
[2020-07-27] MEDS ORDERED: OLAN2.5T25 PO (10:37)
[2020-07-27] MEDS ORDERED: ARIC1TAB PO (10:37)
[2020-07-27] MEDS ORDERED: PROV108A INH (10:37)
[2020-07-27] MEDS ORDERED: PRED10TA2 PO (10:37)
[2020-07-27] MEDS ORDERED: MEMA1TAB3 PO (10:37)
[2020-07-27] MEDS ORDERED: PRIL20TA2 PO (10:37)
[2020-07-27] MEDS ORDERED: MOM 30ML SUSPENSION UDC PO PRN (10:45)
[2020-07-27 14:00] VITALS: BP 114/64
[2020-07-27] MEDS: ASPIRIN 81 MG ENTERIC TAB PO SCH (20:44)
[2020-07-27] MEDS: CLOPIDOGREL 75 MG TAB PO SCH (20:44)
[2020-07-27] MEDS: atenoloL 25 MG TAB PO SCH (20:45)
[2020-07-27 22:00] VITALS: BP 149/85
[2020-07-28 06:00] VITALS: BP 147/68
[2020-07-28 06:27] LABS: BASO % 0.1 % (0.0-1.0); HEMOGLOBIN 14.4 g/dl (13.5-17.5); LYMPH # 0.5 10^3/uL (1.5-5.0); LYMPH % 3.5 % (24.0-44.0); MEAN CORPUSCULAR HEMOGLOBIN 30.4 pg (27.0-33.0); MEAN CORPUSCULAR HGB CONC 32.7 g/dl (32.0-36.5); MONO # 0.4 10^3/uL (0.0-0.8); MONO % 2.7 % (2.0-8.0); NEUTROPHILS % 92.8 % (36.0-66.0); PLATELET COUNT, AUTOMATED 285 10^3/uL (150-450); RED BLOOD COUNT 4.73 10^6/uL (4.30-6.10)
[2020-07-28 06:52] LABS: BLOOD UREA NITROGEN 26 MG/DL (7-18); CALCIUM LEVEL 8.8 MG/DL (8.8-10.2); CARBON DIOXIDE LEVEL 25 MEQ/L (21-32); CHLORIDE LEVEL 107 MEQ/L (98-107); GLOMERULAR FILTRATION RATE > 60.0 (>42); GLUCOSE, FASTING 142 MG/DL (70-100); POTASSIUM SERUM 4.6 MEQ/L (3.5-5.1); SODIUM LEVEL 140 MEQ/L (136-145)
[2020-07-28] MEDS: IPRATROPIUM 0.5MG/ALBUTEROL 2.5MG INH SOL UD 3ML (DUONEB) NEB SCH ×5 (07:32→23:44)
[2020-07-28] MEDS: MEMANTINE 5MG TABLET (NAMENDA) PO SCH ×2 (10:44→21:01)
[2020-07-28] MEDS: predniSONE 20 MG TAB PO SCH ×2 (10:44→21:01)
[2020-07-28] MEDS: DONEPEZIL 5 MG TAB PO SCH (10:44)
[2020-07-28] MEDS: OLANZapine 2.5MG TABLET PO SCH ×2 (10:44→21:02)
[2020-07-28] MEDS: SPIRONOLACTONE 25 MG TAB PO SCH (10:45)
[2020-07-28 14:00] VITALS: BP 130/64
[2020-07-28] MEDS: ASPIRIN 81 MG ENTERIC TAB PO SCH (21:02)
[2020-07-28] MEDS: CLOPIDOGREL 75 MG TAB PO SCH (21:02)
[2020-07-28] MEDS: atenoloL 25 MG TAB PO SCH (21:03)
[2020-07-28 22:00] VITALS: BP 172/96
[2020-07-29] MEDS: IPRATROPIUM 0.5MG/ALBUTEROL 2.5MG INH SOL UD 3ML (DUONEB) NEB SCH ×6 (03:18→23:42)
[2020-07-29 06:00] VITALS: BP 165/92
[2020-07-29] MEDS: HALOPERIDOL 5MG/ML VIAL (J1630 PER 1) IM PRN (07:44)
[2020-07-29] MEDS: diphenhydrAMINE 50MG/ML VIAL (J1200) IM PRN (07:44)
[2020-07-29] MEDS ORDERED: HALOPERIDOL 5MG/ML VIAL (J1630 PER 1) IM PRN (07:45)
[2020-07-29 07:59] LABS: BASO % 0.1 % (0.0-1.0); HEMATOCRIT 42.9 % (42.0-52.0); HEMOGLOBIN 13.8 g/dl (13.5-17.5); LYMPH # 0.4 10^3/uL (1.5-5.0); LYMPH % 3.9 % (24.0-44.0); MEAN CORPUSCULAR HEMOGLOBIN 29.9 pg (27.0-33.0); MEAN CORPUSCULAR HGB CONC 32.2 g/dl (32.0-36.5); MEAN CORPUSCULAR VOLUME 93.1 fl (80.0-96.0); MONO # 0.4 10^3/uL (0.0-0.8); MONO % 3.5 % (2.0-8.0); NEUTROPHILS # 10.4 10^3/uL (1.5-8.5); NEUTROPHILS % 91.5 % (36.0-66.0); PLATELET COUNT, AUTOMATED 292 10^3/uL (150-450); RED BLOOD COUNT 4.61 10^6/uL (4.30-6.10); WHITE BLOOD COUNT 11.3 10^3/uL (4.0-10.0)
[2020-07-29] MEDS ORDERED: LORazepam 2 MG/ML VIAL IM PRN (08:00)
[2020-07-29 08:18] LABS: BLOOD UREA NITROGEN 30 MG/DL (7-18); CALCIUM LEVEL 8.7 MG/DL (8.8-10.2); CARBON DIOXIDE LEVEL 26 MEQ/L (21-32); CHLORIDE LEVEL 107 MEQ/L (98-107); CREATININE FOR GFR 1.23 MG/DL (0.70-1.30); GLOMERULAR FILTRATION RATE > 60.0 (>42); GLUCOSE, FASTING 128 MG/DL (70-100); POTASSIUM SERUM 4.5 MEQ/L (3.5-5.1); SODIUM LEVEL 141 MEQ/L (136-145)
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
[2020-07-29] MEDS: OLANZapine 2.5MG TABLET PO SCH ×2 (11:14→21:31)
[2020-07-29] MEDS: SPIRONOLACTONE 25 MG TAB PO SCH (11:14)
[2020-07-29] MEDS: DONEPEZIL 5 MG TAB PO SCH (11:15)
[2020-07-29] MEDS: predniSONE 20 MG TAB PO SCH (11:15)
[2020-07-29] MEDS: MEMANTINE 5MG TABLET (NAMENDA) PO SCH ×2 (11:16→21:31)
[2020-07-29] MEDS: ASPIRIN 81 MG ENTERIC TAB PO SCH (21:32)
[2020-07-29] MEDS: CLOPIDOGREL 75 MG TAB PO SCH (21:32)
[2020-07-29] MEDS: atenoloL 25 MG TAB PO SCH (21:33)
[2020-07-30 06:00] VITALS: BP 148/80
[2020-07-30 06:03] LABS: BASO % 0.4 % (0.0-1.0); EOS # 0.1 10^3/uL (0.0-0.5); HEMATOCRIT 43.5 % (42.0-52.0); LYMPH # 1.2 10^3/uL (1.5-5.0); LYMPH % 14.9 % (24.0-44.0); MEAN CORPUSCULAR HEMOGLOBIN 29.9 pg (27.0-33.0); MEAN CORPUSCULAR HGB CONC 32.2 g/dl (32.0-36.5); MEAN CORPUSCULAR VOLUME 92.9 fl (80.0-96.0); MONO # 0.6 10^3/uL (0.0-0.8); MONO % 7.3 % (2.0-8.0); NEUTROPHILS # 6.2 10^3/uL (1.5-8.5); NEUTROPHILS % 75.3 % (36.0-66.0); PLATELET COUNT, AUTOMATED 267 10^3/uL (150-450); RED BLOOD COUNT 4.68 10^6/uL (4.30-6.10); WHITE BLOOD COUNT 8.3 10^3/uL (4.0-10.0)
[2020-07-30 06:20] LABS: BLOOD UREA NITROGEN 27 MG/DL (7-18); CALCIUM LEVEL 8.8 MG/DL (8.8-10.2); CARBON DIOXIDE LEVEL 27 MEQ/L (21-32); CHLORIDE LEVEL 107 MEQ/L (98-107); CREATININE FOR GFR 1.19 MG/DL (0.70-1.30); GLOMERULAR FILTRATION RATE > 60.0 (>42); GLUCOSE, FASTING 93 MG/DL (70-100); POTASSIUM SERUM 4.1 MEQ/L (3.5-5.1); SODIUM LEVEL 140 MEQ/L (136-145)
[2020-07-30] MEDS: IPRATROPIUM 0.5MG/ALBUTEROL 2.5MG INH SOL UD 3ML (DUONEB) NEB SCH ×4 (07:57→19:23)
[2020-07-30] MEDS: DONEPEZIL 5 MG TAB PO SCH (08:39)
[2020-07-30] MEDS: OLANZapine 2.5MG TABLET PO SCH ×2 (08:39→19:59)
[2020-07-30] MEDS: SPIRONOLACTONE 25 MG TAB PO SCH (08:39)
[2020-07-30] MEDS: predniSONE 20 MG TAB PO SCH (08:39)
[2020-07-30] MEDS: MEMANTINE 5MG TABLET (NAMENDA) PO SCH ×2 (08:39→19:59)
[2020-07-30] MEDS ORDERED: predniSONE 20 MG TAB PO SCH (09:00)
[2020-07-30 10:19] LABS: HEMOGLOBIN 15.2 g/dl (13.5-17.5); MEAN CORPUSCULAR HEMOGLOBIN 30.5 pg (27.0-33.0); MEAN CORPUSCULAR HGB CONC 32.3 g/dl (32.0-36.5); MEAN CORPUSCULAR VOLUME 94.2 fl (80.0-96.0); PLATELET COUNT, AUTOMATED 292 10^3/uL (150-450); RED BLOOD COUNT 4.99 10^6/uL (4.30-6.10); WHITE BLOOD COUNT 8.5 10^3/uL (4.0-10.0)
[2020-07-30 10:40] LABS: CALCIUM LEVEL 9.2 MG/DL (8.8-10.2); CREATININE FOR GFR 1.37 MG/DL (0.70-1.30); GLOMERULAR FILTRATION RATE 53.8 (>42); POTASSIUM SERUM 4.2 MEQ/L (3.5-5.1)
[2020-07-30] MEDS: CLOPIDOGREL 75 MG TAB PO SCH (19:59)
[2020-07-30] MEDS: ASPIRIN 81 MG ENTERIC TAB PO SCH (19:59)
[2020-07-30] MEDS: atenoloL 25 MG TAB PO SCH (20:00)
[2020-07-30] MEDS: QUEtiapine FUMARATE 25 MG TAB PO PRN (21:17)
[2020-07-31] MEDS: IPRATROPIUM 0.5MG/ALBUTEROL 2.5MG INH SOL UD 3ML (DUONEB) NEB SCH ×7 (03:22→23:49)
[2020-07-31] MEDS: HALOPERIDOL 5MG/ML VIAL (J1630 PER 1) IM PRN ×2 (04:00→20:05)
[2020-07-31] MEDS: diphenhydrAMINE 50MG/ML VIAL (J1200) IM PRN ×2 (04:00→20:05)
[2020-07-31 06:00] VITALS: BP 142/76
[2020-07-31 09:15] LABS: BASO % 0.4 % (0.0-1.0); EOS # 0.1 10^3/uL (0.0-0.5); EOS % 1.3 % (0.0-3.0); HEMATOCRIT 47.9 % (42.0-52.0); HEMOGLOBIN 15.1 g/dl (13.5-17.5); LYMPH # 1.4 10^3/uL (1.5-5.0); LYMPH % 15.1 % (24.0-44.0); MEAN CORPUSCULAR HEMOGLOBIN 29.5 pg (27.0-33.0); MEAN CORPUSCULAR HGB CONC 31.5 g/dl (32.0-36.5); MEAN CORPUSCULAR VOLUME 93.7 fl (80.0-96.0); MONO # 0.4 10^3/uL (0.0-0.8); MONO % 4.4 % (2.0-8.0); NEUTROPHILS # 7.3 10^3/uL (1.5-8.5); NEUTROPHILS % 76.8 % (36.0-66.0); PLATELET COUNT, AUTOMATED 335 10^3/uL (150-450); RED BLOOD COUNT 5.11 10^6/uL (4.30-6.10); WHITE BLOOD COUNT 9.6 10^3/uL (4.0-10.0)
[2020-07-31 09:34] LABS: CALCIUM LEVEL 9.4 MG/DL (8.8-10.2); CREATININE FOR GFR 1.52 MG/DL (0.70-1.30); GLOMERULAR FILTRATION RATE 47.7 (>42)
[2020-07-31] MEDS: DONEPEZIL 5 MG TAB PO SCH (09:57)
[2020-07-31] MEDS: predniSONE 20 MG TAB PO SCH (09:57)
[2020-07-31] MEDS: OLANZapine 2.5MG TABLET PO SCH ×2 (09:57→20:04)
[2020-07-31] MEDS: SPIRONOLACTONE 25 MG TAB PO SCH (09:58)
[2020-07-31] MEDS: MEMANTINE 5MG TABLET (NAMENDA) PO SCH ×2 (10:03→20:04)
[2020-07-31] MEDS: ASPIRIN 81 MG ENTERIC TAB PO SCH (20:04)
[2020-07-31] MEDS: QUEtiapine FUMARATE 25 MG TAB PO PRN (20:04)
[2020-07-31] MEDS: CLOPIDOGREL 75 MG TAB PO SCH (20:04)
[2020-07-31] MEDS: atenoloL 25 MG TAB PO SCH (20:05)
[2020-08-01] MEDS: IPRATROPIUM 0.5MG/ALBUTEROL 2.5MG INH SOL UD 3ML (DUONEB) NEB SCH ×6 (04:00→23:09)
[2020-08-01 06:00] VITALS: BP 156/76
[2020-08-01] MEDS: predniSONE 20 MG TAB PO SCH (09:22)
[2020-08-01] MEDS: OLANZapine 2.5MG TABLET PO SCH ×2 (09:22→21:06)
[2020-08-01] MEDS: MEMANTINE 5MG TABLET (NAMENDA) PO SCH ×2 (09:22→21:05)
[2020-08-01] MEDS: DONEPEZIL 5 MG TAB PO SCH (09:22)
[2020-08-01] MEDS: SPIRONOLACTONE 25 MG TAB PO SCH (09:22)
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
--- NOTE | 2020-08-01 17:07 | REP ---
INDICATION: Absconded found outside, unknown if he fell. COMPARISON: 07/24/2020. TECHNIQUE: CT BRAIN PERFORMED IN THE AXIAL PLANE. CORONAL RECONSTRUCTION IMAGES ARE PERFORMED. FINDINGS: Lateral ventricles are midline, basal ganglia symmetric and dilated in proportion to the diffuse moderately severe cerebral atrophy. No midline shift. Camarena-white junction differentiation maintained. There is mild heterogeneous low-attenuation white matter change that may reflect some chronic small vessel ischemic disease. Cortical stripe unchanged with atrophy greatest in the temporal and frontal lobes are present throughout brainstem unremarkable cerebellar atrophy noted but no posterior fossa mass or bleed. Basal cisterns are intact. There are calcifications in the carotid siphons. The mastoids and sinuses were clear. The skull base and calvarium show no fracture or focal lesion. IMPRESSION: 1. Ventriculomegaly in proportion to atrophy unchanged. No intracranial hemorrhage, acute infarct, mass or mass effect. Chronic small vessel white matter ischemic changes of aging. 2. Atherosclerotic calcifications in the carotid siphons with the skull base, calvarium, sinuses and mastoids grossly intact. Stable examination. <Electronically signed by Caio Yi > 08/01/20 0874
[2020-08-01] MEDS: QUEtiapine FUMARATE 25 MG TAB PO PRN (21:05)
[2020-08-01] MEDS: ASPIRIN 81 MG ENTERIC TAB PO SCH (21:05)
[2020-08-01] MEDS: CLOPIDOGREL 75 MG TAB PO SCH (21:06)
[2020-08-01] MEDS: atenoloL 25 MG TAB PO SCH (21:06)
[2020-08-01] MEDS: HALOPERIDOL 5MG/ML VIAL (J1630 PER 1) IM PRN (21:07)
[2020-08-01] MEDS: diphenhydrAMINE 50MG/ML VIAL (J1200) IM PRN (21:07)
[2020-08-02] MEDS: IPRATROPIUM 0.5MG/ALBUTEROL 2.5MG INH SOL UD 3ML (DUONEB) NEB SCH ×4 (03:02→20:00)
[2020-08-02] MEDS: OLANZapine 2.5MG TABLET PO SCH ×2 (09:00→21:07)
[2020-08-02] MEDS: SPIRONOLACTONE 25 MG TAB PO SCH (09:00)
[2020-08-02] MEDS: predniSONE 20 MG TAB PO SCH (09:00)
[2020-08-02] MEDS: MEMANTINE 5MG TABLET (NAMENDA) PO SCH ×2 (09:00→21:06)
[2020-08-02] MEDS: DONEPEZIL 5 MG TAB PO SCH (09:00)
[2020-08-02 10:37] LABS: HEMATOCRIT 45.7 % (42.0-52.0); HEMOGLOBIN 14.7 g/dl (13.5-17.5); MEAN CORPUSCULAR HEMOGLOBIN 29.9 pg (27.0-33.0); MEAN CORPUSCULAR HGB CONC 32.2 g/dl (32.0-36.5); MEAN CORPUSCULAR VOLUME 93.1 fl (80.0-96.0); PLATELET COUNT, AUTOMATED 266 10^3/uL (150-450); RED BLOOD COUNT 4.91 10^6/uL (4.30-6.10); WHITE BLOOD COUNT 8.6 10^3/uL (4.0-10.0)
[2020-08-02] MEDS: ASPIRIN 81 MG ENTERIC TAB PO SCH (21:06)
[2020-08-02] MEDS: QUEtiapine FUMARATE 25 MG TAB PO PRN (21:06)
[2020-08-02] MEDS: atenoloL 25 MG TAB PO SCH (21:07)
[2020-08-02] MEDS: CLOPIDOGREL 75 MG TAB PO SCH (21:07)
[2020-08-03] MEDS: IPRATROPIUM 0.5MG/ALBUTEROL 2.5MG INH SOL UD 3ML (DUONEB) NEB SCH ×6 (00:27→19:42)
[2020-08-03 06:00] VITALS: BP 108/57
[2020-08-03] MEDS: predniSONE 20 MG TAB PO SCH (10:14)
[2020-08-03] MEDS: MEMANTINE 5MG TABLET (NAMENDA) PO SCH ×2 (10:14→20:27)
[2020-08-03] MEDS: OLANZapine 2.5MG TABLET PO SCH ×2 (10:14→20:27)
[2020-08-03] MEDS: SPIRONOLACTONE 25 MG TAB PO SCH (10:15)
[2020-08-03] MEDS: DONEPEZIL 5 MG TAB PO SCH (10:15)
[2020-08-03] MEDS: CLOPIDOGREL 75 MG TAB PO SCH (20:26)
[2020-08-03] MEDS: QUEtiapine FUMARATE 25 MG TAB PO SCH (20:27)
[2020-08-03] MEDS: ASPIRIN 81 MG ENTERIC TAB PO SCH (20:27)
[2020-08-03] MEDS: atenoloL 25 MG TAB PO SCH (20:27)
[2020-08-04] MEDS: IPRATROPIUM 0.5MG/ALBUTEROL 2.5MG INH SOL UD 3ML (DUONEB) NEB SCH ×7 (04:00→23:36)
[2020-08-04 06:00] VITALS: BP 129/80
[2020-08-04] MEDS: OLANZapine 2.5MG TABLET PO SCH ×2 (09:51→19:57)
[2020-08-04] MEDS: SPIRONOLACTONE 25 MG TAB PO SCH (09:51)
[2020-08-04] MEDS: MEMANTINE 5MG TABLET (NAMENDA) PO SCH ×2 (09:51→19:56)
[2020-08-04] MEDS: DONEPEZIL 5 MG TAB PO SCH (09:51)
[2020-08-04] MEDS: QUEtiapine FUMARATE 25 MG TAB PO SCH (19:56)
[2020-08-04] MEDS: ASPIRIN 81 MG ENTERIC TAB PO SCH (19:56)
[2020-08-04] MEDS: atenoloL 25 MG TAB PO SCH (19:57)
[2020-08-04] MEDS: CLOPIDOGREL 75 MG TAB PO SCH (19:57)
[2020-08-04] MEDS: diphenhydrAMINE 50MG/ML VIAL (J1200) IM PRN (21:40)
[2020-08-04] MEDS: HALOPERIDOL 5MG/ML VIAL (J1630 PER 1) IM PRN (21:41)
[2020-08-05] MEDS ORDERED: LORazepam 1 MG TAB PO ONE (01:35)
[2020-08-05] MEDS ORDERED: LORazepam 2 MG/ML VIAL IV PRN (01:55)
[2020-08-05] MEDS ORDERED: LORazepam 1 MG TAB PO PRN (02:00)
[2020-08-05] MEDS: IPRATROPIUM 0.5MG/ALBUTEROL 2.5MG INH SOL UD 3ML (DUONEB) NEB SCH ×5 (03:48→20:00)
[2020-08-05 06:00] VITALS: BP 120/79
[2020-08-05] MEDS: diphenhydrAMINE 50MG/ML VIAL (J1200) IM PRN (07:50)
[2020-08-05] MEDS: HALOPERIDOL 5MG/ML VIAL (J1630 PER 1) IM PRN (07:50)
[2020-08-05] MEDS ORDERED: diphenhydrAMINE 50MG/ML VIAL (J1200) IM ONE (08:15)
[2020-08-05] MEDS: DONEPEZIL 5 MG TAB PO SCH (09:00)
[2020-08-05] MEDS: OLANZapine 2.5MG TABLET PO SCH ×4 (09:00→20:16)
[2020-08-05] MEDS: SPIRONOLACTONE 25 MG TAB PO SCH (09:00)
[2020-08-05] MEDS: MEMANTINE 5MG TABLET (NAMENDA) PO SCH (09:00)
--- NOTE | 2020-08-05 11:19 | MHIPNPDOC ---
[facility] Progress Note Progress Note DATE OF SERVICE: 08/05/20 HISTORY: 75-year-old male admitted for difficulty in breathing and worsening dementia, nursing stock ranch supervisor requested recommendation following previous consultation by Dr. Hidalgo as patient has become sleepless increasingly agitated while on medical unit. Patient had been living with sister and was developing increasing signs of loss of memory. He had previously been living alone but in May, had moved in with his sister. He had developed some paranoia VITAL SIGNS: See below. NEW TEST RESULTS:. No new test results. CURRENT MEDICATIONS: See below. MENTAL STATUS EXAMINATION: Patient is a 75-year old male, who is, presently asleep and nursing requested we not wake him up. He has received numerous when necessary. Speech: Is not determined. Language skills are not determined. Thought processes including: Not measurable. Thought content: Not determined. Abstract reasoning, and computation: Not determined. Description of associations: To determine. Description of abnormal or psychotic thoughts: Assuming patient has confusion. Judgment:, Not determined. Insight: Not determined. Orientation: Most likely not oriented. Recent and remote memory:, Not determined. Attention span and concentration:, Poor. Language:, Not determined. Fund of knowledge:, Difficult to measure. Mood: Not determined. Affect: Sedated. DIAGNOSES: 1. Dementia. 2., Rule out delirium. 3., COPD. ASSESSMENT: Patient was placed on Zyprexa 2.5 twice a day. It was started here and Seroquel 25.hs He has also been on 2 dementia medications Aricept and Namenda. He has also been given while here the following. Haldol twice in the last 24 hours as well as Benadryl 3 times in the last 24 hours for a total of 75 mg. In addition, he has been given Ativan 1 mg 2:30 in the morning. He had been up all night MANAGEMENT PLAN: I am making the assumption that the patient is having additional delirium and the first step. I would do is decrease or discontinue medications he is on.. I would stop and Namenda and Aricept, as they are not immediately necessary, I would stop Benadryl. I would stop the Valium. I would stop Haldol. I would change his Zyprexa to 2.5 3 times a day and Seroquel 50 at bedtime I am hoping that by simplifying his medication and decreasing her that perhaps he will clear, somewhat. Please feel free to notify me as to his progress or lack of TIME SPENT: minutes. Vital Signs Vital Signs Date Time Temp Pulse Resp B/P (MAP) Pulse Ox O2 Delivery O2 Flow Rate FiO2 08/05/20 06:00 97.2 71 19 120/79 (93) 99 Room Air Current Medications Current Medications Medications (Trade) Dose Ordered Sig/Christi Route PRN Reason Start Time Stop Time Status Last Admin Dose Admin Albuterol/ Ipratropium (Duoneb (Ipr 0.5mg/Alb 2.5mg)) 3 ml Q2HP PRN NEB SOB/WHEEZING 07/24/20 11:45 Albuterol/ Ipratropium (Duoneb (Ipr 0.5mg/Alb 2.5mg)) 3 ml RQ4H NEB 07/24/20 12:00 08/03/20 19:42 Aspirin (Ecotrin) 81 mg QHS PO 07/24/20 21:00 08/04/20 19:56 Atenolol (Tenormin) 25 mg QHS PO 07/24/20 21:00 08/04/20 19:57 Clopidogrel Bisulfate (PLAVix) 75 mg QHS PO 07/24/20 21:00 08/04/20 19:57 Diphenhydramine HCl (Benadryl) 25 mg Q6HP PRN IM AGITATION 07/25/20 21:00 08/05/20 10:44 DC 08/05/20 07:50 Donepezil HCl (AriCEPT) 5 mg DAILY PO 07/25/20 09:00 08/05/20 10:44 DC 08/04/20 09:51 Haloperidol (Haldol) 2 mg Q6HP PRN IM AGITATION 07/29/20 07:45 Haloperidol (Haldol) 5 mg Q6HP PRN IM AGITATION 07/25/20 21:00 08/05/20 07:50 Home Med (Med Rec Complete!) ASDIRECTED XX 07/24/20 11:15 07/24/20 11:10 DC Lorazepam (Ativan) 1 mg Q4HP PRN IM AGITATION 07/29/20 08:00 08/03/20 15:19 DC Lorazepam (Ativan) 1 mg Q6HP PRN IV ANXIETY/AGITATION 08/05/20 01:55 08/05/20 02:02 DC Lorazepam (Ativan) 1 mg Q6HP PRN PO ANXIETY 08/05/20 02:00 08/05/20 10:44 DC 08/05/20 02:35 Magnesium Hydroxide (Milk Of Magnesia) 30 ml DAILYPRN PRN PO CONSTIPATION 07/27/20 10:45 Memantine (Namenda) 5 mg BID PO 07/24/20 21:00 07/25/20 12:58 DC 07/25/20 08:06 Memantine (Namenda) 10 mg BID PO 07/25/20 21:00 08/05/20 10:44 DC 08/04/20 19:56 Methylprednisolone (SOLUmedrol) 60 mg Q6H IV 07/24/20 18:00 07/24/20 12:59 DC Olanzapine (ZyPREXA) 2.5 mg BID PO 07/25/20 21:00 08/05/20 10:44 DC 08/04/20 19:57 Olanzapine (ZyPREXA) 2.5 mg TID PO 08/05/20 09:00 Prednisone (Deltasone) 10 mg Taper DAILY PO 07/29/20 09:00 08/04/20 08:59 DC 08/03/20 10:14 Prednisone (Deltasone) 40 mg DAILY PO 07/30/20 09:00 07/29/20 10:28 DC Prednisone (Deltasone) 60 mg BID PO 07/24/20 21:00 07/29/20 07:51 DC 07/28/20 21:01 Quetiapine Fumarate (SEROquel) 25 mg QHS PO 08/03/20 21:00 08/05/20 10:45 DC 08/04/20 19:56 Quetiapine Fumarate (SEROquel) 25 mg QHSP PRN PO AGITATION or Insomnia 07/25/20 20:15 08/03/20 15:20 DC 08/02/20 21:06 Quetiapine Fumarate (SEROquel) 50 mg QHS PO 08/05/20 21:00 Spironolactone (Aldactone) 25 mg DAILY PO 07/24/20 09:00 08/04/20 09:51 Allergies Coded Allergies: codeine (Verified Allergy, Unknown, 09/07/18) JAYANT PAZ MD Aug 05, 2020 11:19
--- NOTE | 2020-08-05 14:44 | IPNPDOC ---
Text Note Date of Service The patient was seen on 08/05/20. NOTE Hospitalist Progress Note Subjective: Apparently the patient had a very restless and sleepless night, patient was given Ativan, Haldol, Benadryl, none of which were able to induce sleep. At approximately 0745 this morning a code 25 was called as he was now belligerent and trying to get out into the hallway. He was hallucinating/delirious, and making all sorts of verbal threats to those around him. An additional dose of Ativan and Benadryl was given to him at that time, and he eventually calmed down and fell asleep. It was requested that the psychiatry team, and evaluate him to see if any adjustments to his medications could be made, and they have graciously accepted the consult. Objective: General: Awake, alert, quite agitated and, clearly not oriented. He really does not respond to any questioning appropriately. HEENT: Head normocephalic, atraumatic, sclera are nonicteric. Hearing is grossly intact to conversation. Assessment/Plan: Dementia Perhaps delirium -Recommendations from the psychiatric team are greatly appreciated they are as follows: Stop Ativan, Benadryl, Aricept, Namenda, Haldol. Increased dose of Seroquel from 25-50 mg daily at bedtime. Increase dose of Zyprexa from 2.5 mg twice a day to 3 times a day. All these changes have been put into the computer. COPD exacerbation -Now resolved he was only on a rescue albuterol inhaler at home, and this may be continued upon discharge. While inpatient and we will continue with as needed nebulizers. Solitary kidney due to history of kidney stones and chronic kidney disease stage III -Continue to avoid nephrotoxins, renally dose all medications Hypertension -Continue same dose of atenolol, spironolactone History of coronary artery disease and myocardial infarction -Continue aspirin, atenolol, Plavix Disposition: Apparently he already has a bed ready for him at a dementia unit, his anticipated discharge is 08/07/2020 at 10 AM VS,Fishbone, I+O VS, Fishbone, I+O Vital Signs Date Time Temp Pulse Resp B/P (MAP) Pulse Ox O2 Delivery O2 Flow Rate FiO2 08/05/20 06:00 97.2 71 19 120/79 (93) 99 Room Air I&O- Last 24 Hours up to 6 AM 08/05/20 06:00 Intake Total 1146 ml Output Total 0 ml Balance 1146 ml JAYANT CALLE DO Aug 05, 2020 14:44
[2020-08-05 20:15] VITALS: BP 135/84
[2020-08-05] MEDS: atenoloL 25 MG TAB PO SCH (20:15)
[2020-08-05] MEDS: QUEtiapine FUMARATE 50MG TAB PO SCH (20:16)
[2020-08-05] MEDS: ASPIRIN 81 MG ENTERIC TAB PO SCH (20:16)
[2020-08-05] MEDS: CLOPIDOGREL 75 MG TAB PO SCH (20:16)
[2020-08-06] MEDS: IPRATROPIUM 0.5MG/ALBUTEROL 2.5MG INH SOL UD 3ML (DUONEB) NEB SCH ×6 (00:20→19:41)
[2020-08-06 06:00] VITALS: BP 136/88
[2020-08-06] MEDS: SPIRONOLACTONE 25 MG TAB PO SCH (09:30)
[2020-08-06] MEDS: OLANZapine 2.5MG TABLET PO SCH ×3 (09:30→20:04)
[2020-08-06 10:30] LABS: HEMATOCRIT 43.2 % (42.0-52.0); HEMOGLOBIN 13.9 g/dl (13.5-17.5); MEAN CORPUSCULAR HEMOGLOBIN 30.4 pg (27.0-33.0); MEAN CORPUSCULAR HGB CONC 32.2 g/dl (32.0-36.5); MEAN CORPUSCULAR VOLUME 94.5 fl (80.0-96.0); PLATELET COUNT, AUTOMATED 242 10^3/uL (150-450); RED BLOOD COUNT 4.57 10^6/uL (4.30-6.10); WHITE BLOOD COUNT 8.7 10^3/uL (4.0-10.0)
[2020-08-06 10:59] LABS: CALCIUM LEVEL 8.8 MG/DL (8.8-10.2); CREATININE FOR GFR 1.46 MG/DL (0.70-1.30); POTASSIUM SERUM 4.2 MEQ/L (3.5-5.1)
[2020-08-06] MEDS ORDERED: ACETAMINOPHEN 650MG ER TAB (TYLENOL ARTHRITIS) PO PRN (13:45)
[2020-08-06] MEDS: QUEtiapine FUMARATE 50MG TAB PO SCH (20:04)
[2020-08-06] MEDS: CLOPIDOGREL 75 MG TAB PO SCH (20:04)
[2020-08-06] MEDS: atenoloL 25 MG TAB PO SCH (20:04)
[2020-08-06] MEDS: ASPIRIN 81 MG ENTERIC TAB PO SCH (20:04)
[2020-08-06] MEDS ORDERED: OLAN2.5T25 PO (20:54)
[2020-08-06] MEDS ORDERED: HALO1TAB19 PO (20:54)
[2020-08-06] MEDS ORDERED: QUET50TA3 PO (20:58)
--- NOTE | 2020-08-06 21:12 | DS.PDOC ---
Discharge Summary General Date of Admission Jul 24, 2020 at 11:31 Date of Discharge Anticipated tomorrow mornin08/07/2020 Discharge Summary PRIMARY CARE PHYSICIAN: Shawn Hart ATTENDING AT TIME OF DISCHARGE: Dr. Jayant Calle DO DISCHARGE DIAGNOS(E)S: COPD exacerbation Dementia Delirium Solitary kidney due to history of kidney stones Chronic kidney disease stage III Hypertension Coronary artery disease History of myocardial infarction HPI & HOSPITAL COURSE: Patient presented to the emergency department with shortness of breath, and was hospitalized for COPD exacerbation. Apparently for the month prior to his admission he had been experiencing worsening dementia as well, with episodes of acute delirium. While inpatient his COPD exacerbation was treated with tapering doses of prednisone, nebulizers, inhalers, and has resolved. He was seen and evaluated by psychiatry who diagnosed him with neurocognitive disorder and deemed his insight and judgment to be compromised and he has no capacity to make decisions regarding his health. He did have one incidence of elopement, he was found shortly thereafter brought back into the hospital. For this purpose he will need to be on a locked dementia unit. PHYSICAL EXAMINATION ON DISCHARGE: GENERAL: Awake, alert, not oriented. CARDIOVASCULAR EXAMINATION: Regular rate and rhythm, with no rubs, gallops, or murmur. RESPIRATORY EXAMINATION: Clear to auscultation bilaterally with no wheezes, rales, or rhonchi. ABDOMINAL EXAMINATION: Soft, nontender, nondistended. Bowel sounds present. EXTREMITIES: No clubbing or edema noted. 2+ pulses in the radial bilaterally. DISPOSITION: To dementia unit at [facility] in [place], [place] DISCHARGE INSTRUCTIONS: Follow-up with new primary provider at his dementia unit. Activity as tolerated. Diet as tolerated. If symptoms return, or if you experience worsening of your symptoms, please call your doctor or return to the emergency department. DISCHARGE MEDICATIONS: Olanzapine 2.5 mg by mouth 3 times a day Seroquel 50 mg by mouth daily at bedtime Haloperidol 2 mg by mouth twice a day Aspirin 81 mg by mouth daily Atenolol 25 mg by mouth daily Plavix 75 mg by mouth daily Spironolactone 25 mg by mouth daily Albuterol inhaler to be used on an as-needed basis for shortness of breath Vital Signs/I&Os Vital Signs Date Time Temp Pulse Resp B/P (MAP) Pulse Ox O2 Delivery O2 Flow Rate FiO2 08/06/20 06:00 97.1 58 16 136/88 (104) 97 Room Air I&O- Last 24 Hours up to 6 AM 08/06/20 06:00 Intake Total 1306 ml Output Total 0 ml Balance 1306 ml Laboratory Data Labs 24H Laboratory Tests 2 08/06/20 10:03: Nucleated Red Blood Cells % (auto) 0.0, Anion Gap 4L, Glomerular Filtration Rate 50.0, Calcium Level 8.8 CBC/BMP Laboratory Tests 08/06/20 10:03 Discharge Medications Scheduled Albuterol Sulfate (Proventil Hfa) 6.7 Gm Hfa.aer.ad, 2 PUFF INH Q4H for wheezing Aspirin (Aspirin EC) 81 Mg Tab, 81 MG PO QHS, (Reported) Atenolol (Atenolol) 25 Mg Tablet, 25 MG PO QHS, (Reported) Clopidogrel Bisulfate (Clopidogrel) 75 Mg Tab, 75 MG PO QHS, (Reported) Haloperidol (Haloperidol) 2 Mg Tablet, 2 MG PO BID Olanzapine (Olanzapine) 2.5 Mg Tablet, 2.5 MG PO TID Omeprazole Magnesium (Prilosec Otc) 20 Mg Tablet.dr, 20 MG PO DAILY Quetiapine Fumarate (Quetiapine Fumarate) 50 Mg Tablet, 50 MG PO QHS Spironolactone (Spironolactone) 25 Mg Tab, 25 MG PO DAILY, (Reported) Vitamin B Complex (Vitamin B Complex) 1 Each Tablet, 1 TAB PO DAILY, (Reported) Allergies Coded Allergies: codeine (Verified Allergy, Unknown, 09/07/18) JAYANT CALLE DO Aug 06, 2020 21:12
[2020-08-07] MEDS: IPRATROPIUM 0.5MG/ALBUTEROL 2.5MG INH SOL UD 3ML (DUONEB) NEB SCH ×3 (03:31→07:41)
[2020-08-07 06:00] VITALS: BP 107/68
[2020-08-07] MEDS: SPIRONOLACTONE 25 MG TAB PO SCH (07:58)
[2020-08-07] MEDS: OLANZapine 2.5MG TABLET PO SCH (07:58)
--- NOTE | 2020-08-07 08:02 | IPNPDOC ---
Date Seen The patient was seen on 08/07/20. Progress Note SUBJECTIVE: Patient was seen and examined at bedside. Doing well. Had no acute events overnight. Plan for discharge this morning. Please see DC summary by Dr. Crockett from 08/06/20 for detailed hospital stay description OBJECTIVE PHYSICAL EXAMINATION: VITAL SIGNS: please see below General: NAD, comfortable HEENT: PERRLA, EOMI, sclerae clear Respiratory: lungs CTAB, no wheeze, no rales, no crackles CVS: RRR, normal S1, S2, no murmurs Psych: calm, cooperative, AAO x 1-2 LABORATORY DATA, IMAGING STUDIES, MICROBIOLOGY: Please see below. DVT prophylaxis ordered?: ASSESSMENT AND PLAN: 75 yo M with a hx of COPD, CKD, dementia complicated by delirium, admitted for management of COPD exacerbation, which has resolved. Seen by psychiatry, non competent, diagnosed with neurocognitive disorder. Accepted at dementia unit at the [facility] in [place], [place]. DC today. No acute events. VSS. Please see DC summary by Dr. Crockett from 08/07/19. VS, I&O, 24H, Fishbone Vital Signs/I&O Vital Signs Date Time Temp Pulse Resp B/P (MAP) Pulse Ox O2 Delivery O2 Flow Rate FiO2 08/07/20 06:00 96.8 68 18 107/68 (81) 99 Room Air I&O- Last 24 Hours up to 6 AM 08/07/20 06:00 Intake Total 780 ml Output Total 0 ml Balance 780 ml Laboratory Data 24H LABS Laboratory Tests 2 08/06/20 10:03: Nucleated Red Blood Cells % (auto) 0.0, Anion Gap 4L, Glomerular Filtration Rate 50.0, Calcium Level 8.8 08/07/20 05:08: Coronavirus (COVID-19)(PCR) NEGATIVE CBC/BMP Laboratory Tests 08/06/20 10:03 BRIGID ARTHUR MD Aug 07, 2020 08:02
== END 2020-08-07 09:44 | DRG 191 ==
LOC: EDBD 09:51 → M ED 09:51 → M ED INP 11:31 → M MSPAV 13:47
PROVIDERS: ADMIT General Practice; ATTEND Neuromusculoskeletal Medicine & OMM
DX: J44.1 Chronic obstructive pulmonary disease with (acute) exacerbation (principal); F03.91 Unspecified dementia, unspecified severity, with behavioral disturbance; R41.0 Disorientation, unspecified; N18.30 Chronic kidney disease, stage 3 unspecified; I12.9 Hypertensive chronic kidney disease with stage 1 through stage 4 chronic kidney disease, or unspecified chronic kidney disease; I25.10 Atherosclerotic heart disease of native coronary artery without angina pectoris; I25.2 Old myocardial infarction; Z87.442 Personal history of urinary calculi; Z79.82 Long term (current) use of aspirin; Z79.899 Other long term (current) drug therapy; Z88.5 Allergy status to narcotic agent